=== PATIENT | male | born 1955 | race Caucasian/White ===

== ENCOUNTER 2018-06-06 13:26 | Inpatient (IN) | payer OTHER ==
[2018-06-06 13:38] VITALS: BMI 31.3
--- NOTE | 2018-06-06 14:16 | PDOC ---
History of Present Illness - General Chief Complaint: Shortness of Breath Stated Complaint: ASTHMA Time Seen by Provider: 06/06/18 13:58 - History of Present Illness Initial Comments: 06/06/18 14:39 The patient is a 62 year old male with a history of HIV (unknown CD4), COPD who presents for evaluation of shortness of breath. The patient is accompanied by family who assist in providing the history. They note that the patient is in the process of immigrating from [place] and was admitted to the hospital in [place] 20 days ago for a pneumonia and COPD exacerbation. He recently arrived in [place] 10 days ago and over the past few days has been experiencing worsening shortness of breath at rest and with exertion prompting his presentation to the ED for further evaluation. They otherwise deny any fevers, chills, chest pain, cough, nausea, vomiting, abdominal pain, or changes with urination or bowel movements. Past History - Past Medical History Allergies/Adverse Reactions: Allergies Allergy/AdvReac Type Severity Reaction Status Date / Time No Known Allergies Allergy Verified 06/06/18 13:33 Home Medications: Ambulatory Orders Efavirenz [Sustiva] 600 mg PO DAILY 06/07/18 COPD: Yes - Immunization History Immunization Up to Date: Yes - Suicide/Smoking/Psychosocial Hx Smoking History: Never smoked Information on smoking cessation initiated: No Hx Alcohol Use: No Drug/Substance Use Hx: No Review of Systems - Review of Systems Comments:: 06/06/18 14:42 Constitutional: No fevers, chills, fatigue, malaise HEENT: No Rhinorrhea, nasal congestion, visual changes Cardiovascular: No chest pain, syncope, palpitations, lightheadedness Respiratory: SOB. No Cough, Hemoptysis, Gastrointestinal: No Abdominal pain, Nausea, Vomiting, Constipation, Diarrhea, Melena Genitourinary: No Dysuria, Frequency, Urgency, Hesitancy, Hematuria, Flank pain Musculoskeletal: No Myalgia, arthralgia Skin: No rashes, itching, bruising, pallor Neurologic: No Headache, Dizziness, Numbness, Weakness, or Tingling Psychiatric: No Hallucinations. No SI or HI *Physical Exam - Vital Signs Last Vital Signs Temp Pulse Resp BP Pulse Ox 98.1 F 94 H 22 H 137/71 93 L 06/06/18 13:34 06/06/18 13:34 06/06/18 13:34 06/06/18 13:34 06/06/18 13:34 - Physical Exam Comments: 06/06/18 14:42 General Appearance: Nourished. No Apparent Distress HEENT: No Pharyngeal Erythema, Tonsillar Exudate, Tonsillar Erythema Neck: No Cervical Lymphadenopathy Respiratory/Chest: Normal Breath Sounds. Diffuse inspiratory and expiratory wheezing noted on exam. No Crackles, Rales, Rhonchi, Cardiovascular: Regular Rhythm, Regular Rate. No Murmur, Gallops, Rubs Gastrointestinal/Abdominal: Normal Bowel Sounds, Soft. No Guarding, Rebound, Tenderness Musculoskeletal: No CVA Tenderness Extremity: Normal Capillary Refill Integumentary: Normal Color, Dry, Warm Neurologic: Fully Oriented, Alert, Normal Mood/Affect, Normal Response, ED Treatment Course - LABORATORY CBC & Chemistry Diagram: 06/07/18 05:30 06/07/18 05:30 Medical Decision Making - Medical Decision Making 06/06/18 14:43 The patient is a 62 year old male with a history of HIV (unknown CD4), COPD who presents for evaluation of shortness of breath. Differential includes but is not limited to: COPD exacerbation, Pneumonia, PCP, Infectious, Metabolic derangement. Given the patient's history and physical exam, we will obtain a cbc, cmp, lactate, blood cultures, LDH, Infectious, Metabolic Derangement. We will treat with vanc, zosyn, bactrim, duonebs, solu-medrol and continue to monitor and reassess while here in the ED. The patient will likely require admission for further management. 06/06/18 16:36 CBC, cmp, lactate are unremarkable. Chest plain film demonstrated increased interstial lung markings bilaterally as read by our radiologist. We discussed the case with the admitting team who accepted the patient for admission. *DC/Admit/Observation/Transfer Diagnosis at time of Disposition: COPD exacerbation - Discharge Dispostion Condition at time of disposition: Stable Decision to Admit order: Yes - Referrals - Patient Instructions - Post Discharge Activity
[2018-06-06] MEDS ORDERED: ALBUTEROL SO4 2.5/IPRATROPIUM 0.5 INH SOL 3 ML VIAL.NEB. NEB ONE ×2 (14:21→14:55)
--- NOTE | 2018-06-06 14:30 | PDOC ---
Attending Attestation - HPI HPI: 06/06/18 14:51 The patient is a 62 year old male with a significant past medical history of HIV (on STRANGE), and COPD who presents to the emergency department with some increased shortness of breath for 1 month. The patient reports that he recently traveled from [facility] by which he was in [place] for about 20 days. He states that he was admitted while in [place] for pneumonia then treated and discharged. The patient reports coming to [place] about 10 days ago by which his shortness of breath has worsened on exertion. He denies any other symptoms or complaints on exam. - Physicial Exam PE: 06/06/18 15:10 Vitals: Triage vital signs reviewed General Appearance: No acute distress, well nourished, well developed Head: Atraumatic Chest Wall: Nontender Cardiac: Regular rate and rhythm, no murmurs, no rubs, no gallops Lungs: (+)crackles at left side. good air movement bilaterally Abdomen: Soft, nondistended, normal bowel sounds, nontender to palpation Extremities: Full range of motion to all extremities, no cyanosis, clubbing, or edema Skin: Warm and dry, no rashes or lesions, no rash, no petechiae Neuro: AOX3; Cranial Nerves 2-12 grossly intact, Strength intact to all extremities, Sensation intact to all extremities, gait normal Psych: Normal mood, normal affect - Medical Decision Making 06/06/18 14:54 The patient is a 62 year old male with a significant past medical history of HIV (on STRANGE), and COPD who presents to the emergency department with some increased shortness of breath for 1 month. The patient will get labs drawn, EKG , medication and chest x-ray. <Josie Hicks - Last Filed: 06/06/18 15:10> - Resident Resident Name: Malcolm Dey - ED Attending Attestation I have performed the following: I have examined & evaluated the patient, The case was reviewed & discussed with the resident, I agree w/resident's findings & plan, Exceptions are as noted - Medical Decision Making 06/06/18 16:06 62 years old HIV on heart presents emergency Department with progressively worsening shortness of breath and dyspnea on exertion Patient does have history and was recently treated for presumed PCP pneumonia in [place] Focal lung findings on cardiac pulmonary exam We'll obtain labs blood cultures chest x-ray likely admit for hospital-acquired pneumonia plus minus PCP pneumonia Dr. Galaviz to follow up labs and dispo <Albino Dominguez - Last Filed: 06/06/18 16:06> Attestations - Attestations 06/06/18 14:54 Documentation prepared by Josie Hicks, acting as medical coding technician for Albino Dominguez MD. <Josie Hicks - Last Filed: 06/06/18 15:10>
[2018-06-06] MEDS ORDERED: VANCOMYCIN HCL 1,500 MG in DEXTROSE 5%-WATER - 500 ML IVPB ONE (14:35)
[2018-06-06] MEDS ORDERED: PIPERACILLIN/TAZOB 4.5 GM 4.5 GM in DEXTROSE 5%-WATER 100 ML IVPB ONE (14:35)
[2018-06-06] MEDS ORDERED: methylPREDNISolone NA SUCC 125 MG/2 ML VIAL IVPUSH ONE (14:46)
[2018-06-06 15:00] LABS: BASO % 0.8 % (0-2.0); EOS % 1.2 % (0-4.5); HEMATOCRIT 39.7 % (35.4-49); HEMOGLOBIN 13.3 GM/dL (11.7-16.9); LYMPH % 27.3 % (8-40); MCH 37.9 pg (25.7-33.7); MCHC 33.5 g/dl (32.0-35.9); MEAN CELL VOLUME 113.3 fl (80-96); MEAN PLT VOLUME 7.9 fl (7.5-11.1); MONO % 7.8 % (3.8-10.2); NEUT % 62.9 % (42.8-82.8); PLATELET COUNT 275 K/MM3 (134-434); RDW 15.2 % (11.9-15.9); WHITE BLOOD COUNT 8.2 K/mm3 (4.0-10.0)
[2018-06-06] MEDS ORDERED: methylPREDNISolone NA SUCC 125 MG/2 ML VIAL ONE (15:13)
[2018-06-06] MEDS ORDERED: PIPERACILLIN/TAZOB 4.5 GM 4.5 GM/100 ML BAG IVPB ONE (15:13)
[2018-06-06 15:17] LABS: VENOUS PC02 44.5 mmHg (41-51); VENOUS PH 7.41 (7.31-7.41); VENOUS PO2 65.4 mmHg (30-40)
[2018-06-06 15:28] LABS: ANISOCYTOSIS 1+; MACROCYTOSIS 1+; PLATELET ESTIMATE NORMAL
[2018-06-06 15:30] LABS: ALBUMIN 3.3 g/dl (3.4-5.0); ALK PHOS 50 U/L (45-117); ANION GAP 6 MMOL/L (8-16); BILIRUBIN,TOTAL 0.2 mg/dL (0.2-1); BLOOD UREA NITROGEN 15 mg/dL (7-18); CALCIUM 7.8 mg/dL (8.5-10.1); CHLORIDE 102 mmol/L (98-107); CO2 30 mmol/L (21-32); CREATININE 0.7 mg/dL (0.55-1.3); GLUCOSE,RANDOM 101 mg/dL (74-106); N-TERMINAL BNP 89.7 pg/ml (5-125); SGOT/AST 19 U/L (15-37); SGPT/ALT 28 U/L (13-61); SODIUM 138 mmol/L (136-145); TOT PROT 6.4 g/dl (6.4-8.2)
[2018-06-06] MEDS ORDERED: SULFAMETHOXAZOLE/TRIMETHOPRIM 800MG/160MG D.S. TABLET PO ONE (15:56)
[2018-06-06] MEDS ORDERED: SULFAMETHOXAZOLE/TRIMETHOPRIM 800MG/160MG D.S. TABLET ONE (16:37)
[2018-06-06] MEDS ORDERED: ALBUTEROL SO4 0.083% IH SOL 2.5 MG/3 ML VIAL.NEB. NEB PRN (18:36)
--- NOTE | 2018-06-06 18:46 | PN ---
Teaching Attending Note Name of Resident: Shazia Nice ATTENDING PHYSICIAN STATEMENT I saw and evaluated the patient. I reviewed the resident's note and discussed the case with the resident. I agree with the resident's findings and plan as documented with exceptions below. SUBJECTIVE: 62 yom in the process of immigrating from [facility], with PMHx of HIV on HAART (? CD4 count), BPH, COPD, prior heavy smoker, recently admitted in [place] for reported PNA (?PCP) and COPD exacerbation for 10 days, d/franky 20 days ago, has been having persistent shortness of breath with cough with scant sputum, limiting daily activities prompting him to come to the ED. Denies any fevers, chills, recent weight loss, sick contacts, abdominal or urinary symptoms. OBJECTIVE: Vital Signs Period Temp Pulse Resp BP Sys/Clif[place] Pulse Ox Last 24 Hr 98.1 F-98.1 F 82-94 16-22 120-137/71-78 93-100 Intake & Output 06/03/18 06/04/18 06/05/18 06/06/18 23:59 23:59 23:59 23:59 Weight 200 lb GENERAL: Awake, alert, and fully oriented, mild respiratory distress with conversation HEAD: Normal with no signs of trauma. EYES: Pupils equal, round and reactive to light, extraocular movements intact, sclera anicteric, conjunctiva clear. No lid lag. EARS, NOSE, THROAT: Ears normal, nares patent, Oropharynx clear without exudates. Moist mucous membranes. NECK: Soft, supple, no JVD LUNGS: Fine right basilar rales, decreased air entry all over, no wheezing appreciated HEART: Regular rate and rhythm, normal S1 and S2 ABDOMEN: Soft, nontender, not distended, Normoactive bowel sounds, No guarding, no rebound, no masses. MUSCULOSKELETAL: Normal range of motion at all joints. No bony deformities or tenderness. No CVA tenderness. UPPER EXTREMITIES: 2+ pulses, warm, well-perfused. No cyanosis. No clubbing. No peripheral edema. LOWER EXTREMITIES: 2+ pulses, warm, well-perfused. No calf tenderness. No peripheral edema. NEUROLOGICAL: AAOX3, Cranial nerves II-XII intact. Normal speech. Normal gait. PSYCHIATRIC: Cooperative. Good eye contact. Appropriate mood and affect. SKIN: Warm, dry, normal turgor, no rashes or lesions noted, normal capillary refill. Active Medications Albuterol Sulfate (Ventolin 0.083% Nebulizer Soln -) 1 amp NEB Q4H PRN PRN Reason: SHORT OF BREATH/WHEEZING Albuterol/Ipratropium (Duoneb -) 1 amp NEB RTID GLENNY Heparin Sodium (Porcine) (Heparin -) 5,000 unit SQ TID GLENNY Azithromycin (Zithromax 500mg Ivpb (Pre-Docked)) 500 mg in 250 mls @ 250 mls/ hr IVPB DAILY GLENNY Sodium Chloride (Normal Saline -) 1,000 mls @ 100 mls/hr IV ASDIR GLENNY Methylprednisolone Sodium Succinate (Solu-Medrol -) 40 mg IVPB Q8H-IV GLENNY Trimethoprim/Sulfamethoxazole (Bactrim Ds -) 2 each PO TID GLENNY Laboratory Results - last 24 hr 06/06/18 06/06/18 06/06/18 14:47 14:47 14:47 WBC 8.2 RBC 3.50 L Hgb 13.3 Hct 39.7 MCV 113.3 H MCH 37.9 H MCHC 33.5 RDW 15.2 Plt Count 275 MPV 7.9 Absolute Neuts (auto) 5.1 Neutrophils % 62.9 Lymphocytes % 27.3 Monocytes % 7.8 Eosinophils % 1.2 Basophils % 0.8 Nucleated RBC % 0 Hypochromia 0 Platelet Estimate Normal Polychromasia 0 Poikilocytosis 0 Anisocytosis 1+ Microcytosis 0 Macrocytosis 1+ VBG pH POC VBG pCO2 POC VBG pO2 VBG HCO3 VBG O2 Sat (Josephine) VBG Base Excess Sodium 138 Potassium 4.0 Chloride 102 Carbon Dioxide 30 Anion Gap 6 L BUN 15 Creatinine 0.7 Creat Clearance w eGFR 114.65 Random Glucose 101 Lactic Acid 1.9 Calcium 7.8 L Total Bilirubin 0.2 AST 19 ALT 28 Alkaline Phosphatase 50 Creatine Kinase 142 Troponin I < 0.02 B-Natriuretic Peptide 89.7 Total Protein 6.4 Albumin 3.3 L 06/06/18 06/06/18 14:47 15:04 WBC RBC Hgb Hct MCV MCH MCHC RDW Plt Count MPV Absolute Neuts (auto) Neutrophils % Lymphocytes % Monocytes % Eosinophils % Basophils % Nucleated RBC % Hypochromia Platelet Estimate Polychromasia Poikilocytosis Anisocytosis Microcytosis Macrocytosis VBG pH 7.41 POC VBG pCO2 44.5 POC VBG pO2 65.4 H VBG HCO3 27.8 VBG O2 Sat (Josephine) 92.3 H VBG Base Excess 3.2 H Sodium Potassium Chloride Carbon Dioxide Anion Gap BUN Creatinine Creat Clearance w eGFR Random Glucose Lactic Acid Calcium Total Bilirubin AST ALT Alkaline Phosphatase Creatine Kinase Troponin I < 0.02 B-Natriuretic Peptide Total Protein Albumin CXR resutlts reviewed ASSESSMENT AND PLAN: 62 yom with PMHx of HIV on HAART, BPH, COPD, reported recent admission in [place] for PNA(?PCP)?COPD exacerbation, admitted with progressive dyspnea. -Acute on ?Chronic hypoxic respiratory failure. -?HCAP, r/o PCP -ACute COPD exacerbation -HIV on HAART -BPH Plan: SOn to bring in prior records and medications. Solumedrol 40 mg IV q8h, standing and prn nebs. CT chest. s/p Zosyn/vancomycin in ED. Hold off on additional abx pending ID input, CT chest and clinical course. Bactrim PCP PNA dosing, ID input. IV hydration. SPutum cx if available. Resume HAART pending med reconciliation. Follow up LDH, B D glucan. Pulmonary input. DVTPPX heparin dispo admit to med surg Plan discussed with patient and ED nursing. Total admit time spent 55 min.
[2018-06-06 18:57] LABS: PH,URINE 7.5 (5.0-8.0); URINE APPEARANCE CLEAR; URINE BILIRUBIN NEGATIVE (NEGATIVE); URINE COLOR YELLOW; URINE GLUCOSE (UA) NEGATIVE (NEGATIVE); URINE KETONE NEGATIVE (NEGATIVE); URINE LEUK ESTERASE NEGATIVE (NEGATIVE); URINE NITRITE NEGATIVE (NEGATIVE); URINE PROTEIN NEGATIVE (NEGATIVE); URINE UROBILINOGEN 0.2 mg/dL (0.2-1.0)
--- NOTE | 2018-06-06 18:58 | HP ---
CHIEF COMPLAINT: SOB PCP:none HISTORY OF PRESENT ILLNESS: The patient is a 62 year old Surinamese speaking male with a PMH of HIV (for 10 years, unknown viral load, on HAART), COPD, former heavy smoker, COPD, BPH that presented to the hospital complaining of shortness of breath that got progressively worse over the past month. He moved to [place] about month ago and was hospitalized in [place] for 10 days for pneumonia. After finishing antibiotic course he was discharged home to continue Prednisone. He doesn't know what is the dose. The patient states that since the discharged his symptoms are getting worse to the point that he experiences shortness of breath with daily activities. He also reports occasional cough, brings small amount of phlegm, no blood. He denies sick contacts, pneumonia in the past. The patient is also compliant with his medications . He denies chest pain, fever, chills, weight changes, vision problems, dysphagia, n/v, diarrhea. ER course was notable for: (1)CXR (2)Bactrim, Vancomycin, Zosyn (3)Oxygen suppl. Recent Travel: month ago from [place] PAST MEDICAL HISTORY: as above PAST SURGICAL HISTORY: none Social History: Smoking:quit month ago. Used to smoke 1 pp/day for 16 years Alcohol:occasionally Drugs: no Family History: n/a Allergies No Known Allergies Allergy (Verified 06/06/18 13:33) HOME MEDICATIONS: REVIEW OF SYSTEMS CONSTITUTIONAL: Absent: fever, chills, diaphoresis, generalized weakness, malaise, loss of appetite, weight change HEENT: Absent: rhinorrhea, throat pain, throat swelling, difficulty swallowing, visual changes CARDIOVASCULAR: Absent: chest pain, syncope, palpitations, irregular heart rate, lightheadedness , peripheral edema RESPIRATORY: cough, shortness of breath, Absent: dyspnea with exertion, orthopnea, wheezing, hemoptysis GASTROINTESTINAL: Absent: abdominal pain, nausea, vomiting, diarrhea, constipation GENITOURINARY: Absent: dysuria, frequency, urgency, hematuria, MUSCULOSKELETAL: Absent: myalgia, arthralgia, joint swelling, back pain, neck pain SKIN: Absent: rash, itching, pallor HEMATOLOGIC/IMMUNOLOGIC: Absent: easy bleeding, easy bruising, lymphadenopathy, frequent infections ENDOCRINE: Absent: unexplained weight gain, unexplained weight loss, heat intolerance, cold intolerance NEUROLOGIC: Absent: headache, focal weakness or paresthesias, dizziness, unsteady gait, seizure PSYCHIATRIC: Absent: anxiety, depression PHYSICAL EXAMINATION Vital Signs - 24 hr 06/06/18 06/06/18 06/06/18 13:33 13:34 14:31 Temperature 98.1 F 98.1 F Pulse Rate 87 94 H Pulse Rate [ 82 Apical] Respiratory 22 H 16 Rate Blood Pressure 137/71 Blood Pressure 120/78 [Left Arm] O2 Sat by Pulse 100 93 L 98 Oximetry (%) GENERAL: Awake, alert, and fully oriented, in no acute distress, sitting comfortably on NC. HEAD: Normal with no signs of trauma. EYES: Pupils equal, round and reactive to light, extraocular movements intact. EARS, NOSE, THROAT: Oropharynx clear without exudates, moist mucous membranes. NECK: Normal range of motion, supple without lymphadenopathy, JVD, or masses. LUNGS: Breath sounds diminished wih occasional rhonchi at bases. No wheezes, and no crackles. No accessory muscle use. HEART: Regular rate and rhythm, normal S1 and S2 without murmur, rub or gallop. ABDOMEN: Soft, nontender, not distended, normoactive bowel sounds, no guarding, no rebound, no masses. MUSCULOSKELETAL: Normal range of motion at all joints. UPPER EXTREMITIES: 2+ pulses, warm. No peripheral edema. LOWER EXTREMITIES: No peripheral edema. NEUROLOGICAL: Non focal. Normal speech. PSYCHIATRIC: Cooperative. Good eye contact. Appropriate mood and affect. SKIN: Warm, dry, normal turgor, no rashes or lesions noted. Laboratory Results - last 24 hr 06/06/18 06/06/18 06/06/18 14:47 14:47 14:47 WBC 8.2 RBC 3.50 L Hgb 13.3 Hct 39.7 MCV 113.3 H MCH 37.9 H MCHC 33.5 RDW 15.2 Plt Count 275 MPV 7.9 Absolute Neuts (auto) 5.1 Neutrophils % 62.9 Lymphocytes % 27.3 Monocytes % 7.8 Eosinophils % 1.2 Basophils % 0.8 Nucleated RBC % 0 Hypochromia 0 Platelet Estimate Normal Polychromasia 0 Poikilocytosis 0 Anisocytosis 1+ Microcytosis 0 Macrocytosis 1+ VBG pH POC VBG pCO2 POC VBG pO2 VBG HCO3 VBG O2 Sat (Josephine) VBG Base Excess Sodium 138 Potassium 4.0 Chloride 102 Carbon Dioxide 30 Anion Gap 6 L BUN 15 Creatinine 0.7 Creat Clearance w eGFR 114.65 Random Glucose 101 Lactic Acid 1.9 Calcium 7.8 L Total Bilirubin 0.2 AST 19 ALT 28 Alkaline Phosphatase 50 Creatine Kinase 142 Troponin I < 0.02 B-Natriuretic Peptide 89.7 Total Protein 6.4 Albumin 3.3 L 06/06/18 06/06/18 14:47 15:04 WBC RBC Hgb Hct MCV MCH MCHC RDW Plt Count MPV Absolute Neuts (auto) Neutrophils % Lymphocytes % Monocytes % Eosinophils % Basophils % Nucleated RBC % Hypochromia Platelet Estimate Polychromasia Poikilocytosis Anisocytosis Microcytosis Macrocytosis VBG pH 7.41 POC VBG pCO2 44.5 POC VBG pO2 65.4 H VBG HCO3 27.8 VBG O2 Sat (Josephine) 92.3 H VBG Base Excess 3.2 H Sodium Potassium Chloride Carbon Dioxide Anion Gap BUN Creatinine Creat Clearance w eGFR Random Glucose Lactic Acid Calcium Total Bilirubin AST ALT Alkaline Phosphatase Creatine Kinase Troponin I < 0.02 B-Natriuretic Peptide Total Protein Albumin ASSESSMENT/PLAN: The patient is a 62 year old [place]inamese speaking male with a PMH of HIV (for 10 years, unknown viral load, on HAART), COPD, former heavy smoker, COPD, BPH that presented to the hospital complaining of shortness of breath that got progressively worse over the past month. SOB: -likely due to COPD exacerbation but also possible PCP pneumonia in light of history of HIV with unknown viral load and compliance to medications, CXR with increased markings, no infiltrate. -given Solumedrol 125 mg once, will continue Solu medrol 40 mg IV Q8h -given Bactrim in ED, will continue -will ashley add coverage for atypicals, cont Azzithromycin 500 mg qd -will check CD4/CD8 counts -will f/u Legionella antigen in urine -Duonebs and Albuterol -Oxygen Supplementation, 2 L HIV: -will continue home meds when list available -CD4/CD8 ordered -will follow up ID recommendations -UA pending BPH: -will continue medications when list available Macrocytosis: -will check folate, B12 levels F/E/N: no/no changes/Regular DVT PPX: heparin sq Dispo: med surg Awaiting medication list from son - Problem List - Problem (1) HIV (human immunodeficiency virus infection) Code(s): B20 - HUMAN IMMUNODEFICIENCY VIRUS [HIV] DISEASE (2) COPD exacerbation Code(s): J44.1 - CHRONIC OBSTRUCTIVE PULMONARY DISEASE W (ACUTE) EXACERBATION Visit type - Emergency Visit Emergency Visit: Yes ED Registration Date: 06/06/18 Care time: The patient presented to the Emergency Department on the above date and was hospitalized for further evaluation of their emergent condition. - New Patient This patient is new to me today: Yes Date on this admission: 06/06/18 - Critical Care Critical Care patient: No
[2018-06-06] MEDS ORDERED: AZITHROMYCIN IVPB 500 MG/250 ML BAG IVPB SCH (19:00)
[2018-06-06] MEDS: ALBUTEROL SO4 2.5/IPRATROPIUM 0.5 INH SOL 3 ML VIAL.NEB. NEB SCH (21:14)
[2018-06-06] MEDS: SODIUM CHLORIDE 1,000 ML IV SCH (21:53)
[2018-06-06] MEDS: SULFAMETHOXAZOLE/TRIMETHOPRIM 800MG/160MG D.S. TABLET PO SCH (21:54)
[2018-06-06] MEDS: methylPREDNISolone NA SUCC 40 MG/1 ML VIAL IVPB SCH (21:58)
[2018-06-06] MEDS: HEPARIN NA (PORCINE) 5,000 UNITS/ML 1ML VIAL SQ SCH (22:06)
[2018-06-07] MEDS ORDERED: SULFAMETHOXAZOLE 80 MG/TRIMETHOPRIM 16 MG/ML VIAL IVPB SCH (02:00)
[2018-06-07] MEDS: methylPREDNISolone NA SUCC 40 MG/1 ML VIAL IVPB SCH ×3 (03:04→17:35)
[2018-06-07] MEDS: HEPARIN NA (PORCINE) 5,000 UNITS/ML 1ML VIAL SQ SCH ×3 (05:31→21:28)
[2018-06-07] MEDS: SULFAMETHOXAZOLE/TRIMETHOPRIM 800MG/160MG D.S. TABLET PO SCH ×2 (05:31→13:27)
[2018-06-07] MEDS: SODIUM CHLORIDE 1,000 ML IV SCH ×2 (06:39→17:37)
[2018-06-07 08:14] LABS: BASO % 0.1 % (0-2.0); HEMATOCRIT 38.4 % (35.4-49); HEMOGLOBIN 12.7 GM/dL (11.7-16.9); LYMPH % 9.4 % (8-40); MCH 37.5 pg (25.7-33.7); MCHC 33.2 g/dl (32.0-35.9); MEAN CELL VOLUME 113.1 fl (80-96); MEAN PLT VOLUME 8.2 fl (7.5-11.1); MONO % 1.2 % (3.8-10.2); NEUT % 89.3 % (42.8-82.8); PLATELET COUNT 280 K/MM3 (134-434); RDW 14.8 % (11.9-15.9); WHITE BLOOD COUNT 7.5 K/mm3 (4.0-10.0)
[2018-06-07 08:25] LABS: INR 0.95 (0.83-1.09); PROTHROMBIN TIME (PATIENT) 11.2 SEC (9.7-13.0)
[2018-06-07 08:28] LABS: ACTIVATED PTT 28.8 SECONDS (25.2-36.5)
[2018-06-07] MEDS: ALBUTEROL SO4 2.5/IPRATROPIUM 0.5 INH SOL 3 ML VIAL.NEB. NEB SCH ×3 (08:49→21:00)
[2018-06-07 09:05] LABS: ALK PHOS 40 U/L (45-117); ANION GAP 9 MMOL/L (8-16); BILIRUBIN,TOTAL 0.4 mg/dL (0.2-1); BLOOD UREA NITROGEN 15 mg/dL (7-18); CALCIUM 8.1 mg/dL (8.5-10.1); CHLORIDE 102 mmol/L (98-107); CO2 24 mmol/L (21-32); CREATININE 0.7 mg/dL (0.55-1.3); GLUCOSE,RANDOM 137 mg/dL (74-106); MAGNESIUM 2.1 mg/dL (1.8-2.4); POTASSIUM 4.4 mmol/L (3.5-5.1); SGOT/AST 16 U/L (15-37); SGPT/ALT 26 U/L (13-61); SODIUM 135 mmol/L (136-145); TOT PROT 6.2 g/dl (6.4-8.2)
--- NOTE | 2018-06-07 10:57 | PN ---
Physical Exam: SUBJECTIVE: Patient seen and examined, breathing improved. Overall feels better , no new fevers, chills or concerns. OBJECTIVE: Vital Signs Period Temp Pulse Resp BP Sys/Clifton Pulse Ox Last 24 Hr 97.6 F-98.7 F 82-109 16-22 97-137/51-78 92-100 Intake & Output 06/04/18 06/05/18 06/06/18 06/07/18 23:59 23:59 23:59 23:59 Intake Total 400 1140 Output Total 950 Balance 400 190 Weight 200 lb General: sitting in bed, mild tachypnea, able to speak in full sentences Neck: soft, supple Chest: decreased air entry all over, few right basilar rales, no wheezing currently Abdomen:soft, obese, NT Extremities: no edema, positive pulses CVS:S1S2 regular Laboratory Results - last 24 hr 06/06/18 06/06/18 06/06/18 14:47 14:47 14:47 WBC 8.2 RBC 3.50 L Hgb 13.3 Hct 39.7 MCV 113.3 H MCH 37.9 H MCHC 33.5 RDW 15.2 Plt Count 275 MPV 7.9 Absolute Neuts (auto) 5.1 Neutrophils % 62.9 Lymphocytes % 27.3 Monocytes % 7.8 Eosinophils % 1.2 Basophils % 0.8 Nucleated RBC % 0 Hypochromia 0 Platelet Estimate Normal Polychromasia 0 Poikilocytosis 0 Anisocytosis 1+ Microcytosis 0 Macrocytosis 1+ PT with INR INR PTT (Actin FS) VBG pH POC VBG pCO2 POC VBG pO2 VBG HCO3 VBG O2 Sat (Josephine) VBG Base Excess Sodium 138 Potassium 4.0 Chloride 102 Carbon Dioxide 30 Anion Gap 6 L BUN 15 Creatinine 0.7 Creat Clearance w eGFR 114.65 Random Glucose 101 Lactic Acid 1.9 Calcium 7.8 L Phosphorus Magnesium Total Bilirubin 0.2 AST 19 ALT 28 Alkaline Phosphatase 50 Creatine Kinase 142 Troponin I < 0.02 B-Natriuretic Peptide 89.7 Total Protein 6.4 Albumin 3.3 L Vitamin B12 Serum Folate Urine Color Urine Appearance Urine pH Ur Specific [place] Urine Protein Urine Glucose (UA) Urine Ketones Urine Blood Urine Nitrite Urine Bilirubin Urine Urobilinogen Ur Leukocyte Esterase 06/06/18 06/06/18 06/06/18 14:47 15:04 18:48 WBC RBC Hgb Hct MCV MCH MCHC RDW Plt Count MPV Absolute Neuts (auto) Neutrophils % Lymphocytes % Monocytes % Eosinophils % Basophils % Nucleated RBC % Hypochromia Platelet Estimate Polychromasia Poikilocytosis Anisocytosis Microcytosis Macrocytosis PT with INR INR PTT (Actin FS) VBG pH 7.41 POC VBG pCO2 44.5 POC VBG pO2 65.4 H VBG HCO3 27.8 VBG O2 Sat (Josephine) 92.3 H VBG Base Excess 3.2 H Sodium Potassium Chloride Carbon Dioxide Anion Gap BUN Creatinine Creat Clearance w eGFR Random Glucose Lactic Acid Calcium Phosphorus Magnesium Total Bilirubin AST ALT Alkaline Phosphatase Creatine Kinase Troponin I < 0.02 B-Natriuretic Peptide Total Protein Albumin Vitamin B12 Serum Folate Urine Color Yellow Urine Appearance Clear Urine pH 7.5 Ur Specific [place] 1.015 Urine Protein Negative Urine Glucose (UA) Negative Urine Ketones Negative Urine Blood Negative Urine Nitrite Negative Urine Bilirubin Negative Urine Urobilinogen 0.2 Ur Leukocyte Esterase Negative 06/07/18 06/07/18 06/07/18 05:30 05:30 05:30 WBC 7.5 RBC 3.40 L Hgb 12.7 Hct 38.4 MCV 113.1 H MCH 37.5 H MCHC 33.2 RDW 14.8 Plt Count 280 MPV 8.2 Absolute Neuts (auto) 6.7 Neutrophils % 89.3 H D Lymphocytes % 9.4 D Monocytes % 1.2 L D Eosinophils % 0.0 D Basophils % 0.1 Nucleated RBC % 0 Hypochromia Platelet Estimate Polychromasia Poikilocytosis Anisocytosis Microcytosis Macrocytosis PT with INR 11.20 INR 0.95 PTT (Actin FS) 28.8 VBG pH POC VBG pCO2 POC VBG pO2 VBG HCO3 VBG O2 Sat (Josephine) VBG Base Excess Sodium 135 L Potassium 4.4 Chloride 102 Carbon Dioxide 24 Anion Gap 9 BUN 15 Creatinine 0.7 Creat Clearance w eGFR 114.65 Random Glucose 137 H Lactic Acid Calcium 8.1 L Phosphorus 4.0 Magnesium 2.1 Total Bilirubin 0.4 AST 16 ALT 26 Alkaline Phosphatase 40 L Creatine Kinase Troponin I B-Natriuretic Peptide Total Protein 6.2 L Albumin 3.0 L Vitamin B12 352 Serum Folate 10 Urine Color Urine Appearance Urine pH Ur Specific [place] Urine Protein Urine Glucose (UA) Urine Ketones Urine Blood Urine Nitrite Urine Bilirubin Urine Urobilinogen Ur Leukocyte Esterase Active Medications Generic Name Dose Route Start Last Admin Trade Name Freq PRN Reason Stop Dose Admin Albuterol Sulfate 1 amp 06/06/18 18:36 Ventolin 0.083% Nebulizer Soln - NEB Q4H PRN SHORT OF BREATH/WHEEZING Albuterol/Ipratropium 1 amp 06/06/18 20:00 06/07/18 08:49 Duoneb - NEB 1 amp RTID GLENNY Administration Heparin Sodium (Porcine) 5,000 unit 06/06/18 22:00 06/07/18 05:31 Heparin - SQ 5,000 unit TID GLENNY Administration Sodium Chloride 1,000 mls @ 100 mls/hr 06/06/18 18:45 06/07/18 06:39 Normal Saline - IV 100 mls/hr ASDIR GLENNY Administration Methylprednisolone Sodium Succinate 40 mg 06/06/18 22:00 06/07/18 10:43 Solu-Medrol - IVPB 40 mg Q8H-IV GLENNY Administration Trimethoprim/Sulfamethoxazole 2 each 06/06/18 22:00 06/07/18 05:31 Bactrim Ds - PO 2 each TID GLENNY Administration CT chest results reviewed Microbiology 06/06/18 18:48 Urine - Urine Clean Catch Legionella Antigen - Preliminary 06/06/18 18:48 Urine - Urine Clean Catch Streptococcus pneumoniae Antigen ( M - Preliminary ASSESSMENT/PLAN: 62 yom with PMHx of HIV on HAART, BPH, COPD, reported recent admission in [place] for PNA/COPD excacerbation/sepsis, treated with cefepime/vancomycin/steroids, dced on levaquin/prednsione admitted with progressive dyspnea. -Dyspnea, suspect acute COPD excaerbation -Acute hypoxic respiratory distress -Low suspicion for new PNA, r/o PCP -HIV on HAART -BPH Plan: Prior records reviewed. Patient treated with cefepime/vanco/steroids, d/franky on levaquin/prednisone. CT chest reviewed. Clinically improved Continue solumedrol/standing and prn nebs. Low suspicion for PCP PNA, follow up CD4 count, LDH/b-glucan and continue per ID. Urine PNA studies neg. Sputum cx if available. Resume Sustiva Pulmonary input. DVTPPX heparin dispo dc in 2-3 days if continues to improve and no new infectious concerns. Plan discussed with patient, nursing and ID, all questions answered. Visit type - Emergency Visit Emergency Visit: Yes ED Registration Date: 06/06/18 Care time: The patient presented to the Emergency Department on the above date and was hospitalized for further evaluation of their emergent condition. - New Patient This patient is new to me today: No - Critical Care Critical Care patient: No - Discharge Referral Referred to [facility] Med P.C.: No
[2018-06-07 12:09] LABS: LDH 192 U/L (87-246)
--- NOTE | 2018-06-07 12:31 | PN ---
Progress Note (short form) - Note Progress Note: ID consult dictated [email or web address] 62 yo man with PMH HIV for 10 years, on meds for last 5, history of cigarette smoking- reports he stopped 2 years ago when his breathing became bad has had sob for 2 years denies fevers here form [place] was hospitalized in [place] from 05/20 to 05/26 discharged on prednisone taper ,ventolin HFA, sustiva, combivir he was treated with levaquin while hospitalized yesterday he went to a clinic in [facility] for SOB came to ED yesterday with c/o SOB no fevers, weight gain does not know his tcells doesnot know his TB status history via [place] [id number] cxray and chest ct are negative ldh is normal suspect this is a copd exacerbation would check influenza antigen regarding HIV continue combivir and sustiva f/u cd4 count he reports adherence with meds Problem List - Problems (1) HIV (human immunodeficiency virus infection) Code(s): B20 - HUMAN IMMUNODEFICIENCY VIRUS [HIV] DISEASE (2) COPD exacerbation Code(s): J44.1 - CHRONIC OBSTRUCTIVE PULMONARY DISEASE W (ACUTE) EXACERBATION
[2018-06-07] MEDS ORDERED: PT OWN MED DRAWER 7, Y5N ONE ×3 (13:25→20:45)
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
--- NOTE | 2018-06-07 14:29 | CON.PULM ---
Consult Consult Specialty:: PULMONARY Referred by:: Dr Montana Reason for Consultation:: shortness of breath - History of Present Illness Chief Complaint: shortness of breath History of Present Illness: 62yo male with h/o HIV, COPD, BPH who was admitted with worsening shortness of breath. Denies chest pain or palpitations. No fevers, chills or sweats. Cough with mostly nonproductive with some wheezing. No leg swelling or orthopnea. He is a former smoker. Recently hospitalized for pneumonia. Unknown CD4 count, reports compliance with medications. CT chest done without significant findings. - History Source History Provided By: Patient, Medical Record Limitations to Obtaining History: Language Barrier - Past Medical History Pulmonary: Yes: COPD Infectious Disease: Yes: HIV - Alcohol/Substance Use Hx Alcohol Use: No - Smoking History Smoking history: Never smoked Have you smoked in the past 12 months: Yes Aproximately how many cigarettes per day: 20 If you are a former smoker, when did you quit?: 30days ago Home Medications - Allergies Allergies/Adverse Reactions: Allergies Allergy/AdvReac Type Severity Reaction Status Date / Time No Known Allergies Allergy Verified 06/06/18 13:33 - Home Medications Home Medications: Ambulatory Orders Efavirenz [Sustiva] 600 mg PO DAILY 06/07/18 Review of Systems - Review of Systems Constitutional: denies: Chills, Fever Eyes: denies: Recent Change in Vision HENT: denies: Nasal Congestion, Throat Pain Neck: denies: Stiffness, Tenderness Cardiovascular: reports: Shortness of Breath. denies: Chest Pain, Edema, Palpitations Respiratory: reports: Cough, SOB on Exertion, Wheezing. denies: Hemoptysis Gastrointestinal: denies: Abdominal Pain, Nausea, Vomiting Genitourinary: denies: Dysuria, Hematuria Neurological: denies: Dizziness, Headache Endocrine: denies: Unexplained Weight Loss Physical Exam Vital Sings: Vital Signs Temperature 98.5 F 06/07/18 09:00 Pulse Rate 109 H 06/07/18 09:00 Respiratory Rate 18 06/07/18 09:00 Blood Pressure 126/63 06/07/18 09:00 O2 Sat by Pulse Oximetry (%) 92 L 06/07/18 09:00 Constitutional: Yes: Mild Distress (mildly tachypneic with speaking) Eyes: Yes: Conjunctiva Clear, EOM Intact HENT: Yes: Atraumatic, Normocephalic Neck: Yes: Supple, Trachea Midline Cardiovascular: Yes: Regular Rate and Rhythm Respiratory: Yes: Rhonchi (scattered) ...Clubbing: No Gastrointestinal: Yes: Normal Bowel Sounds, Soft. No: Tenderness Edema: No Neurological: Yes: Alert, Oriented Labs: CBC, BMP 06/07/18 05:30 06/07/18 05:30 Imaging - Results Chest X-ray: Report Reviewed, Image Reviewed Cat Scan: Report Reviewed, Image Reviewed (no infiltrates) Problem List - Problems (1) COPD exacerbation Code(s): J44.1 - CHRONIC OBSTRUCTIVE PULMONARY DISEASE W (ACUTE) EXACERBATION (2) HIV (human immunodeficiency virus infection) Code(s): B20 - HUMAN IMMUNODEFICIENCY VIRUS [HIV] DISEASE Assessment/Plan Acute COPD Exacerbation Acute Hypoxic Respiratory Failure HIV - IV medrol - inhaled bronchodilators - O2 to keep SpO2>90% - f/u CD4 count - low suspicion for opportunistic infection with clear CT chest - DVT prophylaxis - will need outpt PFTs
[2018-06-07] MEDS: lamiVUDine/ZIDOVUDINE 150/300 1 COMBO TABLET PO SCH ×2 (14:42→21:28)
[2018-06-07] MEDS: EFAVIRENZ 600 MG TABLET PO SCH (14:43)
[2018-06-08] MEDS: methylPREDNISolone NA SUCC 40 MG/1 ML VIAL IVPB SCH ×3 (02:56→21:35)
[2018-06-08] MEDS: SODIUM CHLORIDE 1,000 ML IV SCH (04:47)
[2018-06-08] MEDS: HEPARIN NA (PORCINE) 5,000 UNITS/ML 1ML VIAL SQ SCH ×3 (06:39→21:35)
[2018-06-08 07:37] LABS: BASO % 0.1 % (0-2.0); HEMATOCRIT 37.9 % (35.4-49); HEMOGLOBIN 12.7 GM/dL (11.7-16.9); LYMPH % 7.9 % (8-40); MCH 37.9 pg (25.7-33.7); MCHC 33.5 g/dl (32.0-35.9); MEAN CELL VOLUME 113.4 fl (80-96); MEAN PLT VOLUME 7.8 fl (7.5-11.1); MONO % 4.3 % (3.8-10.2); NEUT % 87.7 % (42.8-82.8); PLATELET COUNT 268 K/MM3 (134-434); RBC 3.34 M/mm3 (4.00-5.60); RDW 15.3 % (11.9-15.9); WHITE BLOOD COUNT 11.2 K/mm3 (4.0-10.0)
[2018-06-08] MEDS: ALBUTEROL SO4 2.5/IPRATROPIUM 0.5 INH SOL 3 ML VIAL.NEB. NEB SCH ×3 (07:54→20:05)
[2018-06-08 08:05] LABS: ALBUMIN 3.2 g/dl (3.4-5.0); ALK PHOS 43 U/L (45-117); ANION GAP 7 MMOL/L (8-16); BILIRUBIN,TOTAL 0.4 mg/dL (0.2-1); BLOOD UREA NITROGEN 16 mg/dL (7-18); CALCIUM 8.4 mg/dL (8.5-10.1); CHLORIDE 102 mmol/L (98-107); CO2 26 mmol/L (21-32); CREATININE 0.8 mg/dL (0.55-1.3); GLUCOSE,RANDOM 131 mg/dL (74-106); MAGNESIUM 2.3 mg/dL (1.8-2.4); PHOSPHOROUS 3.4 mg/dL (2.5-4.9); POTASSIUM 4.6 mmol/L (3.5-5.1); SGOT/AST 16 U/L (15-37); SGPT/ALT 27 U/L (13-61); SODIUM 135 mmol/L (136-145); TOT PROT 6.4 g/dl (6.4-8.2)
[2018-06-08] MEDS: lamiVUDine/ZIDOVUDINE 150/300 1 COMBO TABLET PO SCH ×2 (11:12→21:36)
[2018-06-08] MEDS: EFAVIRENZ 600 MG TABLET PO SCH (11:12)
--- NOTE | 2018-06-08 11:41 | PN ---
Physical Exam: SUBJECTIVE: Patient seen and examined, breathing improved, no new fevers, chills or concerns. OBJECTIVE: Vital Signs Period Temp Pulse Resp BP Sys/Clifton Pulse Ox Last 24 Hr 97.0 F-98.0 F 94-113 20-22 119-133/63-71 94 GENERAL: The patient is awake, alert, and fully oriented, in no acute distress. HEAD: Normal with no signs of trauma. EYES: PERRL, extraocular movements intact, sclera anicteric, conjunctiva clear. No ptosis. ENT: Ears normal, nares patent, oropharynx clear without exudates, moist mucous membranes. NECK: Trachea midline, full range of motion, supple. LUNGS: markedly improved air entry, no no rales or wheezing appreciated HEART: Regular rate and rhythm, S1, S2 ABDOMEN: Soft, nontender, nondistended, normoactive bowel sounds, no guarding, no rebound, EXTREMITIES: 2+ pulses, warm, well-perfused, no edema. PSYCH: Normal mood, normal affect. SKIN: Warm, dry, normal turgor, no rashes or lesions noted Laboratory Results - last 24 hr 06/07/18 06/08/18 06/08/18 05:30 02:00 05:15 WBC 11.2 H RBC 3.34 L Hgb 12.7 Hct 37.9 MCV 113.4 H MCH 37.9 H MCHC 33.5 RDW 15.3 Plt Count 268 MPV 7.8 Absolute Neuts (auto) 9.8 H Neutrophils % 87.7 H Lymphocytes % 7.9 L Monocytes % 4.3 D Eosinophils % 0.0 Basophils % 0.1 Nucleated RBC % 0 Sodium Potassium Chloride Carbon Dioxide Anion Gap BUN Creatinine Creat Clearance w eGFR Random Glucose Calcium Phosphorus Magnesium Total Bilirubin AST ALT Alkaline Phosphatase LD Total 192 Total Protein Albumin Influenza A (Rapid) Negative Influenza B (Rapid) Negative 06/08/18 05:15 WBC RBC Hgb Hct MCV MCH MCHC RDW Plt Count MPV Absolute Neuts (auto) Neutrophils % Lymphocytes % Monocytes % Eosinophils % Basophils % Nucleated RBC % Sodium 135 L Potassium 4.6 Chloride 102 Carbon Dioxide 26 Anion Gap 7 L BUN 16 Creatinine 0.8 Creat Clearance w eGFR 98.28 Random Glucose 131 H Calcium 8.4 L Phosphorus 3.4 Magnesium 2.3 Total Bilirubin 0.4 AST 16 ALT 27 Alkaline Phosphatase 43 L LD Total Total Protein 6.4 Albumin 3.2 L Influenza A (Rapid) Influenza B (Rapid) Active Medications Generic Name Dose Route Start Last Admin Trade Name Freq PRN Reason Stop Dose Admin Albuterol Sulfate 1 amp 06/06/18 18:36 Ventolin 0.083% Nebulizer Soln - NEB Q4H PRN SHORT OF BREATH/WHEEZING Albuterol/Ipratropium 1 amp 06/06/18 20:00 06/08/18 07:54 Duoneb - NEB 1 amp RTID GLENNY Administration Efavirenz 600 mg 06/07/18 11:45 06/08/18 11:12 Sustiva - PO 600 mg DAILY GLENNY Administration Heparin Sodium (Porcine) 5,000 unit 06/06/18 22:00 06/08/18 06:39 Heparin - SQ 5,000 unit TID GLENNY Administration Lamivudine/Zidovudine 1 tablet 06/07/18 12:30 06/08/18 11:12 Combivir Tablet 150/300 - PO 1 tablet BID GLENNY Administration Methylprednisolone Sodium Succinate 40 mg 06/08/18 20:00 Solu-Medrol - IVPB Q12H [facility] Microbiology 06/06/18 14:47 Blood - Peripheral Venous Blood Culture - Preliminary NO GROWTH OBTAINED AFTER 24 HOURS, INCUBATION TO CONTINUE FOR 4 DAYS. 06/06/18 14:47 Blood - Peripheral Venous Blood Culture - Preliminary NO GROWTH OBTAINED AFTER 24 HOURS, INCUBATION TO CONTINUE FOR 4 DAYS. 06/06/18 18:48 Urine - Urine Clean Catch Legionella Antigen - Final 06/06/18 18:48 Urine - Urine Clean Catch Streptococcus pneumoniae Antigen ( M - Final ASSESSMENT/PLAN: 62 yom with PMHx of HIV on HAART, BPH, COPD, reported recent admission in [place] for PNA/COPD excacerbation/sepsis, treated with cefepime/vancomycin/steroids, dced on levaquin/prednsione admitted with progressive dyspnea. -Dyspnea, suspect acute COPD excaerbation -Acute hypoxic respiratory distress -HIV on HAART -BPH Plan: Prior records reviewed. Patient treated with cefepime/vanco/steroids, d/franky on levaquin/prednisone. CT chest reviewed. Clinically improved taper solumedrol to q12h. Standing and prn nebs. ID/Pulmonary input appreciated, less likely infectious. Off bactrim. Follow up CD4 count. Urine PNA studies neg. Sputum cx if available. Continue HAART. DVTPPX heparin dispo dc in 2-3 days if continues to improve and no new infectious concerns. Check ambulatory oxygen saturations Plan discussed with patient, nursing and CM, all questions answered. Visit type - Emergency Visit Emergency Visit: Yes ED Registration Date: 06/06/18 Care time: The patient presented to the Emergency Department on the above date and was hospitalized for further evaluation of their emergent condition. - New Patient This patient is new to me today: No - Critical Care Critical Care patient: No - Discharge Referral Referred to [facility] Med P.C.: No
--- NOTE | 2018-06-08 11:55 | PN ---
Progress Note (short form) - Note Progress Note: PULMONARY States breathing is improving. No cough or wheezing. Vital Signs Period Temp Pulse Resp BP Sys/Clifton Pulse Ox Last 24 Hr 97.0 F-98.0 F 94-113 20-22 119-133/63-71 94 Gen: NAD at rest Heart: RRR Lung: decreased breath sounds at the bases Abd: soft, nontender Ext: no edema CBC, BMP 06/08/18 05:15 06/08/18 05:15 Active Medications Albuterol Sulfate (Ventolin 0.083% Nebulizer Soln -) 1 amp NEB Q4H PRN PRN Reason: SHORT OF BREATH/WHEEZING Albuterol/Ipratropium (Duoneb -) 1 amp NEB RTID [facility] Last Admin: 06/08/18 07:54 Dose: 1 amp Efavirenz (Sustiva -) 600 mg PO DAILY [facility] Last Admin: 06/08/18 11:12 Dose: 600 mg Heparin Sodium (Porcine) (Heparin -) 5,000 unit SQ TID [facility] Last Admin: 06/08/18 06:39 Dose: 5,000 unit Lamivudine/Zidovudine (Combivir Tablet 150/300 -) 1 tablet PO BID [facility] Last Admin: 06/08/18 11:12 Dose: 1 tablet Methylprednisolone Sodium Succinate (Solu-Medrol -) 40 mg IVPB Q12H [facility] A/P Acute COPD Exacerbation Acute Hypoxic Respiratory Failure HIV - agree with medrol taper, can likely change to PO in AM - inhaled bronchodilators - O2 to keep SpO2>90% - f/u CD4 count - low suspicion for opportunistic infection with clear CT chest - DVT prophylaxis - will need outpt PFTs Problem List - Problems (1) COPD exacerbation Code(s): J44.1 - CHRONIC OBSTRUCTIVE PULMONARY DISEASE W (ACUTE) EXACERBATION (2) HIV (human immunodeficiency virus infection) Code(s): B20 - HUMAN IMMUNODEFICIENCY VIRUS [HIV] DISEASE
[2018-06-09] MEDS: HEPARIN NA (PORCINE) 5,000 UNITS/ML 1ML VIAL SQ SCH ×2 (06:34→14:11)
[2018-06-09] MEDS: ALBUTEROL SO4 2.5/IPRATROPIUM 0.5 INH SOL 3 ML VIAL.NEB. NEB SCH ×2 (07:40→14:20)
[2018-06-09] MEDS: methylPREDNISolone NA SUCC 40 MG/1 ML VIAL IVPB SCH (08:28)
[2018-06-09] MEDS ORDERED: SULFAMETHOXAZOLE/TRIMETHOPRIM 800MG/160MG D.S. TABLET PO SCH (10:00)
[2018-06-09] MEDS ORDERED: predniSONE 20 MG TABLET (UD) PO ONE (10:00)
[2018-06-09] MEDS ORDERED: predniSONE 20 MG TABLET (UD) PO SCH (10:00)
--- NOTE | 2018-06-09 10:38 | PN ---
Teaching Attending Note Name of Resident: Shazia Nice ATTENDING PHYSICIAN STATEMENT I saw and evaluated the patient. I reviewed the resident's note and discussed the case with the resident. I agree with the resident's findings and plan as documented with exceptions below. SUBJECTIVE: patient seen and examined, breathing improved, no new concerns. OBJECTIVE: Vital Signs Period Temp Pulse Resp BP Sys/Clifton Pulse Ox Last 24 Hr 97.9 F-98.9 F 87-105 20-22 111-124/64-69 93-94 Intake & Output 06/06/18 06/07/18 06/08/18 06/09/18 23:59 23:59 23:59 23:59 Intake Total 400 2000 2200 Output Total 1650 1500 Balance 400 350 700 Weight 200 lb General: sitting in bed in no acute distress Chest; Decreased air entry all over, no rales or wheezing Abdomen:Soft, obese, NT Extremities: no edema Home Medications Medication Instructions Recorded Efavirenz [Sustiva] 600 mg PO DAILY 06/07/18 Lamivudine/Zidovudine 150/300 1 combo PO BID 06/07/18 [Combivir Tablet 300/150 -] Active Medications Albuterol Sulfate (Ventolin 0.083% Nebulizer Soln -) 1 amp NEB Q4H PRN PRN Reason: SHORT OF BREATH/WHEEZING Albuterol/Ipratropium (Duoneb -) 1 amp NEB RTID [facility] Last Admin: 06/09/18 07:40 Dose: 1 amp Efavirenz (Sustiva -) 600 mg PO DAILY [facility] Last Admin: 06/08/18 11:12 Dose: 600 mg Heparin Sodium (Porcine) (Heparin -) 5,000 unit SQ TID [facility] Last Admin: 06/09/18 06:34 Dose: 5,000 unit Lamivudine/Zidovudine (Combivir Tablet 150/300 -) 1 tablet PO BID [facility] Last Admin: 06/08/18 21:36 Dose: 1 tablet Prednisone (Deltasone -) 60 mg PO DAILY [facility] Trimethoprim/Sulfamethoxazole (Bactrim Ds -) 1 each PO DAILY [facility] Laboratory Results - last 24 hr 06/06/18 18:22 WBC 7.4 Absolute Lymphs (auto) 1.0 Lymphocytes 13 Nucleated RBCs TNP Absolute CD3 Count 603 L % CD3+ Lymphocytes 60.3 Absolute CD4 [place] 176 L % CD4+ Lymphocyte 17.6 L CD4/CD8 Ratio 0.41 L % CD8+ Lymphocyte 42.7 H Absolute CD8 Count 427 ASSESSMENT AND PLAN: 62 yom with PMHx of HIV on HAART, BPH, COPD, reported recent admission in [place] for PNA/COPD excacerbation/sepsis, treated with cefepime/vancomycin/steroids, dced on levaquin/prednsione admitted with progressive dyspnea. -Dyspnea, suspect acute COPD excaerbation -Acute hypoxic respiratory distress -HIV on HAART -BPH Plan: Prior records reviewed. Patient treated with cefepime/vanco/steroids, d/franky on levaquin/prednisone. CT chest reviewed. Clinically improved Change to PO prednisone, no home oxygen needs noted. CD4<200, discussed with Dr. Machado, neg LDH and current findings not suggestive of PCP PNA. Start bactrim daily prophylactic dose. Continue HAART. Someone from [facility] to come to address follow up D/c home today after [facility] follow up arranged on po prednisone, bactrim and continued HAART.
--- NOTE | 2018-06-09 10:39 | EKG ---
Test Reason : Blood Pressure : / mmHG Vent. Rate : 100 BPM Atrial Rate : 100 BPM P-R Int : 136 ms QRS Dur : 124 ms QT Int : 354 ms P-R-T Axes : 072 087 064 degrees QTc Int : 456 ms NORMAL SINUS RHYTHM RIGHT BUNDLE BRANCH BLOCK ABNORMAL ECG NO PREVIOUS ECGS AVAILABLE Confirmed by AMITA PIERCE MD ([id number]) on 06/09/2018 10:39:23 AM Referred By: Confirmed By:AMITA PIERCE MD
[2018-06-09] MEDS ORDERED: PT OWN MED DRAWER 7, Y5N ONE (10:42)
[2018-06-09] MEDS: EFAVIRENZ 600 MG TABLET PO SCH (10:48)
[2018-06-09] MEDS: lamiVUDine/ZIDOVUDINE 150/300 1 COMBO TABLET PO SCH (10:48)
--- NOTE | 2018-06-09 11:52 | PN ---
Progress Note (short form) - Note Progress Note: States breathing is improving. Improving cough or wheezing. Intake & Output 06/06/18 06/07/18 06/08/18 06/09/18 23:59 23:59 23:59 23:59 Intake Total 400 2000 2200 Output Total 1650 1500 Balance 400 350 700 Weight 200 lb Last Vital Signs Temp Pulse Resp BP Pulse Ox 98.3 F 105 H 20 111/69 93 L 06/09/18 06:00 06/09/18 10:15 06/09/18 06:00 06/09/18 06:00 06/09/18 10:15 Active Medications Albuterol Sulfate (Ventolin 0.083% Nebulizer Soln -) 1 amp NEB Q4H PRN PRN Reason: SHORT OF BREATH/WHEEZING Albuterol/Ipratropium (Duoneb -) 1 amp NEB RTID [facility] Last Admin: 06/09/18 07:40 Dose: 1 amp Efavirenz (Sustiva -) 600 mg PO DAILY [facility] Last Admin: 06/09/18 10:48 Dose: 600 mg Heparin Sodium (Porcine) (Heparin -) 5,000 unit SQ TID [facility] Last Admin: 06/09/18 06:34 Dose: 5,000 unit Lamivudine/Zidovudine (Combivir Tablet 150/300 -) 1 tablet PO BID [facility] Last Admin: 06/09/18 10:48 Dose: 1 tablet Prednisone (Deltasone -) 60 mg PO DAILY [facility] Trimethoprim/Sulfamethoxazole (Bactrim Ds -) 1 each PO DAILY [facility] Last Admin: 06/09/18 10:46 Dose: 1 each Gen: NAD at rest Heart: RRR Lung: decreased breath sounds at the bases Abd: soft, nontender Ext: no edema Laboratory Results - last 24 hr 06/06/18 18:22 WBC 7.4 Absolute Lymphs (auto) 1.0 Lymphocytes 13 Nucleated RBCs TNP Absolute CD3 Count 603 L % CD3+ Lymphocytes 60.3 Absolute CD4 [place] 176 L % CD4+ Lymphocyte 17.6 L CD4/CD8 Ratio 0.41 L % CD8+ Lymphocyte 42.7 H Absolute CD8 Count 427 Problem List - Problems (1) COPD exacerbation Code(s): J44.1 - CHRONIC OBSTRUCTIVE PULMONARY DISEASE W (ACUTE) EXACERBATION (2) HIV (human immunodeficiency virus infection) Code(s): B20 - HUMAN IMMUNODEFICIENCY VIRUS [HIV] DISEASE A/P Acute COPD Exacerbation Acute Hypoxic Respiratory Failure HIV - For Prednisone: Can D/C with 40mg OD x 5 days - Should D/C with LAMA/LABA combination inhalational device - inhaled bronchodilators - No smoking counseled - VTE prophylaxis - will need outpatient PFTs - No Pulmonary contraindication for D/C Dr Martin
--- NOTE | 2018-06-09 14:35 | DS ---
Physical Exam: SUBJECTIVE: Patient seen and examined, breathing improved, no new concerns. OBJECTIVE: Vital Signs Period Temp Pulse Resp BP Sys/Clifton Pulse Ox Last 24 Hr 97.9 F-98.9 F 87-105 20-22 111-124/64-69 93-94 PHYSICAL EXAM GENERAL: The patient is awake, alert, and fully oriented, in no acute distress, no use of accessory muscles of respiration. HEAD: Normal with no signs of trauma. EYES: PERRL, extraocular movements intact, sclera anicteric, conjunctiva clear. ENT: Ears normal, nares patent, oropharynx clear without exudates, moist mucous membranes. NECK: Trachea midline, full range of motion, supple. LUNGS: Improved air entry bilaterally, no rales or wheezing HEART: Regular rate and rhythm, S1, S2 ABDOMEN: Soft, nontender, nondistended, normoactive bowel sounds, no guarding, no rebound EXTREMITIES: 2+ pulses, warm, well-perfused, no edema. NEUROLOGICAL: AAOx3, facial symmetry, power 5/5, Cranial nerves II through XII grossly intact. Normal speech, gait not observed. PSYCH: Normal mood, normal affect. SKIN: Warm, dry, normal turgor, no rashes or lesions noted. LABS Laboratory Results - last 24 hr 06/06/18 18:22 WBC 7.4 Absolute Lymphs (auto) 1.0 Lymphocytes 13 Nucleated RBCs TNP Absolute CD3 Count 603 L % CD3+ Lymphocytes 60.3 Absolute CD4 [place] 176 L % CD4+ Lymphocyte 17.6 L CD4/CD8 Ratio 0.41 L % CD8+ Lymphocyte 42.7 H Absolute CD8 Count 427 Laboratory Tests 06/06/18 06/06/18 06/06/18 14:47 14:47 14:47 WBC 8.2 RBC 3.50 L Hgb 13.3 Hct 39.7 MCV 113.3 H MCH 37.9 H MCHC 33.5 RDW 15.2 Plt Count 275 MPV 7.9 Absolute Neuts (auto) 5.1 Absolute Lymphs (auto) Neutrophils % 62.9 Lymphocytes % 27.3 Monocytes % 7.8 Eosinophils % 1.2 Basophils % 0.8 Nucleated RBC % 0 Lymphocytes Nucleated RBCs Hypochromia 0 Platelet Estimate Normal Polychromasia 0 Poikilocytosis 0 Anisocytosis 1+ Microcytosis 0 Macrocytosis 1+ PT with INR INR PTT (Actin FS) VBG pH POC VBG pCO2 POC VBG pO2 VBG HCO3 VBG O2 Sat (Josephine) VBG Base Excess Sodium 138 Potassium 4.0 Chloride 102 Carbon Dioxide 30 Anion Gap 6 L BUN 15 Creatinine 0.7 Creat Clearance w eGFR 114.65 Random Glucose 101 Lactic Acid 1.9 Calcium 7.8 L Phosphorus Magnesium Total Bilirubin 0.2 AST 19 ALT 28 Alkaline Phosphatase 50 LD Total Creatine Kinase 142 Troponin I < 0.02 B-Natriuretic Peptide 89.7 Total Protein 6.4 Albumin 3.3 L Vitamin B12 Serum Folate Urine Color Urine Appearance Urine pH Ur Specific [place] Urine Protein Urine Glucose (UA) Urine Ketones Urine Blood Urine Nitrite Urine Bilirubin Urine Urobilinogen Ur Leukocyte Esterase Absolute CD3 Count % CD3+ Lymphocytes Absolute CD4 [place] % CD4+ Lymphocyte CD4/CD8 Ratio % CD8+ Lymphocyte Absolute CD8 Count Influenza A (Rapid) Influenza B (Rapid) 06/06/18 06/06/18 06/06/18 14:47 15:04 18:22 WBC 7.4 RBC Hgb Hct MCV MCH MCHC RDW Plt Count MPV Absolute Neuts (auto) Absolute Lymphs (auto) 1.0 Neutrophils % Lymphocytes % Monocytes % Eosinophils % Basophils % Nucleated RBC % Lymphocytes 13 Nucleated RBCs TNP Hypochromia Platelet Estimate Polychromasia Poikilocytosis Anisocytosis Microcytosis Macrocytosis PT with INR INR PTT (Actin FS) VBG pH 7.41 POC VBG pCO2 44.5 POC VBG pO2 65.4 H VBG HCO3 27.8 VBG O2 Sat (Josephine) 92.3 H VBG Base Excess 3.2 H Sodium Potassium Chloride Carbon Dioxide Anion Gap BUN Creatinine Creat Clearance w eGFR Random Glucose Lactic Acid Calcium Phosphorus Magnesium Total Bilirubin AST ALT Alkaline Phosphatase LD Total Creatine Kinase Troponin I < 0.02 B-Natriuretic Peptide Total Protein Albumin Vitamin B12 Serum Folate Urine Color Urine Appearance Urine pH Ur Specific [place] Urine Protein Urine Glucose (UA) Urine Ketones Urine Blood Urine Nitrite Urine Bilirubin Urine Urobilinogen Ur Leukocyte Esterase Absolute CD3 Count 603 L % CD3+ Lymphocytes 60.3 Absolute CD4 [place] 176 L % CD4+ Lymphocyte 17.6 L CD4/CD8 Ratio 0.41 L % CD8+ Lymphocyte 42.7 H Absolute CD8 Count 427 Influenza A (Rapid) Influenza B (Rapid) 06/06/18 06/07/18 06/07/18 18:48 05:30 05:30 WBC 7.5 RBC 3.40 L Hgb 12.7 Hct 38.4 MCV 113.1 H MCH 37.5 H MCHC 33.2 RDW 14.8 Plt Count 280 MPV 8.2 Absolute Neuts (auto) 6.7 Absolute Lymphs (auto) Neutrophils % 89.3 H D Lymphocytes % 9.4 D Monocytes % 1.2 L D Eosinophils % 0.0 D Basophils % 0.1 Nucleated RBC % 0 Lymphocytes Nucleated RBCs Hypochromia Platelet Estimate Polychromasia Poikilocytosis Anisocytosis Microcytosis Macrocytosis PT with INR 11.20 INR 0.95 PTT (Actin FS) 28.8 VBG pH POC VBG pCO2 POC VBG pO2 VBG HCO3 VBG O2 Sat (Josephine) VBG Base Excess Sodium Potassium Chloride Carbon Dioxide Anion Gap BUN Creatinine Creat Clearance w eGFR Random Glucose Lactic Acid Calcium Phosphorus Magnesium Total Bilirubin AST ALT Alkaline Phosphatase LD Total Creatine Kinase Troponin I B-Natriuretic Peptide Total Protein Albumin Vitamin B12 Serum Folate Urine Color Yellow Urine Appearance Clear Urine pH 7.5 Ur Specific [place] 1.015 Urine Protein Negative Urine Glucose (UA) Negative Urine Ketones Negative Urine Blood Negative Urine Nitrite Negative Urine Bilirubin Negative Urine Urobilinogen 0.2 Ur Leukocyte Esterase Negative Absolute CD3 Count % CD3+ Lymphocytes Absolute CD4 [place] % CD4+ Lymphocyte CD4/CD8 Ratio % CD8+ Lymphocyte Absolute CD8 Count Influenza A (Rapid) Influenza B (Rapid) 06/07/18 06/08/18 06/08/18 05:30 02:00 05:15 WBC 11.2 H RBC 3.34 L Hgb 12.7 Hct 37.9 MCV 113.4 H MCH 37.9 H MCHC 33.5 RDW 15.3 Plt Count 268 MPV 7.8 Absolute Neuts (auto) 9.8 H Absolute Lymphs (auto) Neutrophils % 87.7 H Lymphocytes % 7.9 L Monocytes % 4.3 D Eosinophils % 0.0 Basophils % 0.1 Nucleated RBC % 0 Lymphocytes Nucleated RBCs Hypochromia Platelet Estimate Polychromasia Poikilocytosis Anisocytosis Microcytosis Macrocytosis PT with INR INR PTT (Actin FS) VBG pH POC VBG pCO2 POC VBG pO2 VBG HCO3 VBG O2 Sat (Josephine) VBG Base Excess Sodium 135 L Potassium 4.4 Chloride 102 Carbon Dioxide 24 Anion Gap 9 BUN 15 Creatinine 0.7 Creat Clearance w eGFR 114.65 Random Glucose 137 H Lactic Acid Calcium 8.1 L Phosphorus 4.0 Magnesium 2.1 Total Bilirubin 0.4 AST 16 ALT 26 Alkaline Phosphatase 40 L LD Total 192 Creatine Kinase Troponin I B-Natriuretic Peptide Total Protein 6.2 L Albumin 3.0 L Vitamin B12 352 Serum Folate 10 Urine Color Urine Appearance Urine pH Ur Specific [place] Urine Protein Urine Glucose (UA) Urine Ketones Urine Blood Urine Nitrite Urine Bilirubin Urine Urobilinogen Ur Leukocyte Esterase Absolute CD3 Count % CD3+ Lymphocytes Absolute CD4 [place] % CD4+ Lymphocyte CD4/CD8 Ratio % CD8+ Lymphocyte Absolute CD8 Count Influenza A (Rapid) Negative Influenza B (Rapid) Negative 06/08/18 05:15 WBC RBC Hgb Hct MCV MCH MCHC RDW Plt Count MPV Absolute Neuts (auto) Absolute Lymphs (auto) Neutrophils % Lymphocytes % Monocytes % Eosinophils % Basophils % Nucleated RBC % Lymphocytes Nucleated RBCs Hypochromia Platelet Estimate Polychromasia Poikilocytosis Anisocytosis Microcytosis Macrocytosis PT with INR INR PTT (Actin FS) VBG pH POC VBG pCO2 POC VBG pO2 VBG HCO3 VBG O2 Sat (Josephine) VBG Base Excess Sodium 135 L Potassium 4.6 Chloride 102 Carbon Dioxide 26 Anion Gap 7 L BUN 16 Creatinine 0.8 Creat Clearance w eGFR 98.28 Random Glucose 131 H Lactic Acid Calcium 8.4 L Phosphorus 3.4 Magnesium 2.3 Total Bilirubin 0.4 AST 16 ALT 27 Alkaline Phosphatase 43 L LD Total Creatine Kinase Troponin I B-Natriuretic Peptide Total Protein 6.4 Albumin 3.2 L Vitamin B12 Serum Folate Urine Color Urine Appearance Urine pH Ur Specific [place] Urine Protein Urine Glucose (UA) Urine Ketones Urine Blood Urine Nitrite Urine Bilirubin Urine Urobilinogen Ur Leukocyte Esterase Absolute CD3 Count % CD3+ Lymphocytes Absolute CD4 [place] % CD4+ Lymphocyte CD4/CD8 Ratio % CD8+ Lymphocyte Absolute CD8 Count Influenza A (Rapid) Influenza B (Rapid) Microbiology 06/06/18 14:47 Blood - Peripheral Venous Blood Culture - Preliminary NO GROWTH OBTAINED AFTER 48 HOURS, INCUBATION TO CONTINUE FOR 3 DAYS. 06/06/18 14:47 Blood - Peripheral Venous Blood Culture - Preliminary NO GROWTH OBTAINED AFTER 48 HOURS, INCUBATION TO CONTINUE FOR 3 DAYS. 06/06/18 18:48 Urine - Urine Clean Catch Legionella Antigen - Final 06/06/18 18:48 Urine - Urine Clean Catch Streptococcus pneumoniae Antigen ( M - Final CT chest: CT scan of the chest without intravenous contrast Coronal and sagittal reconstruction images were obtained. Compared to prior chest x-ray dated 06/06/2018 There is linear-like scarring in the left lung apex there is minimal interstitial thickening and mild centrilobular emphysema. There is a 6 mm pulmonary nodule in the right middle lobe that appears more like linear scarring on the coronal and sagittal images. Minimal atelectatic changes in the right lung base. No gross focal infiltrates, pneumothorax or pleural effusion are identified, bilaterally. Included lower neck appears unremarkable. The heart is within normal limits in size. Calcification of the coronary arteries are present. Subcentimeter calcified paratracheal and precarinal lymph nodes are present. A prominent right hilar calcified lymph node is present measuring 1.8 x 1.3 cm. Included upper abdomen appears unremarkable Mild degenerative changes in the lower thoracic spine. Visualized osseous structures appear intact Impression: Minimal interstitial thickening and mild centrilobular emphysema. Left apical linear-like scarring. 6 mm nodule in the right middle lobe that appears more like linear scarring on the coronal and sagittal reformatted images. A follow-up CT scan of the chest in 6 months would be helpful for further evaluation. Minimal atelectatic changes in the right lung base without gross infiltrates. No pneumothorax or pleural effusion are identified, bilaterally. HOSPITAL COURSE: Date of Admission:06/06/18 Date of Discharge: 06/09/18 Minutes to complete discharge: 40 Discharge Summary Reason For Visit: ACUTE EXACERBATION OF COPD Current Active Problems COPD exacerbation (Acute) HIV (human immunodeficiency virus infection) (Acute) Hospital Course: 62 yom in the process of immigrating from [facility], with PMHx of HIV on HAART (? CD4 count), BPH, COPD, prior heavy smoker, recently moved from [facility], admitted in [place] a month ago with COPD exacerbation/PNA/sepsis, treated with cefepime/vanco/steroids, discharged on levaquin/prednisone, admitted with progressive dyspnea. He had a CT chest with results as above showing minimal interstial thickening, mild centrilobular emphysema and 6 mm RML lung nodule. He was placed on IV steroids and initially on bactrim full dose pending unclear h/o PCP PNA and CD4 count. Pulmonary and infectious disease were consulted and given his CT findings and normal LDH, he was not suspected to have PCP PNA concerns. He was continued on steroids with improved. He had no oxygen needs on discharge. His 1,3 D Glucan results are pending but not likely to private branch exchange service adviser as discussed with ID. His CD4 count came back at 196 and he is started on prophylactic bactrim dosing. He was continued on his HAART therapy. He was seen by payroll representative from [facility] and follow up has been arranged. Condition: Stable - Instructions Diet, Activity, Other Instructions: You were admitted with trouble breathing and received steroids. You were seen by lung specialist and infection specialist. MEDICATIONS: Continue HIV medications as before New medications as follows: Bactrim DS 1 tablet daily Prednisone taper as follows: 60 mg daily for 3 days (starting tomorrow, take on 06/10, 06/11 and 06/12) 50 mg daily for 3 days (06/13, 06/14, 06/15) 40 mg daily for 3 days (06/16, 06/17, 06/18) 30 mg daily for 3 days (06/19, 06/20, 06/21) 20 mg daily for 3 days (06/22, 06/23, 06/24) 10 mg daily for 3 days (06/25, 06/26, 06/27), then off. INSTRUCTIONS: You are started on antibiotic bactrim to prevent infection given your low HIV counts. Please drink plenty of fluids and maintain hydration on this antibiotic. If you notice any rash, decreased urination or new concerns, notify your doctor or come to the ED [place]. You are seen by [facility] and advised to follow up as directed for continued management of your HIV medications. STRICT SMOKING CESSATION FOLLOW UP: With [facility] ([address] [place] [address]) as directed Follow up CT chest in 6 months to assess lung nodule, please discuss with your doctor. Discuss with your doctor for outpatient referral to lung doctor. You will need outpatient lung function testing. Your blood work 1,3 D Glucan result is pending and please follow up with Dr. Machado for the same. If you notice any worsening breathing, fevers, chills, rash, inability to breathe, please call 911 or come to the ED. Referrals: Yoko Machado MD [Staff Physician] - Marcos Martin MD [Staff Physician] - Disposition: HOME - Home Medications Comprehensive Discharge Medication List: Ambulatory Orders Efavirenz [Sustiva] 600 mg PO DAILY 06/07/18 Lamivudine/Zidovudine 150/300 [Combivir Tablet 150/300 -] 1 combo PO BID Albuterol Sulfate Inhaler - [Ventolin HFA Inhaler -] 1 - 2 inh PO Q4H #1 inhaler 06/09/18 Miscellaneous Medical Supply [Outpatient Order] 1 each .ROUTE ASDIR #1 misc Prednisone See Taper PO ASDIR #63 tablet 06/09/18 Sulfamethoxazole/Trimethoprim [Bactrim Ds Tablet] 1 each PO DAILY #30 tablet This patient is new to me today: No Emergency Visit: Yes ED Registration Date: 06/06/18 Care time: The patient presented to the Emergency Department on the above date and was hospitalized for further evaluation of their emergent condition. Critical Care patient: No - Discharge Referral Referred to [facility] Med P.C.: No
--- NOTE | 2018-06-09 16:58 | PN ---
Physical Exam: SUBJECTIVE: Patient seen and examined, feeling better, SOB improved. OBJECTIVE: Vital Signs Period Temp Pulse Resp BP Sys/Clifton Pulse Ox Last 24 Hr 97.9 F-98.5 F 87-105 20-20 111-122/64-69 93-94 GENERAL: The patient is awake, alert, and fully oriented, in no acute distress. HEAD: Normal with no signs of trauma. EYES: Extraocular movements intact, sclera anicteric, conjunctiva clear. ENT: moist mucous membranes. NECK: Trachea midline, full range of motion, supple. LUNGS: Clear to auscultation, no rales or wheezing. HEART: Regular rate and rhythm, S1, S2 ABDOMEN: Soft, nontender, nondistended, normoactive bowel sounds, no guarding, no rebound EXTREMITIES: 2+ pulses, warm, no edema. NEUROLOGICAL: AAOx3, Normal speech, gait not observed, non focal. PSYCH: Normal mood, normal affect. SKIN: Warm, dry, normal turgor, no rashes. LABS Laboratory Results - last 24 hr 06/06/18 06/09/18 18:22 12:45 WBC 7.4 Absolute Lymphs (auto) 1.0 Lymphocytes 13 Nucleated RBCs TNP Absolute CD3 Count 603 L % CD3+ Lymphocytes 60.3 Absolute CD4 [place] 176 L % CD4+ Lymphocyte 17.6 L CD4/CD8 Ratio 0.41 L % CD8+ Lymphocyte 42.7 H Absolute CD8 Count 427 HIV 1&2 Antibody Screen Preliminary positive HIV P24 Antigen Negative Active Medications Generic Name Dose Route Start Last Admin Trade Name Freq PRN Reason Stop Dose Admin Albuterol Sulfate 1 amp 06/06/18 18:36 Ventolin 0.083% Nebulizer Soln - NEB Q4H PRN SHORT OF BREATH/WHEEZING Albuterol/Ipratropium 1 amp 06/06/18 20:00 06/09/18 14:20 Duoneb - NEB 1 amp RTID GLENNY Administration Efavirenz 600 mg 06/07/18 11:45 06/09/18 10:48 Sustiva - PO 600 mg DAILY GLENNY Administration Heparin Sodium (Porcine) 5,000 unit 06/06/18 22:00 06/09/18 14:11 Heparin - SQ 5,000 unit TID GLENNY Administration Lamivudine/Zidovudine 1 tablet 06/07/18 12:30 06/09/18 10:48 Combivir Tablet 150/300 - PO 1 tablet BID GLENNY Administration Prednisone 60 mg 06/10/18 10:00 Deltasone - PO DAILY GLENNY Trimethoprim/Sulfamethoxazole 1 each 06/09/18 10:00 06/09/18 10:46 Bactrim Ds - PO 1 each DAILY [facility] Administration ASSESSMENT/PLAN: The patient is a 62 year old Slovenian speaking male with a PMH of HIV (for 10 years, unknown viral load, on HAART), COPD, former heavy smoker, COPD, BPH that presented to the hospital complaining of shortness of breath that got progressively worse over the past month. SOB: -likely due to COPD exacerbation, less likely PCP pneumonia in light of history of HIV with unknown viral load and compliance to medications, CXR with increased markings, no infiltrate. CT reviewed, no PNA, 6 mm nodule on left -Solu medrol 40 mg IV Q8h changed to Prednisone 60 mg qd -given Bactrim in ED, will cont -Azithromycin 500 mg qd stopped -CD4 176 -Legionella urine neg -Duonebs and Albuterol -Oxygen Supplementation, 2 L HIV: -will continue home meds when list available -CD4/CD8 reviewed, likely not compliant with medications -will follow up ID recommendations -UA done BPH: -will continue medications when list available Macrocytosis: -folate, B12 levels normal F/E/N: no/no changes/Regular DVT PPX: heparin sq Dispo: med surg - Problem List - Problems (1) HIV (human immunodeficiency virus infection) Code(s): B20 - HUMAN IMMUNODEFICIENCY VIRUS [HIV] DISEASE (2) COPD exacerbation Code(s): J44.1 - CHRONIC OBSTRUCTIVE PULMONARY DISEASE W (ACUTE) EXACERBATION Visit type - Emergency Visit Emergency Visit: Yes ED Registration Date: 06/06/18 Care time: The patient presented to the Emergency Department on the above date and was hospitalized for further evaluation of their emergent condition. - New Patient This patient is new to me today: No - Critical Care Critical Care patient: No - Discharge Referral Referred to [facility] Med P.C.: No
[2018-06-09 17:58] VITALS: BP 139/66; PULSE 111; TEMP 98.8
[2018-06-10] MEDS ORDERED: predniSONE 20 MG TABLET (UD) PO SCH (10:00)
== END 2018-06-09 19:03 | disposition home or self-care (01) | DRG 133 ==
LOC: JER 13:26 → JERBED 17:32 → J5S 19:15
PROVIDERS: ADMIT Hospitalist; ATTEND Hospitalist
DX: J96.01 Acute respiratory failure with hypoxia (principal); J44.1 Chronic obstructive pulmonary disease with (acute) exacerbation; Z21 Asymptomatic human immunodeficiency virus [HIV] infection status; N40.0 Benign prostatic hyperplasia without lower urinary tract symptoms; D75.89 Other specified diseases of blood and blood-forming organs; J98.11 Atelectasis; Z87.891 Personal history of nicotine dependence
CPT/HCPCS: 36415; 71046-TC-FY; 71250-TC; 80053; 81003; 82550; 82607; 82746; 82803; 83605; 83615; 83735; 83880; 84100; 84484; 85025; 85610; 85730; 86359; 86360; 87040; 87389; 87449; 87804; 87899; 93005; 93010; 94640; 94761; 99284-25; J1644; J7030

== ENCOUNTER 2018-07-09 13:32 | Inpatient (IN) | payer MEDICARE, OTHER ==
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
[2018-07-09 15:14] LABS: BASO % 0.7 % (0-2.0); EOS % 1.6 % (0-4.5); HEMATOCRIT 37.7 % (35.4-49); HEMOGLOBIN 12.4 GM/dL (11.7-16.9); LYMPH % 34.2 % (8-40); MCH 36.9 pg (25.7-33.7); MCHC 32.8 g/dl (32.0-35.9); MEAN CELL VOLUME 112.5 fl (80-96); MEAN PLT VOLUME 7.3 fl (7.5-11.1); MONO % 14.5 % (3.8-10.2); PLATELET COUNT 339 K/MM3 (134-434); RBC 3.35 M/mm3 (4.00-5.60); RDW 17.5 % (11.9-15.9)
[2018-07-09 15:22] LABS: INR 0.97 (0.83-1.09); PROTHROMBIN TIME (PATIENT) 11.4 SEC (9.7-13.0)
[2018-07-09 15:25] LABS: ACTIVATED PTT 30.5 SECONDS (25.2-36.5)
[2018-07-09 15:46] LABS: ANISOCYTOSIS 1+; MACROCYTOSIS 1+; PLATELET ESTIMATE NORMAL; TARGET CELLS 1+
[2018-07-09 15:53] LABS: ALBUMIN 3.5 g/dl (3.4-5.0); BILIRUBIN,TOTAL 0.2 mg/dL (0.2-1); CALCIUM 8.4 mg/dL (8.5-10.1); CREATININE 1.1 mg/dL (0.55-1.3); POTASSIUM 4.3 mmol/L (3.5-5.1); TOT PROT 6.7 g/dl (6.4-8.2)
[2018-07-09] MEDS ORDERED: ALBUTEROL SO4 2.5/IPRATROPIUM 0.5 INH SOL 3 ML VIAL.NEB. NEB ONE ×2 (18:05→19:03)
[2018-07-09 18:11] LABS: ARTERIAL BLD GAS O2 SATURATION 96.6 % (95-98); ARTERIAL BLOOD GAS BASE EXCESS 1.5 meq/l (-2-2); ARTERIAL BLOOD GAS PCO2 46.2 mmHg (35-45); ARTERIAL BLOOD GAS PO2 89.2 mmHg (80-105); ARTERIAL BLOOD GAS pH 7.38 (7.35-7.45); CARBOXYHEMOGLOBIN 1.4 % (0-2)
[2018-07-09 18:12] LABS: ALLENS TEST POSITIVE
--- NOTE | 2018-07-09 18:17 | PDOC ---
Documentation entered by Fernanda Dent SCRIBE, acting as scribe for Kenia Galaviz MD. Kenia Galaviz MD: This documentation has been prepared by the belgicaibe, Fernanda Dent SCRIBE, under my direction and personally reviewed by me in its entirety. I confirm that the documentation accurately reflects all work, treatment, procedures, and medical decision making performed by me. Attending Attestation - Resident Resident Name: Claudette De La Cruz - ED Attending Attestation I have performed the following: I have examined & evaluated the patient, The case was reviewed & discussed with the resident, I agree w/resident's findings & plan, Exceptions are as noted - HPI HPI: 07/09/18 16:27 The patient is a 62 year old male with past medical history of HIV, BPH, COPD who presents to the ED with complaints of one month history of bilateral lower extremity edema and acute on chronic shortness of breath. As per patients family, his swelling has gotten to the point where it hurts to ambulate. Denies any chest pain, palpitations, cough, fever, chills, NVD, or urinary complaints. PCP: Dr. Machado ([facility]) - Physicial Exam PE: 07/09/18 16:23 GENERAL: The patient is in no acute distress. ENT: Ears normal, nares patent, oropharynx clear without exudates. Moist mucous membranes. No tonsillar enlargement, no exudates NECK: Normal range of motion, supple, no nuchal rigidity (+) LAD LUNGS: Breath sounds equal, clear to auscultation bilaterally. No wheezes, and no crackles. HEART:Regular rate and rhythm, normal S1 and S2 without murmur, rub or gallop. ABDOMEN: Soft, nontender, normoactive bowel sounds. EXTREMITIES: Normal range of motion, no edema. NEUROLOGICAL: Cranial nerves II through XII grossly intact. Normal speech. No focal neurological deficits. SKIN: Warm, Dry, normal turgor, no rashes or lesions noted. - Medical Decision Making 07/09/18 16:24 62 yo M h/o HIV on HAART (CD4:176), BPH, COPD s/p recent hospitalizations for copd exacerbation, sepsis, pna, treated w/ cefepime, vanco, steroids (in [place] ) and at [facility] 06/06/18. Thought NOT to be PCP (based on CT chest and normal ldh) Pt was seen in the clinic on 06/20, bilateral lower extremity edema Pt tells me that he is short of breath, can not shower due to progressively worsening shortness of breath Pt has difficulty walking due to shortness of breath, must use inhalers while walking Has an o2 machine which his daughter in law says is small and not sufficient for his needs No fevers No cough daughter in law reports that the pt has had episodes of choking and therefore can not eat EKG - NSR rate of 89 bpm, axis nml, No ST elevation or depression, RBBB 07/09/18 17:51 Laboratory Tests 07/09/18 07/09/18 07/09/18 15:00 15:00 15:00 WBC 6.0 Hgb 12.4 Hct 37.7 Plt Count 339 D INR BUN 13 Creatinine 1.1 LD Total 300 H Troponin I < 0.02 07/09/18 15:00 WBC Hgb Hct Plt Count INR 0.97 BUN Creatinine LD Total Troponin I 07/09/18 17:58 07/09/18 18:07 CTA - no PE Duplex - no DVT Will admit to [facility]
[2018-07-09] MEDS ORDERED: methylPREDNISolone NA SUCC 125 MG/2 ML VIAL IVPUSH ONE (18:51)
[2018-07-09] MEDS ORDERED: FUROSEMIDE 40 MG TABLET (FP) PO ONE (18:51)
--- NOTE | 2018-07-09 19:06 | PN ---
Teaching Attending Note Name of Resident: Davy Arteaga ATTENDING PHYSICIAN STATEMENT I saw and evaluated the patient. I reviewed the resident's note and discussed the case with the resident. I agree with the resident's findings and plan as documented. HPI per daughter SUBJECTIVE: 62yo M wtih PMH HIV on HARRT (contracted from sex and dx 10 years ago been compliant on HARRT), COPD and heavy smoker was sent to the ER from [facility] due to pedal swelling. He was recently admitted to [facility] for dyspnea and treated for COPD exacerbation. was never able to follow up with pulmonary. has been compliant with medications. as per daughter has been slowly developing worsening dyspnea since he finished steroid taper. worse on exertion. states he is having difficulty eating because he is unable to breathe (difficult to ascertain if there is a swallowing issue). states she believes he has a productive cough but never produces any phlegm. has been using his rescue inhaler 4x/day and occasionally in the middle of the night. also noted to have dyspnea when trying to go to sleep causing him to sit upright in a chair. assoc with pedal swelling that has started to become painful. denies fever, chills, CP , night sweats, weight loss, N/V/C/D, drug rashes or travel has hx of drug use but denies ever using IV heavy smoker but quit from last hospitalization was heavy drinker 1/5 whisky daily but recently limited to just on Saturdays OBJECTIVE: Last Vital Signs Temp Pulse Resp BP Pulse Ox 98 F 104 H 18 139/76 97 07/09/18 18:11 07/09/18 18:11 07/09/18 18:11 07/09/18 18:11 07/09/18 18:11 General NAD HEENT no thrush, oral ulcers, no pharynx erythema CV S1 S2 RRR no murmur/rub/gallop Lungs decreased breath sounds B/L bases,. scattered wheezing, poor inspiratory effort Abdomen soft NT/ND obese extremities LLE 2+ pitting edema RLE 1+ ASSESSMENT AND PLAN: 62yo M wtih PMH HIV on HARRT (contracted from sex and dx 10 years ago been compliant on HARRT), COPD and heavy smoker was sent to the ER from [facility] due to pedal swelling and was evaluated for PE/DVT 1. Pedal edema- high suspicion for DVT vs development of volume overload. CTA/ doppler negative for PE/DVT. BNP is low however clinical story is suggestive of heart failure. will give lasix 40mg IV and monitor for improvement. daily weights, MEHREEN stockings. check echo 2. Dyspnea- COPD vs CHF. saturating 93% on RA. will give medrol 80mg IV and lasix 40mg IV. start on symbicort as will need maintenance inhaler. nebs RTC and PRN. will need formal PFT as outpatient. pre and post prior to discharge 3. Dysphagia- states to both liquid and solid. believe this is more related to his dyspnea however can not r/o functional disorder. no signs of thrush. swallow eval 4. RLL pulmonary nodule- will need follow up in 3-6 months 5. HIV on HARRT- last CD4 196. on bactrim ppx. cont HARRT therapy 6. urinary incontinence- check UA to r/o infection. likely has component of BPH. start flomax if UA is negative 7. substance abuse- recent quit smoking. counselled on [facility] consequences of tobacco and alcohol. 8. DVT ppx- lovenox
--- NOTE | 2018-07-09 19:07 | HP ---
CHIEF COMPLAINT: SOB and increased bilateral swelling PCP: No PCP, HISTORY OF PRESENT ILLNESS: Pt. is a 62 y.o. Gambian-speaking (daughter at bedside translated) M w/ PMHx. of BPH, COPD (not on home O2) and HIV (on HAART, last CD4: 176 on 06/13) presenting with worsening shortness of breath and b/l lower extremity swelling for a month. Pt. was recently admitted here for shortness of breath whereupon PCP was ruled out. Pt. was discharged on Bactrim with a Prednisone taper. Pt. endorses dysphagia to liquids and solids and states that this has been getting progressively worse. Pt. states that he uses multiple pillows to sleep because of inability to lie flat. Pt. states that he cannot take shower because of shortness of breath. Pt. endorses difficulty passing urine. Pt. states that he is compliant with his medications (on HAART for 10 years, acquired from sexual activity). Pt. denies chest pain at this time , fever chills, abdominal pain, blood in the stool or urine. Pt. denies getting Flu or Pneumonia vaccines as he was told he was not able to get it. ER course was notable for: (1)Duonebs (2)CBC, CMP, Trop (3)Duplex, CTA Recent Travel: Recently traveled from [place] PAST MEDICAL HISTORY: As above PAST SURGICAL HISTORY: Denies Social History: Smokin PPY, quit 1 month ago Alcohol: Used to drink 1 pint of whiskey in the past, now only occasionally drinks Drugs: Remote cocaine and marijuana use, no IVDU Family History: Mother- Parkinson's; Father- DM Allergies No Known Allergies Allergy (Verified 07/09/18 13:49) HOME MEDICATIONS: Home Medications Medication Instructions Recorded Albuterol 0.083% Nebulizer Julissa 1 neb NEB Q6H PRN #120 vial 06/20/18 [Ventolin 0.083% Nebulizer Soln -] Albuterol Sulfate Inhaler - 1 - 2 inh PO Q4H #1 inhaler 06/20/18 [Ventolin HFA Inhaler -] Docusate Sodium [Colace -] 100 mg PO TID PRN #90 capsule 06/20/18 Efavirenz [Sustiva] 600 mg PO HS #30 tablet 06/20/18 Lamivudine/Zidovudine 150/300 1 combo PO BID #60 tablet 06/20/18 [Combivir Tablet 150/300 -] Sennosides [Senna] 2 tab PO HS PRN #30 tablet 06/20/18 REVIEW OF SYSTEMS CONSTITUTIONAL: Absent: fever, chills, diaphoresis, generalized weakness, malaise, loss of appetite, weight change HEENT: difficulty swallowing Absent: rhinorrhea, nasal congestion, throat pain, mouth swelling, ear pain, eye pain, visual changes CARDIOVASCULAR: peripheral edema Absent: chest pain, syncope, palpitations, irregular heart rate, lightheadedness , RESPIRATORY: shortness of breath, dyspnea with exertion, orthopnea, Absent: cough, stridor, hemoptysis GASTROINTESTINAL: chronic constipation Absent: abdominal pain, abdominal distension, nausea, vomiting, diarrhea, melena , hematochezia GENITOURINARY: hesitancy Absent: dysuria, frequency, urgency, hematuria, flank pain, genital pain MUSCULOSKELETAL: Absent: myalgia, arthralgia, joint swelling, back pain, neck pain SKIN: Absent: rash, itching, pallor HEMATOLOGIC/IMMUNOLOGIC: Absent: easy bleeding, easy bruising, lymphadenopathy, frequent infections ENDOCRINE: Absent: unexplained weight gain, unexplained weight loss, heat intolerance, cold intolerance NEUROLOGIC: Absent: headache, focal weakness or paresthesias, dizziness, unsteady gait, seizure, mental status changes, bladder or bowel incontinence PSYCHIATRIC: Absent: anxiety, depression, suicidal or homicidal ideation, hallucinations. PHYSICAL EXAMINATION Vital Signs - 24 hr 07/09/18 07/09/18 13:46 18:11 Temperature 98.2 F 98 F Pulse Rate 101 H Pulse Rate [ 104 H Apical] Respiratory 20 18 Rate Blood Pressure 127/66 Blood Pressure 139/76 [Left Arm] O2 Sat by Pulse 93 L 97 Oximetry (%) GENERAL: Awake, alert, and fully oriented, in mild distress. HEAD: Normal with no signs of trauma. EYES: Extraocular movements intact, sclera anicteric, conjunctiva clear. EARS, NOSE, THROAT: Ears normal, nares patent, oropharynx clear without exudates. Moist mucous membranes. NECK: Normal range of motion, supple without lymphadenopathy, JVD, or masses. LUNGS: Decreased coarse breath sounds, mild lower lobe crackles. No accessory muscle use. HEART: Regular rate and rhythm, normal S1 and S2 without murmur ABDOMEN: Soft, nontender, not distended, normoactive bowel sounds, no guarding, no rebound, no masses. No hepatomegaly or splenomegaly. MUSCULOSKELETAL: No CVA tenderness. UPPER EXTREMITIES: 2+ radial pulses, warm, well-perfused. No cyanosis. LOWER EXTREMITIES: 2+ dorsal pedal pulses, warm, well-perfused. Mild calf tenderness. 3+ edema on left; 2+ edema on right. NEUROLOGICAL: Normal speech. Gait not assessed. PSYCHIATRIC: Cooperative. Good eye contact. Appropriate mood and affect. SKIN: Warm, dry, normal turgor, no rashes or lesions noted, normal capillary refill. Laboratory Results - last 24 hr 07/09/18 07/09/18 07/09/18 15:00 15:00 15:00 WBC 6.0 RBC 3.35 L Hgb 12.4 Hct 37.7 MCV 112.5 H MCH 36.9 H MCHC 32.8 RDW 17.5 H Plt Count 339 D MPV 7.3 L Absolute Neuts (auto) 3.0 Neutrophils % 49.0 D Lymphocytes % 34.2 D Monocytes % 14.5 H Eosinophils % 1.6 D Basophils % 0.7 D Nucleated RBC % 0 Hypochromia 0 Platelet Estimate Normal Polychromasia 0 Poikilocytosis 1+ Anisocytosis 1+ Microcytosis 0 Macrocytosis 1+ Target Cells 1+ Stomatocytes 1+ PT with INR INR PTT (Actin FS) Anticoagulation Therapy Puncture Site ABG pH ABG pCO2 at Pt Temp ABG pO2 at Pt Temp ABG HCO3 ABG O2 Sat (Measured) ABG O2 Content ABG Base Excess Lefty Test Carboxyhemoglobin Methemoglobin O2 Delivery Device Oxygen Flow Rate Vent Mode Vent Rate Mechanical Rate Pressure Support Vent Sodium 139 Potassium 4.3 Chloride 103 Carbon Dioxide 30 Anion Gap 6 L BUN 13 Creatinine 1.1 Est GFR (CKD-EPI)AfAm 83.53 Est GFR (CKD-EPI)NonAf 72.07 Random Glucose 70 L Calcium 8.4 L Total Bilirubin 0.2 AST 24 ALT 32 Alkaline Phosphatase 82 LD Total 300 H Troponin I < 0.02 Cancelled B-Natriuretic Peptide 80.0 Cancelled Total Protein 6.7 Albumin 3.5 07/09/18 07/09/18 15:00 17:59 WBC RBC Hgb Hct MCV MCH MCHC RDW Plt Count MPV Absolute Neuts (auto) Neutrophils % Lymphocytes % Monocytes % Eosinophils % Basophils % Nucleated RBC % Hypochromia Platelet Estimate Polychromasia Poikilocytosis Anisocytosis Microcytosis Macrocytosis Target Cells Stomatocytes PT with INR 11.40 INR 0.97 PTT (Actin FS) 30.5 Anticoagulation Therapy No Result Required. Puncture Site Right radial ABG pH 7.38 ABG pCO2 at Pt Temp 46.2 H ABG pO2 at Pt Temp 89.2 ABG HCO3 26.5 ABG O2 Sat (Measured) 96.6 ABG O2 Content 15.8 ABG Base Excess 1.5 Lefty Test Positive Carboxyhemoglobin 1.4 Methemoglobin 0.2 O2 Delivery Device Nasal Oxygen Flow Rate 2 Vent Mode No Result Required. Vent Rate No Result Required. Mechanical Rate No Result Required. Pressure Support Vent No Result Required. Sodium Potassium Chloride Carbon Dioxide Anion Gap BUN Creatinine Est GFR (CKD-EPI)AfAm Est GFR (CKD-EPI)NonAf Random Glucose Calcium Total Bilirubin AST ALT Alkaline Phosphatase LD Total Troponin I B-Natriuretic Peptide Total Protein Albumin ASSESSMENT/PLAN: Pt. is a 62 y.o. Gambian-speaking (daughter at bedside translated) M w/ PMHx. of BPH, COPD (not on home O2) and HIV (on HAART, last CD4: 176 on 06/13) presenting with worsening shortness of breath and b/l lower extremity swelling for a month. #Acute COPD exacerbation vs. CHF exacerbation likely COPD exacerbation start Duonebs RQID Given Solumedrol 80mg start Symbicort 80/4.5 - will need on D/C f/u sputum Cx. ABG: unremarkable( pH: 7.38, CO2: 46.2, O2 89, HCO3: 26.5) CTA: Negative for PE, 0.8cm RLL ground glass interstitial pulm. nodule, calcification of mediastinal and hilar LN c/w prior granulomatous disease, and centrilobar emphysema. when compared to last thoracic imaging of 6cm nodule in RML--> Will need f/u in 3-6 months Duplex Negative BNP: 80 Trop negative EKG unchanged from prior (RBBB) Cardiology consult appreciated (Dr. Turner) Will do Pre/Post in AM Daily weights Strict Is and Os Given 40mg IV Lasix f/u Echo #BPH start Flomax, will likely need on D/C f/u UCx. #HIV on HAART c/w Combivir and Efavirenz #FEN no IVF monitor electrolytes replete as need NPO, pending speech and swallow evaluation #DVT Ppx Lovenox 40mg SQ TEDs and SCDs Visit type - Emergency Visit Emergency Visit: Yes ED Registration Date: 07/09/18 Care time: The patient presented to the Emergency Department on the above date and was hospitalized for further evaluation of their emergent condition. - New Patient This patient is new to me today: Yes Date on this admission: 07/09/18 - Critical Care Critical Care patient: No
[2018-07-09] MEDS ORDERED: BUDESONIDE/FORMETEROL FUMARATE 80/4.5 mcg INHALER IH ONE (19:32)
[2018-07-09] MEDS ORDERED: FUROSEMIDE 40 MG TABLET (FP) ONE (19:44)
[2018-07-09] MEDS ORDERED: TAMSULOSIN HCL 0.4 MG CAP ONE (19:44)
[2018-07-09] MEDS ORDERED: methylPREDNISolone NA SUCC 40 MG/1 ML VIAL ONE (19:45)
[2018-07-09] MEDS: TAMSULOSIN HCL 0.4 MG CAP PO SCH (19:52)
[2018-07-09] MEDS: ALBUTEROL SO4 2.5/IPRATROPIUM 0.5 INH SOL 3 ML VIAL.NEB. NEB SCH (20:00)
[2018-07-09] MEDS ORDERED: ENOXAPARIN NA (PORCINE) 40 MG/0.4 ML DISP.SYRIN SQ ONE (20:01)
[2018-07-09 20:03] LABS: PH,URINE 6.5 (5.0-8.0); URINE APPEARANCE CLEAR; URINE BILIRUBIN NEGATIVE (NEGATIVE); URINE COLOR YELLOW; URINE GLUCOSE (UA) NEGATIVE (NEGATIVE); URINE KETONE NEGATIVE (NEGATIVE)
[2018-07-09 20:04] LABS: URINE LEUK ESTERASE NEGATIVE (NEGATIVE); URINE NITRITE NEGATIVE (NEGATIVE); URINE PROTEIN NEGATIVE (NEGATIVE); URINE UROBILINOGEN 0.2 mg/dL (0.2-1.0)
[2018-07-09] MEDS: ENOXAPARIN NA (PORCINE) 40 MG/0.4 ML DISP.SYRIN SQ SCH (20:12)
[2018-07-09] MEDS ORDERED: HEPARIN NA (PORCINE) 5,000 UNITS/ML 1ML VIAL SQ SCH (22:00)
[2018-07-10 06:26] LABS: HEMATOCRIT 37.7 % (35.4-49); HEMOGLOBIN 12.7 GM/dL (11.7-16.9); MCH 37.2 pg (25.7-33.7); MCHC 33.6 g/dl (32.0-35.9); MEAN CELL VOLUME 110.9 fl (80-96); MEAN PLT VOLUME 7.4 fl (7.5-11.1); PLATELET COUNT 377 K/MM3 (134-434); RDW 17.4 % (11.9-15.9); WHITE BLOOD COUNT 5.1 K/mm3 (4.0-10.0)
[2018-07-10 06:43] LABS: CALCIUM 8.7 mg/dL (8.5-10.1); CREATININE 0.9 mg/dL (0.55-1.3); MAGNESIUM 2.1 mg/dL (1.8-2.4); POTASSIUM 4.3 mmol/L (3.5-5.1)
[2018-07-10] MEDS: ALBUTEROL SO4 2.5/IPRATROPIUM 0.5 INH SOL 3 ML VIAL.NEB. NEB SCH (08:06)
[2018-07-10] MEDS ORDERED: TAMSULOSIN HCL 0.4 MG CAP ONE (08:22)
[2018-07-10] MEDS ORDERED: ALBUTEROL SO4 2.5/IPRATROPIUM 0.5 INH SOL 3 ML VIAL.NEB. NEB ONE (08:22)
[2018-07-10] MEDS ORDERED: ENOXAPARIN NA (PORCINE) 40 MG/0.4 ML DISP.SYRIN SQ ONE (08:23)
[2018-07-10] MEDS ORDERED: FUROSEMIDE 40 MG/4 ML INJECTABLE VIAL ONE ×2 (08:23→18:16)
[2018-07-10] MEDS: TAMSULOSIN HCL 0.4 MG CAP PO SCH (08:40)
[2018-07-10] MEDS: ENOXAPARIN NA (PORCINE) 40 MG/0.4 ML DISP.SYRIN SQ SCH (09:06)
[2018-07-10] MEDS: FUROSEMIDE 40 MG/4 ML INJECTABLE VIAL IVPUSH SCH (09:06)
[2018-07-10] MEDS: lamiVUDine/ZIDOVUDINE 150/300 1 COMBO TABLET PO SCH ×2 (09:06→22:31)
--- NOTE | 2018-07-10 09:50 | CON.CARD ---
Consult Consult Specialty:: Cardiology Referred by:: Hospitalist Medicine Reason for Consultation:: Dyspnea - History of Present Illness Chief Complaint: Dyspnea History of Present Illness: 63 yo male with h/o HIV on HAART, COPD with h/o flares, heavy smoker, BPH, referred initially for peripheral edema, but also reports worsening shortness of breath with exertion after finishing steroid taper and reports increased use of rescue MDI. Denies chest pain or palpitations. No fevers, chills or sweats. Cough with mostly nonproductive with some wheezing. He is a former smoker. Recently hospitalized for AE COPD flare, reports improvement in dyspnea with diuresis. - History Source History Provided By: Patient Limitations to Obtaining History: No Limitations - Past Medical History Pulmonary: Yes: COPD Infectious Disease: Yes: HIV - Alcohol/Substance Use Hx Alcohol Use: No - Smoking History Smoking history: Former smoker Have you smoked in the past 12 months: Yes Aproximately how many cigarettes per day: 20 If you are a former smoker, when did you quit?: 30days ago Home Medications - Allergies Allergies/Adverse Reactions: Allergies Allergy/AdvReac Type Severity Reaction Status Date / Time No Known Allergies Allergy Verified 07/09/18 13:49 - Home Medications Home Medications: Ambulatory Orders Albuterol 0.083% Nebulizer Julissa [Ventolin 0.083% Nebulizer Soln -] 1 neb NEB Q6H PRN #120 vial 06/20/18 Albuterol Sulfate Inhaler - [Ventolin HFA Inhaler -] 1 - 2 inh PO Q4H #1 inhaler 06/20/18 Docusate Sodium [Colace -] 100 mg PO TID PRN #90 capsule 06/20/18 Efavirenz [Sustiva] 600 mg PO HS #30 tablet 06/20/18 Lamivudine/Zidovudine 150/300 [Combivir Tablet 150/300 -] 1 combo PO BID #60 tablet 06/20/18 Sennosides [Senna -] 2 tab PO HS PRN #30 tablet 06/20/18 Budesonide/Formeterol Fumarate [SYMBICORT 160/4.5mcg -] 2 puff IH BID #1 inhaler 07/10/18 Sulfamethoxazole/Trimethoprim [Bactrim DS -] 1 each PO DAILY tablet 07/10/18 Tamsulosin HCl [Flomax -] 0.4 mg PO DAILY@0830 #30 cap.er.24h 07/10/18 Family Disease History - Family Disease History Family Disease History: Diabetes: Father, Heart Disease: Mother (Parkinsons), Other: Mother, Brother (2), Sister (3), Son (2) Review of Systems - Review of Systems Cardiovascular: reports: Edema, Shortness of Breath Vital Signs: Vital Signs Temperature 97.9 F 07/10/18 08:04 Pulse Rate 107 H 07/10/18 08:04 Respiratory Rate 18 07/10/18 08:04 Blood Pressure 130/69 07/10/18 08:04 O2 Sat by Pulse Oximetry (%) 97 07/10/18 08:09 Constitutional: Yes: No Distress, Calm Neck: Yes: Supple Respiratory: Yes: Regular, Mechanically Ventilated Gastrointestinal: Yes: Normal Bowel Sounds, Soft Cardiovascular: Yes: Regular Rate and Rhythm JVD: No Carotid Bruit: No Heart Sounds: Yes: S1, S2 Murmur: Yes: Systolic Murmur, Grade 1 Edema: Yes Edema: LLE: 1+, RLE: 1+ - Other Data Labs, Other Data: CBC, BMP 07/10/18 05:30 07/10/18 05:30 INR, PTT INR 0.97 (0.83-1.09) 07/09/18 15:00 Troponin, BNP 07/09/18 07/09/18 15:00 15:00 Troponin I < 0.02 Cancelled B-Natriuretic Peptide 80.0 Cancelled Troponin, BNP 07/09/18 07/09/18 15:00 15:00 Troponin I < 0.02 Cancelled B-Natriuretic Peptide 80.0 Cancelled NSR @ 89 RBBB Imaging - Results Cat Scan: Report Reviewed (Chest CTA: No PE, mild centrilobular emphysema, mildly dilated main PA) Ultrasound: Report Reviewed (07/09/2018 No DVT bilaterally) Problem List - Problems (1) Acute on chronic diastolic heart failure Code(s): I50.33 - ACUTE ON CHRONIC DIASTOLIC (CONGESTIVE) HEART FAILURE (2) Bilateral leg edema Code(s): R60.0 - LOCALIZED EDEMA (3) HIV (human immunodeficiency virus infection) Code(s): B20 - HUMAN IMMUNODEFICIENCY VIRUS [HIV] DISEASE Qualifiers: HIV symptom status: asymptomatic Qualified Code(s): Z21 - Asymptomatic human immunodeficiency virus [HIV] infection status (4) COPD (chronic obstructive pulmonary disease) Code(s): J44.9 - CHRONIC OBSTRUCTIVE PULMONARY DISEASE, UNSPECIFIED Qualifiers: COPD type: emphysema Emphysema type: centrilobular Qualified Code(s): J43.2 - Centrilobular emphysema (5) Pulmonary nodule, right Code(s): R91.1 - SOLITARY PULMONARY NODULE Assessment/Plan 07/09/2018 Chest CTA: No PE, mild centrilobular emphysema, mildly dilated main PA 07/10/2018 Echo: Normal LV and RV size and fxn LVEF 60-65%, tr TR 1. Acute on chronic diastolic heart failure r/o pulm HTN 2. Acute COPD Exacerbation, 3. Acute Hypoxic Respiratory Failure 4. HIV on HARRT- last CD4 196 5. 6 cm RML nodule P: 1. Compression therapy, IV diuresis with monitor diuretic response, renal fxn and electrolytes 2. BD and O2 as needed, LAMA/LABA combination inhalational device 3. Repeat chest CT 3-6 months, outpatient PFTs 4. DVT prophylaxis 5. Thank you for consultative opportunity
[2018-07-10] MEDS ORDERED: ALBUTEROL SO4 2.5/IPRATROPIUM 0.5 INH SOL 3 ML VIAL.NEB. NEB PRN (10:54)
--- NOTE | 2018-07-10 11:06 | CONSULT ---
Admitting History and Physical - Primary Care Physician PCP: Saba Aponte - Admission History of Present Illness: Pt. is a 62 y.o. Occitan-speaking M w/ PMHx. of BPH, COPD and HIV presenting to ED with worsening shortness of breath and b/l lower extremity swelling for a month. Per chart-Pt. endorses dysphagia to liquids and solids and states that this has been getting progressively worse.Dysphagia- May be believe more related to his dyspnea however can not r/o functional disorder. no signs of thrush. Swallow eval ordered. Selected Entries 07/09/18 07/09/18 07/10/18 13:46 18:11 06:22 Temperature 98.2 F 98 F 98.1 F 07/10/18 08:04 Temperature 97.9 F Laboratory Tests 07/09/18 07/10/18 15:00 05:30 WBC 6.0 5.1 History Source: Patient Limitations to Obtaining History: Language Barrier - Past Medical History Pulmonary: Yes: COPD Infectious Disease: Yes: HIV - Smoking History Smoking history: Former smoker Have you smoked in the past 12 months: Yes Aproximately how many cigarettes per day: 20 If you are a former smoker, when did you quit?: 30days ago - Alcohol/Substance Use Hx Alcohol Use: No History - Admission Reason For Visit: EDEMA OF BOTH LOWER EXTERMITIES, HYPOXIA, HIV INFE - General Mental Status: Alert and Oriented, Awake and Alert, Able to Follow Commands Attention: Intact Ability to Follow Directions: Excellent Head/Neck Control: WFL - Hearing Hearing: Normal Hearing: Normal Speech Evaluation - Communication Primary Language: EMIRATI Communication: Yes: Within Normal Limits Oral Expression Ability: Yes: No Impairment - Speech Production Able to Make Needs Known: Yes: WNL Intelligibility: Yes: WNL - Speech Characteristics Voice Loudness: Normal Voice Pitch: Yes: Normal Voice Phonatory-based Quality: Yes: Normal Speech Pattern: Normal Speech Clarity: < 100% Nasal Resonance: Normal Rate of Speech: Intact - Language/Auditory Comprehension Follows: Yes: 1 Stage Simple Commands - Language/Verbal Expression Able to Respond to Simple Queries: Yes: WNL Able to Communicate Wants and Needs: Yes: WNL Functional Communication Status: Yes: WNL Attention: Yes: Intact - 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 Memory: Yes: WNL Short Term Memory: Yes: WNL - Swallow Evaluation/Bedside Assessment Current Nutritional Intake: Soft, Thin Liquids Oral Secretions: Yes: WFL Dentition: Yes: Edentulous (a couple non functional teeth) Facial Symmetry at Rest: Symmetrical Facial Symmetry on Retraction: Symmetrical Sensation: Normal Against Resistance Opening: Normal Against Resistance Closing: Normal Pucker Lips: Normal Smile: Normal Lingual Movement: Normal Lingual Speed of Movement: Normal Lingual Movement Strgth Against Opposition: Normal Lingual Movement Characteristics: Normal Velopharyngeal Movement: Normal Laryngeal Elevation: WFL Laryngeal Movement: Able to Palpate Rate of Intake: WFL Bolus Size: WFL Chewing: WFL (seemed functional with cracker. May have difficulty with meats or gharder foods) Oral Prep Time: WFL Pocketing: None Odynophagia: Pharyngeal (reported intermittently) Coughing/Throat Clear: No Change in Voice: No Recommendations - Speech Evaluation, Impression/Plan Impression: Overtly,mastication/ swallowing seems intact although poor dentition. If aspiration is suspected by medical team, a MBS can be done. Aspiration not clearly demonstrated. - Dysphagia Impressions/Plan Dysphagia Impressions: Minimal Impairment, Ongoing Evaluation *Silent aspiration: cannot be R/O at bedside Dysphagia Treatment Plan: Small Bites, Chin Tuck/Down, Safe Rate, OOB for meals , OOB for 1 h. after meals Recommendations: Modified Barium Swallow (if indicated) - Recommendations Diet Consistency: Other (soft) Medication Administration: Whole with water Liquids: Thin Liquids
--- NOTE | 2018-07-10 11:16 | PN ---
Physical Exam: SUBJECTIVE: Patient seen and examined. Pt. states that he feels better than yesterday. Pt. states his SOB has improved. He endorses having to use the bathroom a lot overnight and passing a lot of urine. OBJECTIVE: Vital Signs Period Temp Pulse Resp BP Sys/Clifton Pulse Ox Last 24 Hr 97.9 F-98.2 F 101-107 18-20 92-139/51-96 93-98 GENERAL: Awake, alert, and fully oriented, in mild distress. HEAD: Normal with no signs of trauma. EYES: Extraocular movements intact, sclera anicteric, conjunctiva clear. EARS, NOSE, THROAT: Ears normal, nares patent, oropharynx clear without exudates. Moist mucous membranes. NECK: Normal range of motion, supple without lymphadenopathy, JVD, or masses. LUNGS: decreased coarse breath sounds, diffuse anterior and posterior lobe crackles. No accessory muscle use. HEART: Regular rate and rhythm, normal S1 and S2 without murmur ABDOMEN: Soft, nontender, not distended, normoactive bowel sounds, no guarding, no rebound, no masses. LOWER EXTREMITIES: 2+ dorsal pedal pulses, warm, well-perfused. Mild calf tenderness. 2+ edema on left; 1+ edema on right. NEUROLOGICAL: Normal speech. Gait not assessed. PSYCHIATRIC: Cooperative. Good eye contact. Appropriate mood and affect. SKIN: Warm, dry, normal turgor, no rashes or lesions noted, normal capillary refill. Laboratory Results - last 24 hr 07/09/18 07/09/18 07/09/18 15:00 15:00 15:00 WBC 6.0 RBC 3.35 L Hgb 12.4 Hct 37.7 MCV 112.5 H MCH 36.9 H MCHC 32.8 RDW 17.5 H Plt Count 339 D MPV 7.3 L Absolute Neuts (auto) 3.0 Neutrophils % 49.0 D Lymphocytes % 34.2 D Monocytes % 14.5 H Eosinophils % 1.6 D Basophils % 0.7 D Nucleated RBC % 0 Hypochromia 0 Platelet Estimate Normal Polychromasia 0 Poikilocytosis 1+ Anisocytosis 1+ Microcytosis 0 Macrocytosis 1+ Target Cells 1+ Stomatocytes 1+ PT with INR INR PTT (Actin FS) Anticoagulation Therapy Puncture Site ABG pH ABG pCO2 at Pt Temp ABG pO2 at Pt Temp ABG HCO3 ABG O2 Sat (Measured) ABG O2 Content ABG Base Excess Lefty Test Carboxyhemoglobin Methemoglobin O2 Delivery Device Oxygen Flow Rate Vent Mode Vent Rate Mechanical Rate Pressure Support Vent Sodium 139 Potassium 4.3 Chloride 103 Carbon Dioxide 30 Anion Gap 6 L BUN 13 Creatinine 1.1 Est GFR (CKD-EPI)AfAm 83.53 Est GFR (CKD-EPI)NonAf 72.07 Random Glucose 70 L Calcium 8.4 L Phosphorus Magnesium Total Bilirubin 0.2 AST 24 ALT 32 Alkaline Phosphatase 82 LD Total 300 H Troponin I < 0.02 Cancelled B-Natriuretic Peptide 80.0 Cancelled Total Protein 6.7 Albumin 3.5 Urine Color Urine Appearance Urine pH Ur Specific Clarkson Urine Protein Urine Glucose (UA) Urine Ketones Urine Blood Urine Nitrite Urine Bilirubin Urine Urobilinogen Ur Leukocyte Esterase 07/09/18 07/09/18 07/09/18 15:00 17:59 18:47 WBC RBC Hgb Hct MCV MCH MCHC RDW Plt Count MPV Absolute Neuts (auto) Neutrophils % Lymphocytes % Monocytes % Eosinophils % Basophils % Nucleated RBC % Hypochromia Platelet Estimate Polychromasia Poikilocytosis Anisocytosis Microcytosis Macrocytosis Target Cells Stomatocytes PT with INR 11.40 INR 0.97 PTT (Actin FS) 30.5 Anticoagulation Therapy No Result Required. Puncture Site Right radial ABG pH 7.38 ABG pCO2 at Pt Temp 46.2 H ABG pO2 at Pt Temp 89.2 ABG HCO3 26.5 ABG O2 Sat (Measured) 96.6 ABG O2 Content 15.8 ABG Base Excess 1.5 Lefty Test Positive Carboxyhemoglobin 1.4 Methemoglobin 0.2 O2 Delivery Device Nasal Oxygen Flow Rate 2 Vent Mode No Result Required. Vent Rate No Result Required. Mechanical Rate No Result Required. Pressure Support Vent No Result Required. Sodium Potassium Chloride Carbon Dioxide Anion Gap BUN Creatinine Est GFR (CKD-EPI)AfAm Est GFR (CKD-EPI)NonAf Random Glucose Calcium Phosphorus Magnesium Total Bilirubin AST ALT Alkaline Phosphatase LD Total Troponin I B-Natriuretic Peptide Total Protein Albumin Urine Color Yellow Urine Appearance Clear Urine pH 6.5 Ur Specific Clarkson 1.048 H Urine Protein Negative Urine Glucose (UA) Negative Urine Ketones Negative Urine Blood Negative Urine Nitrite Negative Urine Bilirubin Negative Urine Urobilinogen 0.2 Ur Leukocyte Esterase Negative 07/10/18 07/10/18 05:30 05:30 WBC 5.1 RBC 3.40 L Hgb 12.7 Hct 37.7 MCV 110.9 H MCH 37.2 H MCHC 33.6 RDW 17.4 H Plt Count 377 MPV 7.4 L Absolute Neuts (auto) Neutrophils % Lymphocytes % Monocytes % Eosinophils % Basophils % Nucleated RBC % Hypochromia Platelet Estimate Polychromasia Poikilocytosis Anisocytosis Microcytosis Macrocytosis Target Cells Stomatocytes PT with INR INR PTT (Actin FS) Anticoagulation Therapy Puncture Site ABG pH ABG pCO2 at Pt Temp ABG pO2 at Pt Temp ABG HCO3 ABG O2 Sat (Measured) ABG O2 Content ABG Base Excess Lefty Test Carboxyhemoglobin Methemoglobin O2 Delivery Device Oxygen Flow Rate Vent Mode Vent Rate Mechanical Rate Pressure Support Vent Sodium 137 Potassium 4.3 Chloride 99 Carbon Dioxide 29 Anion Gap 9 BUN 13 Creatinine 0.9 Est GFR (CKD-EPI)AfAm 105.72 Est GFR (CKD-EPI)NonAf 91.22 Random Glucose 136 H Calcium 8.7 Phosphorus 5.0 H Magnesium 2.1 Total Bilirubin AST ALT Alkaline Phosphatase LD Total Troponin I B-Natriuretic Peptide Total Protein Albumin Urine Color Urine Appearance Urine pH Ur Specific Clarkson Urine Protein Urine Glucose (UA) Urine Ketones Urine Blood Urine Nitrite Urine Bilirubin Urine Urobilinogen Ur Leukocyte Esterase Active Medications Home Medications Medication Instructions Recorded Albuterol 0.083% Nebulizer Julissa 1 neb NEB Q6H PRN #120 vial 06/20/18 [Ventolin 0.083% Nebulizer Soln -] Albuterol Sulfate Inhaler - 1 - 2 inh PO Q4H #1 inhaler 06/20/18 [Ventolin HFA Inhaler -] Docusate Sodium [Colace -] 100 mg PO TID PRN #90 capsule 06/20/18 Efavirenz [Sustiva] 600 mg PO HS #30 tablet 06/20/18 Lamivudine/Zidovudine 150/300 1 combo PO BID #60 tablet 06/20/18 [Combivir Tablet 150/300 -] Sennosides [Senna] 2 tab PO HS PRN #30 tablet 06/20/18 Current Medications Albuterol/Ipratropium (Duoneb -) 1 amp NEB RQID PRN PRN Reason: SHORT OF BREATH/WHEEZING Budesonide/Formoterol Fumarate (Symbicort 160/4.5mcg -) 2 puff IH BID [facility] Efavirenz (Sustiva -) 600 mg PO HS [facility] Enoxaparin Sodium (Lovenox -) 40 mg SQ DAILY [facility] Last Admin: 07/10/18 09:06 Dose: 40 mg Furosemide (Lasix Injection -) 40 mg IVPUSH DAILY [facility] Last Admin: 07/10/18 09:06 Dose: 40 mg Lamivudine/Zidovudine (Combivir Tablet 150/300 -) 1 tablet PO BID [facility] Last Admin: 07/10/18 09:06 Dose: 1 tablet Tamsulosin HCl (Flomax -) 0.4 mg PO DAILY@0830 [facility] Last Admin: 07/10/18 08:40 Dose: 0.4 mg Trimethoprim/Sulfamethoxazole (Bactrim Ds -) 1 each PO DAILY [facility] ASSESSMENT/PLAN: Pt. is a 62 y.o. Bengali-speaking (daughter at bedside translated) M w/ PMHx. of BPH, COPD (not on home O2) and HIV (on HAART, last CD4: 176 on 06/13) presenting with worsening shortness of breath and b/l lower extremity swelling for a month. #Acute COPD exacerbation vs. CHF exacerbation likely COPD exacerbation start Duonebs RQID PRN Given Solumedrol 80mg x 1, will hold steroids at this time increased Symbicort to 160/4.5 - will need on D/C f/u sputum Cx. ABG: unremarkable( pH: 7.38, CO2: 46.2, O2 89, HCO3: 26.5) CTA: Negative for PE, 0.8cm RLL ground glass interstitial pulm. nodule, calcification of mediastinal and hilar LN c/w prior granulomatous disease, and centrilobar emphysema. when compared to last thoracic imaging of 6cm nodule in RML--> Will need f/u in 3-6 months Duplex Negative BNP: 80 Trop negative EKG unchanged from prior (RBBB) Cardiology consult appreciated (Dr. Turner) Will do Pre/Post in AM Daily weights: 74.83 kg Strict Is and Os c/w 40mg IV Lasix Echo: Grossly normal, EF: 60-65%, trace TR, suboptimal in quality? #BPH c/w Flomax, will likely need on D/C f/u UCx. #HIV on HAART c/w Combivir and Efavirenz #FEN no IVF monitor electrolytes replete as need Soft Diet, pending speech and swallow evaluation #DVT Ppx Lovenox 40mg SQ TEDs and SCDs
--- NOTE | 2018-07-10 12:41 | ECHO ---
Name: FRANCISCA KEN Exam:Adult Echocardiogram Study Date: 07/10/2018 08:07 AM Age: 63 yrs Reason For Study: WMA Height: 67 in Weight: 165 lb BSA: 1.9 m2 MMode/2D Measurements & Calculations IVSd: 0.85 cm EDV(Teich): 49.8 ml LVIDd: 3.5 cm ESV(Teich): 22.3 ml LVIDs: 2.5 cm LVPWd: 0.85 cm Doppler Measurements & Calculations MV E max chicho: 70.3 cm/sec Ao V2 max: 77.4 cm/sec MV A max chicho: 87.8 cm/sec Ao max P.4 mmHg MV E/A: 0.80 MV dec time: 0.05 sec LV V1 max P.1 mmHg Med Peak E' Chicho: 5.1 cm/sec LV V1 max: 52.4 cm/sec Med E/e': 13.8 Lat Peak E' Chicho: 8.2 cm/sec Lat E/e': 8.6 Procedure A complete two-dimensional transthoracic echocardiogram was performed (2D, M-mode, Doppler and color flow Doppler). The study was technically limited with all images being suboptimal in quality. Left Ventricle The left ventricular size, thickness and function are normal. The left ventricular ejection fraction is normal. Ejection Fraction = 60-65%. No regional wall motion abnormalities noted. Regional wall motion abnormalities cannot be excluded due to limited visualization. Right Ventricle The right ventricle is grossly normal size. The right ventricular systolic function is grossly normal . Atria Normal left and right atrial size and function. Mitral Valve There is no mitral regurgitation noted. Tricuspid Valve There was insufficient TR detected to calculate RV systolic pressure. There is trace tricuspid regurg itation. Aortic Valve No hemodynamically significant valvular aortic stenosis. No aortic regurgitation is present. Pulmonic Valve The pulmonic valve is not well visualized. Great Vessels The aortic root is not well visualized. Pericardium/Pleura There is no pericardial effusion. Interpretation Summary The study was technically limited with all images being suboptimal in quality. The left ventricular size, thickness and function are normal The right ventricle is grossly normal size. The right ventricular systolic function is grossly normal. There is trace tricuspid regurgitation. MD Albino Nichols 07/10/2018 12:40 PM
--- NOTE | 2018-07-10 14:27 | EKG ---
Test Reason : Blood Pressure : / mmHG Vent. Rate : 089 BPM Atrial Rate : 089 BPM P-R Int : 128 ms QRS Dur : 120 ms QT Int : 368 ms P-R-T Axes : 076 085 069 degrees QTc Int : 447 ms POOR DATA QUALITY, INTERPRETATION MAY BE ADVERSELY AFFECTED NORMAL SINUS RHYTHM RIGHT BUNDLE BRANCH BLOCK ABNORMAL ECG WHEN COMPARED WITH ECG OF 06-JUN-2018 14:52, NO SIGNIFICANT CHANGE WAS FOUND Confirmed by STAN HELLER, AMITA ([id number]) on 07/10/2018 2:27:07 PM Referred By: Confirmed By:AMITA PIERCE MD
--- NOTE | 2018-07-10 14:37 | PN ---
Progress Note (short form) - Note Progress Note: ID consult dictated imp/reccd 63 yo man with HIV -cd4 176, vl suppressed on ART and bactrim for pcp prophylaxis admitted with worsening lower extremity edema and SOB no fevers no cough chest ct reviewed with radiologist- not c/w PCP continue diuresis for CHF clinically improved continue ART and bactrim for PCP prophylaxis check BD-Glucan
--- NOTE | 2018-07-10 16:29 | PN ---
Teaching Attending Note Name of Resident: Davy Arteaga ATTENDING PHYSICIAN STATEMENT I saw and evaluated the patient. I reviewed the resident's note and discussed the case with the resident. I agree with the resident's findings and plan as documented. SUBJECTIVE:states breathing significantly improved but not at baseline. eating has improved but still having some difficulty. denies Cp, fever, chills, N/V/C/D OBJECTIVE: Last Vital Signs Temp Pulse Resp BP Pulse Ox 97.9 F 121 H 18 104/62 94 L 07/10/18 14:06 07/10/18 14:06 07/10/18 14:06 07/10/18 14:06 07/10/18 14:06 General NAD CV S1 S2 RRR no murmur/rub/gallop Lungs crackles L base extremities B/L LE edema 1+ ASSESSMENT AND PLAN: 62yo M wtih PMH HIV on HARRT (contracted from sex and dx 10 years ago been compliant on HARRT), COPD and heavy smoker was sent to the ER from [facility] due to pedal swelling and was evaluated for PE/DVT 1. Pedal edema- high suspicion for DVT vs development of volume overload. CTA/ doppler negative for PE/DVT. mild improvement. cont with lasix 40mg IV. daily weights, MEHREEN stockings. Echo pending 2. Dyspnea- COPD vs CHF. saturating 97% on RA. clinically improved. will cont with lasix. f/u echo. will hold further steroids as there is no wheezing. cont symbicort, nebs prn. will need formal PFT as outpatient. pre and post prior to discharge 3. Dysphagia- believe this is more related to his dyspnea however can not r/o functional disorder. no signs of thrush. swallow eval 4. RLL pulmonary nodule- will need follow up in 3-6 months 5. HIV on HARRT- last CD4 196. on bactrim ppx. cont HARRT therapy 6. urinary incontinence-improved. UA negative for infection. cont flomax. 7. substance abuse- recent quit smoking. couns[place] consequences of tobacco and alcohol. 8. DVT ppx- lovenox
[2018-07-10] MEDS ORDERED: FUROSEMIDE 40 MG/4 ML INJECTABLE VIAL IVPUSH ONE (17:11)
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
[2018-07-10 20:51] VITALS: BMI 27.7
[2018-07-10] MEDS ORDERED: EFAVIRENZ 600 MG TABLET PO SCH (22:00)
[2018-07-10] MEDS ORDERED: PT OWN MED DRAWER 7, Y5N ONE (22:09)
[2018-07-10] MEDS: BUDESONIDE/FORMETEROL FUMARATE 160/4.5 mcg INHALER IH SCH (22:30)
[2018-07-11 07:06] LABS: CALCIUM 8.6 mg/dL (8.5-10.1); CREATININE 0.9 mg/dL (0.55-1.3); MAGNESIUM 2.3 mg/dL (1.8-2.4); POTASSIUM 3.8 mmol/L (3.5-5.1)
[2018-07-11] MEDS ORDERED: PT OWN MED DRAWER 7, Y5N ONE (08:36)
[2018-07-11] MEDS ORDERED: SULFAMETHOXAZOLE/TRIMETHOPRIM 800MG/160MG D.S. TABLET PO SCH (10:00)
[2018-07-11] MEDS: ENOXAPARIN NA (PORCINE) 40 MG/0.4 ML DISP.SYRIN SQ SCH (10:00)
[2018-07-11] MEDS: TAMSULOSIN HCL 0.4 MG CAP PO SCH (10:00)
[2018-07-11] MEDS: FUROSEMIDE 40 MG/4 ML INJECTABLE VIAL IVPUSH SCH (10:01)
[2018-07-11] MEDS: BUDESONIDE/FORMETEROL FUMARATE 160/4.5 mcg INHALER IH SCH (10:01)
[2018-07-11] MEDS: lamiVUDine/ZIDOVUDINE 150/300 1 COMBO TABLET PO SCH (10:01)
--- NOTE | 2018-07-11 11:33 | PN ---
Teaching Attending Note Name of Resident: Davy Arteaga ATTENDING PHYSICIAN STATEMENT I saw and evaluated the patient. I reviewed the resident's note and discussed the case with the resident. I agree with the resident's findings and plan as documented. SUBJECTIVE:states breathing has significantly improved. no difficulty while eating or when ambulating to the bathroom. denies Cp, SOB, fever, chills, couhg , N/v/C/D OBJECTIVE: Last Vital Signs Temp Pulse Resp BP Pulse Ox 98.4 F 89 18 128/78 95 07/11/18 09:59 07/11/18 09:59 07/11/18 09:59 07/11/18 09:59 07/11/18 06:00 Intake & Output 07/08/18 07/09/18 07/10/18 07/11/18 23:59 23:59 23:59 23:59 Intake Total 210 10 Balance 210 10 Weight 165 lb 177 lb 3.2 oz 176 lb 12.8 oz General NAD CV S1 S2 RRR no murmur/rub/gallop Lungs decreased L base no crackles or wheezing extremities LLE 1+ pitting edema. trace RLE ASSESSMENT AND PLAN: 62yo M [facility] PMH HIV on HARRT (contracted from sex and dx 10 years ago been compliant on HARRT), COPD and heavy smoker was sent to the ER from [facility] due to pedal swelling and was evaluated for PE/DVT 1. ACute diastolic CHF- Echo normal but has clinical signs and symptoms suggestive of CHF with improvement with diuresis. received lasix 40mg IV this AM. can transition to po tomorrow, will send with 1 week worth of lasix and follow up to determine if needs [facility] diuresis.. will start asa based on CV risk score. start statin therapy. should follow up [facility] cardio as outaptient. daily weights and dietary modifications. 2. COPD- no signs of acute exacerbation. started on symbicort for maintnence. should follow up for official PFT as outpatient 3. Dysphagia- now resolved. resume regular diet. 4. RLL pulmonary nodule- will need follow up in 3-6 months 5. HIV on HARRT- last CD4 196. on bactrim ppx. cont HARRT therapy 6. urinary incontinence-improved. UA negative for infection. cont flomax. 7. substance abuse- recent quit smoking. counselled on mcfp consequences of tobacco and alcohol. 8. DVT ppx- lovenox 9. will have PT assessment to ensure no symptoms on exertion as does not have help in the home. possible d/c later today
--- NOTE | 2018-07-11 11:52 | PN ---
Progress Note, SPEECH SCIENTIST - Note Progress Note: Selected Entries 07/10/18 07/10/18 07/10/18 06:22 08:04 14:06 Temperature 98.1 F 97.9 F 97.9 F 07/10/18 07/10/18 07/11/18 18:24 19:10 01:59 Temperature 98.6 F 98.9 F 98.3 F 07/11/18 09:59 Temperature 98.4 F Laboratory Tests 07/10/18 05:30 WBC 5.1 On reguilar diet, tolerating well. No further f/u indicated at this time.
--- NOTE | 2018-07-11 11:58 | PN ---
Progress Note, Physician History of Present Illness: Peripheral edema, shortness of breath with exertion and cough resolving with diuresis. - Current Medication List Current Medications: Active Medications Albuterol/Ipratropium (Duoneb -) 1 amp NEB RQID PRN PRN Reason: SHORT OF BREATH/WHEEZING Budesonide/Formoterol Fumarate (Symbicort 160/4.5mcg -) 2 puff IH BID [facility] Last Admin: 07/11/18 10:01 Dose: 2 puff Efavirenz (Sustiva -) 600 mg PO HS [facility] Last Admin: 07/10/18 22:31 Dose: 600 mg Enoxaparin Sodium (Lovenox -) 40 mg SQ DAILY [facility] Last Admin: 07/11/18 10:00 Dose: 40 mg Furosemide (Lasix Injection -) 40 mg IVPUSH DAILY [facility] Last Admin: 07/11/18 10:01 Dose: 40 mg Lamivudine/Zidovudine (Combivir Tablet 150/300 -) 1 tablet PO BID [facility] Last Admin: 07/11/18 10:01 Dose: 1 tablet Tamsulosin HCl (Flomax -) 0.4 mg PO DAILY@0830 [facility] Last Admin: 07/11/18 10:00 Dose: 0.4 mg Trimethoprim/Sulfamethoxazole (Bactrim Ds -) 1 each PO DAILY [facility] Last Admin: 07/11/18 10:01 Dose: 1 each - Objective Vital Signs: Vital Signs Temperature 98.4 F 07/11/18 09:59 Pulse Rate 89 07/11/18 09:59 Respiratory Rate 18 07/11/18 09:59 Blood Pressure 128/78 07/11/18 09:59 O2 Sat by Pulse Oximetry (%) 98 07/11/18 09:00 Constitutional: Yes: No Distress, Calm, Thin Neck: Yes: Supple Cardiovascular: Yes: Regular Rate and Rhythm Respiratory: Yes: Regular, CTA Bilaterally Gastrointestinal: Yes: Normal Bowel Sounds, Soft Edema: No Labs: CBC, BMP 07/10/18 05:30 07/11/18 05:30 INR, PTT INR 0.97 (0.83-1.09) 07/09/18 15:00 Problem List - Problems (1) Acute on chronic diastolic heart failure Code(s): I50.33 - ACUTE ON CHRONIC DIASTOLIC (CONGESTIVE) HEART FAILURE (2) Bilateral leg edema Code(s): R60.0 - LOCALIZED EDEMA (3) HIV (human immunodeficiency virus infection) Code(s): B20 - HUMAN IMMUNODEFICIENCY VIRUS [HIV] DISEASE Qualifiers: HIV symptom status: asymptomatic Qualified Code(s): Z21 - Asymptomatic human immunodeficiency virus [HIV] infection status (4) COPD (chronic obstructive pulmonary disease) Code(s): J44.9 - CHRONIC OBSTRUCTIVE PULMONARY DISEASE, UNSPECIFIED Qualifiers: COPD type: emphysema Emphysema type: centrilobular Qualified Code(s): J43.2 - Centrilobular emphysema (5) Pulmonary nodule, right Code(s): R91.1 - SOLITARY PULMONARY NODULE Assessment/Plan 07/09/2018 Chest CTA: No PE, mild centrilobular emphysema, mildly dilated main PA 07/10/2018 Echo: Normal LV and RV size and fxn LVEF 60-65%, tr TR 1. Acute on chronic diastolic heart failure r/o pulm HTN 2. Acute COPD Exacerbation, 3. Acute Hypoxic Respiratory Failure 4. HIV on HARRT- last CD4 196 5. 6 cm RML nodule P: 1. Oral diuresis with monitor diuretic response, renal fxn and electrolytes 2. BD and O2 as needed, LAMA/LABA combination inhalational device 3. Repeat chest CT 3-6 months, outpatient PFTs 4. DVT prophylaxis 5. D/c planning
[2018-07-11 18:35] VITALS: BP 135/82; PULSE 109; TEMP 98.4
[2018-07-12] MEDS ORDERED: FUROSEMIDE 20 MG TABLET (FP) PO SCH (10:00)
== END 2018-07-11 20:00 | disposition home or self-care (01) | DRG 194 ==
LOC: SUPCPDRO 13:32 → JER 13:32 → JERBED 18:07 → J4W 07-10 19:08
PROVIDERS: ADMIT Internal Medicine; ATTEND Internal Medicine
DX: I50.31 Acute diastolic (congestive) heart failure (principal); J44.1 Chronic obstructive pulmonary disease with (acute) exacerbation; J96.01 Acute respiratory failure with hypoxia; Z21 Asymptomatic human immunodeficiency virus [HIV] infection status; N40.0 Benign prostatic hyperplasia without lower urinary tract symptoms; R13.10 Dysphagia, unspecified; R32 Unspecified urinary incontinence; R91.1 Solitary pulmonary nodule; R60.0 Localized edema; F19.10 Other psychoactive substance abuse, uncomplicated; I45.10 Unspecified right bundle-branch block
CPT/HCPCS: 36415; 36600; 71275-TC; 80048; 80053; 81003; 82375; 82803; 83050; 83615; 83735; 83880; 84100; 84484; 85025; 85027; 85610; 85730; 87449; 93005; 93010; 93306-TC; 93970-TC; 99284-25

== ENCOUNTER 2018-07-30 10:50 | Inpatient (IN) | payer OTHER ==
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
[2018-07-30] MEDS ORDERED: ALBUTEROL SO4 2.5/IPRATROPIUM 0.5 INH SOL 3 ML VIAL.NEB. NEB ONE ×4 (11:37→13:32)
[2018-07-30 11:49] LABS: ALBUMIN 3.8 g/dl (3.4-5.0); BILIRUBIN,TOTAL 0.5 mg/dl (0.2-1); CALCIUM 8.1 mg/dl (8.5-10); CREATININE 0.8 mg/dl (0.55-1.3); POTASSIUM 3.8 mmol/L (3.5-5.1); TOT PROT 6.7 g/dl (6.4-8.2)
[2018-07-30 11:52] LABS: BASO % 0.6 % (0-2.0); EOS % 2.6 % (0-4.5); HEMATOCRIT 35.9 % (35.4-49); HEMOGLOBIN 11.9 GM/dl (11.7-16.9); LYMPH % 31.2 % (8-40); MCH 37.5 pg (25.7-33.7); MCHC 33.2 g/dl (32.0-35.9); MEAN PLT VOLUME 7.5 fl (7.5-11.1); MONO % 11.2 % (3.8-10.2); NEUT % 54.4 % (42.8-82.8); PLATELET COUNT 316 K/MM3 (134-434); RBC 3.18 M/mm3 (4.00-5.60); RDW 18.5 % (11.9-15.9); WHITE BLOOD COUNT 5.6 K/mm3 (4.0-10.8)
[2018-07-30 11:53] LABS: ADD RBC MORPHOLOGY YES
[2018-07-30 12:07] LABS: ANISOCYTOSIS 1+; MACROCYTOSIS 2+
--- NOTE | 2018-07-30 15:04 | HP ---
CHIEF COMPLAINT: Shortness of breath PCP: Follows with Dr. Machado at [facility] HISTORY OF PRESENT ILLNESS: 63 year-old male, recently emigrated from [place], with a PMH significant for HLD, diastolic heart failure, HIV, COPD, and BPH. Heavy smoker until he quit 2 months ago, complains of increased shortness of breath over the past one week. Recently discharged from [facility] after treatment for exacerbation of COPD. Recent hospitalizations: May 2018: hospitalized in [place] for pneumonia 06/06-06/09 at [facility] for COPD exacerbation 07/09-07/11 at [facility] for CHF/COPD exacerbation Recent Travel Relocated from [place] in April 2018 PAST MEDICAL HISTORY Diastolic heart failure HIV on HAART (last CD4 176) on Bactrim prophylaxis COPD BPH Tuberculosis x 8 years ago treated x 6 months CVA x 30 years ago PAST SURGICAL HISTORY: Social History: Smoking: quit 3 months ago, 1ppd x 16 years Alcohol: was a heavy drinker, 1-->5 whisky daily but recently limited to just on Saturdays Drugs: no Family History: Allergies No Known Allergies Allergy (Verified 07/30/18 10:57) HOME MEDICATIONS: Home Medications Medication Instructions Recorded Albuterol 0.083% Nebulizer Julissa 1 neb NEB Q6H 07/30/18 [Ventolin 0.083% Nebulizer Soln -] Albuterol Sulfate Inhaler - 2 inh PO Q4H 07/30/18 [Ventolin Hfa Inhaler -] Aspirin 81 mg PO DAILY 07/30/18 Atorvastatin Ca [Lipitor] 40 mg PO HS 07/30/18 Budesonide/Formeterol Fumarate 2 puff IH BID 07/30/18 [SYMBICORT 160/4.5mcg -] Docusate Sodium [Colace] 1 cap PO TID 07/30/18 Efavirenz [Sustiva] 600 mg PO HS 07/30/18 Furosemide [Lasix] 40 mg PO DAILY 07/30/18 Lamivudine/Zidovudine 150/300 1 tab PO BID 07/30/18 [Combivir Tablet 150/300 -] Sennosides [Senna] 2 tab PO HS 07/30/18 Sulfamethoxazole/Trimethoprim 1 tab PO DAILY 07/30/18 [Bactrim Ds -] Tamsulosin HCl [Flomax] 1 cap PO DAILY 07/30/18 REVIEW OF SYSTEMS CONSTITUTIONAL: Absent: fever, chills, diaphoresis, generalized weakness, malaise, loss of appetite, weight change HEENT: Absent: rhinorrhea, nasal congestion, throat pain, throat swelling, difficulty swallowing, mouth swelling, ear pain, eye pain, visual changes CARDIOVASCULAR: +chronic lower extremity edema Absent: chest pain, syncope, palpitations, irregular heart rate, lightheadedness RESPIRATORY: +SOB Absent: cough, dyspnea with exertion, orthopnea, wheezing, stridor, hemoptysis GASTROINTESTINAL: Absent: abdominal pain, abdominal distension, nausea, vomiting, diarrhea, constipation, melena, hematochezia GENITOURINARY: Absent: dysuria, frequency, urgency, hesitancy, hematuria, flank pain, genital pain MUSCULOSKELETAL: Absent: myalgia, arthralgia, joint swelling, back pain, neck pain SKIN: Absent: rash, itching, pallor HEMATOLOGIC/IMMUNOLOGIC: Absent: easy bleeding, easy bruising, lymphadenopathy, frequent infections ENDOCRINE: Absent: unexplained weight gain, unexplained weight loss, heat intolerance, cold intolerance NEUROLOGIC: Absent: headache, focal weakness or paresthesias, dizziness, unsteady gait, seizure, mental status changes, bladder or bowel incontinence PSYCHIATRIC: Absent: anxiety, depression, suicidal or homicidal ideation, hallucinations. PHYSICAL EXAMINATION Vital Signs - 24 hr 07/30/18 07/30/18 07/30/18 10:55 11:36 12:15 Temperature 98.5 F Pulse Rate 95 H Pulse Rate [ 84 83 Apical] Respiratory 24 H 20 20 Rate Blood Pressure 130/67 Blood Pressure 117/71 123/72 [Right Arm] O2 Sat by Pulse 91 L 93 L Oximetry (%) 07/30/18 12:57 Temperature Pulse Rate Pulse Rate [ 94 H Apical] Respiratory 20 Rate Blood Pressure Blood Pressure 110/74 [Right Arm] O2 Sat by Pulse 97 Oximetry (%) GENERAL: Awake, alert, and fully oriented, in no acute distress. HEAD: Normal with no signs of trauma. EYES: Pupils equal, round and reactive to light, extraocular movements intact, sclera anicteric, conjunctiva clear. No lid lag. EARS, NOSE, THROAT: Ears normal, nares patent, oropharynx clear without exudates. Moist mucous membranes. NECK: Normal range of motion, supple without lymphadenopathy, JVD, or masses. LUNGS: Mild expiratory wheezing; dyspneic with speaking HEART: Regular rate and rhythm, normal S1 and S2 ABDOMEN: Soft, nontender, protuberant, +bowel sounds MUSCULOSKELETAL: Normal range of motion at all joints. No bony deformities or tenderness. No CVA tenderness. UPPER EXTREMITIES: 2+ pulses, warm, well-perfused. No cyanosis. No clubbing. No peripheral edema. LOWER EXTREMITIES: 2+ pulses, warm, well-perfused. No calf tenderness. Bilateral leg edema to the knees, 1+on right, 3+ on left; no erythema, no warmth. NEUROLOGICAL: Cranial nerves II-XII intact. Normal speech. Laboratory Results - last 24 hr 07/30/18 07/30/18 07/30/18 11:18 11:18 11:18 WBC 5.6 RBC 3.18 L Hgb 11.9 Hct 35.9 MCV 113.0 H MCH 37.5 H MCHC 33.2 RDW 18.5 H Plt Count 316 MPV 7.5 Absolute Neuts (auto) 3.1 Neutrophils % 54.4 Lymphocytes % 31.2 Monocytes % 11.2 H Eosinophils % 2.6 Basophils % 0.6 Anisocytosis 1+ Macrocytosis 2+ PT with INR 12.7 INR 1.16 Sodium 134 L Potassium 3.8 Chloride 103 Carbon Dioxide 23 Anion Gap 8 BUN 13 Creatinine 0.8 Est GFR (CKD-EPI)AfAm 110.96 Est GFR (CKD-EPI)NonAf 95.74 Random Glucose 106 Lactic Acid Calcium 8.1 L Total Bilirubin 0.5 AST 27 ALT 21 Alkaline Phosphatase 44 L Creatine Kinase 350 H Creatine Kinase Index 1.8 CK-MB (CK-2) 6.5 H Troponin I Total Protein 6.7 Albumin 3.8 Urine Color Urine Appearance Urine pH Urine Protein Urine Glucose (UA) Urine Ketones Urine Blood Urine Nitrite Urine Bilirubin Urine Urobilinogen Ur Leukocyte Esterase 07/30/18 07/30/18 07/30/18 11:18 11:18 12:16 WBC RBC Hgb Hct MCV MCH MCHC RDW Plt Count MPV Absolute Neuts (auto) Neutrophils % Lymphocytes % Monocytes % Eosinophils % Basophils % Anisocytosis Macrocytosis PT with INR INR Sodium Potassium Chloride Carbon Dioxide Anion Gap BUN Creatinine Est GFR (CKD-EPI)AfAm Est GFR (CKD-EPI)NonAf Random Glucose Lactic Acid 1.7 Calcium Total Bilirubin AST ALT Alkaline Phosphatase Creatine Kinase Creatine Kinase Index CK-MB (CK-2) Troponin I < 0.03 Total Protein Albumin Urine Color Joann Urine Appearance Clear Urine pH 7.0 Urine Protein Negative Urine Glucose (UA) Negative Urine Ketones Negative Urine Blood Negative Urine Nitrite Negative Urine Bilirubin Negative Urine Urobilinogen 0.2 Ur Leukocyte Esterase Negative ASSESSMENT/PLAN 63 year-old male with a PMH significant for HLD, diastolic heart failure, HIV, COPD, and BPH. Admitted for COPD exacerbation. COPD exacerbation --mildly hypoxic in ED with O2 sat 91%, improved --no fever, no leukocytosis, CXR clear, observe off antibiotics --duonebs QID scheduled --albuterol nebs PRN --continue Symbicort --received solumedrol 125mg in ED; start PO prednisone tomorrow --pre post in am --daily bedside peakflows Diastolic heart failure --CXR no signs of congestion, lower extremity edema is at baseline, appears euvolemic --continue home lasix dose HIV on HAART --last CD4 176 --on Bactrim prophylaxis --contiue antivirals BPH --continue tamsulosin FEN Fluids: PO intake adequate Electrolytes: replete as indicated Nutrition: sodium controlled (last assessed by Asha Valverde 07/11/18) DVT prophylaxis: subq heparin Dispo: continues to require inpatient care. Will need script for nebulizer machine on discharge. Full code. Visit type - Emergency Visit Emergency Visit: Yes ED Registration Date: 07/30/18 Care time: The patient presented to the Emergency Department on the above date and was hospitalized for further evaluation of their emergent condition. - New Patient This patient is new to me today: Yes Date on this admission: 08/01/18 - Critical Care Critical Care patient: No
[2018-07-30] MEDS ORDERED: methylPREDNISolone NA SUCC 125 MG/2 ML VIAL IVPB ONE (15:06)
[2018-07-30] MEDS ORDERED: methylPREDNISolone NA SUCC 125 MG/2 ML VIAL ONE (15:26)
[2018-07-30 15:36] LABS: PROTHROMBIN TIME (PATIENT) 12.6 SEC (10.2-13.0)
[2018-07-30 15:37] LABS: INR 1.13 (0.82-1.09)
[2018-07-30] MEDS ORDERED: ALBUTEROL SO4 0.083% IH SOL 2.5 MG/3 ML VIAL.NEB. NEB PRN (15:46)
[2018-07-30] MEDS ORDERED: predniSONE 20 MG TABLET (UD) PO SCH (18:30)
[2018-07-30] MEDS: ALBUTEROL SO4 2.5/IPRATROPIUM 0.5 INH SOL 3 ML VIAL.NEB. NEB SCH (20:29)
[2018-07-30] MEDS ORDERED: PT OWN MED DRAWER 7, Y5N ONE (21:07)
[2018-07-30] MEDS: ATORVASTATIN CA 40 MG TABLET (FP) PO SCH (21:14)
[2018-07-30] MEDS: HEPARIN NA (PORCINE) 5,000 UNITS/ML 1ML VIAL SQ SCH (21:14)
[2018-07-30] MEDS: DOCUSATE SODIUM 100 MG CAPSULE (FP) PO SCH (21:14)
[2018-07-30] MEDS: SENNOSIDES 8.6MG TABLET (FP) PO SCH (21:15)
[2018-07-30] MEDS: lamiVUDine/ZIDOVUDINE 150/300 1 COMBO TABLET PO SCH (21:15)
[2018-07-30] MEDS: BUDESONIDE/FORMETEROL FUMARATE 160/4.5 mcg INHALER IH SCH (21:16)
[2018-07-30] MEDS ORDERED: EFAVIRENZ 600 MG TABLET PO SCH (22:00)
[2018-07-31] MEDS: DOCUSATE SODIUM 100 MG CAPSULE (FP) PO SCH ×3 (05:42→21:37)
[2018-07-31] MEDS: HEPARIN NA (PORCINE) 5,000 UNITS/ML 1ML VIAL SQ SCH ×3 (05:42→21:38)
[2018-07-31] MEDS: ALBUTEROL SO4 2.5/IPRATROPIUM 0.5 INH SOL 3 ML VIAL.NEB. NEB SCH ×5 (08:00→21:36)
[2018-07-31 08:12] LABS: BASO % 0.4 % (0-2.0); EOS % 0.4 % (0-4.5); HEMOGLOBIN 12.3 GM/dl (11.7-16.9); LYMPH % 26.6 % (8-40); MCH 37.5 pg (25.7-33.7); MCHC 33.3 g/dl (32.0-35.9); MEAN CELL VOLUME 112.5 fl (80-96); MEAN PLT VOLUME 7.7 fl (7.5-11.1); MONO % 11.7 % (3.8-10.2); NEUT % 60.9 % (42.8-82.8); PLATELET COUNT 367 K/MM3 (134-434); RBC 3.29 M/mm3 (4.00-5.60); RDW 17.6 % (11.9-15.9); WHITE BLOOD COUNT 7.1 K/mm3 (4.0-10.8)
[2018-07-31] MEDS: TAMSULOSIN HCL 0.4 MG CAP PO SCH (08:15)
[2018-07-31 08:22] LABS: BILIRUBIN,TOTAL 0.7 mg/dl (0.2-1); CALCIUM 8.8 mg/dl (8.5-10); CREATININE 0.7 mg/dl (0.55-1.3); POTASSIUM 4.3 mmol/L (3.5-5.1); TOT PROT 7.1 g/dl (6.4-8.2)
[2018-07-31] MEDS ORDERED: predniSONE 20 MG TABLET (UD) PO SCH (10:00)
[2018-07-31] MEDS: BUDESONIDE/FORMETEROL FUMARATE 160/4.5 mcg INHALER IH SCH ×2 (10:00→21:39)
[2018-07-31] MEDS: SULFAMETHOXAZOLE/TRIMETHOPRIM 800MG/160MG D.S. TABLET PO SCH (10:05)
[2018-07-31] MEDS: ASPIRIN 81 MG CHEWABLE TABLETS PO SCH (10:49)
[2018-07-31] MEDS: FUROSEMIDE 40 MG TABLET (FP) PO SCH (10:50)
[2018-07-31] MEDS: lamiVUDine/ZIDOVUDINE 150/300 1 COMBO TABLET PO SCH ×2 (11:05→21:37)
--- NOTE | 2018-07-31 11:06 | PN ---
Physical Exam: SUBJECTIVE: Patient seen and examined OBJECTIVE: Vital Signs Period Temp Pulse Resp BP Sys/Clifton Pulse Ox Last 24 Hr 98.2 F-98.6 F 83-110 16-22 110-130/62-74 93-99 GENERAL: The patient is awake, alert, and fully oriented, in no acute distress. LUNGS: Poor air movement, scattered wheezing HEART: Regular rate and rhythm, S1, S2 EXTREMITIES: 2+ pulses, warm, well-perfused, Bilateral leg edema to the knees, 1 +on right, 3+ on left; no erythema, no warmth. NEUROLOGICAL: Cranial nerves II through XII grossly intact. Normal speech, gait not observed. Laboratory Results - last 24 hr 07/30/18 07/30/18 07/30/18 11:18 11:18 11:18 WBC 5.6 RBC 3.18 L Hgb 11.9 Hct 35.9 MCV 113.0 H MCH 37.5 H MCHC 33.2 RDW 18.5 H Plt Count 316 MPV 7.5 Absolute Neuts (auto) 3.1 Neutrophils % 54.4 Lymphocytes % 31.2 Monocytes % 11.2 H Eosinophils % 2.6 Basophils % 0.6 Anisocytosis 1+ Macrocytosis 2+ PT with INR 12.6 INR 1.13 Sodium 134 L Potassium 3.8 Chloride 103 Carbon Dioxide 23 Anion Gap 8 BUN 13 Creatinine 0.8 Est GFR (CKD-EPI)AfAm 110.96 Est GFR (CKD-EPI)NonAf 95.74 Random Glucose 106 Lactic Acid Calcium 8.1 L Magnesium Total Bilirubin 0.5 AST 27 ALT 21 Alkaline Phosphatase 44 L Creatine Kinase 350 H Creatine Kinase Index 1.8 CK-MB (CK-2) 6.5 H Troponin I Total Protein 6.7 Albumin 3.8 Urine Color Urine Appearance Urine pH Urine Protein Urine Glucose (UA) Urine Ketones Urine Blood Urine Nitrite Urine Bilirubin Urine Urobilinogen Ur Leukocyte Esterase 07/30/18 07/30/18 07/30/18 11:18 11:18 12:16 WBC RBC Hgb Hct MCV MCH MCHC RDW Plt Count MPV Absolute Neuts (auto) Neutrophils % Lymphocytes % Monocytes % Eosinophils % Basophils % Anisocytosis Macrocytosis PT with INR INR Sodium Potassium Chloride Carbon Dioxide Anion Gap BUN Creatinine Est GFR (CKD-EPI)AfAm Est GFR (CKD-EPI)NonAf Random Glucose Lactic Acid 1.7 Calcium Magnesium Total Bilirubin AST ALT Alkaline Phosphatase Creatine Kinase Creatine Kinase Index CK-MB (CK-2) Troponin I < 0.03 Total Protein Albumin Urine Color Joann Urine Appearance Clear Urine pH 7.0 Urine Protein Negative Urine Glucose (UA) Negative Urine Ketones Negative Urine Blood Negative Urine Nitrite Negative Urine Bilirubin Negative Urine Urobilinogen 0.2 Ur Leukocyte Esterase Negative 07/31/18 07/31/18 06:30 06:30 WBC 7.1 RBC 3.29 L Hgb 12.3 Hct 37.0 MCV 112.5 H MCH 37.5 H MCHC 33.3 RDW 17.6 H Plt Count 367 MPV 7.7 Absolute Neuts (auto) 4.4 Neutrophils % 60.9 Lymphocytes % 26.6 Monocytes % 11.7 H Eosinophils % 0.4 D Basophils % 0.4 Anisocytosis Macrocytosis PT with INR INR Sodium 137 Potassium 4.3 Chloride 102 Carbon Dioxide 25 Anion Gap 10 BUN 9 Creatinine 0.7 Est GFR (CKD-EPI)AfAm 117.22 Est GFR (CKD-EPI)NonAf 101.14 Random Glucose 99 Lactic Acid Calcium 8.8 Magnesium 2.0 Total Bilirubin 0.7 AST 25 ALT 22 Alkaline Phosphatase 47 Creatine Kinase Creatine Kinase Index CK-MB (CK-2) Troponin I Total Protein 7.1 Albumin 4.0 Urine Color Urine Appearance Urine pH Urine Protein Urine Glucose (UA) Urine Ketones Urine Blood Urine Nitrite Urine Bilirubin Urine Urobilinogen Ur Leukocyte Esterase Active Medications Generic Name Dose Route Start Last Admin Trade Name Freq PRN Reason Stop Dose Admin Albuterol Sulfate 1 amp 07/30/18 15:46 Ventolin 0.083% Nebulizer Soln - NEB Q4H PRN SHORT OF BREATH/WHEEZING Albuterol/Ipratropium 1 amp 07/30/18 16:00 07/31/18 08:15 Duoneb - NEB 1 amp RQID GLENNY Administration Aspirin 81 mg 07/31/18 10:00 07/31/18 10:49 Asa - PO 81 mg DAILY GLENNY Administration Atorvastatin Calcium 40 mg 07/30/18 22:00 07/30/18 21:14 Lipitor - PO 40 mg HS GLENNY Administration Budesonide/Formoterol Fumarate 2 puff 07/30/18 22:00 07/30/18 21:16 Symbicort 160/4.5mcg - IH 2 puff BID GLENNY Administration Docusate Sodium 100 mg 07/30/18 22:00 07/31/18 05:42 Colace - PO 100 mg TID GLENNY Administration Efavirenz 600 mg 07/30/18 22:00 07/30/18 21:15 Sustiva - PO 600 mg HS GLENNY Administration Furosemide 40 mg 07/31/18 10:00 07/31/18 10:50 Lasix - PO 40 mg DAILY GLENNY Administration Heparin Sodium (Porcine) 5,000 unit 07/30/18 22:00 07/31/18 05:42 Heparin - SQ 5,000 unit TID GLENNY Administration Lamivudine/Zidovudine 1 tablet 07/30/18 22:00 07/30/18 21:15 Combivir Tablet 150/300 - PO 1 tablet BID GLENNY Administration Methylprednisolone Sodium Succinate 60 mg 07/31/18 11:04 Solu-Medrol - IVPUSH 07/31/18 11:05 ONCE ONE Methylprednisolone Sodium Succinate 40 mg 07/31/18 21:00 Solu-Medrol - IVPUSH Q6H-IV GLENNY Prednisone 60 mg 07/31/18 10:00 Deltasone - PO DAILY [facility] Senna 2 tab 07/30/18 22:00 07/30/18 21:15 Senna - PO 2 tab HS GLENNY Administration Tamsulosin HCl 0.4 mg 07/31/18 08:30 07/31/18 08:15 Flomax - PO 0.4 mg DAILY@0830 GLENNY Administration Trimethoprim/Sulfamethoxazole 1 each 07/31/18 10:00 Bactrim Ds - PO DAILY [facility] ASSESSMENT/PLAN 63 year-old male with a PMH significant for HLD, diastolic heart failure, HIV, COPD, and BPH. Admitted for COPD exacerbation. COPD exacerbation --no fever, no leukocytosis, CXR clear, continue to observe off antibiotics --duonebs QID scheduled --albuterol nebs PRN --continue Symbicort --IV steroid --pre post in am Diastolic heart failure --CXR no signs of congestion, lower extremity edema is at baseline, appears euvolemic --continue home lasix dose HIV on HAART --last CD4 176 --on Bactrim prophylaxis --contiue antivirals --seen and evaluated by ID, no change in medications BPH --continue tamsulosin FEN Fluids: PO intake adequate Electrolytes: replete as indicated Nutrition: sodium controlled (last assessed by Asha Valverde 07/11/18) DVT prophylaxis: subq heparin Dispo: continues to require inpatient care. Will need script for nebulizer machine on discharge. Full code. Visit type - Emergency Visit Emergency Visit: Yes ED Registration Date: 07/30/18 Care time: The patient presented to the Emergency Department on the above date and was hospitalized for further evaluation of their emergent condition. - New Patient This patient is new to me today: No - Critical Care Critical Care patient: No
[2018-07-31] MEDS ORDERED: methylPREDNISolone NA SUCC 40 MG/1 ML VIAL IVPUSH ONE (11:15)
--- NOTE | 2018-07-31 12:56 | EKG ---
Test Reason : Blood Pressure : / mmHG Vent. Rate : 087 BPM Atrial Rate : 087 BPM P-R Int : 142 ms QRS Dur : 122 ms QT Int : 388 ms P-R-T Axes : 045 082 059 degrees QTc Int : 466 ms NORMAL SINUS RHYTHM RIGHT BUNDLE BRANCH BLOCK ABNORMAL ECG WHEN COMPARED WITH ECG OF 09-JUL-2018 14:35, NO SIGNIFICANT CHANGE WAS FOUND Confirmed by AMITA PIERCE MD ([id number]) on 07/31/2018 12:56:04 PM Referred By: JUAN CABAN Confirmed By:AMITA PIERCE MD
[2018-07-31] MEDS ORDERED: PT OWN MED DRAWER 7, Y5N ONE ×2 (16:37→21:24)
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
[2018-07-31] MEDS: methylPREDNISolone NA SUCC 40 MG/1 ML VIAL IVPUSH SCH (21:36)
[2018-07-31] MEDS: ATORVASTATIN CA 40 MG TABLET (FP) PO SCH (21:37)
[2018-07-31] MEDS: SENNOSIDES 8.6MG TABLET (FP) PO SCH (21:38)
[2018-07-31] MEDS: EFAVIRENZ 600 MG TABLET PO SCH (21:38)
[2018-08-01] MEDS: methylPREDNISolone NA SUCC 40 MG/1 ML VIAL IVPUSH SCH ×2 (02:13→09:20)
[2018-08-01] MEDS: HEPARIN NA (PORCINE) 5,000 UNITS/ML 1ML VIAL SQ SCH ×2 (06:01→15:09)
[2018-08-01] MEDS: DOCUSATE SODIUM 100 MG CAPSULE (FP) PO SCH ×2 (06:01→15:08)
[2018-08-01] MEDS ORDERED: PT OWN MED DRAWER 7, Y5N ONE (09:11)
[2018-08-01] MEDS: ALBUTEROL SO4 2.5/IPRATROPIUM 0.5 INH SOL 3 ML VIAL.NEB. NEB SCH ×3 (09:19→15:09)
[2018-08-01] MEDS: FUROSEMIDE 40 MG TABLET (FP) PO SCH (09:19)
[2018-08-01] MEDS: SULFAMETHOXAZOLE/TRIMETHOPRIM 800MG/160MG D.S. TABLET PO SCH (09:19)
[2018-08-01] MEDS: EFAVIRENZ 600 MG TABLET PO SCH (09:20)
[2018-08-01] MEDS: TAMSULOSIN HCL 0.4 MG CAP PO SCH (09:20)
[2018-08-01] MEDS: ASPIRIN 81 MG CHEWABLE TABLETS PO SCH (09:20)
[2018-08-01] MEDS: BUDESONIDE/FORMETEROL FUMARATE 160/4.5 mcg INHALER IH SCH (09:21)
[2018-08-01] MEDS: lamiVUDine/ZIDOVUDINE 150/300 1 COMBO TABLET PO SCH (09:21)
--- NOTE | 2018-08-01 12:30 | DS ---
Physical Exam: SUBJECTIVE: Patient seen and examined sitting on edge of bed. Breathing is better. OBJECTIVE: Vital Signs Period Temp Pulse Resp BP Sys/Clifton Pulse Ox Last 24 Hr 97.7 F-98.7 F 81-101 17-20 108-125/51-81 93-96 PHYSICAL EXAM GENERAL: Awake, alert, and fully oriented, in no acute distress. LUNGS: Improved air movement, no wheezing appreciated HEART: Regular rate and rhythm, normal S1 and S2 ABDOMEN: Soft, nontender, protuberant, +bowel sounds MUSCULOSKELETAL: Normal range of motion at all joints. No bony deformities or tenderness. No CVA tenderness. UPPER EXTREMITIES: 2+ pulses, warm, well-perfused. No cyanosis. No clubbing. No peripheral edema. LOWER EXTREMITIES: 2+ pulses, warm, well-perfused. No calf tenderness. Bilateral leg edema to the knees, 1+on right, 3+ on left; no erythema, no warmth. NEUROLOGICAL: Cranial nerves II-XII intact. Normal speech. LABS CBCD WBC 7.1 K/mm3 (4.0-10.8) 07/31/18 06:30 RBC 3.29 M/mm3 (4.00-5.60) L 07/31/18 06:30 Hgb 12.3 GM/dl (11.7-16.9) 07/31/18 06:30 Hct 37.0 % (35.4-49) 07/31/18 06:30 MCV 112.5 fl (80-96) H 07/31/18 06:30 MCHC 33.3 g/dl (32.0-35.9) 07/31/18 06:30 RDW 17.6 % (11.9-15.9) H 07/31/18 06:30 Plt Count 367 K/MM3 (134-434) 07/31/18 06:30 MPV 7.7 fl (7.5-11.1) 07/31/18 06:30 CMP Sodium 137 mmol/L (136-145) 07/31/18 06:30 Potassium 4.3 mmol/L (3.5-5.1) 07/31/18 06:30 Chloride 102 mmol/L (98-107) 07/31/18 06:30 Carbon Dioxide 25 mmol/L (21-32) 07/31/18 06:30 Anion Gap 10 MMOL/L (8-16) 07/31/18 06:30 BUN 9 mg/dl (7-18) 07/31/18 06:30 Creatinine 0.7 mg/dl (0.55-1.3) 07/31/18 06:30 Calcium 8.8 mg/dl (8.5-10) 07/31/18 06:30 Total Bilirubin 0.7 mg/dl (0.2-1) 07/31/18 06:30 AST 25 U/L (15-37) 07/31/18 06:30 ALT 22 U/L (13-61) 07/31/18 06:30 Alkaline Phosphatase 47 U/L (45-117) 07/31/18 06:30 Total Protein 7.1 g/dl (6.4-8.2) 07/31/18 06:30 Albumin 4.0 g/dl (3.4-5.0) 07/31/18 06:30 HOSPITAL COURSE: Date of Admission:07/30/18 Date of Discharge: 08/01/18 63 year-old male with a PMH significant for HLD, diastolic heart failure, HIV, COPD, and BPH. Admitted for COPD exacerbation. COPD exacerbation --mildly hypoxic in ED with O2 sat 91% --no fever, no leukocytosis, CXR clear, observed off antibiotics --treated with duonebs QID scheduled, albuterol nebs PRN, continue Symbicort --treated with IV steroids, discharged on PO tapereceived solumedrol 125mg in ED; start PO prednisone tomorrow --pre post: 92% with flat surface walking without O2 Diastolic heart failure --CXR no signs of congestion, lower extremity edema at baseline, appeared euvolemic --continued home lasix dose HIV on HAART --last CD4 176 --on Bactrim prophylaxis --contiues antivirals --followed at [facility] --was seen and evaluated by Dr. Machado [facility] --continued tamsulosin Referral made to the Pulmonary Rehab Program at [facility]. Minutes to complete discharge: 35 Discharge Summary Reason For Visit: ACUTE EXACERBATION OF OBSTRUCTIVE PULMONARY DISEAS Current Active Problems COPD exacerbation (Acute) Condition: Improved - Instructions Disposition: HOME - Home Medications Comprehensive Discharge Medication List: Ambulatory Orders Albuterol 0.083% Nebulizer Julissa [Ventolin 0.083% Nebulizer Soln -] 1 neb NEB Q6H 07/30/18 Albuterol Sulfate Inhaler - [Ventolin Hfa Inhaler -] 2 inh PO Q4H 07/30/18 Aspirin 81 mg PO DAILY 07/30/18 Atorvastatin Ca [Lipitor] 40 mg PO HS 07/30/18 Budesonide/Formeterol Fumarate [SYMBICORT 160/4.5mcg -] 2 puff IH BID 07/30/18 Docusate Sodium [Colace] 1 cap PO TID 07/30/18 Efavirenz [Sustiva] 600 mg PO HS 07/30/18 Furosemide [Lasix] 40 mg PO DAILY 07/30/18 Lamivudine/Zidovudine 150/300 [Combivir Tablet 150/300 -] 1 tab PO BID 07/30/18 Sennosides [Senna] 2 tab PO HS 07/30/18 Sulfamethoxazole/Trimethoprim [Bactrim Ds -] 1 tab PO DAILY 07/30/18 Tamsulosin HCl [Flomax] 1 cap PO DAILY 07/30/18 This patient is new to me today: No Emergency Visit: Yes ED Registration Date: 07/30/18 Care time: The patient presented to the Emergency Department on the above date and was hospitalized for further evaluation of their emergent condition. Critical Care patient: No - Discharge Referral Referred to [facility] No
[2018-08-01 16:24] VITALS: BMI 28.4
[2018-08-01 18:19] VITALS: BP 121/59; PULSE 85; TEMP 97.2
== END 2018-08-01 18:10 | disposition home or self-care (01) | DRG 140 ==
LOC: FER 10:50 → FM/S 15:05
PROVIDERS: ADMIT Internal Medicine; ATTEND Nurse Practitioner Acute Care
PROC: 3E0F7GC Introduction of Other Therapeutic Substance into Respiratory Tract, Via Natural or Artificial Opening (ICD-10-PCS; principal; 2018-07-30)
DX: J44.1 Chronic obstructive pulmonary disease with (acute) exacerbation (principal); B20 Human immunodeficiency virus [HIV] disease; I11.0 Hypertensive heart disease with heart failure; I50.32 Chronic diastolic (congestive) heart failure; I69.354 Hemiplegia and hemiparesis following cerebral infarction affecting left non-dominant side; R09.02 Hypoxemia; R91.1 Solitary pulmonary nodule; E78.00 Pure hypercholesterolemia, unspecified; N40.0 Benign prostatic hyperplasia without lower urinary tract symptoms; Z87.891 Personal history of nicotine dependence; Z86.11 Personal history of tuberculosis
CPT/HCPCS: 36415; 71045-TC-FY; 80053; 81003; 82550; 82553; 83605; 83735; 84484; 85025; 85610; 87040; 93005; 93971-TC; 94640; 99284-25; J1644

== ENCOUNTER 2018-08-12 15:20 | Inpatient (IN) | payer OTHER ==
[2018-08-12] MEDS ORDERED: methylPREDNISolone NA SUCC 125 MG/2 ML VIAL IVPB ONE (15:27)
[2018-08-12] MEDS ORDERED: ALBUTEROL SO4 2.5/IPRATROPIUM 0.5 INH SOL 3 ML VIAL.NEB. NEB ONE ×3 (15:27→16:26)
--- NOTE | 2018-08-12 15:30 | PDOC ---
Rapid Medical Evaluation Chief Complaint: Shortness of Breath Time Seen by Provider: 08/12/18 15:21 Medical Evaluation: Allergies Allergy/AdvReac Type Severity Reaction Status Date / Time No Known Allergies Allergy Verified 08/12/18 15:22 Vital Signs Temp Pulse Resp BP Pulse Ox 98.3 F 121 H 24 H 104/67 91 L 08/12/18 15:22 08/12/18 15:22 08/12/18 15:22 08/12/18 15:22 08/12/18 15:22 08/12/18 15:28 Patient complains of: sob, wheezing and upper back pain x 2 days, hx copd, no o2 or neb/inhaler at home Patient on brief exam: exp wheeze darien, labored breathing, tachy low o2 sat Patient ordered for: cardiac w/u, neb, steroid Patient to proceed to the ED Discharge Disposition - Diagnosis COPD exacerbation, Human immunodeficiency virus (HIV) disease, Shortness of breath - Discharge Dispostion Condition at time of disposition: Fair - Referrals - Patient Instructions - Post Discharge Activity
[2018-08-12] MEDS ORDERED: methylPREDNISolone NA SUCC 125 MG/2 ML VIAL ONE (15:56)
[2018-08-12 16:16] LABS: BASO % 0.4 % (0-2.0); EOS % 0.6 % (0-4.5); HEMATOCRIT 35.3 % (35.4-49); LYMPH % 6.9 % (8-40); MCH 38.2 pg (25.7-33.7); MEAN CELL VOLUME 112.5 fl (80-96); MEAN PLT VOLUME 7.5 fl (7.5-11.1); MONO % 4.5 % (3.8-10.2); NEUT % 87.6 % (42.8-82.8); PLATELET COUNT 300 K/MM3 (134-434); RBC 3.14 M/mm3 (4.00-5.60); RDW 19.7 % (11.9-15.9)
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
[2018-08-12] MEDS: ALBUTEROL SO4 2.5/IPRATROPIUM 0.5 INH SOL 3 ML VIAL.NEB. NEB SCH ×2 (16:35→16:42)
[2018-08-12 16:46] LABS: ALBUMIN 3.7 g/dl (3.4-5.0); ALK PHOS 51 U/L (45-117); BILIRUBIN,TOTAL 0.4 mg/dL (0.2-1); BLOOD UREA NITROGEN 13.8 mg/dL (7-18); CALCIUM 8.8 mg/dL (8.5-10.1); CHLORIDE 104 mmol/L (98-107); CO2 29 mmol/L (21-32); CREATININE 0.9 mg/dL (0.55-1.3); SGPT/ALT 38 U/L (13-61); SODIUM 139 mmol/L (136-145)
[2018-08-12 16:47] LABS: ANION GAP 7 MMOL/L (8-16); GLUCOSE,RANDOM 111 mg/dL (74-106); POTASSIUM 4.6 mmol/L (3.5-5.1); SGOT/AST 38 U/L (15-37)
[2018-08-12] MEDS ORDERED: ACETAMINOPHEN 1000 MG/100 ML VIAL (NON FORMULARY) IVPB ONE (16:51)
[2018-08-12] MEDS ORDERED: CEFTRIAXONE 1,000 MG in DEXTROSE 5%-WATER - 50 ML IVPB ONE (17:02)
[2018-08-12] MEDS ORDERED: AZITHROMYCIN IVPB 500 MG in DEXTROSE 5%-WATER - 250 ML IVPB ONE (17:02)
[2018-08-12] MEDS ORDERED: CEFTRIAXONE 1 GM/50 ML BAG ONE (17:15)
[2018-08-12 17:44] LABS: ANISOCYTOSIS 1+; MACROCYTOSIS 2+
[2018-08-12 17:45] LABS: PLATELET ESTIMATE ADEQUATE
--- NOTE | 2018-08-12 17:56 | HP ---
Admitting History and Physical - Primary Care Physician PCP: Yoko Machado - Admission Chief Complaint: SOB with Fever and Cough History of Present Illness: 63 year-old male, known to service since [address] since last admitted at [facility] on 08/01/18 with COPD excaerbation f/U with ID clinic last vist was on 08/05/2018, H/O HIV AIDS last CD4 count 176 in 06/13 VL 50 on PCP prophylaxis with Bactrim, COPD required home O2 but could get due to insurance issue, Dyslipedemia, present with 2 days H/O worsening SOB, Cough , mild expectoration and fever on arrival to patient was Hypoxic, 80s , tachycardiac and febrile received IV solumedrol and Nebs X3 with O2 inhalation that relives symptoms, patient denies any chest pain , Id consulted recommended IV abx for CABP and Hospitalization. History Source: Patient - Past Medical History Cardiovascular: Yes: Hyperlipdemia Pulmonary: Yes: COPD Renal/: Yes: BPH Infectious Disease: Yes: HIV - Smoking History Smoking history: Former smoker Have you smoked in the past 12 months: No Aproximately how many cigarettes per day: 20 If you are a former smoker, when did you quit?: 3months - Alcohol/Substance Use Hx Alcohol Use: No - Social History ADL: Independent Home Medications - Allergies Allergies/Adverse Reactions: Allergies Allergy/AdvReac Type Severity Reaction Status Date / Time No Known Allergies Allergy Verified 08/12/18 15:22 - Home Medications Home Medications: Ambulatory Orders Albuterol 0.083% Nebulizer Julissa [Ventolin 0.083% Nebulizer Soln -] 1 neb NEB Q6H 07/30/18 Albuterol Sulfate Inhaler - [Ventolin Hfa Inhaler -] 2 inh PO Q4H 07/30/18 Aspirin 81 mg PO DAILY 07/30/18 Atorvastatin Ca [Lipitor] 40 mg PO HS 07/30/18 Docusate Sodium [Colace] 1 cap PO TID 07/30/18 Efavirenz [Sustiva] 600 mg PO HS 07/30/18 Furosemide [Lasix] 40 mg PO DAILY 07/30/18 Lamivudine/Zidovudine 150/300 [Combivir Tablet 150/300 -] 1 tab PO BID 07/30/18 Sennosides [Senna] 2 tab PO HS 07/30/18 Albuterol 2.5/Ipratropium 0.5 [Duoneb -] 1 neb IH QID PRN #1 box 08/01/18 Nebulizer Accessories [Adult Aerosol Mask] 1 each ASDIR #1 each 08/01/18 Nebulizer [Aeroeclipse II] 1 each ASDIR #1 each 08/01/18 Prednisone [Deltasone] 20 mg PO ASDIR #13 tablet 08/01/18 Budesonide/Formeterol Fumarate [SYMBICORT 160/4.5mcg -] 2 puff IH BID #1 inhaler 08/05/18 Furosemide [Lasix -] 20 mg PO DAILY #30 tablet 08/05/18 Sulfamethoxazole/Trimethoprim [Bactrim DS -] 1 tab PO DAILY #30 tablet 08/05/18 Tamsulosin HCl [Flomax] 1 cap PO DAILY #30 capsule 08/05/18 Family Disease History - Family Disease History Family Disease History: Diabetes: Father, Heart Disease: Mother (Parkinsons), Other: Mother, Brother (2), Sister (3), Son (2) Review of Systems - Review of Systems Constitutional: reports: Chills, Fever, Lethargy Eyes: denies: Blind Spots, Blurred Vision HENT: denies: Difficult Swallowing, Ear Discharge Neck: denies: Decreased ROM, Lumps Cardiovascular: reports: Shortness of Breath. denies: Chest Pain, Edema, Palpitations Respiratory: reports: Cough, Exercise Intolerance, SOB Gastrointestinal: reports: Constipation. denies: Abdominal Pain Genitourinary: denies: Burning, Discharge, Dysuria Musculoskeletal: denies: Back Pain, Crepitus Neurological: denies: Change in LOC, Change in Speech Endocrine: denies: Excessive Sweating, Flushing, Increased Hunger Psychiatric: denies: Altered Sleep Pattern, Anxiety, Depression Pain Intensity: 0 Physical Examination Vital Signs: Vital Signs Temperature 100.7 F H 08/12/18 15:53 Pulse Rate 108 H 08/12/18 17:45 Respiratory Rate 24 H 08/12/18 15:53 Blood Pressure 104/67 08/12/18 15:22 O2 Sat by Pulse Oximetry (%) 97 08/12/18 16:43 Elderly man comfortable eating dinner HEENT: Mm moist, no thrush, PERRLA EOMI NECK: No JVD No Bruit CHEST: dIffuse wheezes (minimal) CVS: S1S2 Tachycardia ABD: No distention, non tender Bs + EXT: No edema feet, no calf tenderness, Pulses +2 AVIATION CONSULTANT: AOX3 non focal Labs: CBC, BMP 08/12/18 15:49 08/12/18 15:49 CBC,CMP WBC 9.0 K/mm3 (4.0-10.0) 08/12/18 15:49 RBC 3.14 M/mm3 (4.00-5.60) L 08/12/18 15:49 Hgb 12.0 GM/dL (11.7-16.9) 08/12/18 15:49 Hct 35.3 % (35.4-49) L 08/12/18 15:49 MCV 112.5 fl (80-96) H 08/12/18 15:49 MCH 38.2 pg (25.7-33.7) H 08/12/18 15:49 MCHC 34.0 g/dl (32.0-35.9) 08/12/18 15:49 RDW 19.7 % (11.9-15.9) H 08/12/18 15:49 Plt Count 300 K/MM3 (134-434) D 08/12/18 15:49 MPV 7.5 fl (7.5-11.1) 08/12/18 15:49 Absolute Neuts (auto) 7.9 K/mm3 (1.5-8.0) 08/12/18 15:49 Neutrophils % 87.6 % (42.8-82.8) H D 08/12/18 15:49 Lymphocytes % 6.9 % (8-40) L D 08/12/18 15:49 Monocytes % 4.5 % (3.8-10.2) 08/12/18 15:49 Eosinophils % 0.6 % (0-4.5) 08/12/18 15:49 Basophils % 0.4 % (0-2.0) 08/12/18 15:49 Nucleated RBC % 0 % (0-0) 08/12/18 15:49 Platelet Estimate Adequate 08/12/18 15:49 Anisocytosis 1+ 08/12/18 15:49 Macrocytosis 2+ 08/12/18 15:49 Stomatocytes 1+ 08/12/18 15:49 Sodium 139 mmol/L (136-145) 08/12/18 15:49 Potassium 4.6 mmol/L (3.5-5.1) 08/12/18 15:49 Chloride 104 mmol/L (98-107) 08/12/18 15:49 Carbon Dioxide 29 mmol/L (21-32) 08/12/18 15:49 Anion Gap 7 MMOL/L (8-16) L 08/12/18 15:49 BUN 13.8 mg/dL (7-18) 08/12/18 15:49 Creatinine 0.9 mg/dL (0.55-1.3) 08/12/18 15:49 Est GFR (CKD-EPI)AfAm 105.72 08/12/18 15:49 Est GFR (CKD-EPI)NonAf 91.22 08/12/18 15:49 Random Glucose 111 mg/dL (74-106) H 08/12/18 15:49 Lactic Acid 1.9 mmol/L (0.4-2.0) 08/12/18 16:40 Calcium 8.8 mg/dL (8.5-10.1) 08/12/18 15:49 Total Bilirubin 0.4 mg/dL (0.2-1) 08/12/18 15:49 AST 38 U/L (15-37) H 08/12/18 15:49 ALT 38 U/L (13-61) 08/12/18 15:49 Alkaline Phosphatase 51 U/L (45-117) 08/12/18 15:49 Creatine Kinase 211 U/L (26-308) 08/12/18 15:49 Creatine Kinase Index 0.9 % (0.0-5.0) 08/12/18 15:49 CK-MB (CK-2) 2.1 ng/mL (0.5-3.6) 08/12/18 15:49 Troponin I < 0.02 ng/ml (0.00-0.05) 08/12/18 15:49 Total Protein 7.0 g/dl (6.4-8.2) 08/12/18 15:49 Albumin 3.7 g/dl (3.4-5.0) 08/12/18 15:49 Imaging - Results Chest X-ray: Report Reviewed (no significant chnages since last study) EKG: Report Reviewed (Sinus Tcahycrdia RBBB (at base line RBBB)) Problem List - Problems (1) Acute on chronic respiratory failure with hypoxia Assessment/Plan: Due to COPD excaerbation secondary to RTI cont IV Ceftriaxone and azithromycine , IV solumedrol O2 inflation, Pulmonary consult, Duo neb q 6 hrly and albuterol Nebs q 6 HRLY PRN. Code(s): J96.21 - ACUTE AND CHRONIC RESPIRATORY FAILURE WITH HYPOXIA (2) COPD exacerbation Assessment/Plan: Known case of COPD with chronic respiratory failure, needs evaluation for home O2 4th Hod[italization since 06/13 cont IV solumedrol, Duo neb and albuterol neb PTRN Code(s): J44.1 - CHRONIC OBSTRUCTIVE PULMONARY DISEASE W (ACUTE) EXACERBATION (3) RTI (respiratory tract infection) Assessment/Plan: Received Ceftriaxone and Azithromycin F/u culture and ID recommendation,Lactic acid is normal no obvious infiltrate Code(s): J98.8 - OTHER SPECIFIED RESPIRATORY DISORDERS (4) Human immunodeficiency virus (HIV) disease Assessment/Plan: Last CD4 176 VL 50 in 06/13 pm Bactrim for PCP prophylaxis. F/U ID for HIV Meds. Code(s): B20 - HUMAN IMMUNODEFICIENCY VIRUS [HIV] DISEASE (5) Pulmonary nodule, right Assessment/Plan: evaluted by Pulmonary recommonded F/U CT in 6 months Code(s): R91.1 - SOLITARY PULMONARY NODULE (6) Chronic diastolic (congestive) heart failure Assessment/Plan: Compensated will F/U BNP cont lasix 20 mg last ECHO normal 05/2018 Code(s): I50.32 - CHRONIC DIASTOLIC (CONGESTIVE) HEART FAILURE (7) Tachycardia Assessment/Plan: sinus tachycardia in the setting of COPd exacerbation, fever and Nebs treatment , base line RBBB previously evaluated for PE at present no chest pain, no calf swelling or calf tenderness will re evaluate, consider CTA with PE protocol if persistent tachycardia despite optimization of COPD exacerbation treatment. Code(s): R00.0 - TACHYCARDIA, UNSPECIFIED
[2018-08-12] MEDS ORDERED: methylPREDNISolone NA SUCC 125 MG/2 ML VIAL IVPB SCH (18:00)
[2018-08-12] MEDS ORDERED: AZITHROMYCIN IVPB 500 MG/250 ML BAG IVPB ONE (18:01)
[2018-08-12 18:30] LABS: LDH 312 U/L (87-246)
--- NOTE | 2018-08-12 18:53 | PDOC ---
Documentation entered by Marysol Phan SCRIBE, acting as scribe for Kenia Galaviz MD. Kenia Galaviz MD: This documentation has been prepared by the miroslava, Marysol Phan SCRIBE, under my direction and personally reviewed by me in its entirety. I confirm that the documentation accurately reflects all work, treatment, procedures, and medical decision making performed by me. Attending Attestation - Resident Resident Name: Emdund Aviles - ED Attending Attestation I have performed the following: I have examined & evaluated the patient, The case was reviewed & discussed with the resident, I agree w/resident's findings & plan, Exceptions are as noted - HPI HPI: 08/12/18 16:58 The patient is a 63 year old male with a past medical history significant for hx of diastolic heart failure, COPD, HLD, HTN, DM and HIV (last recorded CD4 176 , on bactrim prophylaxis) presents to the emergency department accompanied with son with shortness of breath. The patient presents with 1 day of shortness of breath, reports he feels like he has water in his lungs associated with pressure like pain to the upper back, subjective fever and productive cough. The son states his home O2 was 87-90, no improvement noted with albuterol treatment. The son reports when it gets too humid outside, he does get similar symptoms. The patient is compliant with medication. Denies nausea, vomiting, abdominal pain. The son reports, patient did have sick contact with the sons . Allergies: NKA - Physicial Exam PE: 08/12/18 17:39 GENERAL: The patient is in no acute distress. ENT: Ears normal, nares patent, oropharynx clear without exudates. Moist mucous membranes. NECK: Normal range of motion, supple, no nuchal rigidity LUNGS: +rhonchorous breath sounds. clear to auscultation bilaterally. No wheezes, and no crackles. HEART: +tachycardia. normal S1 and S2 without murmurs, rubs or gallops. ABDOMEN: Soft, nontender, normoactive bowel sounds. No guarding, no rebound. No masses palpable. EXTREMITIES: Normal range of motion, no edema. NEUROLOGICAL: Cranial nerves II through XII grossly intact. Normal speech. No focal neurological deficits. SKIN: Warm, Dry, normal turgor, no rashes or lesions noted. - Medical Decision Making 08/12/18 16:[address] Mcdonough. spoke with the service, waiting for a call back 08/12/18 16:50 Mr. Nay Henriquez is a 63 year-old male, recently emigrated from [place], with a PMH significant for HLD, diastolic heart failure, HIV, COPD, BPH, TB treated 8 years ago. He presents to the ER again for a complaint of increased shortness of breath Multiple recent admissions for Pneumonia, COPD exacerbation and CHF Recent hospitalizations: May 2018: hospitalized in [place] for pneumonia 06/06-06/09 at [facility] for COPD exacerbation 07/09-07/11 at [facility] for CHF/COPD exacerbation Again differential diagnosis includes PNA, COPD, CHF Will do: Labs CXR (I do not think this patient needs CT chest as he had had multiple) Nebs/Solumedrol already given 08/12/18 18:53 Laboratory Tests 08/12/18 08/12/18 08/12/18 15:49 15:49 16:40 WBC 9.0 Hgb 12.0 Hct 35.3 L Plt Count 300 D BUN 13.8 Creatinine 0.9 Lactic Acid 1.9 Creatine Kinase 211 Creatine Kinase Index 0.9 CK-MB (CK-2) 2.1 Troponin I < 0.02 B-Natriuretic Peptide 148.0 H
[2018-08-12 19:04] LABS: ARTERIAL BLD GAS O2 SATURATION 98.4 % (95-98); ARTERIAL BLOOD GAS BASE EXCESS -1.6 meq/l (-2-2); ARTERIAL BLOOD GAS PCO2 35.6 mmHg (35-45); ARTERIAL BLOOD GAS PO2 115 mmHg (80-105); ARTERIAL BLOOD GAS pH 7.41 (7.35-7.45); CARBOXYHEMOGLOBIN 1.5 % (0-2)
[2018-08-12 19:05] LABS: ALLENS TEST POSITIVE
[2018-08-12 20:25] VITALS: BMI 30.1
[2018-08-12] MEDS ORDERED: SODIUM CHLORIDE 1,000 ML IV STA ×2 (21:25→21:26)
[2018-08-12] MEDS: methylPREDNISolone NA SUCC 40 MG/1 ML VIAL IVPB SCH (21:59)
[2018-08-12] MEDS: ATORVASTATIN CA 40 MG TABLET (FP) PO SCH (22:00)
[2018-08-12] MEDS ORDERED: BUDESONIDE/FORMETEROL FUMARATE 160/4.5 mcg INHALER IH SCH (22:00)
[2018-08-12] MEDS: SENNOSIDES 8.6MG TABLET (FP) PO SCH (22:00)
[2018-08-12] MEDS: DOCUSATE SODIUM 100 MG CAPSULE (FP) PO SCH (22:00)
[2018-08-13] MEDS: ALBUTEROL SO4 2.5/IPRATROPIUM 0.5 INH SOL 3 ML VIAL.NEB. NEB PRN ×2 (00:08→21:24)
[2018-08-13] MEDS: LACTATED RINGERS SOLUTION 1,000 ML/1,000 ML INFUS.BAG IV SCH ×2 (00:42→18:24)
[2018-08-13] MEDS: methylPREDNISolone NA SUCC 40 MG/1 ML VIAL IVPB SCH ×3 (02:00→17:59)
[2018-08-13] MEDS: DOCUSATE SODIUM 100 MG CAPSULE (FP) PO SCH ×3 (06:14→21:18)
--- NOTE | 2018-08-13 07:53 | PN ---
Progress Note, Physician Chief Complaint: worsening SOB, Cough. fever on presentation. States he feels better today History of Present Illness: History of Present Illness: 63 year-old male, known to service with mutiple previous hospitalizations 4th since 06/13 last admitted at [facility] on 08/01/18 with COPD excaerbation f/U with ID clinic last vist was on 08/05/2018, H/O HIV AIDS last CD4 count 176 in 06/13 VL 50 on PCP prophylaxis with Bactrim, COPD required home O2 but could get due to insurance issue, Dyslipedemia, present with 2 days H/O worsening SOB, Cough , mild expectoration and fever on arrival to patient was Hypoxic, 80s , tachycardiac and febrile received IV solumedrol and Nebs X3 with O2 inhalation that relives symptoms, patient denies any chest pain , Id consulted recommended IV abx for CABP and Hospitalization. - Current Medication List Current Medications: Active Medications Albuterol/Ipratropium (Duoneb -) 1 amp NEB QID PRN PRN Reason: WHEEZING Last Admin: 08/13/18 00:08 Dose: 1 amp Aspirin (Asa -) 81 mg PO DAILY [facility] Atorvastatin Calcium (Lipitor -) 40 mg PO HS [facility] Last Admin: 08/12/18 22:00 Dose: 40 mg Docusate Sodium (Colace -) 100 mg PO TID [facility] Last Admin: 08/13/18 06:14 Dose: 100 mg Enoxaparin Sodium (Lovenox -) 40 mg SQ DAILY [facility] Furosemide (Lasix -) 20 mg PO DAILY [facility] Azithromycin (Zithromax 500mg Ivpb (Pre-Docked)) 500 mg in 250 mls @ 250 mls/ hr IVPB DAILY [facility] Ceftriaxone Sodium 1 gm/ (Dextrose) 50 mls @ 100 mls/hr IVPB DAILY [facility] Lactated Ringer's (Lactated Ringers Solution) 1,000 ml in 1,000 mls @ 75 mls/ hr IV ASDIR [facility] Last Admin: 08/13/18 00:42 Dose: 75 mls/hr Methylprednisolone Sodium Succinate (Solu-Medrol -) 60 mg IVPB Q8H [facility] Last Admin: 08/13/18 02:00 Dose: 60 mg Senna (Senna -) 2 tab PO HS [facility] Last Admin: 08/12/18 22:00 Dose: 2 tab Tamsulosin HCl (Flomax -) 0.4 mg PO DAILY [facility] Trimethoprim/Sulfamethoxazole (Bactrim Ds -) 1 each PO DAILY [facility] - Objective Vital Signs: Vital Signs Temperature 98.1 F 08/13/18 06:13 Pulse Rate 90 08/13/18 06:13 Respiratory Rate 18 08/13/18 06:13 Blood Pressure 104/66 08/13/18 06:13 O2 Sat by Pulse Oximetry (%) 97 08/12/18 20:37 Constitutional: Yes: Well Nourished, No Distress, Calm Eyes: Yes: WNL, Conjunctiva Clear, EOM Intact HENT: Yes: WNL, Atraumatic, Normocephalic Neck: Yes: WNL, Supple, Trachea Midline Cardiovascular: Yes: WNL, Regular Rate and Rhythm Respiratory: Yes: WNL, Regular, CTA Bilaterally, Diminished (at bases) Gastrointestinal: Yes: WNL, Normal Bowel Sounds, Soft ...Rectal Exam: Yes: Deferred Genitourinary: Yes: WNL Musculoskeletal: Yes: WNL Extremities: Yes: WNL Edema: No Peripheral Pulses WNL: Yes Integumentary: Yes: WNL Neurological: Yes: WNL, Alert, Oriented ...Motor Strength: WNL Psychiatric: Yes: WNL, Alert, Oriented Labs: CBC, BMP 08/12/18 15:49 - ....Imaging Chest X-ray: Report Reviewed, Image Reviewed (no effusions/infiltrates) Problem List - Problems (1) Prophylactic measure Assessment/Plan: FEN diabetic diet monitor electrolytes Prohy ambulation ad vicky scds if in bed Dispo maintain as in patient discharge planning full code Code(s): Z29.9 - ENCOUNTER FOR PROPHYLACTIC MEASURES, UNSPECIFIED (2) Acute on chronic respiratory failure with hypoxia Assessment/Plan: COPD excaerbation continue IV steroids cont Ceftriaxone and azithromycin continue inhaled bronchodilators pulmonary consult pending Code(s): J96.21 - ACUTE AND CHRONIC RESPIRATORY FAILURE WITH HYPOXIA (3) Human immunodeficiency virus (HIV) disease Assessment/Plan: Last CD4 176 VL 50 in 06/13 pm Bactrim for PCP prophylaxis F/U ID for HIV Meds. Code(s): B20 - HUMAN IMMUNODEFICIENCY VIRUS [HIV] DISEASE (4) Shortness of breath Assessment/Plan: resolving on steroids/abx Code(s): R06.02 - SHORTNESS OF BREATH (5) COPD (chronic obstructive pulmonary disease) Assessment/Plan: pre and post ambulation O2 sats requested, pt have trouble getting home O2 as per family will discuss with SW & family Code(s): J44.9 - CHRONIC OBSTRUCTIVE PULMONARY DISEASE, UNSPECIFIED Qualifiers: COPD type: emphysema Emphysema type: centrilobular Qualified Code(s): J43.2 - Centrilobular emphysema (6) Chronic diastolic (congestive) heart failure Assessment/Plan: Compensated BNP 148 cont lasix 20 mg last ECHO normal 05/2018 Code(s): I50.32 - CHRONIC DIASTOLIC (CONGESTIVE) HEART FAILURE Visit type - Emergency Visit Emergency Visit: Yes ED Registration Date: 08/12/18 Care time: The patient presented to the Emergency Department on the above date and was hospitalized for further evaluation of their emergent condition. - New Patient This patient is new to me today: Yes Date on this admission: 08/13/18 - Critical Care Critical Care patient: No - Discharge Referral Referred to [facility] Med [facility].C[facility] No
[2018-08-13 08:02] LABS: ALBUMIN 3.4 g/dl (3.4-5.0); BILIRUBIN,TOTAL 0.4 mg/dL (0.2-1); BLOOD UREA NITROGEN 11.7 mg/dL (7-18); CALCIUM 8.2 mg/dL (8.5-10.1); CREATININE 0.9 mg/dL (0.55-1.3); POTASSIUM 4.2 mmol/L (3.5-5.1); TOT PROT 6.4 g/dl (6.4-8.2)
[2018-08-13] MEDS ORDERED: DEXTROSE 5%-WATER - 50 ML IVPB ONE (09:30)
[2018-08-13] MEDS ORDERED: cefTRIAXone SODIUM 1 GM VIAL ONE (09:30)
[2018-08-13] MEDS ORDERED: AZITHROMYCIN IVPB 500 MG/250 ML BAG IVPB SCH (10:00)
[2018-08-13] MEDS: TAMSULOSIN HCL 0.4 MG CAP PO SCH (10:17)
[2018-08-13] MEDS: ENOXAPARIN NA (PORCINE) 40 MG/0.4 ML DISP.SYRIN SQ SCH (10:17)
[2018-08-13] MEDS: FUROSEMIDE 20 MG TABLET (FP) PO SCH (10:17)
[2018-08-13] MEDS: ASPIRIN 81 MG CHEWABLE TABLETS PO SCH (10:17)
[2018-08-13] MEDS: CEFTRIAXONE 1 GM in DEXTROSE 5%-WATER - 50 ML IVPB SCH (10:18)
--- NOTE | 2018-08-13 10:22 | CON.ID ---
Consult Consult Specialty:: infectious disease Referred by:: hospitalist - History of Present Illness Chief Complaint: sob History of Present Illness: 63 yo man with HIV, copd, ?diastolic HF, - fourth recent admission to [facility] he lives at home with his son and is very adherent to his meds exsmoker stopped a couple of months ago reports it became very humid yesterday and he couldn't breath came to ED was hypoxic and wheezing now improved after nebs, steroids he got rocephin/zith for possible pneumonia given fever and lactic acidosis no sick contacts nonproductive cough - Past Medical History Cardio/Vascular: Yes: Hyperlipdemia Pulmonary: Yes: COPD Renal/: Yes: BPH Infectious Disease: Yes: HIV - Alcohol/Substance Use Hx Alcohol Use: No - Smoking History Smoking history: Former smoker Have you smoked in the past 12 months: No Aproximately how many cigarettes per day: 20 If you are a former smoker, when did you quit?: 3months - Social History Usual Living Arrangement: With Child ADL: Independent Place of : Other ([place]) History of Recent Travel: No Home Medications - Allergies Allergies/Adverse Reactions: Allergies Allergy/AdvReac Type Severity Reaction Status Date / Time No Known Allergies Allergy Verified 08/12/18 15:22 - Home Medications Home Medications: Ambulatory Orders Albuterol 0.083% Nebulizer Julissa [Ventolin 0.083% Nebulizer Soln -] 1 neb NEB Q6H 07/30/18 Albuterol Sulfate Inhaler - [Ventolin Hfa Inhaler -] 2 inh PO Q4H 07/30/18 Aspirin 81 mg PO DAILY 07/30/18 Atorvastatin Ca [Lipitor] 20 mg PO HS 07/30/18 Docusate Sodium [Colace] 1 cap PO DAILY 07/30/18 Efavirenz [Sustiva] 600 mg PO HS 07/30/18 Furosemide [Lasix] 40 mg PO DAILY 07/30/18 Lamivudine/Zidovudine 150/300 [Combivir Tablet 150/300 -] 1 tab PO BID 07/30/18 Sennosides [Senna] 2 tab PO HS 07/30/18 Albuterol 2.5/Ipratropium 0.5 [Duoneb -] 1 neb IH QID PRN #1 box 08/01/18 Nebulizer Accessories [Adult Aerosol Mask] 1 each ASDIR #1 each 08/01/18 Nebulizer [Aeroeclipse II] 1 each ASDIR #1 each 08/01/18 Prednisone [Deltasone] 20 mg PO ASDIR #13 tablet 08/01/18 Budesonide/Formeterol Fumarate [SYMBICORT 160/4.5mcg -] 2 puff IH BID #1 inhaler 08/05/18 Furosemide [Lasix -] 20 mg PO DAILY #30 tablet 08/05/18 Sulfamethoxazole/Trimethoprim [Bactrim DS -] 1 tab PO DAILY #30 tablet 08/05/18 Tamsulosin HCl [Flomax] 1 cap PO DAILY #30 capsule 08/05/18 Family Disease History - Family Disease History Family Disease History: Diabetes: Father, Heart Disease: Mother (Parkinsons), Other: Mother, Brother (2), Sister (3), Son (2) Review of Systems - Review of Systems Constitutional: reports: No Symptoms Eyes: reports: No Symptoms HENT: reports: No Symptoms Neck: reports: No Symptoms Cardiovascular: reports: No Symptoms. denies: Chest Pain Respiratory: reports: Cough, Wheezing Gastrointestinal: reports: No Symptoms Genitourinary: reports: No Symptoms Breasts: reports: No Symptoms Reported Musculoskeletal: reports: No Symptoms Physical Exam Vital Signs: Vital Signs Temperature 98.1 F 08/13/18 06:13 Pulse Rate 90 08/13/18 06:13 Respiratory Rate 18 08/13/18 06:13 Blood Pressure 104/66 08/13/18 06:13 O2 Sat by Pulse Oximetry (%) 97 08/12/18 20:37 Constitutional: Yes: Well Nourished, No Distress, Calm Eyes: Yes: Conjunctiva Clear, EOM Intact HENT: No: Thrush Neck: Yes: Supple, Trachea Midline Cardiovascular: Yes: Regular Rate and Rhythm Respiratory: Yes: Regular, Diminished (at bases) Gastrointestinal: Yes: Normal Bowel Sounds, Soft. No: Tenderness, Epigastrium ...Rectal Exam: Yes: Deferred Edema: LLE: Trace, RLE: Trace Integumentary: Yes: WNL Neurological: Yes: Alert, Oriented Labs: CBC, BMP 08/12/18 15:49 08/13/18 06:41 Imaging - Results Chest X-ray: Report Reviewed, Image Reviewed Problem List - Problems (1) COPD exacerbation Code(s): J44.1 - CHRONIC OBSTRUCTIVE PULMONARY DISEASE W (ACUTE) EXACERBATION (2) Human immunodeficiency virus (HIV) disease Code(s): B20 - HUMAN IMMUNODEFICIENCY VIRUS [HIV] DISEASE (3) BPH (benign prostatic hyperplasia) Code(s): N40.0 - BENIGN PROSTATIC HYPERPLASIA WITHOUT LOWER URINRY TRACT SYMP (4) Pulmonary nodule, right Code(s): R91.1 - SOLITARY PULMONARY NODULE Assessment/Plan fever- bronchitis? cxray is clear check legionella urinary antigen rocephin/zithromax for now stable HIV now on biktarvy for ART and bactrim for pcp prophylaxis -to continue doubt PCP cd4 176 d/w dr benson
--- NOTE | 2018-08-13 11:16 | EKG ---
Test Reason : Blood Pressure : / mmHG Vent. Rate : 117 BPM Atrial Rate : 117 BPM P-R Int : 132 ms QRS Dur : 122 ms QT Int : 332 ms P-R-T Axes : 062 084 082 degrees QTc Int : 463 ms SINUS TACHYCARDIA RIGHT BUNDLE BRANCH BLOCK ST ELEVATION CONSIDER INFERIOR INJURY OR ACUTE INFARCT ACUTE VT / STEMI ABNORMAL ECG WHEN COMPARED WITH ECG OF 30-JUL-2018 11:18, NO SIGNIFICANT CHANGE WAS FOUND Confirmed by CRISSY LOWRY MD ([id number]) on 08/13/2018 11:15:56 AM Referred By: Confirmed By:CRISSY LOWRY MD
--- NOTE | 2018-08-13 11:16 | EKG ---
Test Reason : Blood Pressure : / mmHG Vent. Rate : 114 BPM Atrial Rate : 114 BPM P-R Int : 134 ms QRS Dur : 118 ms QT Int : 342 ms P-R-T Axes : 073 082 057 degrees QTc Int : 471 ms SINUS TACHYCARDIA RIGHT BUNDLE BRANCH BLOCK ABNORMAL ECG WHEN COMPARED WITH ECG OF 12-AUG-2018 15:20, NO SIGNIFICANT CHANGE WAS FOUND Confirmed by CRISSY LOWRY MD ([id number]) on 08/13/2018 11:16:44 AM Referred By: Confirmed By:CRISSY LOWRY MD
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
[2018-08-13] MEDS ORDERED: PT OWN MED DRAWER 7, Y5N ONE ×3 (13:18→17:32)
[2018-08-13] MEDS: SULFAMETHOXAZOLE/TRIMETHOPRIM 800MG/160MG D.S. TABLET PO SCH (15:33)
[2018-08-13] MEDS: SENNOSIDES 8.6MG TABLET (FP) PO SCH (21:18)
[2018-08-13] MEDS: ATORVASTATIN CA 40 MG TABLET (FP) PO SCH (21:18)
[2018-08-13] MEDS: BIKTARVY PO SCH (21:20)
[2018-08-14] MEDS: methylPREDNISolone NA SUCC 40 MG/1 ML VIAL IVPB SCH ×2 (02:04→10:30)
[2018-08-14] MEDS: DOCUSATE SODIUM 100 MG CAPSULE (FP) PO SCH ×3 (05:38→21:33)
[2018-08-14] MEDS: LACTATED RINGERS SOLUTION 1,000 ML/1,000 ML INFUS.BAG IV SCH ×2 (05:39→21:29)
[2018-08-14 07:45] LABS: ALBUMIN 3.5 g/dl (3.4-5.0); BILIRUBIN,TOTAL 0.3 mg/dL (0.2-1); CALCIUM 8.2 mg/dL (8.5-10.1); CREATININE 0.8 mg/dL (0.55-1.3); MAGNESIUM 2.4 mg/dL (1.8-2.4); POTASSIUM 4.7 mmol/L (3.5-5.1); TOT PROT 6.8 g/dl (6.4-8.2)
[2018-08-14] MEDS: ALBUTEROL SO4 2.5/IPRATROPIUM 0.5 INH SOL 3 ML VIAL.NEB. NEB PRN (07:47)
[2018-08-14 07:55] LABS: HEMATOCRIT 35.4 % (35.4-49); HEMOGLOBIN 11.6 GM/dL (11.7-16.9); LYMPH % 6.6 % (8-40); MCH 37.3 pg (25.7-33.7); MCHC 32.9 g/dl (32.0-35.9); MEAN CELL VOLUME 113.5 fl (80-96); MEAN PLT VOLUME 7.6 fl (7.5-11.1); MONO % 3.1 % (3.8-10.2); NEUT % 90.3 % (42.8-82.8); PLATELET COUNT 302 K/MM3 (134-434); RBC 3.12 M/mm3 (4.00-5.60); RDW 19.1 % (11.9-15.9); WHITE BLOOD COUNT 13.5 K/mm3 (4.0-10.0)
--- NOTE | 2018-08-14 08:08 | PN ---
Progress Note, Physician Chief Complaint: worsening SOB, Cough. fever on presentation. States he feels better today History of Present Illness: History of Present Illness: 63 year-old male, known to service with mutiple previous hospitalizations 4th since 06/13 last admitted at [facility] on 08/01/18 with COPD excaerbation f/U with ID clinic last vist was on 08/05/2018, H/O HIV AIDS last CD4 count 176 in 06/13 VL 50 on PCP prophylaxis with Bactrim, COPD required home O2 but could get due to insurance issue, Dyslipedemia, present with 2 days H/O worsening SOB, Cough , mild expectoration and fever on arrival to patient was Hypoxic, 80s , tachycardiac and febrile received IV solumedrol and Nebs X3 with O2 inhalation that relives symptoms, patient denies any chest pain , Id consulted recommended IV abx for CABP and Hospitalization. - Current Medication List Current Medications: Active Medications Albuterol/Ipratropium (Duoneb -) 1 amp NEB QID PRN PRN Reason: WHEEZING Last Admin: 08/14/18 07:47 Dose: 1 amp Aspirin (Asa -) 81 mg PO DAILY [facility] Last Admin: 08/13/18 10:17 Dose: 81 mg Atorvastatin Calcium (Lipitor -) 40 mg PO HS [facility] Last Admin: 08/13/18 21:18 Dose: 40 mg Docusate Sodium (Colace -) 100 mg PO TID [facility] Last Admin: 08/14/18 05:38 Dose: 100 mg Doxycycline Hyclate (Vibramycin -) 100 mg PO BID@1000,1800 [facility] Enoxaparin Sodium (Lovenox -) 40 mg SQ DAILY [facility] Last Admin: 08/13/18 10:17 Dose: 40 mg Furosemide (Lasix -) 20 mg PO DAILY [facility] Last Admin: 08/13/18 10:17 Dose: 20 mg Ceftriaxone Sodium 1 gm/ (Dextrose) 50 mls @ 100 mls/hr IVPB DAILY [facility] Last Admin: 08/13/18 10:18 Dose: 100 mls/hr Lactated Ringer's (Lactated Ringers Solution) 1,000 ml in 1,000 mls @ 75 mls/ hr IV ASDIR [facility] Last Admin: 08/14/18 05:39 Dose: 75 mls/hr Methylprednisolone Sodium Succinate (Solu-Medrol -) 60 mg IVPB Q8H [facility] Last Admin: 08/14/18 02:04 Dose: 60 mg Patient's Own Medication (Non- Formulary):Biktarvy 1 each PO DAILY [facility] Last Admin: 08/13/18 21:20 Dose: 1 each Senna (Senna -) 2 tab PO HS [facility] Last Admin: 08/13/18 21:18 Dose: 2 tab Tamsulosin HCl (Flomax -) 0.4 mg PO DAILY [facility] Last Admin: 08/13/18 10:17 Dose: 0.4 mg Trimethoprim/Sulfamethoxazole (Bactrim Ds -) 1 each PO DAILY [facility] Last Admin: 08/13/18 15:33 Dose: 1 each - Objective Vital Signs: Vital Signs Temperature 98.4 F 08/14/18 06:41 Pulse Rate 94 H 08/14/18 06:41 Respiratory Rate 08/14/18 06:41 Blood Pressure 108/70 08/14/18 06:41 O2 Sat by Pulse Oximetry (%) 97 08/13/18 21:00 Constitutional: Yes: Well Nourished, No Distress, Calm Eyes: Yes: WNL, Conjunctiva Clear, EOM Intact HENT: Yes: WNL, Atraumatic, Normocephalic Neck: Yes: WNL, Supple, Trachea Midline Cardiovascular: Yes: WNL, Regular Rate and Rhythm Respiratory: Yes: WNL, Regular, Diminished (at bases) Gastrointestinal: Yes: WNL, Normal Bowel Sounds, Soft ...Rectal Exam: Yes: WNL, Deferred Breast(s): Yes: WNL Musculoskeletal: Yes: WNL Extremities: Yes: WNL Edema: No Peripheral Pulses WNL: Yes Integumentary: Yes: WNL Neurological: Yes: WNL, Alert, Oriented ...Motor Strength: WNL Psychiatric: Yes: WNL, Alert, Oriented Labs: CBC, BMP 08/14/18 06:15 - ....Imaging Chest X-ray: Report Reviewed, Image Reviewed Problem List - Problems (1) Prophylactic measure Assessment/Plan: FEN diabetic diet monitor electrolytes Prohy ambulation ad vicky scds if in bed Dispo maintain as in patient discharge planning full code Code(s): Z29.9 - ENCOUNTER FOR PROPHYLACTIC MEASURES, UNSPECIFIED (2) Acute on chronic respiratory failure with hypoxia Assessment/Plan: COPD excaerbation continue IV steroids at 40mg q12h, can likely change to PO prednisone 40mg daily in AM cont Ceftriaxone and azithromycin continue inhaled bronchodilators pulmonary consult appreciated Can re[eat Chest CT 12/2018 Code(s): J96.21 - ACUTE AND CHRONIC RESPIRATORY FAILURE WITH HYPOXIA (3) Human immunodeficiency virus (HIV) disease Assessment/Plan: Last CD4 176 VL 50 in 06/13 pm Bactrim for PCP prophylaxis CD4 count pending F/U ID for HIV Meds. Code(s): B20 - HUMAN IMMUNODEFICIENCY VIRUS [HIV] DISEASE (4) Shortness of breath Code(s): R06.02 - SHORTNESS OF BREATH (5) COPD (chronic obstructive pulmonary disease) Assessment/Plan: pre and post ambulation O2 sats requested, pt have trouble getting home O2 as per family on last discharge will discuss with SW & family Code(s): J44.9 - CHRONIC OBSTRUCTIVE PULMONARY DISEASE, UNSPECIFIED Qualifiers: COPD type: emphysema Emphysema type: centrilobular Qualified Code(s): J43.2 - Centrilobular emphysema (6) Chronic diastolic (congestive) heart failure Assessment/Plan: Compensated BNP 148 cont lasix 20 mg last ECHO normal 05/2018 Code(s): I50.32 - CHRONIC DIASTOLIC (CONGESTIVE) HEART FAILURE Impression/Plan Impression/Plan: Imaging - Results Chest X-ray: Report Reviewed (no significant chnages since last study) EKG: Report Reviewed (Sinus Tcahycrdia RBBB (at base line RBBB)) Visit type - Emergency Visit Emergency Visit: Yes ED Registration Date: 08/12/18 Care time: The patient presented to the Emergency Department on the above date and was hospitalized for further evaluation of their emergent condition. - New Patient This patient is new to me today: No - Critical Care Critical Care patient: No - Discharge Referral Referred to [facility] Med P.C.: No
[2018-08-14] MEDS ORDERED: cefTRIAXone SODIUM 1 GM VIAL ONE (10:23)
[2018-08-14] MEDS ORDERED: DEXTROSE 5%-WATER - 50 ML IVPB ONE (10:23)
[2018-08-14] MEDS: DOXYCYCLINE HYCLATE 100 MG CAPSULE PO SCH ×2 (10:32→17:23)
[2018-08-14] MEDS: TAMSULOSIN HCL 0.4 MG CAP PO SCH (10:32)
[2018-08-14] MEDS: ASPIRIN 81 MG CHEWABLE TABLETS PO SCH (10:33)
[2018-08-14] MEDS: FUROSEMIDE 20 MG TABLET (FP) PO SCH (10:33)
[2018-08-14] MEDS: SULFAMETHOXAZOLE/TRIMETHOPRIM 800MG/160MG D.S. TABLET PO SCH (10:33)
[2018-08-14] MEDS: BIKTARVY PO SCH (10:34)
[2018-08-14] MEDS: ENOXAPARIN NA (PORCINE) 40 MG/0.4 ML DISP.SYRIN SQ SCH (10:38)
[2018-08-14] MEDS: CEFTRIAXONE 1 GM in DEXTROSE 5%-WATER - 50 ML IVPB SCH (11:24)
--- NOTE | 2018-08-14 11:26 | PN ---
Progress Note (short form) - Note Progress Note: PULMONARY States breathing is improved. No cough or wheezing. No fevers or chills. Vital Signs Period Temp Pulse Resp BP Sys/[place] Pulse Ox Last 24 Hr 98.4 F-99.0 F 94-111 20-20 108-134/55-83 92-97 Gen: NAD at rest Heart: RRR Lung: decreased breath sounds at the bases, no wheezes Abd: soft, nontender Ext: no edema CBC, BMP 08/14/18 06:15 08/14/18 06:15 Active Medications Albuterol/Ipratropium (Duoneb -) 1 amp NEB QID PRN PRN Reason: WHEEZING Last Admin: 08/14/18 07:47 Dose: 1 amp Aspirin (Asa -) 81 mg PO DAILY [facility] Last Admin: 08/14/18 10:33 Dose: 81 mg Atorvastatin Calcium (Lipitor -) 40 mg PO HS [facility] Last Admin: 08/13/18 21:18 Dose: 40 mg Docusate Sodium (Colace -) 100 mg PO TID [facility] Last Admin: 08/14/18 05:38 Dose: 100 mg Doxycycline Hyclate (Vibramycin -) 100 mg PO BID@1000,1800 [facility] Last Admin: 08/14/18 10:32 Dose: 100 mg Enoxaparin Sodium (Lovenox -) 40 mg SQ DAILY [facility] Last Admin: 08/14/18 10:38 Dose: 40 mg Furosemide (Lasix -) 20 mg PO DAILY [facility] Last Admin: 08/14/18 10:33 Dose: 20 mg Ceftriaxone Sodium 1 gm/ (Dextrose) 50 mls @ 100 mls/hr IVPB DAILY [facility] Last Admin: 08/13/18 10:18 Dose: 100 mls/hr Lactated Ringer's (Lactated Ringers Solution) 1,000 ml in 1,000 mls @ 75 mls/ hr IV ASDIR [facility] Last Admin: 08/14/18 05:39 Dose: 75 mls/hr Methylprednisolone Sodium Succinate (Solu-Medrol -) 60 mg IVPB Q8H [facility] Last Admin: 08/14/18 10:30 Dose: 60 mg Patient's Own Medication (Non- Formulary):Biktarvy 1 each PO DAILY [facility] Last Admin: 08/14/18 10:34 Dose: 1 each Senna (Senna -) 2 tab PO HS [facility] Last Admin: 08/13/18 21:18 Dose: 2 tab Tamsulosin HCl (Flomax -) 0.4 mg PO DAILY [facility] Last Admin: 08/14/18 10:32 Dose: 0.4 mg Trimethoprim/Sulfamethoxazole (Bactrim Ds -) 1 each PO DAILY [facility] Last Admin: 08/14/18 10:33 Dose: 1 each A/P Acute COPD Exacerbation HIV LV Diastolic Dysfunction Lung Nodule Former Smoker - will decrease medrol to 40mg q12h, can likely change to PO prednisone 40mg daily in AM - inhaled bronchodilators - O2 to keep SpO2 >90%, check ambulatory SpO2 on room air when ready for discharge - outpt PFTs - repeat CT chest in December 2018 - DVT prophylaxis
[2018-08-14] MEDS ORDERED: PT OWN MED DRAWER 7, Y5N ONE (21:25)
[2018-08-14] MEDS: ATORVASTATIN CA 40 MG TABLET (FP) PO SCH (21:33)
[2018-08-14] MEDS: SENNOSIDES 8.6MG TABLET (FP) PO SCH (21:33)
[2018-08-14] MEDS ORDERED: methylPREDNISolone NA SUCC 40 MG/1 ML VIAL IVPB SCH (22:00)
[2018-08-15] MEDS: ALBUTEROL SO4 2.5/IPRATROPIUM 0.5 INH SOL 3 ML VIAL.NEB. NEB PRN ×3 (00:36→20:10)
[2018-08-15] MEDS: LACTATED RINGERS SOLUTION 1,000 ML/1,000 ML INFUS.BAG IV SCH (06:33)
[2018-08-15] MEDS: DOCUSATE SODIUM 100 MG CAPSULE (FP) PO SCH ×3 (06:33→21:37)
[2018-08-15 07:55] LABS: BASO % 0.1 % (0-2.0); HEMOGLOBIN 11.8 GM/dL (11.7-16.9); LYMPH % 12.7 % (8-40); MCH 37.8 pg (25.7-33.7); MCHC 33.7 g/dl (32.0-35.9); MEAN PLT VOLUME 7.7 fl (7.5-11.1); NEUT % 80.2 % (42.8-82.8); PLATELET COUNT 293 K/MM3 (134-434); RBC 3.12 M/mm3 (4.00-5.60); RDW 19.1 % (11.9-15.9); WHITE BLOOD COUNT 11.4 K/mm3 (4.0-10.0)
[2018-08-15 08:21] LABS: ALBUMIN 3.3 g/dl (3.4-5.0); BILIRUBIN,TOTAL 0.2 mg/dL (0.2-1); BLOOD UREA NITROGEN 12.9 mg/dL (7-18); CALCIUM 8.3 mg/dL (8.5-10.1); CREATININE 0.8 mg/dL (0.55-1.3); MAGNESIUM 2.4 mg/dL (1.8-2.4); POTASSIUM 4.3 mmol/L (3.5-5.1); TOT PROT 6.4 g/dl (6.4-8.2)
--- NOTE | 2018-08-15 09:04 | PN ---
Progress Note, Physician Chief Complaint: worsening SOB, Cough. fever on presentation. States he feels better today History of Present Illness: History of Present Illness: 63 year-old male, known to service with mutiple previous hospitalizations 4th since 06/13 last admitted at [facility] on 08/01/18 with COPD excaerbation f/U with ID clinic last vist was on 08/05/2018, H/O HIV AIDS last CD4 count 176 in 06/13 VL 50 on PCP prophylaxis with Bactrim, COPD required home O2 but could get due to insurance issue, Dyslipedemia, present with 2 days H/O worsening SOB, Cough , mild expectoration and fever on arrival to patient was Hypoxic, 80s , tachycardiac and febrile received IV solumedrol and Nebs X3 with O2 inhalation that relives symptoms, patient denies any chest pain , Id consulted recommended IV abx for CABP and Hospitalization. - Current Medication List Current Medications: Active Medications Albuterol/Ipratropium (Duoneb -) 1 amp NEB QID PRN PRN Reason: WHEEZING Last Admin: 08/15/18 07:29 Dose: 1 amp Aspirin (Asa -) 81 mg PO DAILY [facility] Last Admin: 08/14/18 10:33 Dose: 81 mg Atorvastatin Calcium (Lipitor -) 40 mg PO HS [facility] Last Admin: 08/14/18 21:33 Dose: 40 mg Docusate Sodium (Colace -) 100 mg PO TID [facility] Last Admin: 08/15/18 06:33 Dose: 100 mg Doxycycline Hyclate (Vibramycin -) 100 mg PO BID@1000,1800 [facility] Last Admin: 08/14/18 17:23 Dose: 100 mg Enoxaparin Sodium (Lovenox -) 40 mg SQ DAILY [facility] Last Admin: 08/14/18 10:38 Dose: 40 mg Furosemide (Lasix -) 20 mg PO DAILY [facility] Last Admin: 08/14/18 10:33 Dose: 20 mg Ceftriaxone Sodium 1 gm/ (Dextrose) 50 mls @ 100 mls/hr IVPB DAILY [facility] Last Admin: 08/14/18 11:24 Dose: 100 mls/hr Patient's Own Medication (Non- Formulary):Biktarvy 1 each PO DAILY [facility] Last Admin: 08/14/18 10:34 Dose: 1 each Prednisone (Deltasone -) 40 mg PO DAILY [facility] Senna (Senna -) 2 tab PO HS [facility] Last Admin: 08/14/18 21:33 Dose: 2 tab Tamsulosin HCl (Flomax -) 0.4 mg PO DAILY [facility] Last Admin: 08/14/18 10:32 Dose: 0.4 mg Trimethoprim/Sulfamethoxazole (Bactrim Ds -) 1 each PO DAILY [facility] Last Admin: 08/14/18 10:33 Dose: 1 each - Objective Vital Signs: Vital Signs Temperature 98.4 F 08/15/18 06:00 Pulse Rate 95 H 08/15/18 06:00 Respiratory Rate 18 08/15/18 06:00 Blood Pressure 114/75 08/15/18 06:00 O2 Sat by Pulse Oximetry (%) 95 08/14/18 21:00 Constitutional: Yes: Well Nourished, No Distress, Calm Eyes: Yes: WNL, Conjunctiva Clear, EOM Intact HENT: Yes: WNL, Atraumatic, Normocephalic Neck: Yes: WNL, Supple, Trachea Midline Cardiovascular: Yes: WNL, Regular Rate and Rhythm Respiratory: Yes: WNL, Regular, CTA Bilaterally, Diminished (at bases) Gastrointestinal: Yes: WNL, Normal Bowel Sounds, Soft ...Rectal Exam: Yes: Deferred Genitourinary: Yes: WNL Musculoskeletal: Yes: WNL Extremities: Yes: WNL Edema: Yes Edema: LLE: Trace, RLE: Trace Peripheral Pulses WNL: Yes Integumentary: Yes: WNL Neurological: Yes: WNL, Alert, Oriented ...Motor Strength: WNL Psychiatric: Yes: WNL, Alert, Oriented Labs: CBC, BMP 08/15/18 07:00 08/15/18 07:00 - ....Imaging Chest X-ray: Image Reviewed Problem List - Problems (1) Prophylactic measure Assessment/Plan: FEN diabetic diet monitor electrolytes Prohy ambulation ad vicky scds if in bed Dispo maintain as in patient discharge planning full code Code(s): Z29.9 - ENCOUNTER FOR PROPHYLACTIC MEASURES, UNSPECIFIED (2) Acute on chronic respiratory failure with hypoxia Assessment/Plan: COPD excaerbation steroids changed to prednisone 40mg daily in AM cont Ceftriaxone and azithromycin, if femains afebrile can descelate in am-will confirm with ID continue inhaled bronchodilators pulmonary consult appreciated Can repeat Chest CT 12/2018 Code(s): J96.21 - ACUTE AND CHRONIC RESPIRATORY FAILURE WITH HYPOXIA (3) Human immunodeficiency virus (HIV) disease Assessment/Plan: Last CD4 176 VL 50 in 06/13 pm Bactrim for PCP prophylaxis, now 149 F/U ID for HIV Meds. Code(s): B20 - HUMAN IMMUNODEFICIENCY VIRUS [HIV] DISEASE (4) Shortness of breath Assessment/Plan: resolving on steroids/abx Code(s): R06.02 - SHORTNESS OF BREATH (5) COPD (chronic obstructive pulmonary disease) Assessment/Plan: pre and post ambulation O2 sats requested, pt have trouble getting home O2 as per family on last discharge will discuss with SW & family Code(s): J44.9 - CHRONIC OBSTRUCTIVE PULMONARY DISEASE, UNSPECIFIED Qualifiers: COPD type: emphysema Emphysema type: centrilobular Qualified Code(s): J43.2 - Centrilobular emphysema (6) Chronic diastolic (congestive) heart failure Assessment/Plan: Compensated BNP 148 cont lasix 20 mg last ECHO normal 05/2018 Code(s): I50.32 - CHRONIC DIASTOLIC (CONGESTIVE) HEART FAILURE Impression/Plan Impression/Plan: Imaging - Results Chest X-ray: Report Reviewed (no significant chnages since last study) EKG: Report Reviewed (Sinus Tcahycrdia RBBB (at base line RBBB)) Visit type - Emergency Visit Emergency Visit: Yes ED Registration Date: 08/12/18 Care time: The patient presented to the Emergency Department on the above date and was hospitalized for further evaluation of their emergent condition. - New Patient This patient is new to me today: No - Critical Care Critical Care patient: No - Discharge Referral Referred to [facility] Med P.C.: No
[2018-08-15] MEDS ORDERED: PT OWN MED DRAWER 7, Y5N ONE (09:35)
[2018-08-15] MEDS ORDERED: DEXTROSE 5%-WATER - 50 ML IVPB ONE (09:35)
[2018-08-15] MEDS ORDERED: cefTRIAXone SODIUM 1 GM VIAL ONE (09:35)
[2018-08-15] MEDS: CEFTRIAXONE 1 GM in DEXTROSE 5%-WATER - 50 ML IVPB SCH (09:37)
[2018-08-15] MEDS: ASPIRIN 81 MG CHEWABLE TABLETS PO SCH (09:38)
[2018-08-15] MEDS: TAMSULOSIN HCL 0.4 MG CAP PO SCH (09:38)
[2018-08-15] MEDS: FUROSEMIDE 20 MG TABLET (FP) PO SCH (09:38)
[2018-08-15] MEDS: predniSONE 20 MG TABLET (UD) PO SCH (09:38)
[2018-08-15] MEDS: SULFAMETHOXAZOLE/TRIMETHOPRIM 800MG/160MG D.S. TABLET PO SCH (09:38)
[2018-08-15] MEDS: DOXYCYCLINE HYCLATE 100 MG CAPSULE PO SCH ×2 (09:39→17:58)
[2018-08-15] MEDS: ENOXAPARIN NA (PORCINE) 40 MG/0.4 ML DISP.SYRIN SQ SCH (09:39)
[2018-08-15] MEDS: BIKTARVY PO SCH (09:39)
--- NOTE | 2018-08-15 15:09 | PN ---
Progress Note (short form) - Note Progress Note: PULMONARY Appears short of breath while speaking. vss/afebrile Anicteric Heart: RRR Lung: decreased breath sounds at the bases, no wheezes Abd: soft, nontender Ext: no edema Active Medications noted A/P Acute hypoxemic resp failure COPD Exacerbation HIV LV Diastolic Dysfunction Lung Nodule Former Smoker - continue IV medrol for now - inhaled bronchodilators - O2 to keep SpO2 >90%, check ambulatory SpO2 on room air when ready for discharge - outpt PFTs - repeat CT chest in December 2018 - DVT prophylaxis Oscar CONDE MD
[2018-08-15] MEDS: ATORVASTATIN CA 40 MG TABLET (FP) PO SCH (21:37)
[2018-08-15] MEDS: SENNOSIDES 8.6MG TABLET (FP) PO SCH (21:37)
[2018-08-16] MEDS: DOCUSATE SODIUM 100 MG CAPSULE (FP) PO SCH ×3 (05:40→21:46)
[2018-08-16 09:33] LABS: BASO % 0.2 % (0-2.0); HEMATOCRIT 41.7 % (35.4-49); HEMOGLOBIN 13.7 GM/dL (11.7-16.9); LYMPH % 28.2 % (8-40); MCH 37.4 pg (25.7-33.7); MCHC 32.9 g/dl (32.0-35.9); MEAN CELL VOLUME 113.5 fl (80-96); MEAN PLT VOLUME 8.1 fl (7.5-11.1); MONO % 9.8 % (3.8-10.2); NEUT % 60.8 % (42.8-82.8); PLATELET COUNT 287 K/MM3 (134-434); RBC 3.67 M/mm3 (4.00-5.60); RDW 19.2 % (11.9-15.9); WHITE BLOOD COUNT 7.9 K/mm3 (4.0-10.0)
--- NOTE | 2018-08-16 09:35 | PN ---
Physical Exam: SUBJECTIVE: Patient seen and examined pt is still have sob and he wants to go home on oxygen only CHANCE 63 year-old male, known to service with mutiple previous hospitalizations 4th since 06/13 last admitted at [facility] on 08/01/18 with COPD excaerbation f/U with ID clinic last vist was on 08/05/2018, H/O HIV AIDS last CD4 count 176 in 06/13 VL 50 on PCP prophylaxis with Bactrim, COPD required home O2 but could get due to insurance issue, Dyslipedemia, present with 2 days H/O worsening SOB, Cough , mild expectoration and fever on arrival to patient was Hypoxic, 80s , tachycardiac and febrile received IV solumedrol and Nebs X3 with O2 inhalation that relives symptoms, patient denies any chest pain , Id consulted recommended IV abx for CABP and Hospitalization. OBJECTIVE: Vital Signs Period Temp Pulse Resp BP Sys/[place] Pulse Ox Last 24 Hr 98.1 F-99.3 F 88-112 20-20 102-154/62-76 95 GENERAL: The patient is awake, alert, and fully oriented, in no acute distress. HEAD: Normal with no signs of trauma. EYES: PERRL, extraocular movements intact, sclera anicteric, conjunctiva clear. No ptosis. ENT: Ears normal, nares patent, oropharynx clear without exudates, moist mucous membranes. NECK: Trachea midline, full range of motion, supple. LUNGS:darien mild wheezing and has moderate a/c darien lungs HEART: Regular rate and rhythm, S1, S2 ABDOMEN: Soft, nontender, nondistended, normoactive bowel sounds, no guarding, no rebound, no hepatosplenomegaly, no masses. EXTREMITIES: 2+ pulses, warm, well-perfused, no edema. NEUROLOGICAL: Cranial nerves II through XII grossly intact. Normal speech, gait not observed. Laboratory Results - last 24 hr 08/14/18 06:15 WBC 13.6 H Absolute Lymphs (auto) 1.0 Lymphocytes 8 Nucleated RBCs TNP Absolute CD3 Count 670 % CD3+ Lymphocytes 67.0 Absolute CD4 [place] 149 L % CD4+ Lymphocyte 14.9 L CD4/CD8 Ratio 0.28 L % CD8+ Lymphocyte 52.3 H Absolute CD8 Count 523 Active Medications Generic Name Dose Route Start Last Admin Trade Name Freq PRN Reason Stop Dose Admin Albuterol/Ipratropium 1 amp 08/12/18 17:47 08/15/18 20:10 Duoneb - NEB 1 amp QID PRN Administration WHEEZING Aspirin 81 mg 08/13/18 10:00 08/15/18 09:38 Asa - PO 81 mg DAILY GLENNY Administration Atorvastatin Calcium 40 mg 08/12/18 22:00 08/15/18 21:37 Lipitor - PO 40 mg HS GLENNY Administration Docusate Sodium 100 mg 08/12/18 22:00 08/16/18 05:40 Colace - PO 100 mg TID GLENNY Administration Doxycycline Hyclate 100 mg 08/14/18 10:00 08/15/18 17:58 Vibramycin - PO 100 mg BID@1000,1800 GLENNY Administration Enoxaparin Sodium 40 mg 08/13/18 10:00 08/15/18 09:39 Lovenox - SQ 40 mg DAILY GLENNY Administration Furosemide 20 mg 08/13/18 10:00 08/15/18 09:38 Lasix - PO 20 mg DAILY GLENNY Administration Ceftriaxone Sodium 1 gm/ 50 mls @ 100 mls/hr 08/13/18 10:00 08/15/18 09:37 Dextrose IVPB 100 mls/hr DAILY GLENNY Administration Patient's Own 1 each 08/13/18 20:00 08/15/18 09:39 Medication (Non- PO 1 each Formulary):Biktarvy DAILY GLENNY Administration Prednisone 40 mg 08/15/18 10:00 08/15/18 09:38 Deltasone - PO 40 mg DAILY GLENNY Administration Senna 2 tab 08/12/18 22:00 08/15/18 21:37 Senna - PO 2 tab HS GLENNY Administration Tamsulosin HCl 0.4 mg 08/13/18 10:00 08/15/18 09:38 Flomax - PO 0.4 mg DAILY GLENNY Administration Trimethoprim/Sulfamethoxazole 1 each 08/13/18 10:00 08/15/18 09:38 Bactrim Ds - PO 1 each DAILY GLENNY Administration ASSESSMENT/PLAN: 63 year-old male, with COPD excaerbation H/O HIV AIDS last CD4 count 176 in VL 50 on PCP prophylaxis with Bactrim, COPD required home O2 but could get due to insurance issue, Dyslipedemia, will do oxygen qualification test again. continue lasix and nebulzer Albuterol/Ipratropium (Duoneb -) 1 amp NEB QID PRN PRN Reason: WHEEZING Last Admin: 08/15/18 20:10 Dose: 1 amp Aspirin (Asa -) 81 mg PO DAILY [facility] Last Admin: 08/15/18 09:38 Dose: 81 mg Atorvastatin Calcium (Lipitor -) 40 mg PO HS [facility] Last Admin: 08/15/18 21:37 Dose: 40 mg Docusate Sodium (Colace -) 100 mg PO TID [facility] Last Admin: 08/16/18 05:40 Dose: 100 mg Doxycycline Hyclate (Vibramycin -) 100 mg PO BID@1000,1800 [facility] Last Admin: 08/15/18 17:58 Dose: 100 mg Enoxaparin Sodium (Lovenox -) 40 mg SQ DAILY [facility] Last Admin: 08/15/18 09:39 Dose: 40 mg Furosemide (Lasix -) 20 mg PO DAILY [facility] Last Admin: 08/15/18 09:38 Dose: 20 mg Ceftriaxone Sodium 1 gm/ (Dextrose) 50 mls @ 100 mls/hr IVPB DAILY [facility] Last Admin: 08/15/18 09:37 Dose: 100 mls/hr Patient's Own Medication (Non- Formulary):Biktarvy 1 each PO DAILY [facility] Last Admin: 08/15/18 09:39 Dose: 1 each Prednisone (Deltasone -) 40 mg PO DAILY [facility] Last Admin: 08/15/18 09:38 Dose: 40 mg Senna (Senna -) 2 tab PO HS [facility] Last Admin: 08/15/18 21:37 Dose: 2 tab Tamsulosin HCl (Flomax -) 0.4 mg PO DAILY [facility] Last Admin: 08/15/18 09:38 Dose: 0.4 mg Trimethoprim/Sulfamethoxazole (Bactrim Ds -) 1 each PO DAILY [facility] Last Admin: 08/15/18 09:38 Dose: 1 each Visit type - Emergency Visit Emergency Visit: Yes ED Registration Date: 08/12/18 Care time: The patient presented to the Emergency Department on the above date and was hospitalized for further evaluation of their emergent condition. - New Patient This patient is new to me today: Yes Date on this admission: 08/16/18 - Critical Care Critical Care patient: No - Discharge Referral Referred to [facility] No
[2018-08-16 09:38] LABS: ALBUMIN 3.5 g/dl (3.4-5.0); BILIRUBIN,TOTAL 0.4 mg/dL (0.2-1); BLOOD UREA NITROGEN 13.4 mg/dL (7-18); CALCIUM 8.7 mg/dL (8.5-10.1); MAGNESIUM 2.1 mg/dL (1.8-2.4); TOT PROT 6.8 g/dl (6.4-8.2)
[2018-08-16] MEDS ORDERED: cefTRIAXone SODIUM 1 GM VIAL ONE (11:09)
[2018-08-16] MEDS ORDERED: DEXTROSE 5%-WATER - 50 ML IVPB ONE (11:09)
[2018-08-16] MEDS: CEFTRIAXONE 1 GM in DEXTROSE 5%-WATER - 50 ML IVPB SCH (11:43)
[2018-08-16] MEDS: ASPIRIN 81 MG CHEWABLE TABLETS PO SCH (11:43)
[2018-08-16] MEDS: FUROSEMIDE 20 MG TABLET (FP) PO SCH (11:44)
[2018-08-16] MEDS: predniSONE 20 MG TABLET (UD) PO SCH (11:44)
[2018-08-16] MEDS: TAMSULOSIN HCL 0.4 MG CAP PO SCH (11:44)
[2018-08-16] MEDS: SULFAMETHOXAZOLE/TRIMETHOPRIM 800MG/160MG D.S. TABLET PO SCH (11:44)
[2018-08-16] MEDS: ENOXAPARIN NA (PORCINE) 40 MG/0.4 ML DISP.SYRIN SQ SCH (11:46)
[2018-08-16] MEDS: BIKTARVY PO SCH (11:46)
[2018-08-16] MEDS: DOXYCYCLINE HYCLATE 100 MG CAPSULE PO SCH ×2 (11:47→18:29)
[2018-08-16] MEDS: ALBUTEROL SO4 2.5/IPRATROPIUM 0.5 INH SOL 3 ML VIAL.NEB. NEB PRN (13:51)
[2018-08-16 15:23] LABS: ANISOCYTOSIS 1+; MACROCYTOSIS 1+; PLATELET ESTIMATE NORMAL
[2018-08-16] MEDS: ATORVASTATIN CA 40 MG TABLET (FP) PO SCH (21:46)
[2018-08-16] MEDS: SENNOSIDES 8.6MG TABLET (FP) PO SCH (21:46)
[2018-08-17] MEDS: DOCUSATE SODIUM 100 MG CAPSULE (FP) PO SCH ×3 (06:23→21:22)
[2018-08-17] MEDS ORDERED: cefTRIAXone SODIUM 1 GM VIAL ONE (12:13)
[2018-08-17] MEDS ORDERED: DEXTROSE 5%-WATER - 50 ML IVPB ONE (12:13)
[2018-08-17] MEDS: CEFTRIAXONE 1 GM in DEXTROSE 5%-WATER - 50 ML IVPB SCH (12:19)
[2018-08-17] MEDS: ENOXAPARIN NA (PORCINE) 40 MG/0.4 ML DISP.SYRIN SQ SCH (12:19)
[2018-08-17] MEDS: predniSONE 20 MG TABLET (UD) PO SCH (12:20)
[2018-08-17] MEDS: DOXYCYCLINE HYCLATE 100 MG CAPSULE PO SCH ×2 (12:20→18:38)
[2018-08-17] MEDS: TAMSULOSIN HCL 0.4 MG CAP PO SCH (12:20)
[2018-08-17] MEDS: FUROSEMIDE 20 MG TABLET (FP) PO SCH (12:20)
[2018-08-17] MEDS: ASPIRIN 81 MG CHEWABLE TABLETS PO SCH (12:20)
--- NOTE | 2018-08-17 12:21 | DS ---
Physical Examination Vital Signs: Vital Signs Temperature 98.4 F 08/17/18 06:00 Pulse Rate 96 H 08/17/18 06:00 Respiratory Rate 20 08/17/18 06:00 Blood Pressure 120/71 08/17/18 06:00 O2 Sat by Pulse Oximetry (%) 98 08/16/18 21:00 Labs: CBC, BMP 08/16/18 08:25 08/16/18 08:25 Discharge Summary Reason For Visit: HIV DISEASE/ACUTE EXCERBATION OF CHRONIC Current Active Problems Acute on chronic respiratory failure with hypoxia (Acute) COPD exacerbation (Acute) Human immunodeficiency virus (HIV) disease (Acute) Prophylactic measure (Acute) RTI (respiratory tract infection) (Acute) Shortness of breath (Acute) Tachycardia (Acute) Condition: Fair - Instructions - Home Medications Comprehensive Discharge Medication List: Ambulatory Orders Albuterol 0.083% Nebulizer Julissa [Ventolin 0.083% Nebulizer Soln -] 1 neb NEB Q6H 07/30/18 Albuterol Sulfate Inhaler - [Ventolin Hfa Inhaler -] 2 inh PO Q4H 07/30/18 Aspirin 81 mg PO DAILY 07/30/18 Atorvastatin Ca [Lipitor] 20 mg PO HS 07/30/18 Docusate Sodium [Colace] 1 cap PO DAILY 07/30/18 Efavirenz [Sustiva] 600 mg PO HS 07/30/18 Furosemide [Lasix] 40 mg PO DAILY 07/30/18 Lamivudine/Zidovudine 150/300 [Combivir Tablet 150/300 -] 1 tab PO BID 07/30/18 Sennosides [Senna] 2 tab PO HS 07/30/18 Albuterol 2.5/Ipratropium 0.5 [Duoneb -] 1 neb IH QID PRN #1 box 08/01/18 Nebulizer Accessories [Adult Aerosol Mask] 1 each ASDIR #1 each 08/01/18 Nebulizer [Aeroeclipse II] 1 each ASDIR #1 each 08/01/18 Prednisone [Deltasone] 20 mg PO ASDIR #13 tablet 08/01/18 Budesonide/Formeterol Fumarate [SYMBICORT 160/4.5mcg -] 2 puff IH BID #1 inhaler 08/05/18 Furosemide [Lasix -] 20 mg PO DAILY #30 tablet 08/05/18 Sulfamethoxazole/Trimethoprim [Bactrim DS -] 1 tab PO DAILY #30 tablet 08/05/18 Tamsulosin HCl [Flomax] 1 cap PO DAILY #30 capsule 08/05/18 - Discharge Referral Referred to [facility] No
[2018-08-17] MEDS: BIKTARVY PO SCH (12:22)
[2018-08-17] MEDS: SULFAMETHOXAZOLE/TRIMETHOPRIM 800MG/160MG D.S. TABLET PO SCH (12:26)
[2018-08-17] MEDS ORDERED: PT OWN MED DRAWER 7, Y5N ONE ×2 (18:21→20:13)
[2018-08-17] MEDS: ALBUTEROL SO4 2.5/IPRATROPIUM 0.5 INH SOL 3 ML VIAL.NEB. NEB PRN (19:33)
[2018-08-17] MEDS: ATORVASTATIN CA 40 MG TABLET (FP) PO SCH (21:22)
[2018-08-17] MEDS: SENNOSIDES 8.6MG TABLET (FP) PO SCH (21:22)
--- NOTE | 2018-08-17 22:17 | PN ---
Progress Note, Physician Chief Complaint: Shortness of breath with cough and fever History of Present Illness: Presented to the ED with 2 days of SOB, cough, and fever upon arrival. This is the pts 4th admittance the hospital since 06/13. Last admitted to [facility] on 08/01 for COPD exacerbation. F/U with las was on 08/05/2018, H/O HIV AIDS, last CD$ 176 VL 50 risa PCP Proph with Bactrim. In the ED pt received IV sterods, Nebs x# with o2 inhalation that relieves symptoms. pt denies CP, ID consulted and recomm. IV ABX and Hospitalization. - Current Medication List Current Medications: Active Medications Albuterol/Ipratropium (Duoneb -) 1 amp NEB QID PRN PRN Reason: WHEEZING Last Admin: 08/17/18 19:33 Dose: 1 amp Aspirin (Asa -) 81 mg PO DAILY [facility] Last Admin: 08/17/18 12:20 Dose: 81 mg Atorvastatin Calcium (Lipitor -) 40 mg PO HS [facility] Last Admin: 08/17/18 21:22 Dose: 40 mg Docusate Sodium (Colace -) 100 mg PO TID [facility] Last Admin: 08/17/18 21:22 Dose: 100 mg Doxycycline Hyclate (Vibramycin -) 100 mg PO BID@1000,1800 [facility] Last Admin: 08/17/18 18:38 Dose: 100 mg Enoxaparin Sodium (Lovenox -) 40 mg SQ DAILY [facility] Last Admin: 08/17/18 12:19 Dose: 40 mg Furosemide (Lasix -) 20 mg PO DAILY [facility] Last Admin: 08/17/18 12:20 Dose: 20 mg Ceftriaxone Sodium 1 gm/ (Dextrose) 50 mls @ 100 mls/hr IVPB DAILY [facility] Last Admin: 08/17/18 12:19 Dose: 100 mls/hr Patient's Own Medication (Non- Formulary):Biktarvy 1 each PO DAILY [facility] Last Admin: 08/17/18 12:22 Dose: 1 each Prednisone (Deltasone -) 40 mg PO DAILY [facility] Last Admin: 08/17/18 12:20 Dose: 40 mg Senna (Senna -) 2 tab PO HS [facility] Last Admin: 08/17/18 21:22 Dose: 2 tab Tamsulosin HCl (Flomax -) 0.4 mg PO DAILY [facility] Last Admin: 08/17/18 12:20 Dose: 0.4 mg Trimethoprim/Sulfamethoxazole (Bactrim Ds -) 1 each PO DAILY [facility] Last Admin: 08/17/18 12:26 Dose: 1 each - Objective Vital Signs: Vital Signs Temperature 98.0 F 08/17/18 18:00 Pulse Rate 108 H 08/17/18 18:00 Respiratory Rate 18 08/17/18 18:00 Blood Pressure 115/69 08/17/18 18:00 O2 Sat by Pulse Oximetry (%) 98 08/17/18 09:00 Constitutional: Yes: Well Nourished, No Distress, Anxious Eyes: Yes: WNL, Conjunctiva Clear, EOM Intact HENT: Yes: WNL, Atraumatic, Normocephalic Neck: Yes: WNL, Supple, Trachea Midline Cardiovascular: Yes: WNL, Regular Rate and Rhythm, S1, S2 Respiratory: Yes: Wheezes, Other Labs: CBC, BMP 08/16/18 08:25 08/16/18 08:25 Problem List - Problems (1) Acute on chronic respiratory failure with hypoxia Code(s): J96.21 - ACUTE AND CHRONIC RESPIRATORY FAILURE WITH HYPOXIA (2) COPD exacerbation Assessment/Plan: COntinue PO Steroids Continue inhaled bronchodilators Continue Ceftriaxone and Vibramycin Code(s): J44.1 - CHRONIC OBSTRUCTIVE PULMONARY DISEASE W (ACUTE) EXACERBATION (3) Human immunodeficiency virus (HIV) disease Assessment/Plan: Bactrim for Prophy for PCP F/U with ID for HIV meds Code(s): B20 - HUMAN IMMUNODEFICIENCY VIRUS [HIV] DISEASE (4) Shortness of breath Code(s): R06.02 - SHORTNESS OF BREATH (5) Acute on chronic diastolic heart failure Assessment/Plan: COntinue Lasix Code(s): I50.33 - ACUTE ON CHRONIC DIASTOLIC (CONGESTIVE) HEART FAILURE Impression/Plan Impression/Plan: Patient only wants to go home on O2. He is not approved on his insurance but will pay monthly for it. Patient walks around on RA with an O2 sat of 92% so he does not need the home O2. Due to patient's anxiety he states he needs to have and it makes more comfortable to have it. Per case management the home O2 will be delivered to his home on 08/18/2018. Patient will stay the night and go home on portable O2, which last for 4 hours per case management. -Continue current treatment -Discharge home in AM on 08/18/2018 Visit type - Emergency Visit Emergency Visit: Yes ED Registration Date: 08/12/18 Care time: The patient presented to the Emergency Department on the above date and was hospitalized for further evaluation of their emergent condition. - New Patient This patient is new to me today: Yes Date on this admission: 08/18/18 - Critical Care Critical Care patient: No
[2018-08-18] MEDS: DOCUSATE SODIUM 100 MG CAPSULE (FP) PO SCH ×2 (06:18→15:25)
--- NOTE | 2018-08-18 07:52 | DS ---
Physical Examination Vital Signs: Vital Signs Temperature 97.8 F 08/18/18 06:00 Pulse Rate 82 08/18/18 06:00 Respiratory Rate 20 08/18/18 06:00 Blood Pressure 121/86 08/18/18 06:00 O2 Sat by Pulse Oximetry (%) 97 08/17/18 21:00 Constitutional: Yes: Well Nourished, No Distress, Calm Eyes: Yes: WNL, Conjunctiva Clear, EOM Intact HENT: Yes: WNL, Atraumatic, Normocephalic, Other Neck: Yes: WNL, Supple Cardiovascular: Yes: WNL, Regular Rate and Rhythm Respiratory: Yes: WNL, Regular, CTA Bilaterally, On Nasal O2 (pre/post ambulation does not support O2 tehrapy however patient states he "feels more comfortable" in place) Gastrointestinal: Yes: WNL, Normal Bowel Sounds, Soft ...Rectal Exam: Yes: Deferred Musculoskeletal: Yes: WNL Extremities: Yes: WNL Edema: No Peripheral Pulses WNL: Yes Integumentary: Yes: WNL Neurological: Yes: WNL, Alert, Oriented ...Motor Strength: WNL Psychiatric: Yes: WNL, Alert, Oriented Labs: CBC, BMP 08/16/18 08:25 08/16/18 08:25 Discharge Summary Reason For Visit: HIV DISEASE/ACUTE EXCERBATION OF CHRONIC Current Active Problems Acute on chronic respiratory failure with hypoxia (Acute) COPD exacerbation (Acute) Human immunodeficiency virus (HIV) disease (Acute) Prophylactic measure (Acute) RTI (respiratory tract infection) (Acute) Shortness of breath (Acute) Tachycardia (Acute) Hospital Course: Patient admitted form ED and treated with ceftriaxone and doxycillin. IV steroids started and taper to oral with clinical improvement. Inhaled bronchodiltors and lasix continue at home dose. Pre-post ambulation saturations preformed and does no support use of home O2 however patient states he feeld more comfortbale with it in place and agreed to pay out of pocket. Patient will continue oral steroid taper of prednisone for 2 weeks ontil off. Taper given to patient. - Instructions Diet, Activity, Other Instructions: PREDNISONE TAPER 08/18 40 mg (4- 10mg tablets) 6 40 mg (4- 10mg tablets) 6 40 mg (4- 10mg tablets) 6 30 mg (3- 10mg tablets) 6/ 30 mg (3- 10mg tablets) 08/23 30 mg (3- 10mg tablets) 6/30 20 mg (2- 10mg tablets) 7/1 20 mg (2- 10mg tablets) 7/2 20 mg (2- 10mg tablets) 7/3 10 mg (1- 10mg tablets) 7/4 10 mg (1- 10mg tablets) 7/5 10 mg (1- 10mg tablets) 7/6 5 mg (1/2- 10mg tablets) 0 Disposition: HOME - Home Medications Comprehensive Discharge Medication List: Ambulatory Orders Albuterol Sulfate Inhaler - [Ventolin HFA Inhaler -] 2 inh PO Q4H 07/30/18 Aspirin 81 mg PO DAILY 07/30/18 Atorvastatin Ca [Lipitor] 20 mg PO HS 07/30/18 Docusate Sodium [Colace] 1 cap PO DAILY 07/30/18 Efavirenz [Sustiva] 600 mg PO HS 07/30/18 Lamivudine/Zidovudine 150/300 [Combivir Tablet 150/300 -] 1 tab PO BID 07/30/18 Sennosides [Senna -] 2 tab PO HS 07/30/18 Budesonide/Formeterol Fumarate [SYMBICORT 160/4.5mcg -] 2 puff IH BID #1 inhaler 08/05/18 Furosemide [Lasix -] 20 mg PO DAILY #30 tablet 08/05/18 Sulfamethoxazole/Trimethoprim [Bactrim DS -] 1 tab PO DAILY #30 tablet 08/05/18 Tamsulosin HCl [Flomax] 1 cap PO DAILY #30 capsule 08/05/18 Aspirin [ASA -] 81 mg PO DAILY tab.chew 08/18/18 predniSONE [Deltasone -] 10 mg PO DAILY #30 tablet 08/18/18 This patient is new to me today: No Emergency Visit: Yes ED Registration Date: 08/12/18 Care time: The patient presented to the Emergency Department on the above date and was hospitalized for further evaluation of their emergent condition. Critical Care patient: No - Discharge Referral Referred to [facility] No
[2018-08-18] MEDS ORDERED: MAGNESIUM CITRATE 300 ML BOTTLE PO ONE (08:41)
[2018-08-18] MEDS ORDERED: DEXTROSE 5%-WATER - 50 ML IVPB ONE (08:54)
[2018-08-18] MEDS ORDERED: cefTRIAXone SODIUM 1 GM VIAL ONE (08:54)
[2018-08-18] MEDS: FUROSEMIDE 20 MG TABLET (FP) PO SCH (09:01)
[2018-08-18] MEDS: ENOXAPARIN NA (PORCINE) 40 MG/0.4 ML DISP.SYRIN SQ SCH (09:01)
[2018-08-18] MEDS: predniSONE 20 MG TABLET (UD) PO SCH (09:01)
[2018-08-18] MEDS: CEFTRIAXONE 1 GM in DEXTROSE 5%-WATER - 50 ML IVPB SCH (09:01)
[2018-08-18] MEDS: ASPIRIN 81 MG CHEWABLE TABLETS PO SCH (09:01)
[2018-08-18] MEDS: BIKTARVY PO SCH (09:02)
[2018-08-18] MEDS: SULFAMETHOXAZOLE/TRIMETHOPRIM 800MG/160MG D.S. TABLET PO SCH (09:04)
[2018-08-18] MEDS: TAMSULOSIN HCL 0.4 MG CAP PO SCH (09:04)
[2018-08-18] MEDS: DOXYCYCLINE HYCLATE 100 MG CAPSULE PO SCH ×2 (12:05→18:58)
[2018-08-18 18:07] VITALS: BP 119/68; PULSE 111; TEMP 98
== END 2018-08-18 19:31 | disposition home or self-care (01) | DRG 892 ==
LOC: JER 15:20 → JERBED 17:05 → J5S 18:40
PROVIDERS: ADMIT Internal Medicine; ATTEND Nurse Practitioner Acute Care
DX: J96.21 Acute and chronic respiratory failure with hypoxia (principal); E78.5 Hyperlipidemia, unspecified; E11.9 Type 2 diabetes mellitus without complications; B20 Human immunodeficiency virus [HIV] disease; J44.1 Chronic obstructive pulmonary disease with (acute) exacerbation; R00.0 Tachycardia, unspecified; R91.1 Solitary pulmonary nodule; I45.10 Unspecified right bundle-branch block; N40.0 Benign prostatic hyperplasia without lower urinary tract symptoms; I11.0 Hypertensive heart disease with heart failure; R50.9 Fever, unspecified; E87.2 Acidosis; I50.32 Chronic diastolic (congestive) heart failure; Z87.891 Personal history of nicotine dependence; Z99.81 Dependence on supplemental oxygen
CPT/HCPCS: 36415; 36600; 71045-TC-FY; 80048; 80053; 82375; 82550; 82553; 82803; 83050; 83605; 83615; 83735; 83880; 84484; 85025; 86359; 86360; 87040; 87899; 93005; 93010; 94640; 94761; 99285-25; J0131; J7030

== ENCOUNTER 2018-08-19 17:36 | Inpatient (IN) | payer OTHER | END 2018-08-20 18:53 | disposition home health service (06) | LOC: JER 17:36 → JERBED 08-20 17:05 ==

== ENCOUNTER 2018-09-02 11:07 | Inpatient (IN) | payer OTHER ==
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
[2018-09-02] MEDS ORDERED: FUROSEMIDE 40 MG/4 ML INJECTABLE VIAL IVPUSH ONE (12:06)
[2018-09-02 12:36] LABS: BASO % 0.3 % (0-2.0); EOS % 0.1 % (0-4.5); HEMATOCRIT 38.8 % (35.4-49); HEMOGLOBIN 12.8 GM/dL (11.7-16.9); LYMPH % 10.5 % (8-40); MCHC 33.1 g/dl (32.0-35.9); MEAN CELL VOLUME 108.8 fl (80-96); MEAN PLT VOLUME 7.7 fl (7.5-11.1); MONO % 8.8 % (3.8-10.2); NEUT % 80.3 % (42.8-82.8); PLATELET COUNT 194 K/MM3 (134-434); RBC 3.57 M/mm3 (4.00-5.60); RDW 18.4 % (11.9-15.9); WHITE BLOOD COUNT 6.7 K/mm3 (4.0-10.0)
[2018-09-02 12:45] LABS: INR 0.95 (0.83-1.09); PROTHROMBIN TIME (PATIENT) 11.2 SEC (9.7-13.0)
[2018-09-02 12:47] LABS: ACTIVATED PTT 30.6 SECONDS (25.2-36.5)
[2018-09-02 12:48] LABS: PH,URINE 6.5 (5.0-8.0); URINE APPEARANCE CLEAR; URINE BILIRUBIN NEGATIVE (NEGATIVE); URINE COLOR YELLOW; URINE GLUCOSE (UA) NEGATIVE (NEGATIVE); URINE KETONE NEGATIVE (NEGATIVE); URINE LEUK ESTERASE NEGATIVE (NEGATIVE); URINE NITRITE NEGATIVE (NEGATIVE); URINE PROTEIN NEGATIVE (NEGATIVE); URINE UROBILINOGEN 0.2 mg/dL (0.2-1.0)
[2018-09-02 12:52] LABS: VENOUS PC02 51.9 mmHg (41-51); VENOUS PH 7.37 (7.31-7.41); VENOUS PO2 40.5 mmHg (30-40)
--- NOTE | 2018-09-02 12:52 | PDOC ---
Attending Attestation - Resident Resident Name: Charles Kamaraorn - ED Attending Attestation I have performed the following: I have examined & evaluated the patient, The case was reviewed & discussed with the resident, I agree w/resident's findings & plan - HPI HPI: 09/02/18 12:49 63-year-old male with history of well-controlled HIV, COPD, diastolic heart failure sent from PCP office with volume overload/dyspnea and episode of chest pain this morning. - Physicial Exam PE: 09/02/18 12:49 Afebrile, slight tachycardia and tachypnea, blood pressure as noted Patient is alert seated in stretcher speaking on his cell phone Heart is regular Lungs with bibasilar crackles, no wheezing or prolonged expiration Abdomen benign Bilateral pitting edema to both knees - Medical Decision Making 09/02/18 12:50 63-year-old male with history of COPD and CHF presents with acute exacerbation of diastolic heart failure with volume overload and shortness of breath. Labs, EKG Chest x-ray Diuresis Admission Heart Score/ECG Review #1 ECG reviewed & interpreted by me at: 11:26 General ECG Interpretation: Sinus Rhythm, Normal Rate (102), Normal Intervals ( qtc 466, RBBB qrs 122), No acute ischemic changes Compared to previous ECG there are: No significant change (08/19/18)
[2018-09-02 13:12] LABS: ALBUMIN 3.6 g/dl (3.4-5.0); ALK PHOS 40 U/L (45-117); ANION GAP 6 MMOL/L (8-16); BILIRUBIN,TOTAL 0.3 mg/dL (0.2-1); BLOOD UREA NITROGEN 15.7 mg/dL (7-18); CALCIUM 8.6 mg/dL (8.5-10.1); CHLORIDE 104 mmol/L (98-107); CO2 31 mmol/L (21-32); CREATININE 0.9 mg/dL (0.55-1.3); GLUCOSE,RANDOM 135 mg/dL (74-106); N-TERMINAL BNP 119.5 pg/ml (5-125); POTASSIUM 4.3 mmol/L (3.5-5.1); SGOT/AST 22 U/L (15-37); SGPT/ALT 42 U/L (13-61); SODIUM 141 mmol/L (136-145); TOT PROT 6.7 g/dl (6.4-8.2)
--- NOTE | 2018-09-02 14:33 | EKG ---
Test Reason : Blood Pressure : / mmHG Vent. Rate : 102 BPM Atrial Rate : 102 BPM P-R Int : 134 ms QRS Dur : 122 ms QT Int : 358 ms P-R-T Axes : 072 083 056 degrees QTc Int : 466 ms SINUS TACHYCARDIA RIGHT BUNDLE BRANCH BLOCK ABNORMAL ECG WHEN COMPARED WITH ECG OF 19-AUG-2018 18:08, NO SIGNIFICANT CHANGE WAS FOUND Confirmed by Leandro Hogan ([id number]) on 09/02/2018 2:32:42 PM Referred By: Confirmed By:Leandro Hogan
[2018-09-02 15:34] LABS: ANISOCYTOSIS 1+; MACROCYTOSIS 1+; PLATELET ESTIMATE NORMAL
--- NOTE | 2018-09-02 15:38 | PN ---
Teaching Attending Note Name of Resident: Enoch Shabazz ATTENDING PHYSICIAN STATEMENT I saw and evaluated the patient. I reviewed the resident's note and discussed the case with the resident. I agree with the resident's findings and plan as documented. 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 Pt was in Dr. Cantor's clinic today where he was found to be hypoxic and tachypneic. On 2 liter oxygen but cannot recah to his shower , became short of breath post shower today. OBJECTIVE: Vital Signs Temperature 98.0 F 09/02/18 11:18 Pulse Rate 102 H 09/02/18 11:18 Respiratory Rate 26 H 09/02/18 11:18 Blood Pressure 116/91 09/02/18 11:18 O2 Sat by Pulse Oximetry (%) 98 09/02/18 11:18 CBCD WBC 6.7 K/mm3 (4.0-10.0) 09/02/18 12:10 RBC 3.57 M/mm3 (4.00-5.60) L 09/02/18 12:10 Hgb 12.8 GM/dL (11.7-16.9) 09/02/18 12:10 Hct 38.8 % (35.4-49) 09/02/18 12:10 MCV 108.8 fl (80-96) H 09/02/18 12:10 MCHC 33.1 g/dl (32.0-35.9) 09/02/18 12:10 RDW 18.4 % (11.9-15.9) H 09/02/18 12:10 Plt Count 194 K/MM3 (134-434) D 09/02/18 12:10 MPV 7.7 fl (7.5-11.1) 09/02/18 12:10 GENERAL: The patient is awake, alert, and fully oriented, in mild distress. On 2Liter NC HEAD: Normal with no signs of trauma. EYES: PERRL, extraocular movements intact, sclera anicteric, conjunctiva clear. ENT: Ears normal, oropharynx clear without exudates, moist mucous membranes. NECK: Trachea midline, full range of motion, supple. LUNGS:decreased Breath sounds bl , positive for rhonchi and mild accessory muscle use. HEART: tachycardic , S1, S2 positive, no rub or gallop. ABDOMEN: Soft, nontender, mild distension with umbilical hernia . no masses appreciated. EXTREMITIES: 2+ pulses, warm, well-perfused, 3 plus edema bl NEUROLOGICAL: Cranial nerves II through XII grossly intact. Normal speech, gait not observed. PSYCH: Normal mood, normal affect. SKIN: Warm, dry, normal turgor, no rashes or lesions noted CMP Sodium 141 mmol/L (136-145) 09/02/18 12:10 Potassium 4.3 mmol/L (3.5-5.1) 09/02/18 12:10 Chloride 104 mmol/L (98-107) 09/02/18 12:10 Carbon Dioxide 31 mmol/L (21-32) 09/02/18 12:10 Anion Gap 6 MMOL/L (8-16) L 09/02/18 12:10 BUN 15.7 mg/dL (7-18) 09/02/18 12:10 Creatinine 0.9 mg/dL (0.55-1.3) 09/02/18 12:10 Random Glucose 135 mg/dL (74-106) H 09/02/18 12:10 Calcium 8.6 mg/dL (8.5-10.1) 09/02/18 12:10 Total Bilirubin 0.3 mg/dL (0.2-1) 09/02/18 12:10 AST 22 U/L (15-37) 09/02/18 12:10 ALT 42 U/L (13-61) 09/02/18 12:10 Alkaline Phosphatase 40 U/L (45-117) L 09/02/18 12:10 Total Protein 6.7 g/dl (6.4-8.2) 09/02/18 12:10 Albumin 3.6 g/dl (3.4-5.0) 09/02/18 12:10 CARDIAC ENZYMES Troponin I < 0.02 ng/ml (0.00-0.05) 09/02/18 12:10 Home Medications Medication Instructions Recorded Albuterol Sulfate Inhaler - 2 inh PO Q4H 07/30/18 [Ventolin HFA Inhaler -] Aspirin 81 mg PO DAILY 07/30/18 Atorvastatin Ca [Lipitor] 20 mg PO HS 07/30/18 Docusate Sodium [Colace] 1 cap PO DAILY 07/30/18 Efavirenz [Sustiva] 600 mg PO HS 07/30/18 Lamivudine/Zidovudine 150/300 1 tab PO BID 07/30/18 [Combivir Tablet 150/300 -] Sennosides [Senna -] 2 tab PO HS 07/30/18 Budesonide/Formeterol Fumarate 2 puff IH BID #1 inhaler 08/05/18 [SYMBICORT 160/4.5mcg -] Furosemide [Lasix -] 20 mg PO DAILY #30 tablet 08/05/18 Sulfamethoxazole/Trimethoprim 1 tab PO DAILY #30 tablet 08/05/18 [Bactrim DS -] Tamsulosin HCl [Flomax] 1 cap PO DAILY #30 capsule 08/05/18 Aspirin [ASA -] 81 mg PO DAILY tab.chew 08/18/18 predniSONE [Deltasone -] 10 mg PO DAILY #30 tablet 08/18/18 Laboratory Tests 09/02/18 12:10 VBG pH 7.37 POC VBG pCO2 51.9 H POC VBG pO2 40.5 H VBG HCO3 29.2 H VBG O2 Sat (Josephine) 67.1 L VBG Base Excess 3.7 H CXR- no infiltrates, no congestion, no cardiomegaly EKG- QTC 466, no acute ischemic changes, consistent with prior EKG. Echo- 07/13 shows normal LA,LV,RA,RV no dilation, trace TR, 60-65% EF CTA- 07/13 was negative for PE ASSESSMENT AND PLAN: This is a 63 y/o Male with PMHx of COPD, HIV, Miliary TB, HLD, diastolic CHF who presented for having SOB, and increased swellign of b/l lower extrremities. #Acute hypoxic hypercapnic respiratory failure due to having COPD exacerbation, duonebs q6h PRN, continue symbicort, Pulm consult- Dr. Soto continue supplemental O2 2L NC and titrate SPO2 > 90%, Bipap prn #Acute diastolic CHF exacerbation will reoeat his echo, IV lasix 20mg BID , - daily weights, Is and O's # BL swelling of lower extremities willpalce him on lasix, will repeat his echo , low salt and fluid restriction diet, will order duplex of lower extremities. #RML nodule: RML nodule 6 cm f/u with marketing assistant to repeat CT in 3-6 months as outpatient. #HLD: continue atorvastatin 20mg PO HS #HIV: contine lamivudine/zidovudine, efavirenz. Px bactrim 1 tab PO HS; ID consult dr cantor DVT px: Loenox 40mg sq
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
[2018-09-03] MEDS: ALBUTEROL SO4 2.5/IPRATROPIUM 0.5 INH SOL 3 ML VIAL.NEB. NEB PRN ×2 (00:10→20:52)
[2018-09-03 08:53] LABS: ALBUMIN 3.3 g/dl (3.4-5.0); BILIRUBIN,TOTAL 0.3 mg/dL (0.2-1); BLOOD UREA NITROGEN 13.5 mg/dL (7-18); CALCIUM 8.1 mg/dL (8.5-10.1); CREATININE 0.9 mg/dL (0.55-1.3); MAGNESIUM 2.1 mg/dL (1.8-2.4); PHOSPHOROUS 5.3 mg/dL (2.5-4.9); POTASSIUM 3.9 mmol/L (3.5-5.1); TOT PROT 6.1 g/dl (6.4-8.2)
--- NOTE | 2018-09-03 09:04 | CON.CARD ---
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 Pt was in Dr. Machado's clinic where he was found to be hypoxic, tachypneic, and tachycardic, symptoms improved with significant IV diuresis. Admits to salt intake, reports med compliance, ? NSAID use. - History Source History Provided By: Patient Limitations to Obtaining History: No Limitations - Past Medical History Cardio/Vascular: Yes: Hyperlipdemia Pulmonary: Yes: COPD, O2 Dependent Renal/: Yes: BPH Infectious Disease: Yes: HIV - Past Surgical History Past Surgical History: Yes: None - Alcohol/Substance Use Hx Alcohol Use: Yes - Smoking History Smoking history: Former smoker Have you smoked in the past 12 months: No Aproximately how many cigarettes per day: 20 If you are a former smoker, when did you quit?: 3months - Social History Usual Living Arrangement: With Child ADL: Independent History of Recent Travel: No Home Medications - Allergies Allergies/Adverse Reactions: Allergies Allergy/AdvReac Type Severity Reaction Status Date / Time No Known Allergies Allergy Verified 09/02/18 11:39 - Home Medications Home Medications: Ambulatory Orders Albuterol Sulfate Inhaler - [Ventolin HFA Inhaler -] 2 inh PO QID PRN 07/30/18 Atorvastatin Ca [Lipitor] 20 mg PO HS 07/30/18 Furosemide [Lasix -] 20 mg PO DAILY #30 tablet 08/05/18 Sulfamethoxazole/Trimethoprim [Bactrim DS -] 1 tab PO DAILY #30 tablet 08/05/18 Tamsulosin HCl [Flomax] 1 cap PO DAILY #30 capsule 08/05/18 Aspirin [ASA -] 81 mg PO DAILY tab.chew 08/18/18 predniSONE [Deltasone -] 10 mg PO DAILY #30 tablet 08/18/18 Bictegrav/Emtricit/Tenofov Ala [Biktarvy 50-200-25 mg Tablet] 1 tablet PO DAILY 09/02/18 Budesonide/Formeterol Fumarate [SYMBICORT 160/4.5mcg -] 1 puff IH BID 09/02/18 Docusate Calcium 60 mg PO BID 09/02/18 Family Disease History - Family Disease History Family Disease History: Diabetes: Father, Heart Disease: Mother (Parkinsons), Other: Mother, Brother (2), Sister (3), Son (2) Vital Signs: Vital Signs Temperature 99.1 F 09/03/18 06:00 Pulse Rate 96 H 09/03/18 06:00 Respiratory Rate 20 09/03/18 06:00 Blood Pressure 137/86 09/03/18 06:00 O2 Sat by Pulse Oximetry (%) 97 09/02/18 22:00 Constitutional: Yes: No Distress, Calm Neck: Yes: Supple Respiratory: Yes: Regular, Diminished, On Nasal O2 Gastrointestinal: Yes: Soft, Hypoactive Bowel Sounds Cardiovascular: Yes: Tachycardia JVD: No Carotid Bruit: No Heart Sounds: Yes: S1, S2 Murmur: Yes: Systolic Murmur, Grade 1 Edema: Yes Edema: LLE: 1+, RLE: 1+ - Other Data Labs, Other Data: CBC, BMP 09/03/18 06:27 INR, PTT INR 0.95 (0.83-1.09) 09/02/18 12:10 Troponin, BNP 09/02/18 12:10 Troponin I < 0.02 B-Natriuretic Peptide 119.5 Troponin, BNP 09/02/18 12:10 Troponin I < 0.02 B-Natriuretic Peptide 119.5 ST @ 102 RBBB Ejection Fraction %: LVEF > or = 40 % Imaging - Results Chest X-ray: Report Reviewed (NAD) Problem List - Problems (1) Dyspnea Code(s): R06.00 - DYSPNEA, UNSPECIFIED Qualifiers: Dyspnea type: unspecified Qualified Code(s): R06.00 - Dyspnea, unspecified (2) Acute on chronic diastolic heart failure Code(s): I50.33 - ACUTE ON CHRONIC DIASTOLIC (CONGESTIVE) HEART FAILURE (3) Acute on chronic respiratory failure with hypoxia Code(s): J96.21 - ACUTE AND CHRONIC RESPIRATORY FAILURE WITH HYPOXIA (4) Bilateral leg edema Code(s): R60.0 - LOCALIZED EDEMA (5) Hyperlipidemia Code(s): E78.5 - HYPERLIPIDEMIA, UNSPECIFIED Qualifiers: Hyperlipidemia type: pure hypercholesterolemia Qualified Code(s): E78.00 - Pure hypercholesterolemia, unspecified; E78.0 - Pure hypercholesterolemia (6) COPD (chronic obstructive pulmonary disease) Code(s): J44.9 - CHRONIC OBSTRUCTIVE PULMONARY DISEASE, UNSPECIFIED Qualifiers: COPD type: emphysema Emphysema type: centrilobular Qualified Code(s): J43.2 - Centrilobular emphysema Assessment/Plan 07/09/2018 Chest CTA: No PE, mild centrilobular emphysema, mildly dilated main PA, interval resolution of focal right posterior basilar infiltrate or ATX peviously seen 06/06/2018 07/10/2018 Echo: Normal LV and RV size and fxn LVEF 60-65%, tr TR 1. Recurrent acute on chronic diastolic heart failure r/o pulm HTN referable to diet noncompliance resolving 2. COPD with h/o exacerbation 3. Acute Hypoxic Respiratory Failure 4. HIV on HAART- last CD4 196 5. Hyperlipidemia P: 1. IV diuresis with monitor diuretic response, renal fxn and electrolytes 2. Continue ASA 81 qd, Lipitor 20 qhs, start cardizem CD 120 qd 3. BD and O2 as needed, LAMA/LABA combination inhalational device, oral steroid taper 4. Outpatient PFTs 5. DVT prophylaxis 6. Thank you for consultative opportunity
[2018-09-03 09:08] LABS: BASO % 0.4 % (0-2.0); EOS % 1.9 % (0-4.5); HEMATOCRIT 39.7 % (35.4-49); HEMOGLOBIN 13.1 GM/dL (11.7-16.9); LYMPH % 20.7 % (8-40); MCH 36.1 pg (25.7-33.7); MCHC 32.9 g/dl (32.0-35.9); MEAN CELL VOLUME 109.7 fl (80-96); MEAN PLT VOLUME 8.3 fl (7.5-11.1); MONO % 11.8 % (3.8-10.2); NEUT % 65.2 % (42.8-82.8); PLATELET COUNT 168 K/MM3 (134-434); RBC 3.62 M/mm3 (4.00-5.60); RDW 18.5 % (11.9-15.9); WHITE BLOOD COUNT 4.5 K/mm3 (4.0-10.0)
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
[2018-09-03] MEDS ORDERED: PT OWN MED DRAWER 7, Y5N ONE (09:21)
[2018-09-03] MEDS: FUROSEMIDE 40 MG/4 ML INJECTABLE VIAL IVPUSH SCH ×2 (09:55→13:06)
[2018-09-03] MEDS: ENOXAPARIN NA (PORCINE) 40 MG/0.4 ML DISP.SYRIN SQ SCH (09:55)
[2018-09-03] MEDS: TAMSULOSIN HCL 0.4 MG CAP PO SCH (09:56)
[2018-09-03] MEDS: ASPIRIN 81 MG CHEWABLE TABLETS PO SCH (09:56)
[2018-09-03] MEDS ORDERED: predniSONE 10 MG TABLET (UD) PO SCH (10:00)
[2018-09-03] MEDS ORDERED: PATIENT'S OWN MEDICATION (NON-FORMULARY) (Bictegrav/Emtricit/Tenofov Ala 1 TABLET) PO SCH (10:00)
[2018-09-03] MEDS: BUDESONIDE/FORMETEROL FUMARATE 160/4.5 mcg INHALER IH SCH ×2 (10:32→21:35)
[2018-09-03 10:52] LABS: COCAINE, UR NEGATIVE ng/ml (CUTOFF=300); METHADONE, UR NEGATIVE ng/ml (CUTOFF=300); OPIATES, URI NEGATIVE ng/ml (CUTOFF=300); PHENCYCLIDINE,URINE NEGATIVE ng/ml (CUTOFF=25); URINE AMPHETAMINES NEGATIVE ng/ml (CUTOFF=500); URINE BARBITURATES NEGATIVE ng/ml (CUTOFF=200); URINE BENZODIAZEPINES NEGATIVE ng/ml (CUTOFF=200)
[2018-09-03] MEDS: SULFAMETHOXAZOLE/TRIMETHOPRIM 800MG/160MG D.S. TABLET PO SCH (11:16)
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
[2018-09-03] MEDS ORDERED: ALBUTEROL SO4 0.083% IH SOL 2.5 MG/3 ML VIAL.NEB. NEB SCH (13:00)
[2018-09-03] MEDS: methylPREDNISolone NA SUCC 40 MG/1 ML VIAL IVPUSH SCH ×2 (13:06→17:44)
[2018-09-03 13:43] LABS: ALLENS TEST POSITIVE
[2018-09-03 13:56] LABS: ARTERIAL BLOOD GAS PCO2 45.1 mmHg (35-45); ARTERIAL BLOOD GAS pH 7.42 (7.35-7.45)
[2018-09-03 13:57] LABS: ARTERIAL BLD GAS O2 SATURATION 98 % (95-98); ARTERIAL BLOOD GAS PO2 109 mmHg (80-105)
--- NOTE | 2018-09-03 15:37 | ECHO ---
Name: FRANCISCA KEN Exam:Adult Echocardiogram Study Date: 09/03/2018 08:20 AM Age: 63 yrs Reason For Study: CHF Height: 66 in Weight: 165 lb BSA: 1.8 m2 MMode/2D Measurements & Calculations IVSd: 0.87 cm ACS: 1.9 cm LVIDd: 2.8 cm LVIDs: 2.3 cm LVPWd: 1.2 cm EDV(Teich): 28.6 ml LVOT diam: 2.0 cm ESV(Teich): 17.6 ml Doppler Measurements & Calculations MV E max chicho: 99.3 cm/sec Ao V2 max: 101.6 cm/sec MV A max chicho: 109.1 cm/sec Ao max P.1 mmHg MV E/A: 0.91 Ao V2 mean: 68.0 cm/sec Ao mean P.2 mmHg Ao V2 VTI: 16.5 cm NIELS(I,D): 2.5 cm2 NIELS(V,D): 2.6 cm2 LV V1 max P.1 mmHg SV(LVOT): 41.9 ml LV V1 mean P.4 mmHg LV V1 max: 87.6 cm/sec LV V1 mean: 56.6 cm/sec LV V1 VTI: 14.0 cm Med Peak E' Chicho: 9.7 cm/sec Med E/e': 10.3 Lat Peak E' Chicho: 8.2 cm/sec Lat E/e': 12.1 Procedure The study was technically difficult with many images being suboptimal in quality. The study was non-d iagnostic in quality. No definitive statements could be made about this echo due to extremely poor acoustic win dows. Left Ventricle The left ventricle is grossly normal size. The left ventricle is not well visualized. Due to the poor quality of the echocardiogram, an assessment of left ventricular ejection fraction cannot be made. Regional w all motion abnormalities cannot be excluded due to limited visualization. Right Ventricle The right ventricle is not well visualized. Atria The left atrium is not well visualized. Right atrium not well visualized. Mitral Valve The mitral valve is not well visualized. Tricuspid Valve The tricuspid valve is not well visualized. Aortic Valve The aortic valve is not well visualized. Pulmonic Valve The pulmonic valve is not well visualized. Great Vessels The aortic root is normal size. Pericardium/Pleura There is no pericardial effusion. Interpretation Summary The study was technically difficult with many images being suboptimal in quality. The left ventricle is grossly normal size. Due to the poor quality of the echocardiogram, an assessment of left ventricular ejection fraction ca nnot be made. The left ventricle is not well visualized. Regional wall motion abnormalities cannot be excluded due to limited visualization. The right ventricle is not well visualized. The mitral valve is not well visualized. The tricuspid valve is not well visualized. The aortic valve is not well visualized. The pulmonic valve is not well visualized. The study was non-diagnostic in quality. No definitive statements could be made about this echo due t o extremely poor acoustic windows. MD Jamison Vernon 09/03/2018 03:37 PM
--- NOTE | 2018-09-03 16:20 | PN ---
Physical Exam: SUBJECTIVE: Patient seen and examined OBJECTIVE: Vital Signs Period Temp Pulse Resp BP Sys/Clifton Pulse Ox Last 24 Hr 97.8 F-99.1 F 96-115 20-22 104-137/62-88 97-99 GENERAL: The patient is awake, alert, and fully oriented, in no acute distress. HEAD: Normal with no signs of trauma. EYES: PERRL, extraocular movements intact, sclera anicteric, conjunctiva clear. No ptosis. ENT: Ears normal, nares patent, oropharynx clear without exudates, moist mucous membranes. NECK: Trachea midline, full range of motion, supple. LUNGS: Breath sounds equal, clear to auscultation bilaterally, no wheezes, no crackles, no accessory muscle use. HEART: Regular rate and rhythm, S1, S2 without murmur, rub or gallop. ABDOMEN: Soft, nontender, nondistended, normoactive bowel sounds, no guarding, no rebound, no hepatosplenomegaly, no masses. EXTREMITIES: 2+ pulses, warm, well-perfused, no edema. NEUROLOGICAL: Cranial nerves II through XII grossly intact. Normal speech, gait not observed. PSYCH: Normal mood, normal affect. SKIN: Warm, dry, normal turgor, no rashes or lesions noted Laboratory Results - last 24 hr 09/02/18 09/03/18 09/03/18 16:15 06:27 06:27 WBC 4.5 RBC 3.62 L Hgb 13.1 Hct 39.7 MCV 109.7 H MCH 36.1 H MCHC 32.9 RDW 18.5 H Plt Count 168 MPV 8.3 Absolute Neuts (auto) 2.9 Neutrophils % 65.2 Lymphocytes % 20.7 D Monocytes % 11.8 H Eosinophils % 1.9 D Basophils % 0.4 Nucleated RBC % 0 Anticoagulation Therapy Puncture Site ABG pH ABG pCO2 at Pt Temp ABG pO2 at Pt Temp ABG HCO3 ABG O2 Sat (Measured) ABG O2 Content ABG Base Excess Lefty Test O2 Delivery Device Oxygen Flow Rate Vent Mode Vent Rate Mechanical Rate Pressure Support Vent Sodium 140 Potassium 3.9 Chloride 103 Carbon Dioxide 32 Anion Gap 6 L BUN 13.5 Creatinine 0.9 Est GFR (CKD-EPI)AfAm 105.72 Est GFR (CKD-EPI)NonAf 91.22 Random Glucose 133 H Lactic Acid 2.0 Calcium 8.1 L Phosphorus 5.3 H Magnesium 2.1 Total Bilirubin 0.3 AST 30 ALT 40 Alkaline Phosphatase 37 L Troponin I 0.02 Total Protein 6.1 L Albumin 3.3 L Vitamin B12 320 TSH 0.88 Opiates Screen Methadone Screen Barbiturate Screen Phencyclidine Screen Ur Amphetamines Screen MDMA (Ecstasy) Screen Benzodiazepines Screen Cocaine Screen U Marijuana (THC) Screen 09/03/18 09/03/18 09:50 13:30 WBC RBC Hgb Hct MCV MCH MCHC RDW Plt Count MPV Absolute Neuts (auto) Neutrophils % Lymphocytes % Monocytes % Eosinophils % Basophils % Nucleated RBC % Anticoagulation Therapy No Result Required. Puncture Site Right radial ABG pH 7.42 ABG pCO2 at Pt Temp 45.1 H ABG pO2 at Pt Temp 109 H ABG HCO3 28.6 H ABG O2 Sat (Measured) 98 ABG O2 Content 19.3 ABG Base Excess 4.0 H Lefty Test Positive O2 Delivery Device N/c Oxygen Flow Rate 2l Vent Mode No Result Required. Vent Rate No Result Required. Mechanical Rate No Result Required. Pressure Support Vent No Result Required. Sodium Potassium Chloride Carbon Dioxide Anion Gap BUN Creatinine Est GFR (CKD-EPI)AfAm Est GFR (CKD-EPI)NonAf Random Glucose Lactic Acid Calcium Phosphorus Magnesium Total Bilirubin AST ALT Alkaline Phosphatase Troponin I Total Protein Albumin Vitamin B12 TSH Opiates Screen Negative Methadone Screen Negative Barbiturate Screen Negative Phencyclidine Screen Negative Ur Amphetamines Screen Negative MDMA (Ecstasy) Screen Negative Benzodiazepines Screen Negative Cocaine Screen Negative U Marijuana (THC) Screen Negative Active Medications Generic Name Dose Route Start Last Admin Trade Name Freq PRN Reason Stop Dose Admin Albuterol Sulfate 1 amp 09/03/18 13:00 Ventolin 0.083% Nebulizer Soln - NEB RTID GLENNY Albuterol/Ipratropium 1 amp 09/02/18 17:06 09/03/18 00:10 Duoneb - NEB 1 amp Q6H PRN Administration SHORTNESS OF BREATH Aspirin 81 mg 09/03/18 10:00 09/03/18 09:56 Asa - PO 81 mg DAILY GLENNY Administration Budesonide/Formoterol Fumarate 1 puff 09/03/18 10:00 09/03/18 10:32 Symbicort 160/4.5mcg - IH 1 puff BID GLENNY Administration Diltiazem HCl 120 mg 09/03/18 11:30 09/03/18 11:36 Cardizem Cd - PO 120 mg DAILY GLENNY Administration Enoxaparin Sodium 40 mg 09/03/18 10:00 09/03/18 09:55 Lovenox - SQ 40 mg DAILY GLENNY Administration Furosemide 20 mg 09/03/18 08:00 09/03/18 13:06 Lasix Injection - IVPUSH 20 mg BID@0800,1400 GLENNY Administration Methylprednisolone Sodium Succinate 40 mg 09/03/18 13:00 09/03/18 13:06 Solu-Medrol - IVPUSH 40 mg Q8H-IV GLENNY Administration Non-Formulary Medication 1 tablet 09/03/18 10:00 Bictegrav/Emtricit/Tenofov Ala PO DAILY GLENNY Tamsulosin HCl 0.4 mg 09/03/18 08:45 09/03/18 09:56 Flomax - PO 0.4 mg DAILY@0830 GLENNY Administration Trimethoprim/Sulfamethoxazole 1 each 09/03/18 10:00 09/03/18 11:16 Bactrim Ds - PO 1 each DAILY GLENNY Administration ASSESSMENT/PLAN: This is a 63 y/o M w a PMH of COPD, HIV, Miliary TB, HLD, diastolic HF who presented for SOB, b/l leg swelling X 1 day. #Acute on chronic hypercapnic hypoxemic respiratory failure/Acute CHF exacerbation -ABG- 7.42, 45.1, 109%O2, HCO3-28.6, SaO2 98% on 2L NC, base excess of 4. - CXR- no infiltrates, no congestion, no cardiomegaly, - duonebs q6h PRN - IV lasix 20mg BID (8am and 2pm) - peak flow to bedside - continue symbicort - daily weights, measure YUSRA's - Pulm consult(Dr. Soto)- acute on chronic hypoxemic w acute hypercapnic resp failure, short course of medrol 40mg q8IV, inhaled bronchodilators, c/w lasix, ABG, chest ct ordered fro 6mm RLL ground glass nodule. - continue supplemental O2 2L NC and titrate SPO2 > 90% #Angina R/O ACS - Cardio (Dr. Turner)- started on cardizem 120 for HFpEF hx. Echo- poor study. - Trop negative X2 will continue to trend. - DVT b/l negative for LE's. - EKG- QTC 466, no acute ischemic changes, consistent with prior EKG. - Echo- 07/13 shows normal LA,LV,RA,RV no dilation, trace TR, 60-65% EF. - CTA- 07/13 was negative for PE RML nodule - RML nodule 6 mm consistent with prior CXR. -f/u with emergency room nurse to repeat CT in 3-6 mths as outpatient. #HLD - continue atorvastatin 20mg PO HS #HIV - Dr. Machado- CD4 149, viral load- 50 on bactrim and biktarvy. Visit type - Emergency Visit Emergency Visit: Yes ED Registration Date: 09/02/18 Care time: The patient presented to the Emergency Department on the above date and was hospitalized for further evaluation of their emergent condition. - New Patient This patient is new to me today: No - Critical Care Critical Care patient: No - Discharge Referral Referred to [facility] No ATTENDING PHYSICIAN STATEMENT I saw and evaluated the patient. I reviewed the resident's note and discussed the case with the resident. I agree with the resident's findings and plan as documented. SUBJECTIVE: OBJECTIVE: ASSESSMENT AND PLAN:
[2018-09-03] MEDS ORDERED: ALBUTEROL SO4 2.5/IPRATROPIUM 0.5 INH SOL 3 ML VIAL.NEB. NEB ONE (16:45)
--- NOTE | 2018-09-03 17:52 | PN ---
Teaching Attending Note Name of Resident: Enoch Shabazz ATTENDING PHYSICIAN STATEMENT I saw and evaluated the patient. I reviewed the resident's note and discussed the case with the resident. I agree with the resident's findings and plan as documented. SUBJECTIVE: feels better. improvement in SOB OBJECTIVE: NAD Cv : RRR Lungs: CTAB, decreased breath sounds at bases Ext : 2+ edema on legs . 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 1- Acute on chronic diastolic CHF exacerbation : - improved - cont IV laisx - appreciate card input. cardizem added 2- Acute COPD exacerbation : on chronic steroids at home - cont steroids . IV medrol added today - cont nebs - cont symbicort 3- H/o HIV: cont home medication ( patient has to bring form home ) - cont prophylactic bactrim 4- Pulm nodule. CT in 06/13 documented a R hilar nodule of [address] in 08/13 documented a 8 mm nodule in RLL . Ct of chest ordered by pulm to re-evaluate. 5- DVT PX : lovenox
[2018-09-04] MEDS: methylPREDNISolone NA SUCC 40 MG/1 ML VIAL IVPUSH SCH ×3 (02:32→17:39)
[2018-09-04] MEDS: ALBUTEROL SO4 2.5/IPRATROPIUM 0.5 INH SOL 3 ML VIAL.NEB. NEB PRN ×3 (03:36→22:15)
[2018-09-04 07:43] LABS: BASO % 0.1 % (0-2.0); HEMATOCRIT 39.4 % (35.4-49); HEMOGLOBIN 13.3 GM/dL (11.7-16.9); LYMPH % 8.4 % (8-40); MCH 36.1 pg (25.7-33.7); MCHC 33.9 g/dl (32.0-35.9); MEAN CELL VOLUME 106.5 fl (80-96); MEAN PLT VOLUME 8.3 fl (7.5-11.1); MONO % 2.8 % (3.8-10.2); NEUT % 88.7 % (42.8-82.8); PLATELET COUNT 197 K/MM3 (134-434); RDW 17.8 % (11.9-15.9); WHITE BLOOD COUNT 4.8 K/mm3 (4.0-10.0)
[2018-09-04 07:55] LABS: ALBUMIN 3.5 g/dl (3.4-5.0); BILIRUBIN,TOTAL 0.3 mg/dL (0.2-1); BLOOD UREA NITROGEN 21.3 mg/dL (7-18); CALCIUM 8.6 mg/dL (8.5-10.1); CREATININE 1.1 mg/dL (0.55-1.3); POTASSIUM 4.4 mmol/L (3.5-5.1); TOT PROT 6.9 g/dl (6.4-8.2)
[2018-09-04] MEDS: FUROSEMIDE 40 MG/4 ML INJECTABLE VIAL IVPUSH SCH (08:29)
[2018-09-04] MEDS: TAMSULOSIN HCL 0.4 MG CAP PO SCH (08:29)
[2018-09-04] MEDS: ASPIRIN 81 MG CHEWABLE TABLETS PO SCH (09:24)
[2018-09-04] MEDS: ENOXAPARIN NA (PORCINE) 40 MG/0.4 ML DISP.SYRIN SQ SCH (09:24)
[2018-09-04] MEDS: SULFAMETHOXAZOLE/TRIMETHOPRIM 800MG/160MG D.S. TABLET PO SCH (09:24)
[2018-09-04] MEDS: BUDESONIDE/FORMETEROL FUMARATE 160/4.5 mcg INHALER IH SCH ×2 (09:25→21:10)
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
--- NOTE | 2018-09-04 10:14 | PN ---
Progress Note, Physician History of Present Illness: SOB and leg swelling bilaterally improved with significant IV diuresis, azotemia increasing. - Current Medication List Current Medications: Active Medications Albuterol/Ipratropium (Duoneb -) 1 amp NEB Q6H PRN PRN Reason: SHORTNESS OF BREATH Last Admin: 09/04/18 09:27 Dose: 1 amp Aspirin (Asa -) 81 mg PO DAILY [facility] Last Admin: 09/04/18 09:24 Dose: 81 mg Budesonide/Formoterol Fumarate (Symbicort 160/4.5mcg -) 1 puff IH BID [facility] Last Admin: 09/04/18 09:25 Dose: 1 puff Diltiazem HCl (Cardizem Cd -) 120 mg PO DAILY [facility] Last Admin: 09/04/18 09:24 Dose: 120 mg Enoxaparin Sodium (Lovenox -) 40 mg SQ DAILY [facility] Last Admin: 09/04/18 09:24 Dose: 40 mg Furosemide (Lasix Injection -) 20 mg IVPUSH BID@0800,1400 [facility] Last Admin: 09/04/18 08:29 Dose: 20 mg Methylprednisolone Sodium Succinate (Solu-Medrol -) 40 mg IVPUSH Q8H-IV [facility] Last Admin: 09/04/18 09:25 Dose: 40 mg Non-Formulary Medication (Bictegrav/Emtricit/Tenofov Ala) 1 tablet PO DAILY [facility] Tamsulosin HCl (Flomax -) 0.4 mg PO DAILY@0830 [facility] Last Admin: 09/04/18 08:29 Dose: 0.4 mg Trimethoprim/Sulfamethoxazole (Bactrim Ds -) 1 each PO DAILY [facility] Last Admin: 09/04/18 09:24 Dose: 1 each - Objective Vital Signs: Vital Signs Temperature 98.1 F 09/04/18 09:00 Pulse Rate 95 H 09/04/18 09:00 Respiratory Rate 18 09/04/18 09:00 Blood Pressure 119/61 09/04/18 09:00 O2 Sat by Pulse Oximetry (%) 95 09/04/18 09:00 Constitutional: Yes: No Distress, Calm Neck: Yes: Supple Cardiovascular: Yes: Regular Rate and Rhythm Respiratory: Yes: Regular, Diminished, On Nasal O2 Gastrointestinal: Yes: Normal Bowel Sounds, Soft Edema: Yes Edema: LLE: 1+, RLE: 1+ Labs: CBC, BMP 09/04/18 05:40 09/04/18 05:40 INR, PTT INR 0.95 (0.83-1.09) 09/02/18 12:10 - ....Imaging Ultrasound: Report Reviewed ([facility] US: No DVT bilaterally) EKG: Report Reviewed (Tele: SR) Problem List - Problems (1) Dyspnea Code(s): R06.00 - DYSPNEA, UNSPECIFIED Qualifiers: Dyspnea type: unspecified Qualified Code(s): R06.00 - Dyspnea, unspecified (2) Acute on chronic diastolic heart failure Code(s): I50.33 - ACUTE ON CHRONIC DIASTOLIC (CONGESTIVE) HEART FAILURE (3) Acute on chronic respiratory failure with hypoxia Code(s): J96.21 - ACUTE AND CHRONIC RESPIRATORY FAILURE WITH HYPOXIA (4) Bilateral leg edema Code(s): R60.0 - LOCALIZED EDEMA (5) Hyperlipidemia Code(s): E78.5 - HYPERLIPIDEMIA, UNSPECIFIED Qualifiers: Hyperlipidemia type: pure hypercholesterolemia Qualified Code(s): E78.00 - Pure hypercholesterolemia, unspecified; E78.0 - Pure hypercholesterolemia (6) COPD (chronic obstructive pulmonary disease) Code(s): J44.9 - CHRONIC OBSTRUCTIVE PULMONARY DISEASE, UNSPECIFIED Qualifiers: COPD type: emphysema Emphysema type: centrilobular Qualified Code(s): J43.2 - Centrilobular emphysema Assessment/Plan 07/09/2018 Chest CTA: No PE, mild centrilobular emphysema, mildly dilated main PA, interval resolution of focal right posterior basilar infiltrate or ATX peviously seen 06/06/2018 09/03/2018 Echo: Nondiagnostic, poor windows 07/10/2018 Echo: Normal LV and RV size and fxn LVEF 60-65%, tr TR 1. Recurrent acute on chronic diastolic heart failure r/o pulm HTN referable to diet noncompliance resolving 2. COPD with h/o exacerbation 3. Acute Hypoxic Respiratory Failure 4. HIV on HAART- last CD4 196 5. Hyperlipidemia 6. Pulm nodule P: 1. Decrease diuresis with monitor diuretic response, renal fxn and electrolytes 2. Continue ASA 81 qd, Lipitor 20 qhs, cardizem CD 120 qd 3. BD and O2 as needed, LAMA/LABA combination inhalational device, IV steroid taper 4. Outpatient PFTs, f/u chest CT results to reassess pulm nodules 5. DVT prophylaxis
[2018-09-04] MEDS ORDERED: INSULIN SLIDING SCALE (NOVOLOG) 1 VIAL SQ SCH (11:00)
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
--- NOTE | 2018-09-04 14:13 | PN ---
Teaching Attending Note Name of Resident: Karin Rankin ATTENDING PHYSICIAN STATEMENT I saw and evaluated the patient. I reviewed the resident's note and discussed the case with the resident. I agree with the resident's findings and plan as documented. SUBJECTIVE: No fever or chills. breathing is better . denies Cp or palpitations OBJECTIVE: NAD CV: RRR Lungs: scattered wheezes, decreased breath sounds at bases Ext: 2+ edema on legs . 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 1- Acute on chronic diastolic CHF exacerbation : - improved - appreciate card input, po lasix today - cont cardizem 2- Acute COPD exacerbation : on chronic steroids at home - cont steroids day 2 of 80 q8h - cont nebs - cont symbicort 3- H/o HIV: cont home medication - cont prophylactic bactrim 4- Pulm nodule. Ct scan reviewed with radiologist by resident. Report is pending . 5- DVT PX : lovenox
--- NOTE | 2018-09-04 15:12 | PN ---
Physical Exam: SUBJECTIVE: Patient seen and examined at the bedside. Pt had one episode of respiratory distress overnight so a nebulizer was given. Pt currently on 2LNC SaO2 of 95%. OBJECTIVE: Vital Signs Period Temp Pulse Resp BP Sys/Clifton Pulse Ox Last 24 Hr 98.0 F-98.1 F 93-115 18-20 114-133/55-73 95-95 GENERAL: The patient is awake, alert, and fully oriented, in no acute distress. HEAD: Normal with no signs of trauma. EYES: sclera anicteric, conjunctiva clear. No ptosis. NECK: Trachea midline, full range of motion, supple. LUNGS: Breath sounds decreased, improved wheezes b/l, no crackles, no accessory muscle use. HEART: Regular rate and rhythm, S1, S2 without murmur, rub or gallop. ABDOMEN: Soft, nontender, nondistended, normoactive bowel sounds, no guarding, no rebound. EXTREMITIES: 2+ pulses, warm, well-perfused, no edema. NEUROLOGICAL: Cranial nerves II through XII grossly intact. Normal speech, gait not observed. PSYCH: Normal mood, normal affect. SKIN: Warm, dry, normal turgor, no rashes or lesions noted Laboratory Results - last 24 hr 09/02/18 09/03/18 09/04/18 12:10 06:27 05:40 WBC 4.8 RBC 3.70 L Hgb 13.3 Hct 38.0 39.4 MCV 106.5 H MCH 36.1 H MCHC 33.9 RDW 17.8 H Plt Count 197 MPV 8.3 Absolute Neuts (auto) 4.3 Neutrophils % 88.7 H D Lymphocytes % 8.4 D Monocytes % 2.8 L Eosinophils % 0.0 D Basophils % 0.1 Nucleated RBC % 0 VBG pH 7.37 POC VBG pCO2 51.9 H POC VBG pO2 40.5 H VBG HCO3 29.2 H VBG O2 Sat (Josephine) 67.1 L VBG Base Excess 3.7 H Sodium Potassium Chloride Carbon Dioxide Anion Gap BUN Creatinine Est GFR (CKD-EPI)AfAm Est GFR (CKD-EPI)NonAf POC Glucometer Random Glucose Hemoglobin A1c % Calcium Total Bilirubin AST ALT Alkaline Phosphatase Total Protein Albumin Folate 1041 Folate Hemolysate 395.6 09/04/18 09/04/18 09/04/18 05:40 05:40 12:54 WBC RBC Hgb Hct MCV MCH MCHC RDW Plt Count MPV Absolute Neuts (auto) Neutrophils % Lymphocytes % Monocytes % Eosinophils % Basophils % Nucleated RBC % VBG pH POC VBG pCO2 POC VBG pO2 VBG HCO3 VBG O2 Sat (Jospehine) VBG Base Excess Sodium 134 L Potassium 4.4 Chloride 96 L Carbon Dioxide 30 Anion Gap 9 BUN 21.3 H Creatinine 1.1 Est GFR (CKD-EPI)AfAm 82.95 Est GFR (CKD-EPI)NonAf 71.57 POC Glucometer 277 Random Glucose 251 H Hemoglobin A1c % 6.8 H Calcium 8.6 Total Bilirubin 0.3 AST 37 ALT 50 Alkaline Phosphatase 40 L Total Protein 6.9 Albumin 3.5 Folate Folate Hemolysate Active Medications Generic Name Dose Route Start Last Admin Trade Name Freq PRN Reason Stop Dose Admin Albuterol/Ipratropium 1 amp 09/02/18 17:06 09/04/18 09:27 Duoneb - NEB 1 amp Q6H PRN Administration SHORTNESS OF BREATH Aspirin 81 mg 09/03/18 10:00 09/04/18 09:24 Asa - PO 81 mg DAILY [facility] Administration Atorvastatin Calcium 20 mg 09/04/18 22:00 Lipitor - PO HS [facility] Budesonide/Formoterol Fumarate 1 puff 09/03/18 10:00 09/04/18 09:25 Symbicort 160/4.5mcg - IH 1 puff BID [facility] Administration Diltiazem HCl 120 mg 09/03/18 11:30 09/04/18 09:24 Cardizem Cd - PO 120 mg DAILY [facility] Administration Enoxaparin Sodium 40 mg 09/03/18 10:00 09/04/18 09:24 Lovenox - SQ 40 mg DAILY [facility] Administration Furosemide 20 mg 09/05/18 10:00 Lasix - PO DAILY [facility] Insulin Aspart 1 vial 09/04/18 12:18 Novolog Vial Sliding Scale - SQ TIDAC [facility] Protocol Methylprednisolone Sodium Succinate 40 mg 09/03/18 13:00 09/04/18 09:25 Solu-Medrol - IVPUSH 40 mg Q8H-IV [facility] Administration Non-Formulary Medication 1 tablet 09/03/18 10:00 Bictegrav/Emtricit/Tenofov Ala PO DAILY [facility] Tamsulosin HCl 0.4 mg 09/03/18 08:45 09/04/18 08:29 Flomax - PO 0.4 mg DAILY@0830 [facility] Administration Trimethoprim/Sulfamethoxazole 1 each 09/03/18 10:00 09/04/18 09:24 Bactrim Ds - PO 1 each DAILY [facility] Administration ASSESSMENT/PLAN: This is a 63 y/o M w a PMH of COPD, HIV, Miliary TB, HLD, diastolic HF who presented for SOB, b/l leg swelling X 1 day. Images: 07/09/2018 Chest CTA: No PE, mild centrilobular emphysema, mildly dilated main PA, interval resolution of focal right posterior basilar infiltrate previously seen 06/06/2018 09/03/2018 Echo: Nondiagnostic, poor windows 07/10/2018 Echo: Normal LV and RV size and fxn LVEF 60-65%, tr TR CXR 09/02/18- no infiltrates, no congestion, or cardiomegaly CT chest 09/04- awaiting results DVT- negative b/l EKG- QTC 466, no acute ischemic changes, consistent with prior EKG. #Acute on chronic hypercapnic hypoxemic respiratory failure/Acute CHF exacerbation - 09/03 ABG- 7.42, 45.1, 109%O2, HCO3-28.6, SaO2 98% on 2L NC, base excess of 4. - CXR- no infiltrates, no congestion, no cardiomegaly, - duonebs q6h PRN - IV lasix 20mg BID (8am and 2pm) - peak flow to bedside - continue symbicort - daily weights, measure YUSRA's - Pulm consult(Dr. Martin)- acute on chronic hypoxemic w acute hypercapnic resp failure, short course of medrol 40mg q8IV, inhaled bronchodilators, c/w lasix, ABG, chest ct awaiting results for 6mm RML ground glass nodule appears more like linear scarring on coronal/saggital images and there is a non- calcified sub-centimeter nodule in the RLL that was not mentioned in the report. - continue supplemental O2 2L NC and titrate SPO2 > 90% #Angina R/O ACS - Cardio (Dr. Turner)- continue Cardizem 120 for HFpEF hx, ASA 81, . - decrease the lasix bc of the prerenal azotemia noted (BUN 21.3 up from 13.5), will watch it as well electrolytes. RML nodule - RML nodule 6 mm consistent with prior CXR. - awaiting CT results #Newly dx DM - started insulin sliding scale - A1C- 6.8 - metformin 500 BID as outpatient. - no dosage adjustment ok to be on metformin due to GFR >45. - glucose 251 prior was 133. ? hyperglycemia due to steroids. - dietary modification, low sugar, wt loss (BMI 31). #HLD - continue atorvastatin 20mg PO HS #HIV - Dr. Machado- CD4 149, viral load- 50 on bactrim and biktarvy. Visit type - Emergency Visit Emergency Visit: Yes ED Registration Date: 09/02/18 Care time: The patient presented to the Emergency Department on the above date and was hospitalized for further evaluation of their emergent condition. - New Patient This patient is new to me today: No - Critical Care Critical Care patient: No - Discharge Referral Referred to [facility] Med P.C.: No ATTENDING PHYSICIAN STATEMENT I saw and evaluated the patient. I reviewed the resident's note and discussed the case with the resident. I agree with the resident's findings and plan as documented. SUBJECTIVE: OBJECTIVE: ASSESSMENT AND PLAN:
[2018-09-04] MEDS: INSULIN SLIDING SCALE (NOVOLOG) 1 VIAL SQ SCH ×2 (17:38→23:25)
[2018-09-04] MEDS: ATORVASTATIN CA 20 MG TABLET (FP) PO SCH (21:10)
[2018-09-05] MEDS: methylPREDNISolone NA SUCC 40 MG/1 ML VIAL IVPUSH SCH ×4 (02:19→22:19)
[2018-09-05] MEDS: ALBUTEROL SO4 2.5/IPRATROPIUM 0.5 INH SOL 3 ML VIAL.NEB. NEB PRN ×2 (04:18→14:08)
[2018-09-05] MEDS ORDERED: INSULIN (NOVOLOG) ASPART 100 UNITS/ML 10ML VIAL ONE (06:15)
[2018-09-05 06:19] LABS: BASO % 0.1 % (0-2.0); HEMATOCRIT 40.9 % (35.4-49); HEMOGLOBIN 13.6 GM/dL (11.7-16.9); LYMPH % 6.2 % (8-40); MCH 35.6 pg (25.7-33.7); MCHC 33.2 g/dl (32.0-35.9); MEAN CELL VOLUME 107.3 fl (80-96); MEAN PLT VOLUME 8.5 fl (7.5-11.1); MONO % 5.6 % (3.8-10.2); NEUT % 88.1 % (42.8-82.8); PLATELET COUNT 203 K/MM3 (134-434); RBC 3.81 M/mm3 (4.00-5.60); RDW 17.8 % (11.9-15.9); WHITE BLOOD COUNT 8.5 K/mm3 (4.0-10.0)
[2018-09-05] MEDS: INSULIN SLIDING SCALE (NOVOLOG) 1 VIAL SQ SCH ×3 (06:25→17:27)
[2018-09-05 06:45] LABS: ALBUMIN 3.8 g/dl (3.4-5.0); BILIRUBIN,TOTAL 0.2 mg/dL (0.2-1); BLOOD UREA NITROGEN 21.7 mg/dL (7-18); CALCIUM 8.9 mg/dL (8.5-10.1); POTASSIUM 4.5 mmol/L (3.5-5.1)
[2018-09-05] MEDS: ASPIRIN 81 MG CHEWABLE TABLETS PO SCH (09:10)
[2018-09-05] MEDS: ENOXAPARIN NA (PORCINE) 40 MG/0.4 ML DISP.SYRIN SQ SCH (09:10)
[2018-09-05] MEDS: SULFAMETHOXAZOLE/TRIMETHOPRIM 800MG/160MG D.S. TABLET PO SCH (09:10)
[2018-09-05] MEDS: TAMSULOSIN HCL 0.4 MG CAP PO SCH (09:10)
[2018-09-05] MEDS: BUDESONIDE/FORMETEROL FUMARATE 160/4.5 mcg INHALER IH SCH ×2 (09:11→22:20)
--- NOTE | 2018-09-05 09:20 | PN ---
Progress Note, Physician History of Present Illness: SOB and leg swelling bilaterally improved with significant IV diuresis, back on home diuretic regimen. - Current Medication List Current Medications: Active Medications Albuterol/Ipratropium (Duoneb -) 1 amp NEB Q6H PRN PRN Reason: SHORTNESS OF BREATH Last Admin: 09/05/18 04:18 Dose: 1 amp Aspirin (Asa -) 81 mg PO DAILY [facility] Last Admin: 09/05/18 09:10 Dose: 81 mg Atorvastatin Calcium (Lipitor -) 20 mg PO HS [facility] Last Admin: 09/04/18 21:10 Dose: 20 mg Budesonide/Formoterol Fumarate (Symbicort 160/4.5mcg -) 1 puff IH BID [facility] Last Admin: 09/05/18 09:11 Dose: 1 puff Diltiazem HCl (Cardizem Cd -) 120 mg PO DAILY [facility] Last Admin: 09/05/18 09:10 Dose: 120 mg Enoxaparin Sodium (Lovenox -) 40 mg SQ DAILY [facility] Last Admin: 09/05/18 09:10 Dose: 40 mg Furosemide (Lasix -) 20 mg PO DAILY [facility] Last Admin: 09/05/18 09:10 Dose: 20 mg Insulin Aspart (Novolog Vial Sliding Scale -) 1 vial SQ TIDAC [facility]; Protocol Last Admin: 09/05/18 06:25 Dose: 10 unit Methylprednisolone Sodium Succinate (Solu-Medrol -) 40 mg IVPUSH Q8H-IV [facility] Last Admin: 09/05/18 09:10 Dose: 40 mg Non-Formulary Medication (Bictegrav/Emtricit/Tenofov Ala) 1 tablet PO DAILY [facility] Tamsulosin HCl (Flomax -) 0.4 mg PO DAILY@0830 [facility] Last Admin: 09/05/18 09:10 Dose: 0.4 mg Trimethoprim/Sulfamethoxazole (Bactrim Ds -) 1 each PO DAILY [facility] Last Admin: 09/05/18 09:10 Dose: 1 each - Objective Vital Signs: Vital Signs Temperature 97.8 F 09/05/18 07:54 Pulse Rate 109 H 09/05/18 07:54 Respiratory Rate 20 09/05/18 07:56 Blood Pressure 129/95 09/05/18 07:54 O2 Sat by Pulse Oximetry (%) 96 09/05/18 07:56 Constitutional: Yes: No Distress, Calm Neck: Yes: Supple Cardiovascular: Yes: Regular Rate and Rhythm Respiratory: Yes: Regular, Diminished Gastrointestinal: Yes: Normal Bowel Sounds, Soft, Abdomen, Obese Edema: Yes Edema: LLE: 1+, RLE: 1+ Labs: CBC, BMP 09/05/18 05:15 09/05/18 05:15 INR, PTT INR 0.95 (0.83-1.09) 09/02/18 12:10 Problem List - Problems (1) Dyspnea Code(s): R06.00 - DYSPNEA, UNSPECIFIED Qualifiers: Qualified Code(s): R06.00 - Dyspnea, unspecified (2) Acute on chronic diastolic heart failure Code(s): I50.33 - ACUTE ON CHRONIC DIASTOLIC (CONGESTIVE) HEART FAILURE (3) Acute on chronic respiratory failure with hypoxia Code(s): J96.21 - ACUTE AND CHRONIC RESPIRATORY FAILURE WITH HYPOXIA (4) Bilateral leg edema Code(s): R60.0 - LOCALIZED EDEMA (5) Hyperlipidemia Code(s): E78.5 - HYPERLIPIDEMIA, UNSPECIFIED Qualifiers: Qualified Code(s): E78.00 - Pure hypercholesterolemia, unspecified; E78.0 - Pure hypercholesterolemia (6) COPD (chronic obstructive pulmonary disease) Code(s): J44.9 - CHRONIC OBSTRUCTIVE PULMONARY DISEASE, UNSPECIFIED Qualifiers: Qualified Code(s): J43.2 - Centrilobular emphysema Assessment/Plan 09/04/2018: Chest CT: Stable granulomas and pulm nodule 07/09/2018 Chest CTA: No PE, mild centrilobular emphysema, mildly dilated main PA, interval resolution of focal right posterior basilar infiltrate or ATX peviously seen 06/06/2018 09/03/2018 Echo: Nondiagnostic, poor windows 07/10/2018 Echo: Normal LV and RV size and fxn LVEF 60-65%, tr TR 1. Recurrent acute on chronic diastolic heart failure r/o pulm HTN referable to diet noncompliance resolving 2. COPD with h/o exacerbation 3. Acute Hypoxic, hypercapneic Respiratory Failure 4. HIV on HAART- last CD4 196 5. H/o pulm TB 6. Hyperlipidemia 7. Pulm nodule P: 1. Resumed Lasix 20 qd with monitor diuretic response, renal fxn and electrolytes 2. Continue ASA 81 qd, Lipitor 20 qhs, cardizem CD 120 qd 3. BD and O2 as needed, LAMA/LABA combination inhalational device, IV steroid taper 4. Outpatient PFTs, f/u 5. DVT prophylaxis
[2018-09-05] MEDS ORDERED: FUROSEMIDE 20 MG TABLET (FP) PO SCH (10:00)
[2018-09-05] MEDS ORDERED: FUROSEMIDE 40 MG/4 ML INJECTABLE VIAL ONE (12:08)
[2018-09-05] MEDS: DOLUTEGRAVIR SODIUM 50 MG TABLET (NON-FORMULARY) PO SCH (12:10)
[2018-09-05] MEDS ORDERED: FUROSEMIDE 40 MG/4 ML INJECTABLE VIAL IVPUSH ONE (12:15)
--- NOTE | 2018-09-05 13:24 | PN ---
Physical Exam: SUBJECTIVE: Patient seen and examined at the bedside. Pt seen with multiple cookies on counter and on bed clearly indicating he has not been keeping to a diabetic diet so I ordered one today. Patient was slightly wheezing and nurse complained that HIV meds have been held so I spoke to Dr. Machado and she said she would talk to the pharmacy to get his HIV meds that they have on formulary here for him. OBJECTIVE: Vital Signs Period Temp Pulse Resp BP Sys/Clifton Pulse Ox Last 24 Hr 97.3 F-973.9 F 86-112 20-20 119-142/58-102 96-96 GENERAL: The patient is awake, alert, and fully oriented, in no acute distress. HEAD: Normal with no signs of trauma. EYES: conjunctiva clear. No ptosis. NECK: supple. LUNGS: Breath sounds decreased mainly on left side, increased wheezing today, no crackles, no accessory muscle use. HEART: Regular rate and rhythm, S1, S2 without murmur, rub or gallop. ABDOMEN: Soft, nontender, nondistended, normoactive bowel sounds, no guarding, no rebound. EXTREMITIES: 2+ pulses, warm, well-perfused, slightly worsened edema. NEUROLOGICAL: Cranial nerves II through XII grossly intact. Normal speech, gait not observed. PSYCH: Normal mood, normal affect. SKIN: Warm, dry. Laboratory Results - last 24 hr CBC, BMP 09/05/18 05:15 09/05/18 05:15 Active Medications Albuterol/Ipratropium (Duoneb -) 1 amp NEB Q6H PRN PRN Reason: SHORTNESS OF BREATH Last Admin: 09/05/18 04:18 Dose: 1 amp Aspirin (Asa -) 81 mg PO DAILY [facility] Last Admin: 09/05/18 09:10 Dose: 81 mg Atorvastatin Calcium (Lipitor -) 20 mg PO HS [facility] Last Admin: 09/04/18 21:10 Dose: 20 mg Budesonide/Formoterol Fumarate (Symbicort 160/4.5mcg -) 1 puff IH BID [facility] Last Admin: 09/05/18 09:11 Dose: 1 puff Diltiazem HCl (Cardizem Cd -) 120 mg PO DAILY [facility] Last Admin: 09/05/18 09:10 Dose: 120 mg Enoxaparin Sodium (Lovenox -) 40 mg SQ DAILY [facility] Last Admin: 09/05/18 09:10 Dose: 40 mg Furosemide (Lasix -) 20 mg PO DAILY [facility] Last Admin: 09/05/18 09:10 Dose: 20 mg Insulin Aspart (Novolog Vial Sliding Scale -) 1 vial SQ TIDAC [facility]; Protocol Last Admin: 09/05/18 12:10 Dose: 8 unit Methylprednisolone Sodium Succinate (Solu-Medrol -) 40 mg IVPUSH Q8H-IV [facility] Last Admin: 09/05/18 09:10 Dose: 40 mg Non-Formulary Medication (Bictegrav/Emtricit/Tenofov Ala) 1 tablet PO DAILY [facility] Sitagliptin Phosphate (Januvia -) 25 mg PO DAILY@0700 [facility] Tamsulosin HCl (Flomax -) 0.4 mg PO DAILY@0830 [facility] Last Admin: 09/05/18 09:10 Dose: 0.4 mg Trimethoprim/Sulfamethoxazole (Bactrim Ds -) 1 each PO DAILY [facility] Last Admin: 09/05/18 09:10 Dose: 1 each ASSESSMENT/PLAN: This is a 63 y/o M w a PMH of COPD, HIV, Miliary TB, HLD, diastolic HF who presented for SOB, b/l leg swelling X 1 day. Images: 07/09/2018 Chest CTA: No PE, mild centrilobular emphysema, mildly dilated main PA, interval resolution of focal right posterior basilar infiltrate previously seen 06/06/2018 09/03/2018 Echo: Nondiagnostic, poor windows 07/10/2018 Echo: Normal LV and RV size and fxn LVEF 60-65%, tr TR CXR 09/02/18- no infiltrates, no congestion, or cardiomegaly CT chest 09/04- awaiting results DVT- negative b/l EKG- QTC 466, no acute ischemic changes, consistent with prior EKG. CT scan 09/05/18: granulomatous disease and lung nodule stable compared to prior imaging. Multiple calcified granulomas of the noted scattered through the lungs unchanged from prior imaging. A noncalcified nodule within the medial segment of RML is again noted measuring 7mm best seen on image 77. There is motion artifact which degrades image quality. No endobronchial lesions seen. Pleura- negative calified rt hilar and left axillary LN's From TB. vascular calfications noted including coronary. #Acute on chronic hypercapnic hypoxemic respiratory failure/Acute CHF exacerbation - 09/03 ABG- 7.42, 45.1, 109%O2, HCO3-28.6, SaO2 98% on 2L NC, base excess of 4. - CXR- no infiltrates, no congestion, no cardiomegaly. - peak flow to bedside - continue symbicort - daily weights, measure YUSRA's - Pulm consult(Dr. Anand)- increase lasix to 40mg IV daily, [id number] GLENNY, 1 amp prn albuterol, steroids 40mgIV q6h, VBG, stat CXR, stat EKG ORDERED, recommends decrease water intake. #Angina R/O ACS - Cardio (Dr. Turner)- continue Cardizem 120 for HFpEF hx, ASA 81, . BUN still elevated 21.3 --> 21.7 today. RML nodule - RML nodule 7 mm consistent with prior CXR. - CT as above in images. - f/u as outpatient #Newly dx DM - started insulin sliding scale - A1C- 6.8 - started on januvia - glucose 251 prior was 133. Not due to steroids likely considering A1c elevation. - diabetic diet, wt loss (BMI 31). #HLD - continue atorvastatin 20mg PO HS #HIV - Dr. Machado- CD4 149, viral load- 50 on bactrim and descorvy/tiviay. - Biktarvy is not on formulary here so its been held. Spoke to Dr. Machado and she will continue on the equivalent medicine here on formulary. #FEN - fluids not indicated due to volume overload - monitor electrolytes - low Na/diabetic diet DVT PPX: lovenox 40mgSQ Dispo: planning d/c once his peripheral edema and wheezing subside and we get him on PO steroid taper, PO lasix. Visit type - Emergency Visit Emergency Visit: Yes ED Registration Date: 09/02/18 Care time: The patient presented to the Emergency Department on the above date and was hospitalized for further evaluation of their emergent condition. - New Patient This patient is new to me today: No - Critical Care Critical Care patient: No - Discharge Referral Referred to [facility] Med [facility].C[facility] No ATTENDING PHYSICIAN STATEMENT I saw and evaluated the patient. I reviewed the resident's note and discussed the case with the resident. I agree with the resident's findings and plan as documented. SUBJECTIVE: OBJECTIVE: ASSESSMENT AND PLAN:
[2018-09-05] MEDS: EMTRICITABINE/TENOFOV ALAFENAM (DESCOVY) TABLET PO SCH (15:14)
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
--- NOTE | 2018-09-05 15:57 | PN ---
Teaching Attending Note Name of Resident: Enoch Shabazz ATTENDING PHYSICIAN STATEMENT I saw and evaluated the patient. I reviewed the resident's note and discussed the case with the resident. I agree with the resident's findings and plan as documented. 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 No fever or chill. no cough. LE edema is better OBJECTIVE: resp distress , improved after placing NC on CV: RRR Lungs: decreased breath sounds at bases. Ext: 1+ edema on legs . no erythema ASSESSMENT AND PLAN: 63 y/o man with h/o diastlic heart failure, HLP, HIV, COPD, and miliary TB who presented with SOB and LE edema and was found to have acute diastoic CHF and acute COPD exacerbation. 1- Acute on chronic diastolic CHF exacerbation : - give an extra ne dose of IV lasix today - cont 20 po daily - cont cardizem 2- Acute COPD exacerbation : on chronic steroids at home - cont current dose of solu-Medrol, dose increased today - cont nebs - cont symbicort 3- H/o HIV: cont home medication - cont prophylactic bactrim 4-new onset Dm: uncovered by steroids use - cont SSI - add januvia. try to avoid metformin due to CHf and risk for hypoxemia. 5- Pulm nodule. Ct scan final report reviewed. 7 mm in RML. f/u as out pt 6- DVT PX : lovenox
[2018-09-05] MEDS: ALBUTEROL SO4 2.5/IPRATROPIUM 0.5 INH SOL 3 ML VIAL.NEB. NEB SCH ×2 (16:06→20:34)
[2018-09-05] MEDS: FUROSEMIDE 40 MG/4 ML INJECTABLE VIAL IVPUSH SCH (16:54)
--- NOTE | 2018-09-05 17:04 | PN ---
Progress Note (short form) - Note Progress Note: reports some improvement in leg edema still sob with effort, still wheezing Vital Signs Period Temp Pulse Resp BP Sys/Clifton Pulse Ox Last 24 Hr 97.7 F-98.5 F 104-116 20-22 129-142/72-102 96-96 cor-rrr lungs bilateral wheezing abd soft,nt ext +edema pitting 2+ bilaterally CBC, BMP 09/05/18 05:15 09/05/18 05:15 Microbiology 09/02/18 12:10 Blood - Peripheral Venous Blood Culture - Preliminary NO GROWTH OBTAINED AFTER 72 HOURS, INCUBATION TO CONTINUE FOR 2 DAYS. 09/02/18 12:10 Blood - Peripheral Venous Blood Culture - Preliminary NO GROWTH OBTAINED AFTER 72 HOURS, INCUBATION TO CONTINUE FOR 2 DAYS. 09/02/18 12:10 Urine - Urine Clean Catch Urine Culture - Final Diphtheroid/Corynebacterium Current Medications Albuterol Sulfate (Ventolin 0.083% Nebulizer Soln -) 1 amp NEB Q1H PRN PRN Reason: SHORT OF BREATH/WHEEZING Albuterol/Ipratropium (Duoneb -) 1 amp NEB RQID [facility] Last Admin: 09/05/18 16:06 Dose: 1 amp Aspirin (Asa -) 81 mg PO DAILY [facility] Last Admin: 09/05/18 09:10 Dose: 81 mg Atorvastatin Calcium (Lipitor -) 20 mg PO HS [facility] Last Admin: 09/04/18 21:10 Dose: 20 mg Budesonide/Formoterol Fumarate (Symbicort 160/4.5mcg -) 1 puff IH BID [facility] Last Admin: 09/05/18 09:11 Dose: 1 puff Diltiazem HCl (Cardizem Cd -) 120 mg PO DAILY [facility] Last Admin: 09/05/18 09:10 Dose: 120 mg Enoxaparin Sodium (Lovenox -) 40 mg SQ DAILY [facility] Last Admin: 09/05/18 09:10 Dose: 40 mg Furosemide (Lasix Injection -) 40 mg IVPUSH DAILY [facility] Last Admin: 09/05/18 16:54 Dose: 40 mg Insulin Aspart (Novolog Vial Sliding Scale -) 1 vial SQ TIDAC [facility]; Protocol Last Admin: 09/05/18 12:10 Dose: 8 unit Methylprednisolone Sodium Succinate (Solu-Medrol -) 40 mg IVPUSH Q6H-IV [facility] Last Admin: 09/05/18 16:55 Dose: 40 mg Sitagliptin Phosphate (Januvia -) 25 mg PO DAILY@0700 [facility] Tamsulosin HCl (Flomax -) 0.4 mg PO DAILY@0830 [facility] Last Admin: 09/05/18 09:10 Dose: 0.4 mg Trimethoprim/Sulfamethoxazole (Bactrim Ds -) 1 each PO DAILY [facility] Last Admin: 09/05/18 09:10 Dose: 1 each tivicay/descovy a/p stable HIV- biktarvy not available, switch to descovy/tivicay while in hospital , has his meds at home volume overload continue diuresis copd remains on steroids Problem List - Problems (1) Shortness of breath Code(s): R06.02 - SHORTNESS OF BREATH (2) Bilateral leg edema Code(s): R60.0 - LOCALIZED EDEMA (3) Human immunodeficiency virus (HIV) disease Code(s): B20 - HUMAN IMMUNODEFICIENCY VIRUS [HIV] DISEASE (4) COPD (chronic obstructive pulmonary disease) Code(s): J44.9 - CHRONIC OBSTRUCTIVE PULMONARY DISEASE, UNSPECIFIED Qualifiers: COPD type: emphysema Emphysema type: centrilobular Qualified Code(s): J43.2 - Centrilobular emphysema
[2018-09-05] MEDS: ATORVASTATIN CA 20 MG TABLET (FP) PO SCH (22:19)
[2018-09-06] MEDS: methylPREDNISolone NA SUCC 40 MG/1 ML VIAL IVPUSH SCH ×4 (04:30→22:45)
[2018-09-06] MEDS: INSULIN SLIDING SCALE (NOVOLOG) 1 VIAL SQ SCH ×3 (06:44→17:34)
[2018-09-06 08:10] LABS: BASO % 0.1 % (0-2.0); HEMATOCRIT 40.3 % (35.4-49); HEMOGLOBIN 13.6 GM/dL (11.7-16.9); LYMPH % 5.8 % (8-40); MCHC 33.8 g/dl (32.0-35.9); MEAN CELL VOLUME 106.4 fl (80-96); MONO % 4.2 % (3.8-10.2); NEUT % 89.9 % (42.8-82.8); RBC 3.79 M/mm3 (4.00-5.60); RDW 17.4 % (11.9-15.9); WHITE BLOOD COUNT 9.4 K/mm3 (4.0-10.0)
[2018-09-06] MEDS: ALBUTEROL SO4 2.5/IPRATROPIUM 0.5 INH SOL 3 ML VIAL.NEB. NEB SCH ×4 (08:30→19:40)
[2018-09-06 08:34] LABS: ALBUMIN 3.5 g/dl (3.4-5.0); BILIRUBIN,TOTAL 0.4 mg/dL (0.2-1); BLOOD UREA NITROGEN 23.6 mg/dL (7-18); CALCIUM 8.6 mg/dL (8.5-10.1); CREATININE 1.1 mg/dL (0.55-1.3); POTASSIUM 4.2 mmol/L (3.5-5.1); TOT PROT 6.8 g/dl (6.4-8.2)
--- NOTE | 2018-09-06 08:38 | PN ---
Progress Note, Physician - Current Medication List Current Medications: Active Medications Albuterol Sulfate (Ventolin 0.083% Nebulizer Soln -) 1 amp NEB Q1H PRN PRN Reason: SHORT OF BREATH/WHEEZING Albuterol/Ipratropium (Duoneb -) 1 amp NEB RQID [facility] Last Admin: 09/05/18 20:34 Dose: 1 amp Aspirin (Asa -) 81 mg PO DAILY [facility] Last Admin: 09/05/18 09:10 Dose: 81 mg Atorvastatin Calcium (Lipitor -) 20 mg PO HS [facility] Last Admin: 09/05/18 22:19 Dose: 20 mg Budesonide/Formoterol Fumarate (Symbicort 160/4.5mcg -) 1 puff IH BID [facility] Last Admin: 09/05/18 22:20 Dose: 1 puff Diltiazem HCl (Cardizem Cd -) 120 mg PO DAILY [facility] Last Admin: 09/05/18 09:10 Dose: 120 mg Enoxaparin Sodium (Lovenox -) 40 mg SQ DAILY [facility] Last Admin: 09/05/18 09:10 Dose: 40 mg Furosemide (Lasix Injection -) 40 mg IVPUSH DAILY [facility] Last Admin: 09/05/18 16:54 Dose: 40 mg Insulin Aspart (Novolog Vial Sliding Scale -) 1 vial SQ TIDAC [facility]; Protocol Last Admin: 09/06/18 06:44 Dose: 4 unit Methylprednisolone Sodium Succinate (Solu-Medrol -) 40 mg IVPUSH Q6H-IV [facility] Last Admin: 09/06/18 04:30 Dose: 40 mg Sitagliptin Phosphate (Januvia -) 25 mg PO DAILY@0700 [facility] Last Admin: 09/06/18 06:44 Dose: 25 mg Tamsulosin HCl (Flomax -) 0.4 mg PO DAILY@0830 [facility] Last Admin: 09/05/18 09:10 Dose: 0.4 mg Trimethoprim/Sulfamethoxazole (Bactrim Ds -) 1 each PO DAILY [facility] Last Admin: 09/05/18 09:10 Dose: 1 each - Objective Vital Signs: Vital Signs Temperature 98.2 F 09/06/18 06:00 Pulse Rate 94 H 09/06/18 06:00 Respiratory Rate 20 09/06/18 06:00 Blood Pressure 130/90 09/06/18 06:00 O2 Sat by Pulse Oximetry (%) 96 09/05/18 07:56 Eyes: Yes: WNL, Conjunctiva Clear, EOM Intact HENT: Yes: WNL, Atraumatic, Normocephalic Neck: Yes: WNL, Supple, Trachea Midline Cardiovascular: Yes: WNL, Regular Rate and Rhythm Respiratory: Yes: WNL, Regular, CTA Bilaterally Gastrointestinal: Yes: WNL, Normal Bowel Sounds Genitourinary: Yes: WNL Musculoskeletal: Yes: WNL Extremities: Yes: WNL Edema: Yes Edema: LLE: 1+, RLE: 1+ Integumentary: Yes: WNL Neurological: Yes: WNL, Alert, Oriented ...Motor Strength: WNL Psychiatric: Yes: WNL Labs: CBC, BMP 09/06/18 05:35 INR, PTT INR 0.95 (0.83-1.09) 09/02/18 12:10 Assessment/Plan Assessment/Plan 09/04/2018: Chest CT: Stable granulomas and pulm nodule 07/09/2018 Chest CTA: No PE, mild centrilobular emphysema, mildly dilated main PA, interval resolution of focal right posterior basilar infiltrate or ATX peviously seen 06/06/2018 09/03/2018 Echo: Nondiagnostic, poor windows 07/10/2018 Echo: Normal LV and RV size and fxn LVEF 60-65%, tr TR 1. Recurrent acute on chronic diastolic heart failure r/o pulm HTN referable to diet noncompliance resolving 2. COPD with h/o exacerbation 3. Acute Hypoxic, hypercapneic Respiratory Failure 4. HIV on HAART- last CD4 196 5. H/o pulm TB 6. Hyperlipidemia 7. Pulm nodule P: 1. Resumed Lasix 20 qd with monitor diuretic response, renal fxn and electrolytes 2. Continue ASA 81 qd, Lipitor 20 qhs, cardizem CD 120 qd 3. BD and O2 as needed, LAMA/LABA combination inhalational device, IV steroid taper 4. Outpatient PFTs, f/u 5. DVT prophylaxis Coverage for dr. Sung
[2018-09-06 09:06] LABS: PLATELET COUNT 214 K/MM3 (134-434)
[2018-09-06] MEDS: FUROSEMIDE 40 MG/4 ML INJECTABLE VIAL IVPUSH SCH (09:49)
[2018-09-06] MEDS: ASPIRIN 81 MG CHEWABLE TABLETS PO SCH (09:50)
[2018-09-06] MEDS: DOLUTEGRAVIR SODIUM 50 MG TABLET (NON-FORMULARY) PO SCH (09:50)
[2018-09-06] MEDS: EMTRICITABINE/TENOFOV ALAFENAM (DESCOVY) TABLET PO SCH (09:50)
[2018-09-06] MEDS: TAMSULOSIN HCL 0.4 MG CAP PO SCH (09:50)
[2018-09-06] MEDS: SULFAMETHOXAZOLE/TRIMETHOPRIM 800MG/160MG D.S. TABLET PO SCH (09:50)
[2018-09-06] MEDS: BUDESONIDE/FORMETEROL FUMARATE 160/4.5 mcg INHALER IH SCH ×2 (09:51→22:48)
[2018-09-06] MEDS: ENOXAPARIN NA (PORCINE) 40 MG/0.4 ML DISP.SYRIN SQ SCH (09:51)
--- NOTE | 2018-09-06 10:04 | EKG ---
Test Reason : Blood Pressure : / mmHG Vent. Rate : 089 BPM Atrial Rate : 089 BPM P-R Int : 128 ms QRS Dur : 128 ms QT Int : 378 ms P-R-T Axes : 052 085 055 degrees QTc Int : 459 ms POOR DATA QUALITY, INTERPRETATION MAY BE ADVERSELY AFFECTED NORMAL SINUS RHYTHM NON-SPECIFIC INTRA-VENTRICULAR CONDUCTION BLOCK ABNORMAL ECG WHEN COMPARED WITH ECG OF 02-SEP-2018 11:26, NON-SPECIFIC INTRA-VENTRICULAR CONDUCTION BLOCK HAS REPLACED RIGHT BUNDLE BRANCH BLOCK Confirmed by ESSENCE HELLER, CRISSY ([id number]) on 09/06/2018 10:04:23 AM Referred By: Confirmed By:CRISSY LOWRY MD
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
--- NOTE | 2018-09-06 12:34 | PN ---
Teaching Attending Note Name of Resident: Federica Marcos ATTENDING PHYSICIAN STATEMENT I saw and evaluated the patient. I reviewed the resident's note and discussed the case with the resident. I agree with the resident's findings and plan as documented. SUBJECTIVE: no fever or chills. feels a little better than yesterday but still SOB . OBJECTIVE: No distress. calm . audible wheezing CV: RRR, no MRG Lungs: decreased breath sounds at bases.scattered wheezing , no crackles Ext: 1+ edema on legs . no erythema ASSESSMENT AND PLAN: 63 y/o man with h/o diastlic heart failure, HLP, HIV, COPD, and miliary TB who presented with SOB and LE edema and was found to have acute diastoic CHF and acute COPD exacerbation. 1- Acute on chronic diastolic CHF exacerbation : - give lasix at 30 daily orally - cont cardizem 2- Acute COPD exacerbation : on chronic steroids at home - cont current dose of solu-Medrol. - cont nebs - cont symbicort - PE is unlikely. WELLS score is 1.5% ( immobilization x 3 days ). clinical suspicion is low especially with COPD exacerbation being the alternative diagnosis. of note US of LE Neg for dvt - D/w Dr. farias who agrees with above 3- H/o HIV: cont home medication - cont prophylactic bactrim 4-new onset DM: - cont SSI - cont januvia. try to avoid metformin due to CHf and risk for hypoxemia. 5- Pulm nodule. 7 mm in RML. f/u as out pt 6- DVT PX: lovenox
[2018-09-06 13:36] LABS: ANISOCYTOSIS 1+; MACROCYTOSIS 1+; OVALOCYTE 1+; PLATELET ESTIMATE NORMAL
--- NOTE | 2018-09-06 17:35 | PN ---
Physical Exam: SUBJECTIVE: Patient seen and examined at bedside this morning. No acute events overnight. Patient reports feeling better this morning, with less SOB and leg swelling improved. He denies any fever, chills, headache, dizziness, chest pain , palpitations, abdominal pain, diarrhea, urinary symptoms. OBJECTIVE: Vital Signs Temperature 98.6 F 09/06/18 14:00 Pulse Rate 110 H 09/06/18 14:00 Respiratory Rate 21 H 09/06/18 14:00 Blood Pressure 121/73 09/06/18 14:00 O2 Sat by Pulse Oximetry (%) 96 09/06/18 08:58 GENERAL: The patient is awake, alert, and fully oriented, on 3L NC HEAD: Normal with no signs of trauma. EYES: PERRLA, EOMI, sclera anicteric, conjunctiva clear. ENT: moist mucous membranes. NECK: Trachea midline, full range of motion, supple. LUNGS: decreased breath sounds on bilateral bases L>R HEART: Regular rate and rhythm, S1, S2 without murmur, rub or gallop. ABDOMEN: Soft, nontender, nondistended, normoactive bowel sounds. EXTREMITIES: 2+ pulses, warm, well-perfused, +2 pitting edema BLE NEUROLOGICAL: Cranial nerves II through XII grossly intact. Normal speech, gait not observed. PSYCH: Normal mood, normal affect. SKIN: Warm, dry, normal turgor, no rashes or lesions noted Laboratory Results - last 24 hr 09/06/18 09/06/18 05:35 05:35 WBC 9.4 RBC 3.79 L Hgb 13.6 Hct 40.3 MCV 106.4 H MCH 36.0 H MCHC 33.8 RDW 17.4 H Plt Count 214 MPV 8.0 Absolute Neuts (auto) 8.5 H Neutrophils % 89.9 H Lymphocytes % 5.8 L Monocytes % 4.2 Eosinophils % 0.0 Basophils % 0.1 Nucleated RBC % 0 Hypochromia 0 Platelet Estimate Normal Polychromasia 0 Poikilocytosis 0 Anisocytosis 1+ Microcytosis 0 Macrocytosis 1+ Ovalocytes 1+ Sodium 135 L Potassium 4.2 Chloride 92 L Carbon Dioxide 33 H Anion Gap 10 BUN 23.6 H Creatinine 1.1 Est GFR (CKD-EPI)AfAm 82.95 Est GFR (CKD-EPI)NonAf 71.57 Random Glucose 242 H Calcium 8.6 Total Bilirubin 0.4 AST 28 ALT 51 Alkaline Phosphatase 39 L Total Protein 6.8 Albumin 3.5 Active Medications Generic Name Dose Route Start Last Admin Trade Name Drake PRN Reason Stop Dose Admin Albuterol Sulfate 1 amp 09/05/18 15:31 Ventolin 0.083% Nebulizer Soln - NEB Q1H PRN SHORT OF BREATH/WHEEZING Albuterol/Ipratropium 1 amp 09/05/18 16:00 09/06/18 15:34 Duoneb - NEB 1 amp RQID [facility] Administration Aspirin 81 mg 09/03/18 10:00 09/06/18 09:50 Asa - PO 81 mg DAILY [facility] Administration Atorvastatin Calcium 20 mg 09/04/18 22:00 09/05/18 22:19 Lipitor - PO 20 mg HS [facility] Administration Budesonide/Formoterol Fumarate 1 puff 09/03/18 10:00 09/06/18 09:51 Symbicort 160/4.5mcg - IH 1 puff BID [facility] Administration Diltiazem HCl 120 mg 09/03/18 11:30 09/06/18 09:50 Cardizem Cd - PO 120 mg DAILY [facility] Administration Enoxaparin Sodium 40 mg 09/03/18 10:00 09/06/18 09:51 Lovenox - SQ 40 mg DAILY [facility] Administration Furosemide 30 mg 09/07/18 10:00 Lasix - PO DAILY [facility] Insulin Aspart 1 vial 09/04/18 12:18 09/06/18 12:15 Novolog Vial Sliding Scale - SQ 10 unit TIDAC [facility] Administration Protocol Methylprednisolone Sodium Succinate 40 mg 09/05/18 15:45 09/06/18 14:24 Solu-Medrol - IVPUSH 40 mg Q6H-IV [facility] Administration Sitagliptin Phosphate 25 mg 09/06/18 07:00 09/06/18 06:44 Januvia - PO 25 mg DAILY@0700 [facility] Administration Tamsulosin HCl 0.4 mg 09/03/18 08:45 09/06/18 09:50 Flomax - PO 0.4 mg DAILY@0830 [facility] Administration Trimethoprim/Sulfamethoxazole 1 each 09/03/18 10:00 09/06/18 09:50 Bactrim Ds - PO 1 each DAILY [facility] Administration ASSESSMENT/PLAN: Patient is a 63 year old male with past medical history of diastolic CHF, HLD, HIV (on HAART), COPD and miliary TB, presented to the ED with SOB and LE edema. #Acute on chronic diastolic CHF exacerbation -Decrease Lasix 30mg PO daily -Continue [id number] daily #Acute hypoxic respiratory failure 2/2 COPD exacerbation, CHF -Continue Iv solu medrol 40 q6h -Continue duonebs RQID -Continue Symbicort BID #HIV on HAART -Continue Tivicay and Descovy -Bactrim for ppx (last CD4 196) -ID (Dr. Machado) consulted. #DM -new onset, A1c 6.8 -Insulin sliding scale -Sitagliptin 25mg daily -BGM TIDAC #HLD -Continue Lipitor 20mg HS -ASA 81 mg daily #FEN -Not on any standing fluids -Electrolytes wnl, routine bmp monitoring -Diabetic/sodium restricted diet #Prophylaxis -Lovenox 40mg sq daily #Disposition -full code -tele Visit type - Emergency Visit Emergency Visit: Yes ED Registration Date: 09/02/18 Care time: The patient presented to the Emergency Department on the above date and was hospitalized for further evaluation of their emergent condition. - New Patient This patient is new to me today: Yes Date on this admission: 09/06/18 - Critical Care Critical Care patient: No ATTENDING PHYSICIAN STATEMENT I saw and evaluated the patient. I reviewed the resident's note and discussed the case with the resident. I agree with the resident's findings and plan as documented. SUBJECTIVE: OBJECTIVE: ASSESSMENT AND PLAN:
[2018-09-06] MEDS: ATORVASTATIN CA 20 MG TABLET (FP) PO SCH (22:45)
[2018-09-06] MEDS: ALBUTEROL SO4 0.083% IH SOL 2.5 MG/3 ML VIAL.NEB. NEB PRN (23:32)
[2018-09-07] MEDS: methylPREDNISolone NA SUCC 40 MG/1 ML VIAL IVPUSH SCH ×4 (02:13→21:39)
[2018-09-07] MEDS: ALBUTEROL SO4 0.083% IH SOL 2.5 MG/3 ML VIAL.NEB. NEB PRN ×2 (03:55→22:13)
[2018-09-07] MEDS: INSULIN SLIDING SCALE (NOVOLOG) 1 VIAL SQ SCH ×3 (06:26→17:21)
[2018-09-07 07:00] LABS: HEMATOCRIT 39.7 % (35.4-49); HEMOGLOBIN 13.2 GM/dL (11.7-16.9); LYMPH % 2.9 % (8-40); MCH 35.6 pg (25.7-33.7); MCHC 33.2 g/dl (32.0-35.9); MEAN CELL VOLUME 107.2 fl (80-96); MEAN PLT VOLUME 8.1 fl (7.5-11.1); MONO % 3.5 % (3.8-10.2); NEUT % 93.6 % (42.8-82.8); PLATELET COUNT 219 K/MM3 (134-434); RDW 17.7 % (11.9-15.9)
[2018-09-07 07:40] LABS: BLOOD UREA NITROGEN 28.6 mg/dL (7-18); CALCIUM 8.4 mg/dL (8.5-10.1); CREATININE 1.3 mg/dL (0.55-1.3); MAGNESIUM 2.5 mg/dL (1.8-2.4); PHOSPHOROUS 4.5 mg/dL (2.5-4.9); POTASSIUM 4.4 mmol/L (3.5-5.1)
[2018-09-07] MEDS: ALBUTEROL SO4 2.5/IPRATROPIUM 0.5 INH SOL 3 ML VIAL.NEB. NEB SCH ×4 (07:59→20:27)
[2018-09-07] MEDS ORDERED: FUROSEMIDE 40 MG/4 ML INJECTABLE VIAL IVPUSH ONE (08:45)
[2018-09-07] MEDS ORDERED: INSULIN (LEVEMIR) 100 UNITS/ML UNITS SQ ONE (08:46)
--- NOTE | 2018-09-07 08:51 | PN ---
Progress Note (short form) - Note Progress Note: Subjective: cont to feel SOB , worse last night compared to other nights Objective: Vital Signs: Last Vital Signs Temp Pulse Resp BP Pulse Ox 98.6 F 114 H 26 H 132/53 L 98 09/07/18 04:07 09/07/18 04:07 09/07/18 04:07 09/07/18 04:07 09/06/18 21:00 Laboratory Results - last 24 hr 09/06/18 09/07/18 09/07/18 05:35 05:45 05:45 WBC 9.4 8.0 RBC 3.79 L 3.70 L Hgb 13.6 13.2 Hct 40.3 39.7 MCV 106.4 H 107.2 H MCH 36.0 H 35.6 H MCHC 33.8 33.2 RDW 17.4 H 17.7 H Plt Count 214 219 MPV 8.0 8.1 Absolute Neuts (auto) 8.5 H 7.5 Neutrophils % 89.9 H 93.6 H Lymphocytes % 5.8 L 2.9 L D Monocytes % 4.2 3.5 L Eosinophils % 0.0 0.0 Basophils % 0.1 0.0 Nucleated RBC % 0 0 Hypochromia 0 Platelet Estimate Normal Polychromasia 0 Poikilocytosis 0 Anisocytosis 1+ Microcytosis 0 Macrocytosis 1+ Ovalocytes 1+ Sodium 132 L Potassium 4.4 Chloride 93 L Carbon Dioxide 31 Anion Gap 9 BUN 28.6 H Creatinine 1.3 Est GFR (CKD-EPI)AfAm 67.78 Est GFR (CKD-EPI)NonAf 58.48 Random Glucose 351 H* Calcium 8.4 L Phosphorus 4.5 Magnesium 2.5 H Physical Exam: No distress. audible wheezing . tachypnic CV: RRR, no MRG Lungs: .scattered wheezing , no crackles Ext: 2+ edema on legs . no erythema ASSESSMENT AND PLAN: 63 y/o man with h/o diastlic heart failure, HLP, HIV, COPD, and miliary TB who presented with SOB and LE edema and was found to have acute diastoic CHF and acute COPD exacerbation. 1- Acute on chronic diastolic CHF exacerbation : - give extra dose of lasix 40 mg IV today. steroids are worsening fluid retention - cont lasix 30 mg po daily - cont cardizem - tele reviewed. sinus tahcy 2- Acute COPD exacerbation : on chronic steroids at home - cont current dose of solu-Medrol. - place on BIPAP x 2 hours now, then PRN and HS. - add Mucomyst Nebs due to thick secretions - cont nebs - cont symbicort 3- H/o HIV: cont home medication - cont prophylactic bactrim 4-New onset DM: uncontrolled due to steroids and non compliance with food - cont SSI - add 5 units of levemir daily - cont januvia. try to avoid metformin due to CHf and risk for hypoxemia. 5- Pulm nodule. 7 mm in RML. f/u as out pt 6- DVT PX: lovenox Visit type - Emergency Visit Emergency Visit: Yes ED Registration Date: 09/02/18 Care time: The patient presented to the Emergency Department on the above date and was hospitalized for further evaluation of their emergent condition. - New Patient This patient is new to me today: No - Critical Care Critical Care patient: No
[2018-09-07] MEDS ORDERED: PT OWN MED DRAWER 7, Y5N ONE (10:00)
[2018-09-07] MEDS: ASPIRIN 81 MG CHEWABLE TABLETS PO SCH (10:11)
[2018-09-07] MEDS: SULFAMETHOXAZOLE/TRIMETHOPRIM 800MG/160MG D.S. TABLET PO SCH (10:11)
[2018-09-07] MEDS: TAMSULOSIN HCL 0.4 MG CAP PO SCH (10:11)
[2018-09-07] MEDS: DOLUTEGRAVIR SODIUM 50 MG TABLET (NON-FORMULARY) PO SCH (10:12)
[2018-09-07] MEDS: BUDESONIDE/FORMETEROL FUMARATE 160/4.5 mcg INHALER IH SCH (10:12)
[2018-09-07] MEDS: ENOXAPARIN NA (PORCINE) 40 MG/0.4 ML DISP.SYRIN SQ SCH (10:12)
[2018-09-07] MEDS: EMTRICITABINE/TENOFOV ALAFENAM (DESCOVY) TABLET PO SCH (10:12)
[2018-09-07] MEDS: FUROSEMIDE 20 MG TABLET (FP) PO SCH (10:12)
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
[2018-09-07] MEDS ORDERED: ACETYLCYSTEINE 20% 200MG/ML 30 ML VIAL *FOR ORAL / INH USE ONLY NEB SCH (11:00)
[2018-09-07 11:30] LABS: ANISOCYTOSIS 1+; MACROCYTOSIS 1+; OVALOCYTE 1+; PLATELET ESTIMATE NORMAL
[2018-09-07] MEDS: ATORVASTATIN CA 20 MG TABLET (FP) PO SCH (21:39)
[2018-09-07] MEDS: ACETYLCYSTEINE 20% 200MG/ML 4 ML VIAL *FOR ORAL / INH USE ONLY NEB SCH (22:13)
[2018-09-08] MEDS: BUDESONIDE/FORMETEROL FUMARATE 160/4.5 mcg INHALER IH SCH ×3 (01:00→21:18)
[2018-09-08] MEDS: methylPREDNISolone NA SUCC 40 MG/1 ML VIAL IVPUSH SCH ×3 (02:00→21:18)
[2018-09-08] MEDS: ALBUTEROL SO4 0.083% IH SOL 2.5 MG/3 ML VIAL.NEB. NEB PRN (02:46)
[2018-09-08] MEDS: INSULIN (LEVEMIR) 100 UNITS/ML UNITS SQ SCH (06:23)
[2018-09-08] MEDS: INSULIN SLIDING SCALE (NOVOLOG) 1 VIAL SQ SCH ×3 (06:25→18:06)
[2018-09-08] MEDS: ALBUTEROL SO4 2.5/IPRATROPIUM 0.5 INH SOL 3 ML VIAL.NEB. NEB SCH (07:29)
[2018-09-08 08:08] LABS: BLOOD UREA NITROGEN 27.7 mg/dL (7-18); CALCIUM 8.6 mg/dL (8.5-10.1); CREATININE 1.1 mg/dL (0.55-1.3); POTASSIUM 4.4 mmol/L (3.5-5.1)
[2018-09-08 08:38] LABS: ARTERIAL BLD GAS O2 SATURATION 99.8 % (95-98); ARTERIAL BLOOD GAS BASE EXCESS 7.4 meq/l (-2-2); ARTERIAL BLOOD GAS PCO2 41.4 mmHg (35-45); ARTERIAL BLOOD GAS PO2 171 mmHg (80-105); ARTERIAL BLOOD GAS pH 7.49 (7.35-7.45)
[2018-09-08 08:42] LABS: ALLENS TEST POSITIVE
[2018-09-08] MEDS ORDERED: PT OWN MED DRAWER 7, Y5N ONE ×2 (10:07→20:52)
[2018-09-08] MEDS: FUROSEMIDE 20 MG TABLET (FP) PO SCH (10:09)
[2018-09-08] MEDS: SULFAMETHOXAZOLE/TRIMETHOPRIM 800MG/160MG D.S. TABLET PO SCH (10:09)
[2018-09-08] MEDS: ASPIRIN 81 MG CHEWABLE TABLETS PO SCH (10:10)
[2018-09-08] MEDS: TAMSULOSIN HCL 0.4 MG CAP PO SCH (10:10)
[2018-09-08] MEDS: ENOXAPARIN NA (PORCINE) 40 MG/0.4 ML DISP.SYRIN SQ SCH (10:10)
[2018-09-08] MEDS: DOLUTEGRAVIR SODIUM 50 MG TABLET (NON-FORMULARY) PO SCH (10:11)
[2018-09-08] MEDS: EMTRICITABINE/TENOFOV ALAFENAM (DESCOVY) TABLET PO SCH (10:11)
[2018-09-08] MEDS: ACETYLCYSTEINE 20% 200MG/ML 4 ML VIAL *FOR ORAL / INH USE ONLY NEB SCH ×2 (11:00→21:30)
[2018-09-08] MEDS: ALBUTEROL SO4 0.083% IH SOL 2.5 MG/3 ML VIAL.NEB. NEB SCH ×3 (11:00→21:30)
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
--- NOTE | 2018-09-08 11:31 | PN ---
Progress Note, Physician History of Present Illness: Increased work of breathing, tachycardic, orthopneic on bipap this AM. - Current Medication List Current Medications: Active Medications Acetylcysteine (Mucomyst 20 Oral / Inh Use Only*) 600 mg NEB BID [facility] Last Admin: 09/07/18 22:13 Dose: 600 mg Albuterol Sulfate (Ventolin 0.083% Nebulizer Soln -) 1 amp NEB Q6H PRN PRN Reason: SHORT OF BREATH/WHEEZING Last Admin: 09/08/18 02:46 Dose: 1 amp Albuterol/Ipratropium (Duoneb -) 1 amp NEB RQID [facility] Last Admin: 09/08/18 07:29 Dose: 1 amp Aspirin (Asa -) 81 mg PO DAILY [facility] Last Admin: 09/08/18 10:10 Dose: 81 mg Atorvastatin Calcium (Lipitor -) 20 mg PO HS [facility] Last Admin: 09/07/18 21:39 Dose: 20 mg Budesonide/Formoterol Fumarate (Symbicort 160/4.5mcg -) 1 puff IH BID [facility] Last Admin: 09/08/18 01:00 Dose: 1 puff Diltiazem HCl (Cardizem Cd -) 120 mg PO DAILY [facility] Last Admin: 09/08/18 10:09 Dose: 120 mg Enoxaparin Sodium (Lovenox -) 40 mg SQ DAILY [facility] Last Admin: 09/08/18 10:10 Dose: 40 mg Furosemide (Lasix -) 30 mg PO DAILY [facility] Last Admin: 09/08/18 10:09 Dose: 30 mg Insulin Aspart (Novolog Vial Sliding Scale -) 1 vial SQ TIDAC [facility]; Protocol Last Admin: 09/08/18 06:25 Dose: 3 unit Insulin Detemir (Levemir Vial) 5 units SQ AM [facility] Last Admin: 09/08/18 06:23 Dose: 5 units Methylprednisolone Sodium Succinate (Solu-Medrol -) 40 mg IVPUSH Q6H-IV [facility] Last Admin: 09/08/18 10:10 Dose: 40 mg Sitagliptin Phosphate (Januvia -) 25 mg PO DAILY@0700 [facility] Last Admin: 09/08/18 06:24 Dose: 25 mg Tamsulosin HCl (Flomax -) 0.4 mg PO DAILY@0830 [facility] Last Admin: 07/15/19 10:10 Dose: 0.4 mg Trimethoprim/Sulfamethoxazole (Bactrim Ds -) 1 each PO DAILY [facility] Last Admin: 09/08/18 10:09 Dose: 1 each - Objective Vital Signs: Vital Signs Temperature 97.6 F 09/08/18 10:00 Pulse Rate 105 H 09/08/18 10:00 Respiratory Rate 26 H 09/08/18 10:00 Blood Pressure 144/75 09/08/18 10:00 O2 Sat by Pulse Oximetry (%) 95 09/08/18 06:31 Constitutional: Yes: No Distress, Calm Neck: Yes: Supple Cardiovascular: Yes: Regular Rate and Rhythm Respiratory: Yes: Regular, Diminished, On BiPap Gastrointestinal: Yes: Normal Bowel Sounds, Soft, Abdomen, Obese Edema: Yes Edema: LLE: 2+, RLE: 2+ Labs: CBC, BMP 09/07/18 05:45 09/08/18 07:07 INR, PTT INR 0.95 (0.83-1.09) 09/02/18 12:10 Problem List - Problems (1) Dyspnea Code(s): R06.00 - DYSPNEA, UNSPECIFIED Qualifiers: Dyspnea type: unspecified Qualified Code(s): R06.00 - Dyspnea, unspecified (2) Acute on chronic diastolic heart failure Code(s): I50.33 - ACUTE ON CHRONIC DIASTOLIC (CONGESTIVE) HEART FAILURE (3) Acute on chronic respiratory failure with hypoxia Code(s): J96.21 - ACUTE AND CHRONIC RESPIRATORY FAILURE WITH HYPOXIA (4) Bilateral leg edema Code(s): R60.0 - LOCALIZED EDEMA (5) Hyperlipidemia Code(s): E78.5 - HYPERLIPIDEMIA, UNSPECIFIED Qualifiers: Hyperlipidemia type: pure hypercholesterolemia Qualified Code(s): E78.00 - Pure hypercholesterolemia, unspecified; E78.0 - Pure hypercholesterolemia (6) COPD (chronic obstructive pulmonary disease) Code(s): J44.9 - CHRONIC OBSTRUCTIVE PULMONARY DISEASE, UNSPECIFIED Qualifiers: COPD type: emphysema Emphysema type: centrilobular Qualified Code(s): J43.2 - Centrilobular emphysema Assessment/Plan 09/04/2018: Chest CT: Stable granulomas and pulm nodule 07/09/2018 Chest CTA: No PE, mild centrilobular emphysema, mildly dilated main PA, interval resolution of focal right posterior basilar infiltrate or ATX peviously seen 06/06/2018 09/03/2018 Echo: Nondiagnostic, poor windows 07/10/2018 Echo: Normal LV and RV size and fxn LVEF 60-65%, tr TR 1. Recurrent acute on chronic diastolic heart failure r/o pulm HTN 2. COPD with h/o exacerbation 3. Acute Hypoxic, hypercapneic Respiratory Failure 4. HIV on HAART- last CD4 196 5. H/o pulm TB 6. Hyperlipidemia 7. Pulm nodule P: 1. Increased IV diuresis with monitor diuretic response, renal fxn and electrolytes 2. Continue ASA 81 qd, Lipitor 20 qhs, cardizem CD 120 qd 3. BD, Bipap and O2 as needed, mucolytic, LAMA/LABA combination inhalational device, IV steroid taper 4. Outpatient PFTs, f/u CXR 5. DVT prophylaxis
[2018-09-08] MEDS ORDERED: ALBUTEROL SO4 0.083% IH SOL 2.5 MG/3 ML VIAL.NEB. NEB PRN (11:33)
[2018-09-08] MEDS ORDERED: FUROSEMIDE 40 MG/4 ML INJECTABLE VIAL IVPUSH ONE (11:37)
--- NOTE | 2018-09-08 12:40 | PN ---
Teaching Attending Note Name of Resident: Enoch Shabazz ATTENDING PHYSICIAN STATEMENT I saw and evaluated the patient. I reviewed the resident's note and discussed the case with the resident. I agree with the resident's findings and plan as documented. SUBJECTIVE: No fever or chills. HE feels SOB but a little better from before. Used BIPAP all night last night and he likes it OBJECTIVE: No distress . slight tachypnea CV: RRR, no MRG Lungs: .scattered wheezing , no crackles Ext: 2+ edema on legs . no erythema ASSESSMENT AND PLAN: 63 y/o man with h/o diastlic heart failure, HLP, HIV, COPD, and miliary TB who presented with SOB and LE edema and was found to have acute diastoic CHF and acute COPD exacerbation. 1- Acute hypoxic hypercapnic resp failure due to acute on chronic diastolic CHF exacerbation and COPD exacerbation: - case d/w Dr. Turner , who indicated the need for IV diuresis , since condition had worsened after stopping IV diuresis. will watch his bicarb level - cont cardizem - tele reviewed. sinus tahcy which had improved - CONT BIPAP - cont steroids. decreased to BID - cont nebs - cont symbicort. - repeat ABG on BIPAP now, as he might be developing fatigue. - transfer to ICU 2- H/o HIV: cont home medication - cont prophylactic bactrim 3-New onset DM: - cont SSI - cont 5 units of levemir daily - cont januvia. 4- Pulm nodule. 7 mm in RML. f/u as out pt 5- DVT PX: lovenox Transfer to ICU for close monitoring.
[2018-09-08 13:44] LABS: ARTERIAL BLD GAS O2 SATURATION 96.5 % (95-98); ARTERIAL BLOOD GAS BASE EXCESS 8.9 meq/l (-2-2); ARTERIAL BLOOD GAS PCO2 53.7 mmHg (35-45); ARTERIAL BLOOD GAS PO2 87.5 mmHg (80-105); ARTERIAL BLOOD GAS pH 7.43 (7.35-7.45)
[2018-09-08 13:56] LABS: ALLENS TEST POSITIVE
--- NOTE | 2018-09-08 15:21 | CONSULT ---
Consultation: REQUESTING PROVIDER: Dr. Rankin CONSULT REQUEST: We have been asked to medically evaluate this patient for Acute hypoxic respiratory failure HISTORY OF PRESENT ILLNESS: 63 year old male with a history of HFpEF, HLD, HIV on HAART, COPD on 2L home O2 , miliary TB initially presented to the hospital with shortness of breath and lower extremity edema that occurred for 1 day. He reports that he recently had a COPD exacerbation for which he was on a steroid taper. Reports worsening dyspnea on exertion, especially when walking up stairs. Patient was admitted for CHF exacerbation with concomittant COPD and treated with IV lasix 40 BID ( up from his home dose of 20 daily), steroids, and duonebs. Overnight, primary team reported to me that he had increased work of breathing and is tachypneic, non-compliant with his bipap. They would like ICU evaluation for decompensated respiratory status. On my evaluation, patient is sitting comfortably on the bed with his bipap on, saturating 94%. He reports no current dyspnea, chest pain, nausea, vomiting, diarrhea, fevers, chills, cough. Reports that his legs are mildly more swollen than normal but improved since admission. States that his breathing has improved since initially evaluated by morning team. REVIEW OF SYSTEMS: CONSTITUTIONAL: Absent: fever, chills, diaphoresis, generalized weakness, malaise, loss of appetite, weight change HEENT: Absent: rhinorrhea, nasal congestion, throat pain, throat swelling, difficulty swallowing, mouth swelling, ear pain, eye pain, visual changes CARDIOVASCULAR: Absent: chest pain, syncope, palpitations, irregular heart rate, lightheadedness , peripheral edema RESPIRATORY: dyspnea with exertion Absent: cough, shortness of breath, orthopnea, wheezing, stridor, hemoptysis GASTROINTESTINAL: Absent: abdominal pain, abdominal distension, nausea, vomiting, diarrhea, constipation, melena, hematochezia GENITOURINARY: Absent: dysuria, frequency, urgency, hesitancy, hematuria, flank pain, genital pain MUSCULOSKELETAL: Absent: myalgia, arthralgia, joint swelling, back pain, neck pain SKIN: Absent: rash, itching, pallor HEMATOLOGIC/IMMUNOLOGIC: Absent: easy bleeding, easy bruising, lymphadenopathy, frequent infections ENDOCRINE: Absent: unexplained weight gain, unexplained weight loss, heat intolerance, cold intolerance NEUROLOGIC: Absent: headache, focal weakness or paresthesias, dizziness, unsteady gait, seizure, mental status changes, bladder or bowel incontinence PSYCHIATRIC: Absent: anxiety, depression, suicidal or homicidal ideation, hallucinations. PHYSICAL EXAMINATION Vital Signs - 24 hr 09/07/18 09/07/18 09/07/18 16:30 17:18 17:58 Temperature 97.9 F 98.0 F Pulse Rate 115 H 105 H Respiratory 24 H 23 H Rate Blood Pressure 142/80 142/80 O2 Sat by Pulse 95 Oximetry (%) 09/07/18 09/07/18 09/07/18 20:27 21:00 22:00 Temperature 98.5 F Pulse Rate 116 H Respiratory 23 H 20 Rate Blood Pressure 150/89 O2 Sat by Pulse 95 97 Oximetry (%) 09/07/18 09/08/18 09/08/18 22:51 02:00 02:46 Temperature 97.3 F L Pulse Rate 88 Respiratory 18 Rate Blood Pressure 108/60 O2 Sat by Pulse 95 95 Oximetry (%) 09/08/18 09/08/18 09/08/18 06:00 06:31 09:00 Temperature 97.6 F Pulse Rate 100 H Respiratory 18 26 H Rate Blood Pressure 127/74 O2 Sat by Pulse 95 98 Oximetry (%) 09/08/18 09/08/18 09/08/18 10:00 11:00 14:00 Temperature 97.6 F 97.8 F Pulse Rate 105 H 112 H Respiratory 26 H 26 H Rate Blood Pressure 144/75 137/77 O2 Sat by Pulse 98 Oximetry (%) GENERAL: A&Ox3, no acute distress EYES: PERRLA, EOMI ENT: Moist mucus membranes NECK: No JVD LUNGS: decreased breath sounds, worse on the L than on the R, no wheezes or rhales noted on exam HEART: RRR, no murmurs ABDOMEN: Soft, nontender, BS present MUSCULOSKELETAL: No CVA Tenderness EXTREMITIES: 2+ pulses, 2+ peripheral edema noted in b/l legs NEUROLOGICAL: Cranial nerves II-XII intact. No focal deficits noted. Laboratory Results - last 24 hr 09/05/18 09/05/18 09/06/18 12:08 17:24 05:21 Anticoagulation Therapy Puncture Site ABG pH ABG pCO2 at Pt Temp ABG pO2 at Pt Temp ABG HCO3 ABG O2 Sat (Measured) ABG O2 Content ABG Base Excess Lefty Test O2 Delivery Device Oxygen Flow Rate Vent Mode Vent Rate Mechanical Rate Pressure Support Vent Sodium Potassium Chloride Carbon Dioxide Anion Gap BUN Creatinine Est GFR (CKD-EPI)AfAm Est GFR (CKD-EPI)NonAf POC Glucometer 302 230 254 Random Glucose Calcium 09/06/18 09/06/18 09/07/18 11:59 17:25 05:38 Anticoagulation Therapy Puncture Site ABG pH ABG pCO2 at Pt Temp ABG pO2 at Pt Temp ABG HCO3 ABG O2 Sat (Measured) ABG O2 Content ABG Base Excess Lefty Test O2 Delivery Device Oxygen Flow Rate Vent Mode Vent Rate Mechanical Rate Pressure Support Vent Sodium Potassium Chloride Carbon Dioxide Anion Gap BUN Creatinine Est GFR (CKD-EPI)AfAm Est GFR (CKD-EPI)NonAf POC Glucometer 365 327 366 Random Glucose Calcium 09/07/18 09/07/18 09/07/18 12:35 17:15 17:24 Anticoagulation Therapy Puncture Site ABG pH ABG pCO2 at Pt Temp ABG pO2 at Pt Temp ABG HCO3 ABG O2 Sat (Measured) ABG O2 Content ABG Base Excess Lefty Test O2 Delivery Device Oxygen Flow Rate Vent Mode Vent Rate Mechanical Rate Pressure Support Vent Sodium Potassium Chloride Carbon Dioxide Anion Gap BUN Creatinine Est GFR (CKD-EPI)AfAm Est GFR (CKD-EPI)NonAf POC Glucometer 279 131 132 Random Glucose Calcium 09/08/18 09/08/18 09/08/18 06:16 07:07 08:25 Anticoagulation Therapy No Result Required. Puncture Site No Result Required. ABG pH 7.49 H ABG pCO2 at Pt Temp 41.4 ABG pO2 at Pt Temp 171 H ABG HCO3 31.2 H ABG O2 Sat (Measured) 99.8 H ABG O2 Content 20.0 ABG Base Excess 7.4 H Lefty Test Positive O2 Delivery Device No Result Required. Oxygen Flow Rate 3l Vent Mode No Result Required. Vent Rate No Result Required. Mechanical Rate No Result Required. Pressure Support Vent No Result Required. Sodium 135 L Potassium 4.4 Chloride 94 L Carbon Dioxide 35 H Anion Gap 5 L BUN 27.7 H Creatinine 1.1 Est GFR (CKD-EPI)AfAm 82.95 Est GFR (CKD-EPI)NonAf 71.57 POC Glucometer 276 Random Glucose 266 H Calcium 8.6 09/08/18 13:36 Anticoagulation Therapy No Result Required. Puncture Site Left radial ABG pH 7.43 ABG pCO2 at Pt Temp 53.7 H ABG pO2 at Pt Temp 87.5 ABG HCO3 34.8 H ABG O2 Sat (Measured) 96.5 ABG O2 Content 19.1 ABG Base Excess 8.9 H Lefty Test Positive O2 Delivery Device No Result Required. Oxygen Flow Rate Yes Vent Mode No Result Required. Vent Rate No Result Required. Mechanical Rate No Result Required. Pressure Support Vent No Result Required. Sodium Potassium Chloride Carbon Dioxide Anion Gap BUN Creatinine Est GFR (CKD-EPI)AfAm Est GFR (CKD-EPI)NonAf POC Glucometer Random Glucose Calcium Active Medications Generic Name Dose Route Start Last Admin Trade Name Freq PRN Reason Stop Dose Admin Acetylcysteine 600 mg 09/07/18 11:00 09/08/18 11:00 Mucomyst 20 Oral / Inh Use Only* NEB 600 mg BID [facility] Administration Albuterol Sulfate 1 amp 09/08/18 11:33 Ventolin 0.083% Nebulizer Soln - NEB Q4H PRN SHORT OF BREATH/WHEEZING Albuterol Sulfate 1 amp 09/08/18 12:00 09/08/18 11:00 Ventolin 0.083% Nebulizer Soln - NEB 1 amp RQID [facility] Administration Aspirin 81 mg 09/03/18 10:00 09/08/18 10:10 Asa - PO 81 mg DAILY [facility] Administration Atorvastatin Calcium 20 mg 09/04/18 22:00 09/07/18 21:39 Lipitor - PO 20 mg HS [facility] Administration Budesonide/Formoterol Fumarate 1 puff 09/03/18 10:00 09/08/18 10:00 Symbicort 160/4.5mcg - IH 1 puff BID [facility] Administration Chlorhexidine Gluconate 1 applic 09/08/18 22:00 Hibiclens For Decolonization - TP HS [facility] Diltiazem HCl 120 mg 09/03/18 11:30 09/08/18 10:09 Cardizem Cd - PO 120 mg DAILY [facility] Administration Enoxaparin Sodium 40 mg 09/03/18 10:00 09/08/18 10:10 Lovenox - SQ 40 mg DAILY [facility] Administration Furosemide 40 mg 09/08/18 16:00 Lasix Injection - IVPUSH BID@0600,1400 [facility] Insulin Aspart 1 vial 09/04/18 12:18 09/08/18 11:00 Novolog Vial Sliding Scale - SQ Not Given TIDAC [facility] Protocol Insulin Detemir 5 units 09/08/18 07:00 09/08/18 06:23 Levemir Vial SQ 5 units AM [facility] Administration Methylprednisolone Sodium Succinate 40 mg 09/08/18 22:00 Solu-Medrol - IVPUSH BID [facility] Mupirocin 1 applic 09/08/18 22:00 Bactroban Ointment (For Decolonization) - NS 09/13/18 21:59 BID [facility] Sitagliptin Phosphate 25 mg 09/06/18 07:00 09/08/18 06:24 Januvia - PO 25 mg DAILY@0700 [facility] Administration Tamsulosin HCl 0.4 mg 09/03/18 08:45 09/08/18 10:10 Flomax - PO 0.4 mg DAILY@0830 [facility] Administration Trimethoprim/Sulfamethoxazole 1 each 09/03/18 10:00 09/08/18 10:09 Bactrim Ds - PO 1 each DAILY [facility] Administration ASSESSMENT/PLAN: 63 year old male with a history of HFpEF, HLD, HIV on HAART, COPD on 2L home O2 , miliary TB initially presented to the hospital with shortness of breath and lower extremity edema that occurred for 1 day and admitted for treatment of CHF exacerbation with superimposed COPD exacerbation Neurological -neurologically intact -no acute issues -monitor for signs of lethargy or increased work of breathing Cardiovascular -patient has peripheral edema suggestive of fluid retention from CHF exacerbation -BNP was normal on admission -patient seems to be in contraction alkalosis given elevating BUN/Cre ratio and elevated bicarbonate -continue to diurese with lasix 40 IV BID -continue cardizem 120 daily -continue aspirin -continue atorvastatin Pulmonary -pulmonary status stable on bipap with settings IPAP/EPAP 12/6, rate 16, FiO2 35 % -saturating 94-95% -continue medrol IV 40 daily -duonebs -albuterol PRN -patient is amenable to mechanical ventilation if necessary -can monitor in ICU -can trial high flow once in ICU Gastrointestinal -no acute issues Renal -contraction alkalosis likely 2/2 diuretic use Infectious Diseases -HIV on haart therapy at home -continue bactrim -continue dolutegravir, emtricitabine Endocrine -DM, ISS, BGM ACHS FEN -no standing fluids -replete lytes as necessary -diet per primary Prophylaxis -lovenox prophylaxis Disposition -can monitor in ICU, anticipate downgrade in 1-2 days Visit type - Emergency Visit Emergency Visit: No - New Patient This patient is new to me today: No - Critical Care Critical Care patient: Yes Total Critical Care Time (in minutes): 40 Critical Care Statement: The care of this patient involved high complexity decision making to prevent further life threatening deterioration of the patient 's condition and/or to evaluate & treat vital organ system(s) failure or risk of failure. ATTENDING PHYSICIAN STATEMENT I saw and evaluated the patient. I reviewed the resident's note and discussed the case with the resident. I agree with the resident's findings and plan as documented. SUBJECTIVE: OBJECTIVE: ASSESSMENT AND PLAN:
[2018-09-08] MEDS ORDERED: FUROSEMIDE 40 MG/4 ML INJECTABLE VIAL IVPUSH SCH (16:00)
--- NOTE | 2018-09-08 16:25 | PN ---
Progress Note (short form) - Note Progress Note: some worseing of sob this am now on bipap Vital Signs Period Temp Pulse Resp BP Sys/Clifton Pulse Ox Last 24 Hr 97.3 F-98.5 F 88-116 18-26 108-150/60-89 95-98 cor-rrr lungs decreased bs at bases abd soft,nt ext +edema (improved from admission) CBC, BMP 09/07/18 05:45 09/08/18 07:07 Microbiology 09/02/18 12:10 Blood - Peripheral Venous Blood Culture - Final NO GROWTH AFTER 5 DAYS INCUBATION 09/02/18 12:10 Blood - Peripheral Venous Blood Culture - Final NO GROWTH AFTER 5 DAYS INCUBATION 09/02/18 12:10 Urine - Urine Clean Catch Urine Culture - Final Diphtheroid/Corynebacterium Current Medications Acetylcysteine (Mucomyst 20 Oral / Inh Use Only*) 600 mg NEB BID [facility] Last Admin: 09/08/18 11:00 Dose: 600 mg Albuterol Sulfate (Ventolin 0.083% Nebulizer Soln -) 1 amp NEB Q4H PRN PRN Reason: SHORT OF BREATH/WHEEZING Albuterol Sulfate (Ventolin 0.083% Nebulizer Soln -) 1 amp NEB RQID [facility] Last Admin: 09/08/18 11:00 Dose: 1 amp Aspirin (Asa -) 81 mg PO DAILY [facility] Last Admin: 09/08/18 10:10 Dose: 81 mg Atorvastatin Calcium (Lipitor -) 20 mg PO HS [facility] Last Admin: 09/07/18 21:39 Dose: 20 mg Budesonide/Formoterol Fumarate (Symbicort 160/4.5mcg -) 1 puff IH BID [facility] Last Admin: 09/08/18 10:00 Dose: 1 puff Chlorhexidine Gluconate (Hibiclens For Decolonization -) 1 applic TP [facility] Diltiazem HCl (Cardizem Cd -) 120 mg PO DAILY [facility] Last Admin: 09/08/18 10:09 Dose: 120 mg Enoxaparin Sodium (Lovenox -) 40 mg SQ DAILY [facility] Last Admin: 09/08/18 10:10 Dose: 40 mg Furosemide (Lasix Injection -) 40 mg IVPUSH BID@0600,1400 [facility] Insulin Aspart (Novolog Vial Sliding Scale -) 1 vial SQ TIDAC [facility]; Protocol Last Admin: 09/08/18 11:00 Dose: Not Given Insulin Detemir (Levemir Vial) 5 units SQ AM [facility] Last Admin: 09/08/18 06:23 Dose: 5 units Methylprednisolone Sodium Succinate (Solu-Medrol -) 40 mg IVPUSH BID [facility] Mupirocin (Bactroban Ointment (For Decolonization) -) 1 applic NS BID [facility] Stop: 09/13/18 21:59 Sitagliptin Phosphate (Januvia -) 25 mg PO DAILY@0700 [facility] Last Admin: 09/08/18 06:24 Dose: 25 mg Tamsulosin HCl (Flomax -) 0.4 mg PO DAILY@0830 [facility] Last Admin: 09/08/18 10:10 Dose: 0.4 mg Trimethoprim/Sulfamethoxazole (Bactrim Ds -) 1 each PO DAILY [facility] Last Admin: 09/08/18 10:09 Dose: 1 each tivicay/descovy a/p worsening SOB-for transfer to ICU- management per pulmonary/cardiology, ? pulmonary htn stable HIV- biktarvy not available, switch to descovy/tivicay while in hospital , has his meds at home volume overload- on diuretics copd remains on steroids Problem List - Problems (1) Shortness of breath Code(s): R06.02 - SHORTNESS OF BREATH (2) Bilateral leg edema Code(s): R60.0 - LOCALIZED EDEMA (3) Human immunodeficiency virus (HIV) disease Code(s): B20 - HUMAN IMMUNODEFICIENCY VIRUS [HIV] DISEASE (4) COPD (chronic obstructive pulmonary disease) Code(s): J44.9 - CHRONIC OBSTRUCTIVE PULMONARY DISEASE, UNSPECIFIED Qualifiers: COPD type: emphysema Emphysema type: centrilobular Qualified Code(s): J43.2 - Centrilobular emphysema
--- NOTE | 2018-09-08 17:27 | PN ---
Physical Exam: SUBJECTIVE: Patient seen and examined at bedside this AM in no acut distress. Later on in the day, pt was found to be tachypneic, tachycardic, and tripod position endorsing that the BIPAP is having no beneficial effect on him. He feels like it is not turned on. Since he has been doing much better on BIPAP. OBJECTIVE: Vital Signs Period Temp Pulse Resp BP Sys/Clifton Pulse Ox Last 24 Hr 97.3 F-98.5 F 88-116 18-26 108-150/60-89 95-98 GENERAL: The patient is awake, alert, and fully oriented, in no acute distress. HEAD: Normal with no signs of trauma. EYES: sclera anicteric, conjunctiva clear. No ptosis. NECK: supple. LUNGS: Breath sounds decreased, minimal wheezes, no crackles, no accessory muscle use. HEART: Regular rate and rhythm, S1, S2 without murmur, rub or gallop. ABDOMEN: Soft, nontender, nondistended, normoactive bowel sounds, no guarding, no rebound, no masses. EXTREMITIES: 2+ pulses, warm, well-perfused, 2+ pitting edema. SKIN: Warm, dry, no rashes or lesions noted Laboratory Results - last 24 hr 09/05/18 09/05/18 09/06/18 12:08 17:24 05:21 Anticoagulation Therapy Puncture Site ABG pH ABG pCO2 at Pt Temp ABG pO2 at Pt Temp ABG HCO3 ABG O2 Sat (Measured) ABG O2 Content ABG Base Excess Lefty Test O2 Delivery Device Oxygen Flow Rate Vent Mode Vent Rate Mechanical Rate Pressure Support Vent Sodium Potassium Chloride Carbon Dioxide Anion Gap BUN Creatinine Est GFR (CKD-EPI)AfAm Est GFR (CKD-EPI)NonAf POC Glucometer 302 230 254 Random Glucose Calcium 09/06/18 09/06/18 09/07/18 11:59 17:25 05:38 Anticoagulation Therapy Puncture Site ABG pH ABG pCO2 at Pt Temp ABG pO2 at Pt Temp ABG HCO3 ABG O2 Sat (Measured) ABG O2 Content ABG Base Excess Lefty Test O2 Delivery Device Oxygen Flow Rate Vent Mode Vent Rate Mechanical Rate Pressure Support Vent Sodium Potassium Chloride Carbon Dioxide Anion Gap BUN Creatinine Est GFR (CKD-EPI)AfAm Est GFR (CKD-EPI)NonAf POC Glucometer 365 327 366 Random Glucose Calcium 09/07/18 09/07/18 09/07/18 12:35 17:15 17:24 Anticoagulation Therapy Puncture Site ABG pH ABG pCO2 at Pt Temp ABG pO2 at Pt Temp ABG HCO3 ABG O2 Sat (Measured) ABG O2 Content ABG Base Excess Lefty Test O2 Delivery Device Oxygen Flow Rate Vent Mode Vent Rate Mechanical Rate Pressure Support Vent Sodium Potassium Chloride Carbon Dioxide Anion Gap BUN Creatinine Est GFR (CKD-EPI)AfAm Est GFR (CKD-EPI)NonAf POC Glucometer 279 131 132 Random Glucose Calcium 09/08/18 09/08/18 09/08/18 06:16 07:07 08:25 Anticoagulation Therapy No Result Required. Puncture Site No Result Required. ABG pH 7.49 H ABG pCO2 at Pt Temp 41.4 ABG pO2 at Pt Temp 171 H ABG HCO3 31.2 H ABG O2 Sat (Measured) 99.8 H ABG O2 Content 20.0 ABG Base Excess 7.4 H Lefty Test Positive O2 Delivery Device No Result Required. Oxygen Flow Rate 3l Vent Mode No Result Required. Vent Rate No Result Required. Mechanical Rate No Result Required. Pressure Support Vent No Result Required. Sodium 135 L Potassium 4.4 Chloride 94 L Carbon Dioxide 35 H Anion Gap 5 L BUN 27.7 H Creatinine 1.1 Est GFR (CKD-EPI)AfAm 82.95 Est GFR (CKD-EPI)NonAf 71.57 POC Glucometer 276 Random Glucose 266 H Calcium 8.6 09/08/18 09/08/18 12:26 13:36 Anticoagulation Therapy No Result Required. Puncture Site Left radial ABG pH 7.43 ABG pCO2 at Pt Temp 53.7 H ABG pO2 at Pt Temp 87.5 ABG HCO3 34.8 H ABG O2 Sat (Measured) 96.5 ABG O2 Content 19.1 ABG Base Excess 8.9 H Lefty Test Positive O2 Delivery Device No Result Required. Oxygen Flow Rate Yes Vent Mode No Result Required. Vent Rate No Result Required. Mechanical Rate No Result Required. Pressure Support Vent No Result Required. Sodium Potassium Chloride Carbon Dioxide Anion Gap BUN Creatinine Est GFR (CKD-EPI)AfAm Est GFR (CKD-EPI)NonAf POC Glucometer 296 Random Glucose Calcium Active Medications Generic Name Dose Route Start Last Admin Trade Name Freq PRN Reason Stop Dose Admin Acetylcysteine 600 mg 09/07/18 11:00 09/08/18 11:00 Mucomyst 20 Oral / Inh Use Only* NEB 600 mg BID [facility] Administration Albuterol Sulfate 1 amp 09/08/18 11:33 Ventolin 0.083% Nebulizer Soln - NEB Q4H PRN SHORT OF BREATH/WHEEZING Albuterol Sulfate 1 amp 09/08/18 12:00 09/08/18 16:48 Ventolin 0.083% Nebulizer Soln - NEB 1 amp RQID [facility] Administration Aspirin 81 mg 09/03/18 10:00 09/08/18 10:10 Asa - PO 81 mg DAILY [facility] Administration Atorvastatin Calcium 20 mg 09/04/18 22:00 09/07/18 21:39 Lipitor - PO 20 mg HS [facility] Administration Budesonide/Formoterol Fumarate 1 puff 09/03/18 10:00 09/08/18 10:00 Symbicort 160/4.5mcg - IH 1 puff BID [facility] Administration Chlorhexidine Gluconate 1 applic 09/08/18 22:00 Hibiclens For Decolonization - TP HS [facility] Diltiazem HCl 120 mg 09/03/18 11:30 09/08/18 10:09 Cardizem Cd - PO 120 mg DAILY [facility] Administration Enoxaparin Sodium 40 mg 09/03/18 10:00 09/08/18 10:10 Lovenox - SQ 40 mg DAILY [facility] Administration Furosemide 40 mg 09/08/18 16:00 09/08/18 17:04 Lasix Injection - IVPUSH Not Given BID@0600,1400 [facility] Insulin Aspart 1 vial 09/04/18 12:18 09/08/18 11:00 Novolog Vial Sliding Scale - SQ Not Given TIDAC [facility] Protocol Insulin Detemir 5 units 09/08/18 07:00 09/08/18 06:23 Levemir Vial SQ 5 units AM [facility] Administration Methylprednisolone Sodium Succinate 40 mg 09/08/18 22:00 Solu-Medrol - IVPUSH BID [facility] Mupirocin 1 applic 09/08/18 22:00 Bactroban Ointment (For Decolonization) - NS 09/13/18 21:59 BID [facility] Sitagliptin Phosphate 25 mg 09/06/18 07:00 09/08/18 06:24 Januvia - PO 25 mg DAILY@0700 [facility] Administration Tamsulosin HCl 0.4 mg 09/03/18 08:45 09/08/18 10:10 Flomax - PO 0.4 mg DAILY@0830 [facility] Administration Trimethoprim/Sulfamethoxazole 1 each 09/03/18 10:00 09/08/18 10:09 Bactrim Ds - PO 1 each DAILY [facility] Administration ASSESSMENT/PLAN: This is a 63 y/o M w a PMH of COPD, HIV, Miliary TB, HLD, diastolic HF who presented for SOB, b/l leg swelling X 1 day. Images: 07/09/2018 Chest CTA: No PE, mild centrilobular emphysema, mildly dilated main PA, interval resolution of focal right posterior basilar infiltrate previously seen 06/06/2018 09/03/2018 Echo: Nondiagnostic, poor windows 07/10/2018 Echo: Normal LV and RV size and fxn LVEF 60-65%, tr TR CXR 09/02/18- no infiltrates, no congestion, or cardiomegaly CT chest 09/04- awaiting results DVT- negative b/l EKG- QTC 466, no acute ischemic changes, consistent with prior EKG. CT scan 09/05/18: granulomatous disease and lung nodule stable compared to prior imaging. Multiple calcified granulomas of the noted scattered through the lungs unchanged from prior imaging. A noncalcified nodule within the medial segment of RML is again noted measuring 7mm best seen on image 77. There is motion artifact which degrades image quality. No endobronchial lesions seen. Pleura- negative calified rt hilar and left axillary LN's From TB. vascular calfications noted including coronary. #Acute on chronic hypercapnic hypoxemic respiratory failure/Acute CHF exacerbation - 09/08 ABG- 7.43, 53.7, 96.5%SaO2, HCO3-34.8. elevated HCO3 from contraction alkalosis 2/2 diuresis. - CXR- healed rt proximal humerus fracture, no pnuemothorax, no effusion/ infiltrates, no congestion, no cardiomegaly. - continue symbicort - daily weights, measure YUSRA's - cardio consult(Dr. Turner)- increase lasix to 80mg IV one dose and pt felt better. Will continue to watch HCO3. Continue cardizem 120daily. Sinus tachy improved and continue BIPAP, continue steroids reduced to BID, transfer to ICU. Pulm- Dr MILLER: continue medrol dose, lasix, daily weights, inhaled bronchodilators. RML nodule - RML nodule 7 mm consistent with prior CXR. - CT as above in images. - f/u as outpatient #Newly dx DM - started insulin sliding scale - A1C- 6.8 - started on januvia - glucose 251 prior was 133. Not due to steroids likely considering A1c elevation. - diabetic diet, wt loss (BMI 31). #HLD - continue atorvastatin 20mg PO HS #HIV - Dr. Machado- CD4 149, viral load- 50 on bactrim and descorvy/tiviay. - Biktarvy is not on formulary here so its been held. - worsening of SOB transferred to icu, continue the descovy/tivicay. #FEN - fluids not indicated due to volume overload - monitor electrolytes - low Na/diabetic diet DVT PPX: lovenox 40mgSQ Dispo: icu transfer Visit type - Emergency Visit Emergency Visit: No - New Patient This patient is new to me today: No - Critical Care Critical Care patient: Yes Total Critical Care Time (in minutes): 45 Critical Care Statement: The care of this patient involved high complexity decision making to prevent further life threatening deterioration of the patient 's condition and/or to evaluate & treat vital organ system(s) failure or risk of failure. - Discharge Referral Referred to [facility] Med [facility] No ATTENDING PHYSICIAN STATEMENT I saw and evaluated the patient. I reviewed the resident's note and discussed the case with the resident. I agree with the resident's findings and plan as documented. SUBJECTIVE: OBJECTIVE: ASSESSMENT AND PLAN:
[2018-09-08] MEDS: ATORVASTATIN CA 20 MG TABLET (FP) PO SCH (21:18)
[2018-09-08] MEDS ORDERED: CHLORHEXIDINE GLUCONATE 4% CLEANSER FOR DECOLONIZATION TP SCH (22:00)
[2018-09-09] MEDS: INSULIN (LEVEMIR) 100 UNITS/ML UNITS SQ SCH (06:32)
[2018-09-09] MEDS: INSULIN SLIDING SCALE (NOVOLOG) 1 VIAL SQ SCH ×3 (06:33→16:51)
[2018-09-09 07:12] LABS: BASO % 0.2 % (0-2.0); HEMATOCRIT 38.2 % (35.4-49); HEMOGLOBIN 12.9 GM/dL (11.7-16.9); LYMPH % 6.4 % (8-40); MCH 35.6 pg (25.7-33.7); MCHC 33.8 g/dl (32.0-35.9); MEAN CELL VOLUME 105.1 fl (80-96); MEAN PLT VOLUME 7.9 fl (7.5-11.1); MONO % 4.6 % (3.8-10.2); NEUT % 88.8 % (42.8-82.8); RBC 3.63 M/mm3 (4.00-5.60); RDW 17.6 % (11.9-15.9); WHITE BLOOD COUNT 7.7 K/mm3 (4.0-10.0)
[2018-09-09 07:45] LABS: ALBUMIN 3.2 g/dl (3.4-5.0); BILIRUBIN,TOTAL 0.5 mg/dL (0.2-1); BLOOD UREA NITROGEN 32.5 mg/dL (7-18); CALCIUM 8.4 mg/dL (8.5-10.1); POTASSIUM 4.2 mmol/L (3.5-5.1)
[2018-09-09] MEDS: ALBUTEROL SO4 0.083% IH SOL 2.5 MG/3 ML VIAL.NEB. NEB SCH ×3 (08:15→18:25)
[2018-09-09 08:16] LABS: PLATELET COUNT 220 K/MM3 (134-434)
[2018-09-09] MEDS: TAMSULOSIN HCL 0.4 MG CAP PO SCH (08:35)
[2018-09-09] MEDS ORDERED: PT OWN MED DRAWER 7, Y5N ONE (09:21)
--- NOTE | 2018-09-09 09:29 | PN ---
Progress Note, Physician Chief Complaint: Events noted Currently on BIPAP History of Present Illness: Patient was seen and examined. Awake and alert. Chart was reviewed Denies chest pain or palpitations Dyspnea improving - Current Medication List Current Medications: Active Medications Acetylcysteine (Mucomyst 20 Oral / Inh Use Only*) 600 mg NEB BID [facility] Last Admin: 09/08/18 21:30 Dose: 600 mg Albuterol Sulfate (Ventolin 0.083% Nebulizer Soln -) 1 amp NEB Q4H PRN PRN Reason: SHORT OF BREATH/WHEEZING Albuterol Sulfate (Ventolin 0.083% Nebulizer Soln -) 1 amp NEB RQID [facility] Last Admin: 09/09/18 08:15 Dose: 1 amp Aspirin (Asa -) 81 mg PO DAILY [facility] Last Admin: 09/08/18 10:10 Dose: 81 mg Atorvastatin Calcium (Lipitor -) 20 mg PO HS [facility] Last Admin: 09/08/18 21:18 Dose: 20 mg Budesonide/Formoterol Fumarate (Symbicort 160/4.5mcg -) 1 puff IH BID [facility] Last Admin: 09/08/18 21:18 Dose: 1 puff Chlorhexidine Gluconate (Hibiclens For Decolonization -) 1 applic TP [facility] Diltiazem HCl (Cardizem Cd -) 120 mg PO DAILY [facility] Last Admin: 09/08/18 10:09 Dose: 120 mg Enoxaparin Sodium (Lovenox -) 40 mg SQ DAILY [facility] Last Admin: 09/08/18 10:10 Dose: 40 mg Furosemide (Lasix Injection -) 40 mg IVPUSH DAILY [facility] Insulin Aspart (Novolog Vial Sliding Scale -) 1 vial SQ TIDAC [facility]; Protocol Last Admin: 09/09/18 06:33 Dose: 4 unit Insulin Detemir (Levemir Vial) 5 units SQ AM [facility] Last Admin: 09/09/18 06:32 Dose: 5 units Methylprednisolone Sodium Succinate (Solu-Medrol -) 40 mg IVPUSH BID [facility] Last Admin: 09/08/18 21:18 Dose: 40 mg Mupirocin (Bactroban Ointment (For Decolonization) -) 1 applic NS BID [facility] Stop: 09/13/18 21:59 Sitagliptin Phosphate (Januvia -) 25 mg PO DAILY@0700 [facility] Last Admin: 09/09/18 06:32 Dose: 25 mg Tamsulosin HCl (Flomax -) 0.4 mg PO DAILY@0830 [facility] Last Admin: 09/09/18 08:35 Dose: 0.4 mg Trimethoprim/Sulfamethoxazole (Bactrim Ds -) 1 each PO DAILY [facility] Last Admin: 09/08/18 10:09 Dose: 1 each - Objective Vital Signs: Vital Signs Temperature 97.6 F 09/09/18 08:30 Pulse Rate 95 H 09/09/18 08:30 Respiratory Rate 21 H 09/09/18 08:30 Blood Pressure 135/77 09/09/18 08:30 O2 Sat by Pulse Oximetry (%) 98 09/09/18 03:28 Eyes: Yes: PERRL HENT: Yes: Atraumatic Neck: Yes: Supple Cardiovascular: Yes: Regular Rate and Rhythm, S1, S2 Respiratory: Yes: On BiPap, Wheezes Gastrointestinal: Yes: Normal Bowel Sounds, Soft. No: Tenderness Edema: Yes Edema: LLE: 1+, RLE: 1+ Additional Findings/Remarks: - Review of Systems Constitutional: denies: Chills, Fever Cardiovascular: denies: Chest Pain, Palpitations, Shortness of Breath Respiratory: denies: Cough, Hemoptysis, Orthopnea, PND Gastrointestinal: denies: Abdominal Pain, Constipation, Diarrhea, Melena, Nausea , Rectal Bleeding, Vomiting Musculoskeletal: denies: Back Pain, Joint Pain Neurological: denies: Dizziness, Headache, Seizure, Syncope Labs: CBC, BMP 09/09/18 06:15 09/09/18 06:15 Problem List - Problems (1) Acute hypercapnic respiratory failure Code(s): J96.02 - ACUTE RESPIRATORY FAILURE WITH HYPERCAPNIA (2) Dyspnea Code(s): R06.00 - DYSPNEA, UNSPECIFIED Qualifiers: Dyspnea type: unspecified Qualified Code(s): R06.00 - Dyspnea, unspecified (3) Acute on chronic diastolic heart failure Code(s): I50.33 - ACUTE ON CHRONIC DIASTOLIC (CONGESTIVE) HEART FAILURE (4) Acute on chronic respiratory failure with hypoxia Code(s): J96.21 - ACUTE AND CHRONIC RESPIRATORY FAILURE WITH HYPOXIA (5) COPD exacerbation Code(s): J44.1 - CHRONIC OBSTRUCTIVE PULMONARY DISEASE W (ACUTE) EXACERBATION (6) Human immunodeficiency virus (HIV) disease Code(s): B20 - HUMAN IMMUNODEFICIENCY VIRUS [HIV] DISEASE (7) Hyperlipidemia Code(s): E78.5 - HYPERLIPIDEMIA, UNSPECIFIED Qualifiers: Hyperlipidemia type: pure hypercholesterolemia Qualified Code(s): E78.00 - Pure hypercholesterolemia, unspecified; E78.0 - Pure hypercholesterolemia (8) Peripheral edema Code(s): R60.9 - EDEMA, UNSPECIFIED (9) Pulmonary nodule, right Code(s): R91.1 - SOLITARY PULMONARY NODULE Assessment/Plan 1. Recurrent acute on chronic diastolic heart failure 2. COPD with exacerbation 3. Acute Hypoxic and hypercapneic Respiratory Failure 4. HIV on HAART 5. History of pulmonary TB 6. Hyperlipidemia 7. Pulmonary nodule PLAN: 1. Continue IV diuresis with monitoring renal function and electrolytes 2. Continue ASA 81 mg QD, Lipitor 20 mg QHS and Cardizem CD 120 mg QD 3. Bronchodilator, BIPAP and O2 as needed and IV steroid taper 4. Outpatient PFT 5. DVT prophylaxis Further plans are to follow Arvind Smith MD
[2018-09-09] MEDS: methylPREDNISolone NA SUCC 40 MG/1 ML VIAL IVPUSH SCH ×2 (09:39→21:42)
[2018-09-09] MEDS: SULFAMETHOXAZOLE/TRIMETHOPRIM 800MG/160MG D.S. TABLET PO SCH (09:42)
[2018-09-09] MEDS: EMTRICITABINE/TENOFOV ALAFENAM (DESCOVY) TABLET PO SCH (09:42)
[2018-09-09] MEDS: ASPIRIN 81 MG CHEWABLE TABLETS PO SCH (09:42)
[2018-09-09] MEDS: FUROSEMIDE 40 MG/4 ML INJECTABLE VIAL IVPUSH SCH (09:42)
[2018-09-09] MEDS: ENOXAPARIN NA (PORCINE) 40 MG/0.4 ML DISP.SYRIN SQ SCH (09:42)
[2018-09-09] MEDS: BUDESONIDE/FORMETEROL FUMARATE 160/4.5 mcg INHALER IH SCH ×2 (09:43→21:42)
[2018-09-09] MEDS: DOLUTEGRAVIR SODIUM 50 MG TABLET (NON-FORMULARY) PO SCH (09:43)
[2018-09-09] MEDS: ACETYLCYSTEINE 20% 200MG/ML 4 ML VIAL *FOR ORAL / INH USE ONLY NEB SCH ×2 (10:20→21:00)
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
[2018-09-09 11:33] LABS: ANISOCYTOSIS 1+; MACROCYTOSIS 1+; PLATELET ESTIMATE NORMAL
--- NOTE | 2018-09-09 14:34 | PN ---
Progress Note (short form) - Note Progress Note: currently on nasal canulla still needing bipap intermittently Vital Signs Period Temp Pulse Resp BP Sys/Clifton Pulse Ox Last 24 Hr 97.3 F-97.6 F 87-111 20-21 109-135/64-77 96-98 cor-rrr lungs clear abd soft,nt ext +edema CBC, BMP 09/09/18 06:15 09/09/18 06:15 Microbiology 09/02/18 12:10 Blood - Peripheral Venous Blood Culture - Final NO GROWTH AFTER 5 DAYS INCUBATION 09/02/18 12:10 Blood - Peripheral Venous Blood Culture - Final NO GROWTH AFTER 5 DAYS INCUBATION 09/02/18 12:10 Urine - Urine Clean Catch Urine Culture - Final Diphtheroid/Corynebacterium Current Medications Acetylcysteine (Mucomyst 20 Oral / Inh Use Only*) 600 mg NEB BID [facility] Last Admin: 09/08/18 21:30 Dose: 600 mg Albuterol Sulfate (Ventolin 0.083% Nebulizer Soln -) 1 amp NEB Q4H PRN PRN Reason: SHORT OF BREATH/WHEEZING Albuterol Sulfate (Ventolin 0.083% Nebulizer Soln -) 1 amp NEB RQID [facility] Last Admin: 09/09/18 08:15 Dose: 1 amp Aspirin (Asa -) 81 mg PO DAILY [facility] Last Admin: 09/09/18 09:42 Dose: 81 mg Atorvastatin Calcium (Lipitor -) 20 mg PO HS [facility] Last Admin: 09/08/18 21:18 Dose: 20 mg Budesonide/Formoterol Fumarate (Symbicort 160/4.5mcg -) 1 puff IH BID [facility] Last Admin: 09/09/18 09:43 Dose: 1 puff Chlorhexidine Gluconate (Hibiclens For Decolonization -) 1 applic TP HS [facility] Diltiazem HCl (Cardizem Cd -) 120 mg PO DAILY [facility] Last Admin: 09/09/18 09:42 Dose: 120 mg Enoxaparin Sodium (Lovenox -) 40 mg SQ DAILY [facility] Last Admin: 09/09/18 09:42 Dose: 40 mg Furosemide (Lasix Injection -) 40 mg IVPUSH DAILY [facility] Last Admin: 09/09/18 09:42 Dose: 40 mg Insulin Aspart (Novolog Vial Sliding Scale -) 1 vial SQ TIDAC [facility]; Protocol Last Admin: 09/09/18 11:39 Dose: 6 unit Insulin Detemir (Levemir Vial) 5 units SQ AM [facility] Last Admin: 09/09/18 06:32 Dose: 5 units Methylprednisolone Sodium Succinate (Solu-Medrol -) 30 mg IVPUSH BID [facility] Mupirocin (Bactroban Ointment (For Decolonization) -) 1 applic NS BID [facility] Stop: 09/13/18 21:59 Sitagliptin Phosphate (Januvia -) 25 mg PO DAILY@0700 [facility] Last Admin: 09/09/18 06:32 Dose: 25 mg Tamsulosin HCl (Flomax -) 0.4 mg PO DAILY@0830 [facility] Last Admin: 09/09/18 08:35 Dose: 0.4 mg Trimethoprim/Sulfamethoxazole (Bactrim Ds -) 1 each PO DAILY [facility] Last Admin: 09/09/18 09:42 Dose: 1 each tivicay/descovy a/p improved sob- management per pulmonary/cardiology, ?pulmonary htn stable HIV- biktarvy not available, switch to descovy/tivicay while in hospital , has his meds at home volume overload- on diuretics copd remains on steroids Problem List - Problems (1) Shortness of breath Code(s): R06.02 - SHORTNESS OF BREATH (2) Bilateral leg edema Code(s): R60.0 - LOCALIZED EDEMA (3) Human immunodeficiency virus (HIV) disease Code(s): B20 - HUMAN IMMUNODEFICIENCY VIRUS [HIV] DISEASE (4) COPD (chronic obstructive pulmonary disease) Code(s): J44.9 - CHRONIC OBSTRUCTIVE PULMONARY DISEASE, UNSPECIFIED Qualifiers: COPD type: emphysema Emphysema type: centrilobular Qualified Code(s): J43.2 - Centrilobular emphysema
--- NOTE | 2018-09-09 15:09 | PN ---
Physical Exam: SUBJECTIVE: Patient seen and examined OBJECTIVE: Vital Signs Period Temp Pulse Resp BP Sys/Clifton Pulse Ox Last 24 Hr 97.3 F-97.6 F 87-111 20-21 109-135/64-77 96-98 GENERAL: The patient is awake, alert, and fully oriented, in no acute distress. HEAD: Normal with no signs of trauma. EYES: PERRL, extraocular movements intact, sclera anicteric, conjunctiva clear. No ptosis. ENT: Ears normal, nares patent, oropharynx clear without exudates, moist mucous membranes. NECK: Trachea midline, full range of motion, supple. LUNGS: Breath sounds equal, clear to auscultation bilaterally, no wheezes, no crackles, no accessory muscle use. HEART: Regular rate and rhythm, S1, S2 without murmur, rub or gallop. ABDOMEN: Soft, nontender, nondistended, normoactive bowel sounds, no guarding, no rebound, no hepatosplenomegaly, no masses. EXTREMITIES: 2+ pulses, warm, well-perfused, no edema. NEUROLOGICAL: Cranial nerves II through XII grossly intact. Normal speech, gait not observed. PSYCH: Normal mood, normal affect. SKIN: Warm, dry, normal turgor, no rashes or lesions noted Laboratory Results - last 24 hr 09/08/18 09/08/18 09/08/18 12:26 17:22 21:16 WBC RBC Hgb Hct MCV MCH MCHC RDW Plt Count MPV Absolute Neuts (auto) Neutrophils % Lymphocytes % Monocytes % Eosinophils % Basophils % Nucleated RBC % Hypochromia Platelet Estimate Polychromasia Poikilocytosis Anisocytosis Microcytosis Macrocytosis Sodium Potassium Chloride Carbon Dioxide Anion Gap BUN Creatinine Est GFR (CKD-EPI)AfAm Est GFR (CKD-EPI)NonAf POC Glucometer 296 244 249 Random Glucose Calcium Total Bilirubin AST ALT Alkaline Phosphatase Total Protein Albumin 09/09/18 09/09/18 09/09/18 06:15 06:15 06:30 WBC 7.7 RBC 3.63 L Hgb 12.9 Hct 38.2 MCV 105.1 H MCH 35.6 H MCHC 33.8 RDW 17.6 H Plt Count 220 MPV 7.9 Absolute Neuts (auto) 6.9 Neutrophils % 88.8 H Lymphocytes % 6.4 L D Monocytes % 4.6 Eosinophils % 0.0 Basophils % 0.2 D Nucleated RBC % 0 Hypochromia 0 Platelet Estimate Normal Polychromasia 0 Poikilocytosis 0 Anisocytosis 1+ Microcytosis 0 Macrocytosis 1+ Sodium 137 Potassium 4.2 Chloride 93 L Carbon Dioxide 37 H Anion Gap 7 L BUN 32.5 H Creatinine 1.0 Est GFR (CKD-EPI)AfAm 93.08 Est GFR (CKD-EPI)NonAf 80.31 POC Glucometer 233 Random Glucose 229 H Calcium 8.4 L Total Bilirubin 0.5 AST 21 ALT 48 Alkaline Phosphatase 34 L Total Protein 6.0 L Albumin 3.2 L 09/09/18 11:38 WBC RBC Hgb Hct MCV MCH MCHC RDW Plt Count MPV Absolute Neuts (auto) Neutrophils % Lymphocytes % Monocytes % Eosinophils % Basophils % Nucleated RBC % Hypochromia Platelet Estimate Polychromasia Poikilocytosis Anisocytosis Microcytosis Macrocytosis Sodium Potassium Chloride Carbon Dioxide Anion Gap BUN Creatinine Est GFR (CKD-EPI)AfAm Est GFR (CKD-EPI)NonAf POC Glucometer 287 Random Glucose Calcium Total Bilirubin AST ALT Alkaline Phosphatase Total Protein Albumin Active Medications Generic Name Dose Route Start Last Admin Trade Name Freq PRN Reason Stop Dose Admin Acetylcysteine 600 mg 09/07/18 11:00 09/08/18 21:30 Mucomyst 20 Oral / Inh Use Only* NEB 600 mg BID [facility] Administration Albuterol Sulfate 1 amp 09/08/18 11:33 Ventolin 0.083% Nebulizer Soln - NEB Q4H PRN SHORT OF BREATH/WHEEZING Albuterol Sulfate 1 amp 09/08/18 12:00 09/09/18 08:15 Ventolin 0.083% Nebulizer Soln - NEB 1 amp RQID [facility] Administration Aspirin 81 mg 09/03/18 10:00 09/09/18 09:42 Asa - PO 81 mg DAILY [facility] Administration Atorvastatin Calcium 20 mg 09/04/18 22:00 09/08/18 21:18 Lipitor - PO 20 mg HS [facility] Administration Budesonide/Formoterol Fumarate 1 puff 09/03/18 10:00 09/09/18 09:43 Symbicort 160/4.5mcg - IH 1 puff BID [facility] Administration Chlorhexidine Gluconate 1 applic 09/08/18 22:00 Hibiclens For Decolonization - TP HS [facility] Diltiazem HCl 120 mg 09/03/18 11:30 09/09/18 09:42 Cardizem Cd - PO 120 mg DAILY [facility] Administration Enoxaparin Sodium 40 mg 09/03/18 10:00 09/09/18 09:42 Lovenox - SQ 40 mg DAILY [facility] Administration Furosemide 40 mg 09/09/18 10:00 09/09/18 09:42 Lasix Injection - IVPUSH 40 mg DAILY [facility] Administration Insulin Aspart 1 vial 09/04/18 12:18 09/09/18 11:39 Novolog Vial Sliding Scale - SQ 6 unit TIDAC [facility] Administration Protocol Insulin Detemir 5 units 09/08/18 07:00 09/09/18 06:32 Levemir Vial SQ 5 units AM [facility] Administration Methylprednisolone Sodium Succinate 30 mg 09/09/18 11:32 Solu-Medrol - IVPUSH BID [facility] Mupirocin 1 applic 09/08/18 22:00 Bactroban Ointment (For Decolonization) - NS 09/13/18 21:59 BID [facility] Sitagliptin Phosphate 25 mg 09/06/18 07:00 09/09/18 06:32 Januvia - PO 25 mg DAILY@0700 [facility] Administration Tamsulosin HCl 0.4 mg 09/03/18 08:45 09/09/18 08:35 Flomax - PO 0.4 mg DAILY@0830 [facility] Administration Trimethoprim/Sulfamethoxazole 1 each 09/03/18 10:00 09/09/18 09:42 Bactrim Ds - PO 1 each DAILY [facility] Administration ASSESSMENT/PLAN: This is a 63 y/o M w a PMH of COPD, HIV, Miliary TB, HLD, diastolic HF who presented for SOB, b/l leg swelling X 1 day. Images: 07/09/2018 Chest CTA: No PE, mild centrilobular emphysema, mildly dilated main PA, interval resolution of focal right posterior basilar infiltrate previously seen 06/06/2018 09/03/2018 Echo: Nondiagnostic, poor windows 07/10/2018 Echo: Normal LV and RV size and fxn LVEF 60-65%, tr TR CXR 09/02/18- no infiltrates, no congestion, or cardiomegaly CT chest 09/04- awaiting results DVT- negative b/l EKG- QTC 466, no acute ischemic changes, consistent with prior EKG. CT scan 09/05/18: granulomatous disease and lung nodule stable compared to prior imaging. Multiple calcified granulomas of the noted scattered through the lungs unchanged from prior imaging. A noncalcified nodule within the medial segment of RML is again noted measuring 7mm best seen on image 77. There is motion artifact which degrades image quality. No endobronchial lesions seen. Pleura- negative calified rt hilar and left axillary LN's From TB. vascular calfications noted including coronary. #Acute on chronic hypercapnic hypoxemic respiratory failure/Acute CHF exacerbation - 09/08 ABG- 7.43, 53.7, 96.5%SaO2, HCO3-34.8. elevated HCO3 from contraction alkalosis 2/2 diuresis. - CXR- healed rt proximal humerus fracture, no pnuemothorax, no effusion/ infiltrates, no congestion, no cardiomegaly. - continue symbicort - daily weights, measure YUSRA's - cardio consult(Dr. Turner)- continue lasix 40mg IV push daily. Will continue to watch HCO3. Continue cardizem 120daily. Sinus tachy improved and continue BIPAP , continue steroids reduced to BID, transfer to ICU. Pulm(Dr Soto): tapered medrol dose(pt on 30mgIV), lasix, daily weights, inhaled bronchodilators. RML nodule - RML nodule 7 mm consistent with prior CXR. - CT as above in images. - f/u as outpatient #Newly dx DM - continue insulin sliding scale - A1C- 6.8 - continue januvia - glucose stable. - diabetic diet, wt loss (BMI 31). #HLD - continue atorvastatin 20mg PO HS #HIV - Dr. Machado- CD4 149, viral load- 50 on bactrim and descorvy/tiviay. - Biktarvy is not on formulary here so its been held. - continue the descovy/tivicay. #FEN - fluids not indicated due to volume overload - monitor electrolytes - low Na/diabetic diet DVT PPX: lovenox 40mgSQ Visit type - Emergency Visit Emergency Visit: No - New Patient This patient is new to me today: No - Critical Care Critical Care patient: No - Discharge Referral Referred to [facility] No ATTENDING PHYSICIAN STATEMENT I saw and evaluated the patient. I reviewed the resident's note and discussed the case with the resident. I agree with the resident's findings and plan as documented. SUBJECTIVE: OBJECTIVE: ASSESSMENT AND PLAN:
--- NOTE | 2018-09-09 17:59 | PN ---
Teaching Attending Note Name of Resident: Enoch Shabazz ATTENDING PHYSICIAN STATEMENT I saw and evaluated the patient. I reviewed the resident's note and discussed the case with the resident. I agree with the resident's findings and plan as documented. SUBJECTIVE: No fever or chills. feels better today OBJECTIVE: No distress. slight tachypnea CV: RRR, no MRG Lungs: scattered wheezing, no crackles. good air entry Ext: 2+ edema on legs. no erythema. 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 1- Acute hypoxic hypercapnic resp failure due to acute on chronic diastolic CHF exacerbation and COPD exacerbation: -cont lasix and steroids at current doses - cont cardizem - CONT BIPAP - cont nebs - cont symbicort. 2- H/o HIV: cont current medication - cont prophylactic bactrim 3-New onset DM: - cont SSI - cont 5 units of levemir daily - cont januvia. - at dc and if sugar is controlled with steroid tper , can dc on januvia only. 4- Pulm nodule. 7 mm in RML. f/u as out pt. 5- DVT PX: lovenox HLOC
[2018-09-09] MEDS ORDERED: ALBUTEROL SO4 2.5/IPRATROPIUM 0.5 INH SOL 3 ML VIAL.NEB. NEB ONE (20:19)
[2018-09-09] MEDS: ALBUTEROL SO4 0.083% IH SOL 2.5 MG/3 ML VIAL.NEB. NEB PRN (20:36)
[2018-09-09] MEDS: ATORVASTATIN CA 20 MG TABLET (FP) PO SCH (21:42)
[2018-09-10] MEDS: INSULIN (LEVEMIR) 100 UNITS/ML UNITS SQ SCH (07:11)
[2018-09-10] MEDS: INSULIN SLIDING SCALE (NOVOLOG) 1 VIAL SQ SCH ×3 (07:12→16:50)
[2018-09-10 07:21] LABS: BASO % 0.3 % (0-2.0); HEMATOCRIT 42.1 % (35.4-49); HEMOGLOBIN 14.1 GM/dL (11.7-16.9); LYMPH % 5.8 % (8-40); MCH 35.3 pg (25.7-33.7); MCHC 33.5 g/dl (32.0-35.9); MEAN CELL VOLUME 105.6 fl (80-96); MEAN PLT VOLUME 8.1 fl (7.5-11.1); MONO % 5.4 % (3.8-10.2); NEUT % 88.5 % (42.8-82.8); PLATELET COUNT 253 K/MM3 (134-434); RBC 3.99 M/mm3 (4.00-5.60); RDW 18.1 % (11.9-15.9); WHITE BLOOD COUNT 8.7 K/mm3 (4.0-10.0)
[2018-09-10 07:43] LABS: ALBUMIN 3.5 g/dl (3.4-5.0); BILIRUBIN,TOTAL 0.5 mg/dL (0.2-1); BLOOD UREA NITROGEN 30.8 mg/dL (7-18); CALCIUM 8.8 mg/dL (8.5-10.1); POTASSIUM 4.8 mmol/L (3.5-5.1); TOT PROT 6.7 g/dl (6.4-8.2)
[2018-09-10] MEDS: ALBUTEROL SO4 0.083% IH SOL 2.5 MG/3 ML VIAL.NEB. NEB SCH ×4 (08:04→21:00)
--- NOTE | 2018-09-10 08:44 | PN ---
Teaching Attending Note Name of Resident: Enoch Shabazz ATTENDING PHYSICIAN STATEMENT I saw and evaluated the patient. I reviewed the resident's note and discussed the case with the resident. I agree with the resident's findings and plan as documented. SUBJECTIVE: Patient continues to be on continues Bipap. OBJECTIVE: Vital Signs Temperature 97.4 F L 09/10/18 06:00 Pulse Rate 100 H 09/10/18 08:25 Respiratory Rate 20 09/10/18 06:00 Blood Pressure 132/83 09/10/18 06:00 O2 Sat by Pulse Oximetry (%) 97 09/10/18 08:25 GENERAL: The patient is awake, alert, and fully oriented, in no acute distress. HEAD: Normal with no signs of trauma. EYES: PERRL, extraocular movements intact, sclera anicteric, conjunctiva clear. ENT: Ears normal, oropharynx clear without exudates, moist mucous membranes. NECK: Trachea midline, full range of motion, supple. LUNGS: Breath sounds equal, clear to auscultation bilaterally, no wheezes, no crackles, no accessory muscle use. HEART: Regular rate and rhythm, S1, S2 without murmur, rub or gallop. ABDOMEN: Soft, NT,ND, normoactive bowel sounds, no guarding, no rebound, no hepatosplenomegaly, no masses. EXTREMITIES: 2+ pulses, warm, well-perfused, no edema. NEUROLOGICAL: Cranial nerves II through XII grossly intact. Normal speech, gait not observed. PSYCH: Normal mood, normal affect. SKIN: Warm, dry, normal turgor, no rashes or lesions noted CBCD WBC 8.7 K/mm3 (4.0-10.0) 09/10/18 06:10 RBC 3.99 M/mm3 (4.00-5.60) L 09/10/18 06:10 Hgb 14.1 GM/dL (11.7-16.9) 09/10/18 06:10 Hct 42.1 % (35.4-49) 09/10/18 06:10 MCV 105.6 fl (80-96) H 09/10/18 06:10 MCHC 33.5 g/dl (32.0-35.9) 09/10/18 06:10 RDW 18.1 % (11.9-15.9) H 09/10/18 06:10 Plt Count 253 K/MM3 (134-434) 09/10/18 06:10 MPV 8.1 fl (7.5-11.1) 09/10/18 06:10 CMP Sodium 139 mmol/L (136-145) 09/10/18 06:10 Potassium 4.8 mmol/L (3.5-5.1) 09/10/18 06:10 Chloride 96 mmol/L (98-107) L 09/10/18 06:10 Carbon Dioxide 38 mmol/L (21-32) H 09/10/18 06:10 Anion Gap 5 MMOL/L (8-16) L 09/10/18 06:10 BUN 30.8 mg/dL (7-18) H 09/10/18 06:10 Creatinine 1.0 mg/dL (0.55-1.3) 09/10/18 06:10 Random Glucose 250 mg/dL (74-106) H 09/10/18 06:10 Calcium 8.8 mg/dL (8.5-10.1) 09/10/18 06:10 Total Bilirubin 0.5 mg/dL (0.2-1) 09/10/18 06:10 AST 19 U/L (15-37) 09/10/18 06:10 ALT 53 U/L (13-61) 09/10/18 06:10 Alkaline Phosphatase 41 U/L (45-117) L 09/10/18 06:10 Total Protein 6.7 g/dl (6.4-8.2) 09/10/18 06:10 Albumin 3.5 g/dl (3.4-5.0) 09/10/18 06:10 CARDIAC ENZYMES Troponin I 0.02 ng/ml (0.00-0.05) 09/03/18 06:27 Current Medications Generic Name Dose Route Start Last Admin Trade Name Freq PRN Reason Stop Dose Admin Acetylcysteine 600 mg 09/09/18 22:00 09/09/18 21:00 Mucomyst 20 Oral / Inh Use Only* NEB 600 mg BID [facility]NY Administration Albuterol Sulfate 1 amp 09/09/18 20:19 09/09/18 20:36 Ventolin 0.083% Nebulizer Soln - NEB 1 amp Q4H PRN Administration SHORT OF BREATH/WHEEZING Albuterol Sulfate 1 amp 09/10/18 08:00 09/10/18 08:04 Ventolin 0.083% Nebulizer Soln - NEB 1 amp RQID [facility] Administration Aspirin 81 mg 09/10/18 10:00 Asa - PO DAILY [facility] Atorvastatin Calcium 20 mg 09/09/18 22:00 09/09/18 21:42 Lipitor - PO 20 mg HS [facility] Administration Budesonide/Formoterol Fumarate 1 puff 09/09/18 22:00 09/09/18 21:42 Symbicort 160/4.5mcg - IH 1 puff BID [facility] Administration Diltiazem HCl 120 mg 09/10/18 10:00 Cardizem Cd - PO DAILY [facility] Enoxaparin Sodium 40 mg 09/10/18 10:00 Lovenox - SQ DAILY [facility] Furosemide 40 mg 09/09/18 10:00 09/09/18 09:42 Lasix Injection - IVPUSH 40 mg DAILY [facility] Administration Insulin Aspart 1 vial 09/10/18 07:00 09/10/18 07:12 Novolog Vial Sliding Scale - SQ 6 units TIDAC [facility] Administration Protocol Insulin Detemir 5 units 09/10/18 07:00 09/10/18 07:11 Levemir Vial SQ 5 units AM [facility] Administration Methylprednisolone Sodium Succinate 30 mg 09/09/18 11:32 09/09/18 21:42 Solu-Medrol - IVPUSH 30 mg BID [facility] Administration Sitagliptin Phosphate 25 mg 09/10/18 07:00 09/10/18 07:11 Januvia - PO 25 mg DAILY@0700 [facility] Administration Tamsulosin HCl 0.4 mg 09/10/18 08:30 Flomax - PO DAILY@0830 [facility] Trimethoprim/Sulfamethoxazole 1 each 09/10/18 10:00 Bactrim Ds - PO DAILY [facility] Home Medications Medication Instructions Recorded Albuterol Sulfate Inhaler - 2 inh PO QID PRN 07/30/18 [Ventolin HFA Inhaler -] Atorvastatin Ca [Lipitor] 20 mg PO HS 07/30/18 Furosemide [Lasix -] 20 mg PO DAILY #30 tablet 08/05/18 Sulfamethoxazole/Trimethoprim 1 tab PO DAILY #30 tablet 08/05/18 [Bactrim DS -] Tamsulosin HCl [Flomax] 1 cap PO DAILY #30 capsule 08/05/18 Aspirin [ASA -] 81 mg PO DAILY tab.chew 08/18/18 predniSONE [Deltasone -] 10 mg PO DAILY #30 tablet 08/18/18 Bictegrav/Emtricit/Tenofov Ala 1 tablet PO DAILY 09/02/18 [Biktarvy 50-200-25 mg Tablet] Budesonide/Formeterol Fumarate 1 puff IH BID 09/02/18 [SYMBICORT 160/4.5mcg -] Docusate Calcium 60 mg PO BID 09/02/18 ASSESSMENT AND PLAN: Patient is a 63 yo male with hx of diastlic heart failure, HLP, HIV, COPD, 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 # Acute hypoxic hypercapnic resp failure due to acute on chronic diastolic CHF exacerbation on lasix continue # Acute COPD exacerbation: on Bipap continouesly , steroid continue , nebs, symbicort # H/o HIV: cont current medication on Px bactrim #New onset DM: cont SSI , levemir, januvia. # Pulm nodule. 7 mm in RML. f/u as out pt. DVT PX: lovenox patient needs Bipap
[2018-09-10] MEDS: TAMSULOSIN HCL 0.4 MG CAP PO SCH (09:10)
[2018-09-10] MEDS: ACETYLCYSTEINE 20% 200MG/ML 4 ML VIAL *FOR ORAL / INH USE ONLY NEB SCH ×2 (09:29→21:00)
[2018-09-10] MEDS: ALBUTEROL SO4 0.083% IH SOL 2.5 MG/3 ML VIAL.NEB. NEB PRN (09:29)
--- NOTE | 2018-09-10 09:55 | PN ---
Progress Note (short form) - Note Progress Note: remains on bipap son at bedside, reports better night lst night remins on steroids and iv diuretics Vital Signs Period Temp Pulse Resp BP Sys/Clifton Pulse Ox Last 24 Hr 96.7 F-98.4 F 90-105 18-20 132-160/69-84 97-100 cor-rrr lungs decreased bs at bases abd soft,nt ext +edema CBC, BMP 09/10/18 06:10 09/10/18 06:10 Microbiology 09/02/18 12:10 Blood - Peripheral Venous Blood Culture - Final NO GROWTH AFTER 5 DAYS INCUBATION 09/02/18 12:10 Blood - Peripheral Venous Blood Culture - Final NO GROWTH AFTER 5 DAYS INCUBATION 09/02/18 12:10 Urine - Urine Clean Catch Urine Culture - Final Diphtheroid/Corynebacterium Current Medications Acetylcysteine (Mucomyst 20 Oral / Inh Use Only*) 600 mg NEB BID [facility] Last Admin: 09/10/18 09:29 Dose: 600 mg Albuterol Sulfate (Ventolin 0.083% Nebulizer Soln -) 1 amp NEB Q4H PRN PRN Reason: SHORT OF BREATH/WHEEZING Last Admin: 09/10/18 09:29 Dose: 1 amp Albuterol Sulfate (Ventolin 0.083% Nebulizer Soln -) 1 amp NEB RQID [facility] Last Admin: 09/10/18 08:04 Dose: 1 amp Aspirin (Asa -) 81 mg PO DAILY [facility] Atorvastatin Calcium (Lipitor -) 20 mg PO HS [facility] Last Admin: 09/09/18 21:42 Dose: 20 mg Budesonide/Formoterol Fumarate (Symbicort 160/4.5mcg -) 1 puff IH BID [facility] Last Admin: 09/09/18 21:42 Dose: 1 puff Diltiazem HCl (Cardizem Cd -) 120 mg PO DAILY [facility] Enoxaparin Sodium (Lovenox -) 40 mg SQ DAILY [facility] Furosemide (Lasix Injection -) 40 mg IVPUSH DAILY [facility] Last Admin: 09/09/18 09:42 Dose: 40 mg Insulin Aspart (Novolog Vial Sliding Scale -) 1 vial SQ TIDAC [facility]; Protocol Last Admin: 09/10/18 07:12 Dose: 6 units Insulin Detemir (Levemir Vial) 5 units SQ AM [facility] Last Admin: 09/10/18 07:11 Dose: 5 units Methylprednisolone Sodium Succinate (Solu-Medrol -) 30 mg IVPUSH BID [facility] Last Admin: 09/09/18 21:42 Dose: 30 mg Sitagliptin Phosphate (Januvia -) 25 mg PO DAILY@0700 [facility] Last Admin: 09/10/18 07:11 Dose: 25 mg Tamsulosin HCl (Flomax -) 0.4 mg PO DAILY@0830 [facility] Trimethoprim/Sulfamethoxazole (Bactrim Ds -) 1 each PO DAILY [facility] tivicay/descovy a/p improved sob- management per pulmonary/cardiology, ?pulmonary htn stable HIV- biktarvy not available, switch to descovy/tivicay while in hospital , has his meds at home volume overload- on diuretics copd remains on steroids now receiving insulin as well-will need diabetic teaching spoke with son about low salt diet at home Problem List - Problems (1) Shortness of breath Code(s): R06.02 - SHORTNESS OF BREATH (2) Bilateral leg edema Code(s): R60.0 - LOCALIZED EDEMA (3) Human immunodeficiency virus (HIV) disease Code(s): B20 - HUMAN IMMUNODEFICIENCY VIRUS [HIV] DISEASE (4) COPD (chronic obstructive pulmonary disease) Code(s): J44.9 - CHRONIC OBSTRUCTIVE PULMONARY DISEASE, UNSPECIFIED Qualifiers: COPD type: emphysema Emphysema type: centrilobular Qualified Code(s): J43.2 - Centrilobular emphysema
--- NOTE | 2018-09-10 10:10 | PN ---
Progress Note, Physician History of Present Illness: Dyspnea improved now on NC eating lunch. - Current Medication List Current Medications: Active Medications Acetylcysteine (Mucomyst 20 Oral / Inh Use Only*) 600 mg NEB BID [facility] Last Admin: 09/10/18 09:29 Dose: 600 mg Albuterol Sulfate (Ventolin 0.083% Nebulizer Soln -) 1 amp NEB Q4H PRN PRN Reason: SHORT OF BREATH/WHEEZING Last Admin: 09/10/18 09:29 Dose: 1 amp Albuterol Sulfate (Ventolin 0.083% Nebulizer Soln -) 1 amp NEB RQID [facility] Last Admin: 09/10/18 08:04 Dose: 1 amp Aspirin (Asa -) 81 mg PO DAILY [facility] Atorvastatin Calcium (Lipitor -) 20 mg PO HS [facility] Last Admin: 09/09/18 21:42 Dose: 20 mg Budesonide/Formoterol Fumarate (Symbicort 160/4.5mcg -) 1 puff IH BID [facility] Last Admin: 09/09/18 21:42 Dose: 1 puff Diltiazem HCl (Cardizem Cd -) 120 mg PO DAILY [facility] Enoxaparin Sodium (Lovenox -) 40 mg SQ DAILY [facility] Furosemide (Lasix Injection -) 40 mg IVPUSH DAILY [facility] Last Admin: 09/09/18 09:42 Dose: 40 mg Insulin Aspart (Novolog Vial Sliding Scale -) 1 vial SQ TIDAC [facility]; Protocol Last Admin: 09/10/18 07:12 Dose: 6 units Insulin Detemir (Levemir Vial) 5 units SQ AM [facility] Last Admin: 09/10/18 07:11 Dose: 5 units Methylprednisolone Sodium Succinate (Solu-Medrol -) 30 mg IVPUSH BID [facility] Last Admin: 09/09/18 21:42 Dose: 30 mg Sitagliptin Phosphate (Januvia -) 25 mg PO DAILY@0700 [facility] Last Admin: 09/10/18 07:11 Dose: 25 mg Tamsulosin HCl (Flomax -) 0.4 mg PO DAILY@0830 [facility] Trimethoprim/Sulfamethoxazole (Bactrim Ds -) 1 each PO DAILY [facility] - Objective Vital Signs: Vital Signs Temperature 97.4 F L 09/10/18 06:00 Pulse Rate 100 H 09/10/18 08:25 Respiratory Rate 20 09/10/18 06:00 Blood Pressure 132/83 09/10/18 06:00 O2 Sat by Pulse Oximetry (%) 97 09/10/18 08:25 Constitutional: Yes: No Distress, Calm Neck: Yes: Supple Cardiovascular: Yes: Regular Rate and Rhythm Respiratory: Yes: Regular, Diminished, On Nasal O2 Gastrointestinal: Yes: Normal Bowel Sounds, Soft, Abdomen, Obese Edema: Yes Edema: LLE: 2+, RLE: 2+ Labs: CBC, BMP 09/10/18 06:10 09/10/18 06:10 INR, PTT INR 0.95 (0.83-1.09) 09/02/18 12:10 Problem List - Problems (1) Dyspnea Code(s): R06.00 - DYSPNEA, UNSPECIFIED Qualifiers: Dyspnea type: unspecified Qualified Code(s): R06.00 - Dyspnea, unspecified (2) Acute on chronic diastolic heart failure Code(s): I50.33 - ACUTE ON CHRONIC DIASTOLIC (CONGESTIVE) HEART FAILURE (3) Acute on chronic respiratory failure with hypoxia Code(s): J96.21 - ACUTE AND CHRONIC RESPIRATORY FAILURE WITH HYPOXIA (4) Bilateral leg edema Code(s): R60.0 - LOCALIZED EDEMA (5) Hyperlipidemia Code(s): E78.5 - HYPERLIPIDEMIA, UNSPECIFIED Qualifiers: Hyperlipidemia type: pure hypercholesterolemia Qualified Code(s): E78.00 - Pure hypercholesterolemia, unspecified; E78.0 - Pure hypercholesterolemia (6) COPD (chronic obstructive pulmonary disease) Code(s): J44.9 - CHRONIC OBSTRUCTIVE PULMONARY DISEASE, UNSPECIFIED Qualifiers: COPD type: emphysema Emphysema type: centrilobular Qualified Code(s): J43.2 - Centrilobular emphysema Assessment/Plan 09/04/2018: Chest CT: Stable granulomas and pulm nodule 07/09/2018 Chest CTA: No PE, mild centrilobular emphysema, mildly dilated main PA, interval resolution of focal right posterior basilar infiltrate or ATX peviously seen 06/06/2018 09/03/2018 Echo: Nondiagnostic, poor windows 07/10/2018 Echo: Normal LV and RV size and fxn LVEF 60-65%, tr TR 1. Recurrent acute on chronic diastolic heart failure 2. COPD with exacerbation 3. Acute Hypoxic and hypercapneic Respiratory Failure 4. HIV on HAART 5. History of pulmonary TB 6. Hyperlipidemia 7. Pulmonary nodule PLAN: 1. Continue IV diuresis with monitoring renal function and electrolytes 2. Continue ASA 81 mg QD, Lipitor 20 mg QHS and Cardizem CD 120 mg QD 3. Bronchodilator, BIPAP and O2 as needed and IV steroid taper 4. Outpatient PFT 5. DVT prophylaxis
[2018-09-10] MEDS ORDERED: PT OWN MED DRAWER 7, Y5N ONE (10:47)
[2018-09-10] MEDS: SULFAMETHOXAZOLE/TRIMETHOPRIM 800MG/160MG D.S. TABLET PO SCH (10:50)
[2018-09-10] MEDS: ASPIRIN 81 MG CHEWABLE TABLETS PO SCH (10:50)
[2018-09-10] MEDS: methylPREDNISolone NA SUCC 40 MG/1 ML VIAL IVPUSH SCH ×2 (10:51→22:02)
[2018-09-10] MEDS: FUROSEMIDE 40 MG/4 ML INJECTABLE VIAL IVPUSH SCH (10:51)
[2018-09-10] MEDS: BUDESONIDE/FORMETEROL FUMARATE 160/4.5 mcg INHALER IH SCH ×2 (10:52→22:03)
[2018-09-10] MEDS: DOLUTEGRAVIR SODIUM 50 MG TABLET (NON-FORMULARY) PO SCH (10:53)
[2018-09-10] MEDS: EMTRICITABINE/TENOFOV ALAFENAM (DESCOVY) TABLET PO SCH (10:53)
[2018-09-10] MEDS: ENOXAPARIN NA (PORCINE) 40 MG/0.4 ML DISP.SYRIN SQ SCH (10:53)
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
[2018-09-10] MEDS ORDERED: FUROSEMIDE 40 MG/4 ML INJECTABLE VIAL IVPUSH ONE (14:00)
--- NOTE | 2018-09-10 14:14 | PN ---
Physical Exam: SUBJECTIVE: Patient seen and examined at the bedside. No acute events overnight. OBJECTIVE: Vital Signs Period Temp Pulse Resp BP Sys/Clifton Pulse Ox Last 24 Hr 96.7 F-97.9 F 90-123 20-20 122-144/69-84 92-100 GENERAL: The patient is awake, alert, and fully oriented, in no acute distress. HEAD: Normal with no signs of trauma. NECK: supple. LUNGS: Breath sounds decreased, clear to auscultation bilaterally, no wheezes, no crackles, no accessory muscle use. HEART: Regular rate and rhythm, S1, S2 without murmur, rub or gallop. ABDOMEN: Soft, nontender, nondistended, normoactive bowel sounds, no guarding, no rebound. EXTREMITIES: 2+ pitting edema. NEUROLOGICAL: Cranial nerves II through XII grossly intact. Normal speech, gait not observed. PSYCH: Normal mood, normal affect. SKIN: Warm, no rashes or lesions noted Laboratory Results - last 24 hr 09/09/18 09/10/18 09/10/18 16:49 06:00 06:10 WBC 8.7 RBC 3.99 L Hgb 14.1 Hct 42.1 MCV 105.6 H MCH 35.3 H MCHC 33.5 RDW 18.1 H Plt Count 253 MPV 8.1 Absolute Neuts (auto) 7.7 Neutrophils % 88.5 H Lymphocytes % 5.8 L Monocytes % 5.4 Eosinophils % 0.0 Basophils % 0.3 Nucleated RBC % 0 Sodium Potassium Chloride Carbon Dioxide Anion Gap BUN Creatinine Est GFR (CKD-EPI)AfAm Est GFR (CKD-EPI)NonAf POC Glucometer 302 260 Random Glucose Calcium Total Bilirubin AST ALT Alkaline Phosphatase Total Protein Albumin 09/10/18 09/10/18 06:10 11:19 WBC RBC Hgb Hct MCV MCH MCHC RDW Plt Count MPV Absolute Neuts (auto) Neutrophils % Lymphocytes % Monocytes % Eosinophils % Basophils % Nucleated RBC % Sodium 139 Potassium 4.8 Chloride 96 L Carbon Dioxide 38 H Anion Gap 5 L BUN 30.8 H Creatinine 1.0 Est GFR (CKD-EPI)AfAm 93.08 Est GFR (CKD-EPI)NonAf 80.31 POC Glucometer 352 Random Glucose 250 H Calcium 8.8 Total Bilirubin 0.5 AST 19 ALT 53 Alkaline Phosphatase 41 L Total Protein 6.7 Albumin 3.5 Active Medications Generic Name Dose Route Start Last Admin Trade Name Freq PRN Reason Stop Dose Admin Acetylcysteine 600 mg 09/09/18 22:00 09/10/18 09:29 Mucomyst 20 Oral / Inh Use Only* NEB 600 mg BID GLENNY Administration Albuterol Sulfate 1 amp 09/09/18 20:19 09/10/18 09:29 Ventolin 0.083% Nebulizer Soln - NEB 1 amp Q4H PRN Administration SHORT OF BREATH/WHEEZING Albuterol Sulfate 1 amp 09/10/18 08:00 09/10/18 11:50 Ventolin 0.083% Nebulizer Soln - NEB 1 amp RQID GLENNY Administration Aspirin 81 mg 09/10/18 10:00 09/10/18 10:50 Asa - PO 81 mg DAILY GLENNY Administration Atorvastatin Calcium 20 mg 09/09/18 22:00 09/09/18 21:42 Lipitor - PO 20 mg HS GLENNY Administration Budesonide/Formoterol Fumarate 1 puff 09/09/18 22:00 09/10/18 10:52 Symbicort 160/4.5mcg - IH 1 puff BID GLENNY Administration Diltiazem HCl 120 mg 09/10/18 10:00 09/10/18 10:51 Cardizem Cd - PO 120 mg DAILY GLENNY Administration Enoxaparin Sodium 40 mg 09/10/18 10:00 09/10/18 10:53 Lovenox - SQ 40 mg DAILY GLENNY Administration Furosemide 40 mg 09/09/18 10:00 09/10/18 10:51 Lasix Injection - IVPUSH 40 mg DAILY GLENNY Administration Insulin Aspart 1 vial 09/10/18 07:00 09/10/18 11:35 Novolog Vial Sliding Scale - SQ 10 units TIDAC GLENNY Administration Protocol Insulin Detemir 5 units 09/10/18 07:00 09/10/18 07:11 Levemir Vial SQ 5 units AM GLENNY Administration Methylprednisolone Sodium Succinate 30 mg 09/09/18 11:32 09/10/18 10:51 Solu-Medrol - IVPUSH 09/10/18 23:00 30 mg BID GLENNY Administration Prednisone 40 mg 09/11/18 10:00 Deltasone - PO DAILY GLENNY Sitagliptin Phosphate 25 mg 09/10/18 07:00 09/10/18 07:11 Januvia - PO 25 mg DAILY@0700 GLENNY Administration Tamsulosin HCl 0.4 mg 09/10/18 08:30 09/10/18 09:10 Flomax - PO 0.4 mg DAILY@0830 GLENNY Administration Trimethoprim/Sulfamethoxazole 1 each 09/10/18 10:00 09/10/18 10:50 Bactrim Ds - PO 1 each DAILY GLENNY Administration ASSESSMENT/PLAN: This is a 63 y/o M w a PMH of COPD, HIV, Miliary TB, HLD, diastolic HF who presented for SOB, b/l leg swelling X 1 day. Images: 07/09/2018 Chest CTA: No PE, mild centrilobular emphysema, mildly dilated main PA, interval resolution of focal right posterior basilar infiltrate previously seen 06/06/2018 09/03/2018 Echo: Nondiagnostic, poor windows 07/10/2018 Echo: Normal LV and RV size and fxn LVEF 60-65%, tr TR CXR 09/02/18- no infiltrates, no congestion, or cardiomegaly CT chest 09/04- awaiting results DVT- negative b/l EKG- QTC 466, no acute ischemic changes, consistent with prior EKG. CT scan 09/05/18: granulomatous disease and lung nodule stable compared to prior imaging. Multiple calcified granulomas of the noted scattered through the lungs unchanged from prior imaging. A noncalcified nodule within the medial segment of RML is again noted measuring 7mm best seen on image 77. There is motion artifact which degrades image quality. No endobronchial lesions seen. Pleura- negative calified rt hilar and left axillary LN's From TB. vascular calfications noted including coronary. #Acute on chronic hypercapnic hypoxemic respiratory failure/Acute CHF exacerbation - continue symbicort - daily weights, measure YUSRA's -Cardio consult(Dr. Turner)- continue lasix 40mg IV push daily, ASA 81, Lipitor 20mgQHS, and cardiazem 120mg QD. recommendation appreciated Pulm(Dr Soto): start PO prednsone 40mg tm AM, continue lasix, daily weights, inhaled bronchodilators, BIPAP. Recommendation appreciated. RML nodule - RML nodule 7 mm consistent with prior CXR. - CT as above in images. - f/u as outpatient #Newly dx DM - needs diabetic diet counseling bc patient noncompliant and sugars rising due to poor diet. - continue insulin sliding scale - A1C- 6.8 - continue januvia - glucose stable. - diabetic diet, wt loss (BMI 31). #HLD - continue atorvastatin 20mg PO HS #HIV - Dr. Machado- CD4 149, viral load- 50 on bactrim and descorvy/tiviay, needs better diabetes management. - Biktarvy is not on formulary here so its been held. - continue the descovy/tivicay. #FEN - fluids not indicated due to volume overload - monitor electrolytes - low Na/diabetic diet DVT PPX: lovenox 40mgSQ Dispo: upon d/c pt will need pulmonary rehab and pt agreed to this. Visit type - Emergency Visit Emergency Visit: No - New Patient This patient is new to me today: No - Critical Care Critical Care patient: No - Discharge Referral Referred to [facility] Med P.C.: No ATTENDING PHYSICIAN STATEMENT I saw and evaluated the patient. I reviewed the resident's note and discussed the case with the resident. I agree with the resident's findings and plan as documented. SUBJECTIVE: OBJECTIVE: ASSESSMENT AND PLAN:
[2018-09-10] MEDS: ATORVASTATIN CA 20 MG TABLET (FP) PO SCH (21:45)
[2018-09-11] MEDS: INSULIN (LEVEMIR) 100 UNITS/ML UNITS SQ SCH (06:25)
[2018-09-11] MEDS: INSULIN SLIDING SCALE (NOVOLOG) 1 VIAL SQ SCH ×3 (06:25→17:22)
[2018-09-11 07:00] LABS: BASO % 0.4 % (0-2.0); HEMATOCRIT 41.3 % (35.4-49); HEMOGLOBIN 13.9 GM/dL (11.7-16.9); LYMPH % 5.7 % (8-40); MCH 35.6 pg (25.7-33.7); MCHC 33.7 g/dl (32.0-35.9); MEAN CELL VOLUME 105.6 fl (80-96); MONO % 6.9 % (3.8-10.2); RBC 3.91 M/mm3 (4.00-5.60); RDW 17.8 % (11.9-15.9); WHITE BLOOD COUNT 8.4 K/mm3 (4.0-10.0)
[2018-09-11 07:23] LABS: ALBUMIN 3.4 g/dl (3.4-5.0); BILIRUBIN,TOTAL 0.5 mg/dL (0.2-1); BLOOD UREA NITROGEN 30.2 mg/dL (7-18); CALCIUM 8.8 mg/dL (8.5-10.1); CREATININE 0.9 mg/dL (0.55-1.3); POTASSIUM 4.9 mmol/L (3.5-5.1); TOT PROT 6.5 g/dl (6.4-8.2)
[2018-09-11] MEDS: ALBUTEROL SO4 0.083% IH SOL 2.5 MG/3 ML VIAL.NEB. NEB SCH ×4 (08:07→20:50)
[2018-09-11 08:12] LABS: PLATELET COUNT 255 K/MM3 (134-434)
[2018-09-11 09:33] LABS: ANISOCYTOSIS 1+; MACROCYTOSIS 1+; PLATELET ESTIMATE NORMAL
[2018-09-11] MEDS: ACETYLCYSTEINE 20% 200MG/ML 4 ML VIAL *FOR ORAL / INH USE ONLY NEB SCH (10:00)
[2018-09-11] MEDS ORDERED: PT OWN MED DRAWER 7, Y5N ONE ×2 (10:08→18:48)
[2018-09-11] MEDS: TAMSULOSIN HCL 0.4 MG CAP PO SCH (10:19)
[2018-09-11] MEDS: DOLUTEGRAVIR SODIUM 50 MG TABLET (NON-FORMULARY) PO SCH (10:22)
[2018-09-11] MEDS: ASPIRIN 81 MG CHEWABLE TABLETS PO SCH (10:22)
[2018-09-11] MEDS: predniSONE 20 MG TABLET (UD) PO SCH (10:22)
[2018-09-11] MEDS: ENOXAPARIN NA (PORCINE) 40 MG/0.4 ML DISP.SYRIN SQ SCH (10:22)
[2018-09-11] MEDS: SULFAMETHOXAZOLE/TRIMETHOPRIM 800MG/160MG D.S. TABLET PO SCH (10:22)
[2018-09-11] MEDS: BUDESONIDE/FORMETEROL FUMARATE 160/4.5 mcg INHALER IH SCH ×2 (10:23→22:31)
[2018-09-11] MEDS: FUROSEMIDE 40 MG/4 ML INJECTABLE VIAL IVPUSH SCH (10:23)
[2018-09-11] MEDS: EMTRICITABINE/TENOFOV ALAFENAM (DESCOVY) TABLET PO SCH (10:23)
--- NOTE | 2018-09-11 11:52 | PN ---
Progress Note (short form) - Note Progress Note: PULMONARY Remains on BiPAP but states breathing is improving. +nonproductive cough. Vital Signs Period Temp Pulse Resp BP Sys/Clifton Pulse Ox Last 24 Hr 97.8 F-98.5 F 92-123 20-21 120-134/61-76 94-99 Gen: mildly tachypneic on BiPAP Heart: tachycardic, regular Lung: scattered rhonchi Abd: soft, nontender Ext: no edema CBC, BMP 09/11/18 06:05 09/11/18 06:05 Active Medications Acetylcysteine (Mucomyst 20 Oral / Inh Use Only*) 600 mg NEB BID [facility] Last Admin: 09/10/18 21:00 Dose: 600 mg Albuterol Sulfate (Ventolin 0.083% Nebulizer Soln -) 1 amp NEB Q4H PRN PRN Reason: SHORT OF BREATH/WHEEZING Last Admin: 09/10/18 09:29 Dose: 1 amp Albuterol Sulfate (Ventolin 0.083% Nebulizer Soln -) 1 amp NEB RQID [facility] Last Admin: 09/11/18 08:07 Dose: 1 amp Aspirin (Asa -) 81 mg PO DAILY [facility] Last Admin: 09/11/18 10:22 Dose: 81 mg Atorvastatin Calcium (Lipitor -) 20 mg PO HS [facility] Last Admin: 09/10/18 21:45 Dose: 20 mg Budesonide/Formoterol Fumarate (Symbicort 160/4.5mcg -) 1 puff IH BID [facility] Last Admin: 09/11/18 10:23 Dose: 1 puff Diltiazem HCl (Cardizem Cd -) 120 mg PO DAILY [facility] Last Admin: 09/11/18 10:22 Dose: 120 mg Enoxaparin Sodium (Lovenox -) 40 mg SQ DAILY [facility] Last Admin: 09/11/18 10:22 Dose: 40 mg Furosemide (Lasix Injection -) 40 mg IVPUSH DAILY [facility] Last Admin: 09/11/18 10:23 Dose: 40 mg Insulin Aspart (Novolog Vial Sliding Scale -) 1 vial SQ TIDAC [facility]; Protocol Last Admin: 09/11/18 11:44 Dose: 8 units Insulin Detemir (Levemir Vial) 5 units SQ AM [facility] Last Admin: 09/11/18 06:25 Dose: 5 units Prednisone (Deltasone -) 40 mg PO DAILY [facility] Last Admin: 09/11/18 10:22 Dose: 40 mg Sitagliptin Phosphate (Januvia -) 25 mg PO DAILY@0700 [facility] Last Admin: 09/11/18 06:26 Dose: 25 mg Tamsulosin HCl (Flomax -) 0.4 mg PO DAILY@0830 [facility] Last Admin: 09/11/18 10:19 Dose: 0.4 mg Trimethoprim/Sulfamethoxazole (Bactrim Ds -) 1 each PO DAILY [facility] Last Admin: 09/11/18 10:22 Dose: 1 each A/P Acute on Chronic Hypoxic Respiratory Failure Acute Hypercapneic Respiratory Failure improving Acute COPD Exacerbation Acute on Chronic Diastolic Heart Failure Lung Nodule HIV - continue lasix - monitor urine output, creatinine - prednisone taper - inhaled bronchodilators - BiPAP to assist in work of breathing - transition to nasal cannula - DVT prophylaxis
--- NOTE | 2018-09-11 12:11 | PN ---
Progress Note, Physician History of Present Illness: Resting on bipap. - Current Medication List Current Medications: Active Medications Acetylcysteine (Mucomyst 20 Oral / Inh Use Only*) 600 mg NEB BID REPLACED BY [facility] Last Admin: 09/11/18 10:00 Dose: 600 mg Albuterol Sulfate (Ventolin 0.083% Nebulizer Soln -) 1 amp NEB Q4H PRN PRN Reason: SHORT OF BREATH/WHEEZING Last Admin: 09/10/18 09:29 Dose: 1 amp Albuterol Sulfate (Ventolin 0.083% Nebulizer Soln -) 1 amp NEB RQID REPLACED BY [facility] Last Admin: 09/11/18 12:00 Dose: 1 amp Aspirin (Asa -) 81 mg PO DAILY [facility]PL[facility] BY [facility] Last Admin: 09/11/18 10:22 Dose: 81 mg Atorvastatin Calcium (Lipitor -) 20 mg PO HS REPLACED BY [facility] Last Admin: 09/10/18 21:45 Dose: 20 mg Budesonide/Formoterol Fumarate (Symbicort 160/4.5mcg -) 1 puff IH BID REPLACED BY [facility] Last Admin: 09/11/18 10:23 Dose: 1 puff Diltiazem HCl (Cardizem Cd -) 120 mg PO DAILY [facility] Last Admin: 09/11/18 10:22 Dose: 120 mg Enoxaparin Sodium (Lovenox -) 40 mg SQ DAILY [facility] Last Admin: 09/11/18 10:22 Dose: 40 mg Furosemide (Lasix Injection -) 40 mg IVPUSH DAILY [facility]PL[facility] BY [facility] Last Admin: 09/11/18 10:23 Dose: 40 mg Insulin Aspart (Novolog Vial Sliding Scale -) 1 vial SQ TIDAC REPLACED BY [facility]; Protocol Last Admin: 09/11/18 11:44 Dose: 8 units Insulin Detemir (Levemir Vial) 5 units SQ AM REPLACED BY [facility] Last Admin: 09/11/18 06:25 Dose: 5 units Prednisone (Deltasone -) 40 mg PO DAILY [facility] BY [facility] Last Admin: 09/11/18 10:22 Dose: 40 mg Sitagliptin Phosphate (Januvia -) 25 mg PO DAILY@0700 REPLACED BY [facility] Last Admin: 09/11/18 06:26 Dose: 25 mg Tamsulosin HCl (Flomax -) 0.4 mg PO DAILY@0830 REPLACED BY [facility] Last Admin: 09/11/18 10:19 Dose: 0.4 mg Trimethoprim/Sulfamethoxazole (Bactrim Ds -) 1 each PO DAILY REPLACED BY [facility] Last Admin: 09/11/18 10:22 Dose: 1 each - Objective Vital Signs: Vital Signs Temperature 98.3 F 09/11/18 06:00 Pulse Rate 111 H 09/11/18 07:56 Respiratory Rate 21 H 09/11/18 07:56 Blood Pressure 134/61 09/11/18 07:56 O2 Sat by Pulse Oximetry (%) 94 L 09/11/18 12:00 Constitutional: Yes: No Distress, Calm Neck: Yes: Supple Cardiovascular: Yes: Regular Rate and Rhythm Respiratory: Yes: Regular, Diminished, On BiPap, Rhonchi Gastrointestinal: Yes: Soft, Hypoactive Bowel Sounds Edema: Yes Edema: LLE: 1+, RLE: 1+ Labs: CBC, BMP 09/11/18 06:05 09/11/18 06:05 INR, PTT INR 0.95 (0.83-1.09) 09/02/18 12:10 Problem List - Problems (1) Dyspnea Code(s): R06.00 - DYSPNEA, UNSPECIFIED Qualifiers: Dyspnea type: unspecified Qualified Code(s): R06.00 - Dyspnea, unspecified (2) Acute on chronic diastolic heart failure Code(s): I50.33 - ACUTE ON CHRONIC DIASTOLIC (CONGESTIVE) HEART FAILURE (3) Acute on chronic respiratory failure with hypoxia Code(s): J96.21 - ACUTE AND CHRONIC RESPIRATORY FAILURE WITH HYPOXIA (4) Bilateral leg edema Code(s): R60.0 - LOCALIZED EDEMA (5) Hyperlipidemia Code(s): E78.5 - HYPERLIPIDEMIA, UNSPECIFIED Qualifiers: Hyperlipidemia type: pure hypercholesterolemia Qualified Code(s): E78.00 - Pure hypercholesterolemia, unspecified; E78.0 - Pure hypercholesterolemia (6) COPD (chronic obstructive pulmonary disease) Code(s): J44.9 - CHRONIC OBSTRUCTIVE PULMONARY DISEASE, UNSPECIFIED Qualifiers: COPD type: emphysema Emphysema type: centrilobular Qualified Code(s): J43.2 - Centrilobular emphysema Assessment/Plan 09/04/2018: Chest CT: Stable granulomas and pulm nodule 07/09/2018 Chest CTA: No PE, mild centrilobular emphysema, mildly dilated main PA, interval resolution of focal right posterior basilar infiltrate or ATX peviously seen 06/06/2018 09/03/2018 Echo: Nondiagnostic, poor windows 07/10/2018 Echo: Normal LV and RV size and fxn LVEF 60-65%, tr TR 1. Recurrent acute on chronic diastolic heart failure 2. COPD with exacerbation 3. Acute Hypoxic and hypercapneic Respiratory Failure 4. HIV on HAART 5. History of pulmonary TB 6. Hyperlipidemia 7. Pulmonary nodule PLAN: 1. Continue IV diuresis with monitoring renal function and electrolytes 2. Continue ASA 81 mg QD, Lipitor 20 mg QHS and Cardizem CD 120 mg QD 3. Bronchodilator, BIPAP and O2 as needed and oral steroid taper 4. Outpatient PFT 5. DVT prophylaxis
[2018-09-11] MEDS ORDERED: GLYCERIN 1 RECTAL SUPPOSITORY, ADULT RC PRN (12:33)
[2018-09-11] MEDS ORDERED: DOCUSATE SODIUM 100 MG CAPSULE (FP) PO PRN (12:34)
[2018-09-11] MEDS ORDERED: FUROSEMIDE 40 MG/4 ML INJECTABLE VIAL IVPUSH ONE (14:00)
--- NOTE | 2018-09-11 15:01 | PN ---
Physical Exam: SUBJECTIVE: Patient seen and examined at the bedside. NO acute events overnight. OBJECTIVE: Vital Signs Period Temp Pulse Resp BP Sys/Clifton Pulse Ox Last 24 Hr 97.8 F-98.5 F 92-111 20-21 113-134/61-77 94-99 GENERAL: The patient is awake, alert, and fully oriented, in no acute distress. HEAD: Normal with no signs of trauma. EYES: sclera anicteric, conjunctiva clear. No ptosis. NECK: supple. LUNGS: Breath sounds decreased b/l, no wheezes, no crackles, no accessory muscle use. HEART: Regular rate and rhythm, S1, S2 without murmur, rub or gallop. ABDOMEN: Soft, nontender, nondistended, normoactive bowel sounds, no guarding, no rebound, no masses. EXTREMITIES: 1+ edema, 2+ pulses, warm, well-perfused. NEUROLOGICAL: Cranial nerves II through XII grossly intact. Normal speech, gait not observed. PSYCH: Normal mood, normal affect. SKIN: Warm, dry, no rashes or lesions noted Laboratory Results - last 24 hr 09/10/18 09/11/18 09/11/18 15:38 06:05 06:05 WBC 8.4 RBC 3.91 L Hgb 13.9 Hct 41.3 MCV 105.6 H MCH 35.6 H MCHC 33.7 RDW 17.8 H Plt Count 255 MPV 8.0 Absolute Neuts (auto) 7.3 Neutrophils % 87.0 H Neutrophils % (Manual) 86.0 H Band Neutrophils % 0.0 Lymphocytes % 5.7 L Lymphocytes % (Manual) 8.0 D Monocytes % 6.9 Monocytes % (Manual) 6 D Eosinophils % 0.0 Eosinophils % (Manual) 0.0 Basophils % 0.4 Basophils % (Manual) 0.0 Myelocytes % (Man) 0 Promyelocytes % (Man) 0 Blast Cells % (Manual) 0 Nucleated RBC % 1 H Metamyelocytes 0 Hypochromia 0 Platelet Estimate Normal Polychromasia 0 Poikilocytosis 0 Anisocytosis 1+ Microcytosis 0 Macrocytosis 1+ Sodium 136 Potassium 4.9 Chloride 95 L Carbon Dioxide 37 H Anion Gap 5 L BUN 30.2 H Creatinine 0.9 Est GFR (CKD-EPI)AfAm 105.72 Est GFR (CKD-EPI)NonAf 91.22 POC Glucometer 372 Random Glucose 286 H Calcium 8.8 Total Bilirubin 0.5 AST 17 ALT 52 Alkaline Phosphatase 42 L Total Protein 6.5 Albumin 3.4 09/11/18 09/11/18 06:24 11:43 WBC RBC Hgb Hct MCV MCH MCHC RDW Plt Count MPV Absolute Neuts (auto) Neutrophils % Neutrophils % (Manual) Band Neutrophils % Lymphocytes % Lymphocytes % (Manual) Monocytes % Monocytes % (Manual) Eosinophils % Eosinophils % (Manual) Basophils % Basophils % (Manual) Myelocytes % (Man) Promyelocytes % (Man) Blast Cells % (Manual) Nucleated RBC % Metamyelocytes Hypochromia Platelet Estimate Polychromasia Poikilocytosis Anisocytosis Microcytosis Macrocytosis Sodium Potassium Chloride Carbon Dioxide Anion Gap BUN Creatinine Est GFR (CKD-EPI)AfAm Est GFR (CKD-EPI)NonAf POC Glucometer 302 317 Random Glucose Calcium Total Bilirubin AST ALT Alkaline Phosphatase Total Protein Albumin Active Medications Generic Name Dose Route Start Last Admin Trade Name Freq PRN Reason Stop Dose Admin Acetylcysteine 600 mg 09/09/18 22:00 09/11/18 10:00 Mucomyst 20 Oral / Inh Use Only* NEB 600 mg BID GLENNY Administration Albuterol Sulfate 1 amp 09/09/18 20:19 09/10/18 09:29 Ventolin 0.083% Nebulizer Soln - NEB 1 amp Q4H PRN Administration SHORT OF BREATH/WHEEZING Albuterol Sulfate 1 amp 09/10/18 08:00 09/11/18 12:00 Ventolin 0.083% Nebulizer Soln - NEB 1 amp RQID GLENNY Administration Aspirin 81 mg 09/10/18 10:00 09/11/18 10:22 Asa - PO 81 mg DAILY GLENNY Administration Atorvastatin Calcium 20 mg 09/09/18 22:00 09/10/18 21:45 Lipitor - PO 20 mg HS GLENNY Administration Budesonide/Formoterol Fumarate 1 puff 09/09/18 22:00 09/11/18 10:23 Symbicort 160/4.5mcg - IH 1 puff BID GLENNY Administration Diltiazem HCl 120 mg 09/10/18 10:00 09/11/18 10:22 Cardizem Cd - PO 120 mg DAILY GLENNY Administration Docusate Sodium 100 mg 09/11/18 22:00 Colace - PO BID GLENNY Enoxaparin Sodium 40 mg 09/10/18 10:00 09/11/18 10:22 Lovenox - SQ 40 mg DAILY GLENNY Administration Furosemide 40 mg 09/09/18 10:00 09/11/18 10:23 Lasix Injection - IVPUSH 40 mg DAILY GLENNY Administration Glycerin 1 each 09/11/18 12:33 Glycerin Suppository Adult - RC ONCE PRN CONSTIPATION Glycerin 1 each 09/12/18 10:00 Glycerin Suppository Adult - RC DAILY PRN CONSTIPATION Insulin Aspart 1 vial 09/10/18 07:00 09/11/18 11:44 Novolog Vial Sliding Scale - SQ 8 units TIDAC GLENNY Administration Protocol Insulin Detemir 5 units 09/10/18 07:00 09/11/18 06:25 Levemir Vial SQ 5 units AM GLENNY Administration Prednisone 40 mg 09/11/18 10:00 09/11/18 10:22 Deltasone - PO 40 mg DAILY GLENNY Administration Sitagliptin Phosphate 25 mg 09/10/18 07:00 09/11/18 06:26 Januvia - PO 25 mg DAILY@0700 GLENNY Administration Tamsulosin HCl 0.4 mg 09/10/18 08:30 09/11/18 10:19 Flomax - PO 0.4 mg DAILY@0830 GLENNY Administration Trimethoprim/Sulfamethoxazole 1 each 09/10/18 10:00 09/11/18 10:22 Bactrim Ds - PO 1 each DAILY GLENNY Administration ASSESSMENT/PLAN: This is a 63 y/o M w a PMH of COPD, HIV, Miliary TB, HLD, diastolic HF who presented for SOB, b/l leg swelling X 1 day. Images: 07/09/2018 Chest CTA: No PE, mild centrilobular emphysema, mildly dilated main PA, interval resolution of focal right posterior basilar infiltrate previously seen 06/06/2018 09/03/2018 Echo: Nondiagnostic, poor windows 07/10/2018 Echo: Normal LV and RV size and fxn LVEF 60-65%, tr TR CXR 09/02/18- no infiltrates, no congestion, or cardiomegaly CT chest 09/04- awaiting results DVT- negative b/l EKG- QTC 466, no acute ischemic changes, consistent with prior EKG. CT scan 09/05/18: granulomatous disease and lung nodule stable compared to prior imaging. Multiple calcified granulomas of the noted scattered through the lungs unchanged from prior imaging. A noncalcified nodule within the medial segment of RML is again noted measuring 7mm best seen on image 77. There is motion artifact which degrades image quality. No endobronchial lesions seen. Pleura- negative calified rt hilar and left axillary LN's From TB. vascular calfications noted including coronary. #Acute on chronic hypercapnic hypoxemic respiratory failure/Acute CHF exacerbation - continue symbicort - daily weights, measure YUSAR's -Cardio consult(Dr. Turner)- continue lasix 40mg IV push daily, ASA 81, Lipitor 20mgQHS, and cardiazem 120mg QD. recommendation appreciated Pulm(Dr Raya)- start PO prednsone 40mg daily, continue lasix, daily weights, inhaled bronchodilators, BIPAP. Recommendation appreciated. RML nodule - RML nodule 7 mm consistent with prior CXR. - CT as above in images. - f/u as outpatient #Newly dx DM - needs diabetic diet counseling bc patient noncompliant and sugars rising due to poor diet. - continue insulin sliding scale - A1C- 6.8 - continue januvia - glucose stable. - diabetic diet, wt loss (BMI 31). #HLD - continue atorvastatin 20mg PO HS #HIV - Dr. Machado- CD4 149, viral load- 50 on bactrim and descorvy/tiviay, needs better diabetes management. - Biktarvy is not on formulary here so its been held. - continue the descovy/tivicay. Constipation - started on colase 100 BID - rectal glycerin suppostories PRN once given. #FEN - fluids not indicated due to volume overload - monitor electrolytes - low Na/diabetic diet DVT PPX: lovenox 40mgSQ Dispo: upon d/c pt will need pulmonary rehab and pt agreed to this. Visit type - Emergency Visit Emergency Visit: No - New Patient This patient is new to me today: No - Critical Care Critical Care patient: No - Discharge Referral Referred to [facility] Med P.C.: No ATTENDING PHYSICIAN STATEMENT I saw and evaluated the patient. I reviewed the resident's note and discussed the case with the resident. I agree with the resident's findings and plan as documented. SUBJECTIVE: OBJECTIVE: ASSESSMENT AND PLAN:
--- NOTE | 2018-09-11 15:48 | PN ---
Teaching Attending Note Name of Resident: Enoch Shabazz ATTENDING PHYSICIAN STATEMENT I saw and evaluated the patient. I reviewed the resident's note and discussed the case with the resident. I agree with the resident's findings and plan as documented. SUBJECTIVE: Patient continues to wear Bipap. OBJECTIVE: Vital Signs Temperature 98.3 F 09/11/18 14:00 Pulse Rate 110 H 09/11/18 14:00 Respiratory Rate 20 09/11/18 14:00 Blood Pressure 113/77 09/11/18 14:00 O2 Sat by Pulse Oximetry (%) 94 L 09/11/18 12:00 GENERAL: The patient is awake, alert, and fully oriented, in no acute distress. HEAD: Normal with no signs of trauma. EYES: PERRL, extraocular movements intact, sclera anicteric, conjunctiva clear. ENT: Ears normal, oropharynx clear without exudates, moist mucous membranes. NECK: Trachea midline, full range of motion, supple. LUNGS: decreased BS BL, positive for Rhonchi, no crackles, no accessory muscle use. HEART: Regular rate and rhythm, S1, S2 without murmur, rub or gallop. ABDOMEN: Soft, NT, ND, normoactive bowel sounds, no guarding, no rebound, no hepatosplenomegaly, no masses. EXTREMITIES: 2+ pulses, warm, well-perfused, no edema. NEUROLOGICAL: Cranial nerves II through XII grossly intact. Normal speech, gait not observed. PSYCH: Normal mood, normal affect. SKIN: Warm, dry, normal turgor, no rashes or lesions noted CBCD WBC 8.4 K/mm3 (4.0-10.0) 09/11/18 06:05 RBC 3.91 M/mm3 (4.00-5.60) L 09/11/18 06:05 Hgb 13.9 GM/dL (11.7-16.9) 09/11/18 06:05 Hct 41.3 % (35.4-49) 09/11/18 06:05 MCV 105.6 fl (80-96) H 09/11/18 06:05 MCHC 33.7 g/dl (32.0-35.9) 09/11/18 06:05 RDW 17.8 % (11.9-15.9) H 09/11/18 06:05 Plt Count 255 K/MM3 (134-434) 09/11/18 06:05 MPV 8.0 fl (7.5-11.1) 09/11/18 06:05 CMP Sodium 136 mmol/L (136-145) 09/11/18 06:05 Potassium 4.9 mmol/L (3.5-5.1) 09/11/18 06:05 Chloride 95 mmol/L (98-107) L 09/11/18 06:05 Carbon Dioxide 37 mmol/L (21-32) H 09/11/18 06:05 Anion Gap 5 MMOL/L (8-16) L 09/11/18 06:05 BUN 30.2 mg/dL (7-18) H 09/11/18 06:05 Creatinine 0.9 mg/dL (0.55-1.3) 09/11/18 06:05 Random Glucose 286 mg/dL (74-106) H 09/11/18 06:05 Calcium 8.8 mg/dL (8.5-10.1) 09/11/18 06:05 Total Bilirubin 0.5 mg/dL (0.2-1) 09/11/18 06:05 AST 17 U/L (15-37) 09/11/18 06:05 ALT 52 U/L (13-61) 09/11/18 06:05 Alkaline Phosphatase 42 U/L (45-117) L 09/11/18 06:05 Total Protein 6.5 g/dl (6.4-8.2) 09/11/18 06:05 Albumin 3.4 g/dl (3.4-5.0) 09/11/18 06:05 CARDIAC ENZYMES Troponin I 0.02 ng/ml (0.00-0.05) 09/03/18 06:27 Current Medications Generic Name Dose Route Start Last Admin Trade Name Freq PRN Reason Stop Dose Admin Acetylcysteine 600 mg 09/09/18 22:00 09/11/18 10:00 Mucomyst 20 Oral / Inh Use Only* NEB 600 mg BID GLENNY Administration Albuterol Sulfate 1 amp 09/09/18 20:19 09/10/18 09:29 Ventolin 0.083% Nebulizer Soln - NEB 1 amp Q4H PRN Administration SHORT OF BREATH/WHEEZING Albuterol Sulfate 1 amp 09/10/18 08:00 09/11/18 12:00 Ventolin 0.083% Nebulizer Soln - NEB 1 amp RQID GLENNY Administration Aspirin 81 mg 09/10/18 10:00 09/11/18 10:22 Asa - PO 81 mg DAILY GLENNY Administration Atorvastatin Calcium 20 mg 09/09/18 22:00 09/10/18 21:45 Lipitor - PO 20 mg HS GLENNY Administration Budesonide/Formoterol Fumarate 1 puff 09/09/18 22:00 09/11/18 10:23 Symbicort 160/4.5mcg - IH 1 puff BID GLENNY Administration Diltiazem HCl 120 mg 09/10/18 10:00 09/11/18 10:22 Cardizem Cd - PO 120 mg DAILY GLENNY Administration Docusate Sodium 100 mg 09/11/18 22:00 Colace - PO BID GLENNY Enoxaparin Sodium 40 mg 09/10/18 10:00 09/11/18 10:22 Lovenox - SQ 40 mg DAILY GLENNY Administration Furosemide 40 mg 09/09/18 10:00 09/11/18 10:23 Lasix Injection - IVPUSH 40 mg DAILY GLENNY Administration Glycerin 1 each 09/11/18 12:33 Glycerin Suppository Adult - RC ONCE PRN CONSTIPATION Glycerin 1 each 09/12/18 10:00 Glycerin Suppository Adult - RC DAILY PRN CONSTIPATION Insulin Aspart 1 vial 09/10/18 07:00 09/11/18 11:44 Novolog Vial Sliding Scale - SQ 8 units TIDAC [facility] Administration Protocol Insulin Detemir 5 units 09/10/18 07:00 09/11/18 06:25 Levemir Vial SQ 5 units AM GLENNY Administration Prednisone 40 mg 09/11/18 10:00 09/11/18 10:22 Deltasone - PO 40 mg DAILY GLENNY Administration Sitagliptin Phosphate 25 mg 09/10/18 07:00 09/11/18 06:26 Januvia - PO 25 mg DAILY@0700 GLENNY Administration Tamsulosin HCl 0.4 mg 09/10/18 08:30 09/11/18 10:19 Flomax - PO 0.4 mg DAILY@0830 GLENNY Administration Trimethoprim/Sulfamethoxazole 1 each 09/10/18 10:00 09/11/18 10:22 Bactrim Ds - PO 1 each DAILY [facility] Administration Home Medications Medication Instructions Recorded Albuterol Sulfate Inhaler - 2 inh PO QID PRN 07/30/18 [Ventolin HFA Inhaler -] Atorvastatin Ca [Lipitor] 20 mg PO HS 07/30/18 Furosemide [Lasix -] 20 mg PO DAILY #30 tablet 08/05/18 Sulfamethoxazole/Trimethoprim 1 tab PO DAILY #30 tablet 08/05/18 [Bactrim DS -] Tamsulosin HCl [Flomax] 1 cap PO DAILY #30 capsule 08/05/18 Aspirin [ASA -] 81 mg PO DAILY tab.chew 08/18/18 predniSONE [Deltasone -] 10 mg PO DAILY #30 tablet 08/18/18 Bictegrav/Emtricit/Tenofov Ala 1 tablet PO DAILY 09/02/18 [Biktarvy 50-200-25 mg Tablet] Budesonide/Formeterol Fumarate 1 puff IH BID 09/02/18 [SYMBICORT 160/4.5mcg -] Docusate Calcium 60 mg PO BID 09/02/18 ASSESSMENT AND PLAN: Patient is a 63 yo male with hx of diastlic heart failure, HLP, HIV, COPD, 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 # Acute hypoxic hypercapnic respiratory failure due to acute on chronic diastolic CHF exacerbation on Lasix continue #End stage COPD with Acute Exacerbation : on Bipap continouesly, steroid continue , nebs, symbicort # H/o HIV: cont current medication on Px Bactrim #New onset DM: cont SSI , levemir, januvia. # Pulm nodule. 7 mm in RML. f/u as out pt. DVT PX: lovenox patient needs continues Bipap
[2018-09-11] MEDS: DOCUSATE SODIUM 100 MG CAPSULE (FP) PO SCH (22:31)
[2018-09-11] MEDS: ATORVASTATIN CA 20 MG TABLET (FP) PO SCH (22:31)
[2018-09-12] MEDS: INSULIN SLIDING SCALE (NOVOLOG) 1 VIAL SQ SCH ×3 (06:30→17:02)
[2018-09-12] MEDS: INSULIN (LEVEMIR) 100 UNITS/ML UNITS SQ SCH (06:30)
[2018-09-12] MEDS ORDERED: INSULIN (LEVEMIR) 100 UNITS/ML UNITS SQ ONE (06:38)
[2018-09-12] MEDS ORDERED: INSULIN SLIDING SCALE (NOVOLOG) 1 VIAL SQ ONE (06:38)
[2018-09-12 07:59] LABS: ALBUMIN 3.3 g/dl (3.4-5.0); BILIRUBIN,TOTAL 1.4 mg/dL (0.2-1); BLOOD UREA NITROGEN 29.1 mg/dL (7-18); CALCIUM 8.3 mg/dL (8.5-10.1); CREATININE 0.9 mg/dL (0.55-1.3); TOT PROT 6.5 g/dl (6.4-8.2)
[2018-09-12] MEDS: ALBUTEROL SO4 0.083% IH SOL 2.5 MG/3 ML VIAL.NEB. NEB SCH ×4 (08:00→21:10)
[2018-09-12 08:04] LABS: BASO % 0.1 % (0-2.0); EOS % 0.3 % (0-4.5); HEMATOCRIT 45.1 % (35.4-49); HEMOGLOBIN 15.3 GM/dL (11.7-16.9); LYMPH % 14.9 % (8-40); MCH 35.5 pg (25.7-33.7); MCHC 33.9 g/dl (32.0-35.9); MEAN CELL VOLUME 104.8 fl (80-96); MEAN PLT VOLUME 7.8 fl (7.5-11.1); MONO % 7.8 % (3.8-10.2); NEUT % 76.9 % (42.8-82.8); RDW 17.7 % (11.9-15.9); WHITE BLOOD COUNT 9.7 K/mm3 (4.0-10.0)
[2018-09-12 08:19] LABS: PLATELET COUNT 284 K/MM3 (134-434)
[2018-09-12] MEDS: TAMSULOSIN HCL 0.4 MG CAP PO SCH (08:34)
[2018-09-12] MEDS: ACETYLCYSTEINE 20% 200MG/ML 4 ML VIAL *FOR ORAL / INH USE ONLY NEB SCH ×2 (10:00→21:10)
[2018-09-12] MEDS ORDERED: GLYCERIN 1 RECTAL SUPPOSITORY, ADULT RC PRN (10:00)
[2018-09-12 10:06] LABS: ANISOCYTOSIS 1+; MACROCYTOSIS 1+; PLATELET ESTIMATE NORMAL
[2018-09-12] MEDS ORDERED: PT OWN MED DRAWER 7, Y5N ONE (10:21)
[2018-09-12] MEDS: SULFAMETHOXAZOLE/TRIMETHOPRIM 800MG/160MG D.S. TABLET PO SCH (10:52)
[2018-09-12] MEDS: FUROSEMIDE 40 MG/4 ML INJECTABLE VIAL IVPUSH SCH (10:52)
[2018-09-12] MEDS: ENOXAPARIN NA (PORCINE) 40 MG/0.4 ML DISP.SYRIN SQ SCH (10:52)
[2018-09-12] MEDS: BUDESONIDE/FORMETEROL FUMARATE 160/4.5 mcg INHALER IH SCH ×2 (10:53→21:20)
[2018-09-12] MEDS: EMTRICITABINE/TENOFOV ALAFENAM (DESCOVY) TABLET PO SCH (10:53)
[2018-09-12] MEDS: DOLUTEGRAVIR SODIUM 50 MG TABLET (NON-FORMULARY) PO SCH (10:53)
[2018-09-12] MEDS: DOCUSATE SODIUM 100 MG CAPSULE (FP) PO SCH ×2 (10:53→21:20)
[2018-09-12] MEDS: predniSONE 20 MG TABLET (UD) PO SCH (10:53)
[2018-09-12] MEDS: ASPIRIN 81 MG CHEWABLE TABLETS PO SCH (10:56)
--- NOTE | 2018-09-12 11:15 | PN ---
Progress Note, Physician History of Present Illness: Resting on bipap. LE edema improving with diuresis. - Current Medication List Current Medications: Active Medications Acetylcysteine (Mucomyst 20 Oral / Inh Use Only*) 600 mg NEB BID [facility] Last Admin: 09/11/18 10:00 Dose: 600 mg Albuterol Sulfate (Ventolin 0.083% Nebulizer Soln -) 1 amp NEB Q4H PRN PRN Reason: SHORT OF BREATH/WHEEZING Last Admin: 09/10/18 09:29 Dose: 1 amp Albuterol Sulfate (Ventolin 0.083% Nebulizer Soln -) 1 amp NEB RQID [facility] Last Admin: 09/12/18 08:00 Dose: 1 amp Aspirin (Asa -) 81 mg PO DAILY [facility] Last Admin: 09/12/18 10:56 Dose: 81 mg Atorvastatin Calcium (Lipitor -) 20 mg PO HS [facility] Last Admin: 09/11/18 22:31 Dose: 20 mg Budesonide/Formoterol Fumarate (Symbicort 160/4.5mcg -) 1 puff IH BID [facility] Last Admin: 09/12/18 10:53 Dose: 1 puff Diltiazem HCl (Cardizem Cd -) 120 mg PO DAILY [facility] Last Admin: 09/12/18 10:53 Dose: 120 mg Docusate Sodium (Colace -) 100 mg PO BID [facility] Last Admin: 09/12/18 10:53 Dose: 100 mg Enoxaparin Sodium (Lovenox -) 40 mg SQ DAILY [facility] Last Admin: 09/12/18 10:52 Dose: 40 mg Furosemide (Lasix Injection -) 40 mg IVPUSH DAILY [facility] Last Admin: 09/12/18 10:52 Dose: 40 mg Glycerin (Glycerin Suppository Adult -) 1 each RC ONCE PRN PRN Reason: CONSTIPATION Glycerin (Glycerin Suppository Adult -) 1 each RC DAILY PRN PRN Reason: CONSTIPATION Insulin Aspart (Novolog Vial Sliding Scale -) 1 vial SQ TIDAC [facility]; Protocol Last Admin: 09/12/18 06:30 Dose: 2 units Insulin Detemir (Levemir Vial) 5 units SQ AM [facility] Last Admin: 09/12/18 06:30 Dose: 5 units Prednisone (Deltasone -) 40 mg PO DAILY [facility] Last Admin: 09/12/18 10:53 Dose: 40 mg Sitagliptin Phosphate (Januvia -) 25 mg PO DAILY@0700 [facility] Last Admin: 09/12/18 06:31 Dose: 25 mg Tamsulosin HCl (Flomax -) 0.4 mg PO DAILY@0830 [facility] Last Admin: 09/12/18 08:34 Dose: 0.4 mg Trimethoprim/Sulfamethoxazole (Bactrim Ds -) 1 each PO DAILY [facility] Last Admin: 09/12/18 10:52 Dose: 1 each - Objective Vital Signs: Vital Signs Temperature 98.1 F 09/12/18 11:00 Pulse Rate 98 H 09/12/18 11:00 Respiratory Rate 18 09/12/18 11:00 Blood Pressure 131/70 09/12/18 11:00 O2 Sat by Pulse Oximetry (%) 99 09/12/18 07:50 Constitutional: Yes: No Distress, Calm Neck: Yes: Supple Cardiovascular: Yes: Regular Rate and Rhythm Respiratory: Yes: Regular, Diminished, On BiPap Gastrointestinal: Yes: Normal Bowel Sounds, Soft Edema: Yes Edema: LLE: 1+, RLE: 1+ Labs: CBC, BMP 09/12/18 07:01 09/12/18 07:01 INR, PTT INR 0.95 (0.83-1.09) 09/02/18 12:10 Problem List - Problems (1) Dyspnea Code(s): R06.00 - DYSPNEA, UNSPECIFIED Qualifiers: Dyspnea type: unspecified Qualified Code(s): R06.00 - Dyspnea, unspecified (2) Acute on chronic diastolic heart failure Code(s): I50.33 - ACUTE ON CHRONIC DIASTOLIC (CONGESTIVE) HEART FAILURE (3) Acute on chronic respiratory failure with hypoxia Code(s): J96.21 - ACUTE AND CHRONIC RESPIRATORY FAILURE WITH HYPOXIA (4) Bilateral leg edema Code(s): R60.0 - LOCALIZED EDEMA (5) Hyperlipidemia Code(s): E78.5 - HYPERLIPIDEMIA, UNSPECIFIED Qualifiers: Hyperlipidemia type: pure hypercholesterolemia Qualified Code(s): E78.00 - Pure hypercholesterolemia, unspecified; E78.0 - Pure hypercholesterolemia (6) COPD (chronic obstructive pulmonary disease) Code(s): J44.9 - CHRONIC OBSTRUCTIVE PULMONARY DISEASE, UNSPECIFIED Qualifiers: COPD type: emphysema Emphysema type: centrilobular Qualified Code(s): J43.2 - Centrilobular emphysema Assessment/Plan 09/04/2018: Chest CT: Stable granulomas and pulm nodule 07/09/2018 Chest CTA: No PE, mild centrilobular emphysema, mildly dilated main PA, interval resolution of focal right posterior basilar infiltrate or ATX peviously seen 06/06/2018 09/03/2018 Echo: Nondiagnostic, poor windows 07/10/2018 Echo: Normal LV and RV size and fxn LVEF 60-65%, tr TR 1. Recurrent acute on chronic diastolic heart failure 2. COPD with exacerbation 3. Acute Hypoxic and hypercapneic Respiratory Failure 4. HIV on HAART 5. History of pulmonary TB 6. Hyperlipidemia 7. Pulmonary nodule PLAN: 1. Continue IV diuresis with monitoring renal function and electrolytes 2. Continue ASA 81 mg QD, Lipitor 20 mg QHS and Cardizem CD 120 mg QD 3. Bronchodilator, BIPAP and O2 as needed and oral steroid taper 4. Outpatient PFT 5. DVT prophylaxis
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
[2018-09-12] MEDS ORDERED: FUROSEMIDE 40 MG/4 ML INJECTABLE VIAL IVPUSH ONE (14:00)
--- NOTE | 2018-09-12 17:24 | PN ---
Physical Exam: SUBJECTIVE: Patient seen and examined at the bedside not shown to be in acute distress. No acute events overnight. OBJECTIVE: Vital Signs Period Temp Pulse Resp BP Sys/Clifton Pulse Ox Last 24 Hr 98.0 F-98.6 F 93-107 18-21 110-148/57-79 93-99 GENERAL: The patient is awake, alert, and fully oriented, in no acute distress. HEAD: Normal with no signs of trauma. EYES: extraocular movements grossly intact, sclera anicteric, conjunctiva clear. No ptosis. NECK: supple. LUNGS: Breath sounds decreased b/l, no wheezes, no crackles, no accessory muscle use. HEART: Regular rate and rhythm, S1, S2 without murmur, rub or gallop. ABDOMEN: Soft, nontender, nondistended, normoactive bowel sounds, no guarding, no rebound. EXTREMITIES: warm, well-perfused, 1+ edema. Laboratory Results - last 24 hr 09/11/18 09/11/18 09/12/18 17:20 22:29 05:26 WBC RBC Hgb Hct MCV MCH MCHC RDW Plt Count MPV Absolute Neuts (auto) Neutrophils % Neutrophils % (Manual) Band Neutrophils % Lymphocytes % Lymphocytes % (Manual) Monocytes % Monocytes % (Manual) Eosinophils % Eosinophils % (Manual) Basophils % Basophils % (Manual) Myelocytes % (Man) Promyelocytes % (Man) Blast Cells % (Manual) Nucleated RBC % Metamyelocytes Hypochromia Platelet Estimate Polychromasia Poikilocytosis Anisocytosis Microcytosis Macrocytosis Sodium Potassium Chloride Carbon Dioxide Anion Gap BUN Creatinine Est GFR (CKD-EPI)AfAm Est GFR (CKD-EPI)NonAf POC Glucometer 380 254 161 Random Glucose Calcium Total Bilirubin AST ALT Alkaline Phosphatase Total Protein Albumin 09/12/18 09/12/18 09/12/18 07:01 07:01 11:47 WBC 9.7 RBC 4.30 Hgb 15.3 Hct 45.1 MCV 104.8 H MCH 35.5 H MCHC 33.9 RDW 17.7 H Plt Count 284 MPV 7.8 Absolute Neuts (auto) 7.4 Neutrophils % 76.9 Neutrophils % (Manual) 82.0 Band Neutrophils % 0.0 Lymphocytes % 14.9 D Lymphocytes % (Manual) 7.0 L Monocytes % 7.8 Monocytes % (Manual) 5 Eosinophils % 0.3 D Eosinophils % (Manual) 0.0 Basophils % 0.1 Basophils % (Manual) 0.0 Myelocytes % (Man) 1 D Promyelocytes % (Man) 0 Blast Cells % (Manual) 0 Nucleated RBC % 0 Metamyelocytes 3 H D Hypochromia 0 Platelet Estimate Normal Polychromasia 0 Poikilocytosis 0 Anisocytosis 1+ Microcytosis 0 Macrocytosis 1+ Sodium 137 Potassium 4.0 Chloride 95 L Carbon Dioxide 38 H Anion Gap 4 L BUN 29.1 H Creatinine 0.9 Est GFR (CKD-EPI)AfAm 105.72 Est GFR (CKD-EPI)NonAf 91.22 POC Glucometer 152 Random Glucose 211 H Calcium 8.3 L Total Bilirubin 1.4 H AST 19 ALT 50 Alkaline Phosphatase 40 L Total Protein 6.5 Albumin 3.3 L 09/12/18 17:00 WBC RBC Hgb Hct MCV MCH MCHC RDW Plt Count MPV Absolute Neuts (auto) Neutrophils % Neutrophils % (Manual) Band Neutrophils % Lymphocytes % Lymphocytes % (Manual) Monocytes % Monocytes % (Manual) Eosinophils % Eosinophils % (Manual) Basophils % Basophils % (Manual) Myelocytes % (Man) Promyelocytes % (Man) Blast Cells % (Manual) Nucleated RBC % Metamyelocytes Hypochromia Platelet Estimate Polychromasia Poikilocytosis Anisocytosis Microcytosis Macrocytosis Sodium Potassium Chloride Carbon Dioxide Anion Gap BUN Creatinine Est GFR (CKD-EPI)AfAm Est GFR (CKD-EPI)NonAf POC Glucometer 298 Random Glucose Calcium Total Bilirubin AST ALT Alkaline Phosphatase Total Protein Albumin Active Medications Generic Name Dose Route Start Last Admin Trade Name Freq PRN Reason Stop Dose Admin Acetylcysteine 600 mg 09/09/18 22:00 09/12/18 10:00 Mucomyst 20 Oral / Inh Use Only* NEB 600 mg BID GLENNY Administration Albuterol Sulfate 1 amp 09/09/18 20:19 09/10/18 09:29 Ventolin 0.083% Nebulizer Soln - NEB 1 amp Q4H PRN Administration SHORT OF BREATH/WHEEZING Albuterol Sulfate 1 amp 09/10/18 08:00 09/12/18 16:06 Ventolin 0.083% Nebulizer Soln - NEB 1 amp RQID GLENNY Administration Aspirin 81 mg 09/10/18 10:00 09/12/18 10:56 Asa - PO 81 mg DAILY GLENNY Administration Atorvastatin Calcium 20 mg 09/09/18 22:00 09/11/18 22:31 Lipitor - PO 20 mg HS GLENNY Administration Budesonide/Formoterol Fumarate 1 puff 09/09/18 22:00 09/12/18 10:53 Symbicort 160/4.5mcg - IH 1 puff BID GLENNY Administration Diltiazem HCl 120 mg 09/10/18 10:00 09/12/18 10:53 Cardizem Cd - PO 120 mg DAILY GLENNY Administration Docusate Sodium 100 mg 09/11/18 22:00 09/12/18 10:53 Colace - PO 100 mg BID GLENNY Administration Enoxaparin Sodium 40 mg 09/10/18 10:00 09/12/18 10:52 Lovenox - SQ 40 mg DAILY GLENNY Administration Furosemide 40 mg 09/09/18 10:00 09/12/18 10:52 Lasix Injection - IVPUSH 40 mg DAILY GLENNY Administration Glycerin 1 each 09/11/18 12:33 Glycerin Suppository Adult - RC ONCE PRN CONSTIPATION Glycerin 1 each 09/12/18 10:00 Glycerin Suppository Adult - RC DAILY PRN CONSTIPATION Insulin Aspart 1 vial 09/10/18 07:00 09/12/18 17:02 Novolog Vial Sliding Scale - SQ 2 units TIDAC [facility] Administration Protocol Insulin Detemir 5 units 09/10/18 07:00 09/12/18 06:30 Levemir Vial SQ 5 units AM GLENNY Administration Prednisone 40 mg 09/11/18 10:00 09/12/18 10:53 Deltasone - PO 40 mg DAILY GLENNY Administration Sitagliptin Phosphate 25 mg 09/10/18 07:00 09/12/18 06:31 Januvia - PO 25 mg DAILY@0700 GLENNY Administration Tamsulosin HCl 0.4 mg 09/10/18 08:30 09/12/18 08:34 Flomax - PO 0.4 mg DAILY@0830 GLENNY Administration Trimethoprim/Sulfamethoxazole 1 each 09/10/18 10:00 09/12/18 10:52 Bactrim Ds - PO 1 each DAILY GLENNY Administration ASSESSMENT/PLAN: This is a 63 y/o M w a PMH of COPD, HIV, Miliary TB, HLD, diastolic HF who presented for SOB, b/l leg swelling X 1 day. Images: 07/09/2018 Chest CTA: No PE, mild centrilobular emphysema, mildly dilated main PA, interval resolution of focal right posterior basilar infiltrate previously seen 06/06/2018 09/03/2018 Echo: Nondiagnostic, poor windows 07/10/2018 Echo: Normal LV and RV size and fxn LVEF 60-65%, tr TR CXR 09/02/18- no infiltrates, no congestion, or cardiomegaly CT chest 09/04- awaiting results DVT- negative b/l EKG- QTC 466, no acute ischemic changes, consistent with prior EKG. CT scan 09/05/18: granulomatous disease and lung nodule stable compared to prior imaging. Multiple calcified granulomas of the noted scattered through the lungs unchanged from prior imaging. A noncalcified nodule within the medial segment of RML is again noted measuring 7mm best seen on image 77. There is motion artifact which degrades image quality. No endobronchial lesions seen. Pleura- negative calified rt hilar and left axillary LN's From TB. vascular calfications noted including coronary. CXR- 09/12: No Pna, infiltrate, or chf, or pulmonary edema noted. #Acute on chronic hypercapnic hypoxemic respiratory failure/Acute CHF exacerbation - continue symbicort - daily weights, measure YUSRA's -Cardio consult(Dr. Turner)- continue IV lasix 40mg IV push daily, ASA 81, Lipitor 20mgQHS, and cardiazem 120mg QD. recommendation appreciated Pulm(Dr Raya)- continue PO prednisone taper 40mg daily, continue IV lasix, daily weights, inhaled bronchodilators, BIPAP. Recommendation appreciated. RML nodule - RML nodule 7 mm consistent with prior CXR. - CT as above in images. - f/u as outpatient #Newly dx DM - needs diabetic diet counseling bc patient noncompliant and sugars rising due to poor diet. - continue insulin sliding scale - A1C- 6.8 - continue januvia - glucose stable. - diabetic diet, wt loss (BMI 31). #HLD - continue atorvastatin 20mg PO HS #HIV - Dr. Machado- CD4 149, viral load- 50 on bactrim and descorvy/tiviay, needs better diabetes management. - Biktarvy is not on formulary here so its been held. - continue the descovy/tivicay. # Constipation - started on colase 100 BID - rectal glycerin suppostories PRN once given. - pt asypmtomatic currently #FEN - fluids not indicated due to volume overload - monitor electrolytes - low Na/diabetic diet DVT PPX: lovenox 40mgSQ Dispo: upon d/c pt will need pulmonary rehab and pt agreed to this. Visit type - Emergency Visit Emergency Visit: No - New Patient This patient is new to me today: No - Critical Care Critical Care patient: No - Discharge Referral Referred to [facility] Med [facility].C[facility] No ATTENDING PHYSICIAN STATEMENT I saw and evaluated the patient. I reviewed the resident's note and discussed the case with the resident. I agree with the resident's findings and plan as documented. SUBJECTIVE: OBJECTIVE: ASSESSMENT AND PLAN:
[2018-09-12] MEDS: MUPIROCIN 2% TOPICAL OINTMENT FOR DECOLONIZATION NS SCH ×2 (19:59→20:00)
--- NOTE | 2018-09-12 20:35 | PN ---
Teaching Attending Note Name of Resident: Enoch Shabazz ATTENDING PHYSICIAN STATEMENT I saw and evaluated the patient. I reviewed the resident's note and discussed the case with the resident. I agree with the resident's findings and plan as documented. SUBJECTIVE: Patient is slightly better on NC. Bipap at night. OBJECTIVE: Vital Signs Temperature 98.6 F 09/12/18 14:29 Pulse Rate 107 H 09/12/18 14:29 Respiratory Rate 18 09/12/18 20:01 Blood Pressure 114/57 L 09/12/18 14:29 O2 Sat by Pulse Oximetry (%) 95 09/12/18 20:01 GENERAL: The patient is awake, alert, and fully oriented, in no acute distress. HEAD: Normal with no signs of trauma. EYES: PERRL, extraocular movements intact, sclera anicteric, conjunctiva clear. ENT: Ears normal, oropharynx clear without exudates, moist mucous membranes. NECK: Trachea midline, full range of motion, supple. LUNGS: decreased BS BL, positive for Rhonchi, no crackles, no accessory muscle use. HEART: Regular rate and rhythm, S1, S2 without murmur, rub or gallop. ABDOMEN: Soft, NT, ND, normoactive bowel sounds, no guarding, no rebound, no hepatosplenomegaly, no masses. EXTREMITIES: 2+ pulses, warm, well-perfused, no edema. NEUROLOGICAL: Cranial nerves II through XII grossly intact. Normal speech, gait not observed. PSYCH: Normal mood, normal affect. SKIN: Warm, dry, normal turgor, no rashes or lesions noted CBCD WBC 9.7 K/mm3 (4.0-10.0) 09/12/18 07:01 RBC 4.30 M/mm3 (4.00-5.60) 09/12/18 07:01 Hgb 15.3 GM/dL (11.7-16.9) 09/12/18 07:01 Hct 45.1 % (35.4-49) 09/12/18 07:01 MCV 104.8 fl (80-96) H 09/12/18 07:01 MCHC 33.9 g/dl (32.0-35.9) 09/12/18 07:01 RDW 17.7 % (11.9-15.9) H 09/12/18 07:01 Plt Count 284 K/MM3 (134-434) 09/12/18 07:01 MPV 7.8 fl (7.5-11.1) 09/12/18 07:01 CMP Sodium 137 mmol/L (136-145) 09/12/18 07:01 Potassium 4.0 mmol/L (3.5-5.1) 09/12/18 07:01 Chloride 95 mmol/L (98-107) L 09/12/18 07:01 Carbon Dioxide 38 mmol/L (21-32) H 09/12/18 07:01 Anion Gap 4 MMOL/L (8-16) L 09/12/18 07:01 BUN 29.1 mg/dL (7-18) H 09/12/18 07:01 Creatinine 0.9 mg/dL (0.55-1.3) 09/12/18 07:01 Random Glucose 211 mg/dL (74-106) H 09/12/18 07:01 Calcium 8.3 mg/dL (8.5-10.1) L 09/12/18 07:01 Total Bilirubin 1.4 mg/dL (0.2-1) H 09/12/18 07:01 AST 19 U/L (15-37) 09/12/18 07:01 ALT 50 U/L (13-61) 09/12/18 07:01 Alkaline Phosphatase 40 U/L (45-117) L 09/12/18 07:01 Total Protein 6.5 g/dl (6.4-8.2) 09/12/18 07:01 Albumin 3.3 g/dl (3.4-5.0) L 09/12/18 07:01 CARDIAC ENZYMES Troponin I 0.02 ng/ml (0.00-0.05) 09/03/18 06:27 Current Medications Generic Name Dose Route Start Last Admin Trade Name Freq PRN Reason Stop Dose Admin Acetylcysteine 600 mg 09/09/18 22:00 09/12/18 10:00 Mucomyst 20 Oral / Inh Use Only* NEB 600 mg BID GLENNY Administration Albuterol Sulfate 1 amp 09/09/18 20:19 09/10/18 09:29 Ventolin 0.083% Nebulizer Soln - NEB 1 amp Q4H PRN Administration SHORT OF BREATH/WHEEZING Albuterol Sulfate 1 amp 09/10/18 08:00 09/12/18 16:06 Ventolin 0.083% Nebulizer Soln - NEB 1 amp RQID GLENNY Administration Aspirin 81 mg 09/10/18 10:00 09/12/18 10:56 Asa - PO 81 mg DAILY GLENNY Administration Atorvastatin Calcium 20 mg 09/09/18 22:00 09/11/18 22:31 Lipitor - PO 20 mg HS GLENNY Administration Budesonide/Formoterol Fumarate 1 puff 09/09/18 22:00 09/12/18 10:53 Symbicort 160/4.5mcg - IH 1 puff BID GLENNY Administration Diltiazem HCl 120 mg 09/10/18 10:00 09/12/18 10:53 Cardizem Cd - PO 120 mg DAILY GLENNY Administration Docusate Sodium 100 mg 09/11/18 22:00 09/12/18 10:53 Colace - PO 100 mg BID GLENNY Administration Enoxaparin Sodium 40 mg 09/10/18 10:00 09/12/18 10:52 Lovenox - SQ 40 mg DAILY GLENNY Administration Furosemide 40 mg 09/09/18 10:00 09/12/18 10:52 Lasix Injection - IVPUSH 40 mg DAILY GLENNY Administration Glycerin 1 each 09/11/18 12:33 Glycerin Suppository Adult - RC ONCE PRN CONSTIPATION Glycerin 1 each 09/12/18 10:00 Glycerin Suppository Adult - RC DAILY PRN CONSTIPATION Insulin Aspart 1 vial 09/10/18 07:00 09/12/18 17:02 Novolog Vial Sliding Scale - SQ 2 units TIDAC [facility] Administration Protocol Insulin Detemir 5 units 09/10/18 07:00 09/12/18 06:30 Levemir Vial SQ 5 units AM GLENNY Administration Prednisone 40 mg 09/11/18 10:00 09/12/18 10:53 Deltasone - PO 40 mg DAILY GLENNY Administration Sitagliptin Phosphate 25 mg 09/10/18 07:00 09/12/18 06:31 Januvia - PO 25 mg DAILY@0700 GLENNY Administration Tamsulosin HCl 0.4 mg 09/10/18 08:30 09/12/18 08:34 Flomax - PO 0.4 mg DAILY@0830 GLENNY Administration Trimethoprim/Sulfamethoxazole 1 each 09/10/18 10:00 09/12/18 10:52 Bactrim Ds - PO 1 each DAILY GLENNY Administration Home Medications Medication Instructions Recorded Albuterol Sulfate Inhaler - 2 inh PO QID PRN 07/30/18 [Ventolin HFA Inhaler -] Atorvastatin Ca [Lipitor] 20 mg PO HS 07/30/18 Furosemide [Lasix -] 20 mg PO DAILY #30 tablet 08/05/18 Sulfamethoxazole/Trimethoprim 1 tab PO DAILY #30 tablet 08/05/18 [Bactrim DS -] Tamsulosin HCl [Flomax] 1 cap PO DAILY #30 capsule 08/05/18 Aspirin [ASA -] 81 mg PO DAILY tab.chew 08/18/18 predniSONE [Deltasone -] 10 mg PO DAILY #30 tablet 08/18/18 Bictegrav/Emtricit/Tenofov Ala 1 tablet PO DAILY 09/02/18 [Biktarvy 50-200-25 mg Tablet] Budesonide/Formeterol Fumarate 1 puff IH BID 09/02/18 [SYMBICORT 160/4.5mcg -] Docusate Calcium 60 mg PO BID 09/02/18 ASSESSMENT AND PLAN: Patient is a 63 yo male with hx of diastolic heart failure, HLP, HIV, COPD, 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 # Acute hypoxic hypercapnic respiratory failure due to acute on chronic diastolic CHF exacerbation on Lasix continue ; BIpap at night and as needed during day time. #End stage COPD with Acute Exacerbation : on Bipap at night and prn , on NC now continuelsy , steroid continue , nebs, symbicort # H/o HIV: cont current medication on Px Bactrim #New onset DM: cont SSI , levemir, januvia. # Pulm nodule. 7 mm in RML. f/u as out pt. DVT PX: lovenox Bipap prn
[2018-09-12] MEDS: ATORVASTATIN CA 20 MG TABLET (FP) PO SCH (21:20)
[2018-09-13] MEDS: INSULIN SLIDING SCALE (NOVOLOG) 1 VIAL SQ SCH ×3 (06:33→17:08)
[2018-09-13] MEDS: INSULIN (LEVEMIR) 100 UNITS/ML UNITS SQ SCH (06:33)
[2018-09-13 06:56] LABS: BASO % 0.1 % (0-2.0); EOS % 0.6 % (0-4.5); HEMATOCRIT 46.8 % (35.4-49); HEMOGLOBIN 15.6 GM/dL (11.7-16.9); LYMPH % 17.4 % (8-40); MCH 35.3 pg (25.7-33.7); MCHC 33.3 g/dl (32.0-35.9); MEAN CELL VOLUME 106.1 fl (80-96); MEAN PLT VOLUME 8.2 fl (7.5-11.1); MONO % 7.7 % (3.8-10.2); NEUT % 74.2 % (42.8-82.8); PLATELET COUNT 278 K/MM3 (134-434); RBC 4.41 M/mm3 (4.00-5.60); RDW 17.5 % (11.9-15.9); WHITE BLOOD COUNT 10.6 K/mm3 (4.0-10.0)
[2018-09-13 07:02] LABS: ALBUMIN 3.2 g/dl (3.4-5.0); BILIRUBIN,TOTAL 0.4 mg/dL (0.2-1); BLOOD UREA NITROGEN 32.7 mg/dL (7-18); CALCIUM 8.6 mg/dL (8.5-10.1); POTASSIUM 3.9 mmol/L (3.5-5.1); TOT PROT 6.2 g/dl (6.4-8.2)
[2018-09-13] MEDS: TAMSULOSIN HCL 0.4 MG CAP PO SCH (08:43)
[2018-09-13] MEDS: ACETYLCYSTEINE 20% 200MG/ML 4 ML VIAL *FOR ORAL / INH USE ONLY NEB SCH ×2 (09:30→20:32)
[2018-09-13] MEDS: ALBUTEROL SO4 0.083% IH SOL 2.5 MG/3 ML VIAL.NEB. NEB SCH ×4 (09:30→20:32)
[2018-09-13] MEDS: SULFAMETHOXAZOLE/TRIMETHOPRIM 800MG/160MG D.S. TABLET PO SCH (10:10)
[2018-09-13] MEDS: predniSONE 20 MG TABLET (UD) PO SCH (10:10)
[2018-09-13] MEDS: FUROSEMIDE 40 MG/4 ML INJECTABLE VIAL IVPUSH SCH (10:11)
[2018-09-13] MEDS: ENOXAPARIN NA (PORCINE) 40 MG/0.4 ML DISP.SYRIN SQ SCH (10:11)
[2018-09-13] MEDS: ASPIRIN 81 MG CHEWABLE TABLETS PO SCH (10:13)
[2018-09-13] MEDS ORDERED: PT OWN MED DRAWER 7, Y5N ONE (10:13)
[2018-09-13] MEDS: EMTRICITABINE/TENOFOV ALAFENAM (DESCOVY) TABLET PO SCH (10:13)
[2018-09-13] MEDS: DOCUSATE SODIUM 100 MG CAPSULE (FP) PO SCH ×2 (10:14→21:17)
[2018-09-13] MEDS: DOLUTEGRAVIR SODIUM 50 MG TABLET (NON-FORMULARY) PO SCH (10:14)
[2018-09-13] MEDS: BUDESONIDE/FORMETEROL FUMARATE 160/4.5 mcg INHALER IH SCH ×2 (10:14→21:17)
[2018-09-13 11:54] LABS: ANISOCYTOSIS 1+; MACROCYTOSIS 1+; PLATELET ESTIMATE NORMAL
--- NOTE | 2018-09-13 14:01 | PN ---
Progress Note (short form) - Note Progress Note: Sitting at the edge of the bed on NC O2. Reports that breathing is better. Intake & Output 09/10/18 09/11/18 09/12/18 09/13/18 23:59 23:59 23:59 23:59 Intake Total 3090 570 1150 Output Total 2280 2850 3370 600 Balance 810 -2280 -2220 -600 Weight 188 lb 184 lb 6 oz 186 lb 8 oz 185 lb 4 oz Last Vital Signs Temp Pulse Resp BP Pulse Ox 97.9 F 110 H 18 106/61 93 L 09/13/18 08:44 09/13/18 08:44 09/13/18 08:44 09/13/18 08:44 09/13/18 11:31 Active Medications Acetylcysteine (Mucomyst 20 Oral / Inh Use Only*) 600 mg NEB BID@0800,1999 [facility] Last Admin: 09/13/18 09:30 Dose: 600 mg Albuterol Sulfate (Ventolin 0.083% Nebulizer Soln -) 1 amp NEB Q4H PRN PRN Reason: SHORT OF BREATH/WHEEZING Last Admin: 09/10/18 09:29 Dose: 1 amp Albuterol Sulfate (Ventolin 0.083% Nebulizer Soln -) 1 amp NEB RQID [facility] Last Admin: 09/13/18 11:31 Dose: 1 amp Aspirin (Asa -) 81 mg PO DAILY [facility] Last Admin: 09/13/18 10:13 Dose: 81 mg Atorvastatin Calcium (Lipitor -) 20 mg PO HS [facility] Last Admin: 09/12/18 21:20 Dose: 20 mg Budesonide/Formoterol Fumarate (Symbicort 160/4.5mcg -) 1 puff IH BID [facility] Last Admin: 09/13/18 10:14 Dose: 1 puff Diltiazem HCl (Cardizem Cd -) 120 mg PO DAILY [facility] Last Admin: 09/13/18 10:10 Dose: 120 mg Docusate Sodium (Colace -) 100 mg PO BID [facility] Last Admin: 09/13/18 10:14 Dose: 100 mg Enoxaparin Sodium (Lovenox -) 40 mg SQ DAILY [facility] Last Admin: 09/13/18 10:11 Dose: 40 mg Furosemide (Lasix Injection -) 40 mg IVPUSH DAILY [facility] Last Admin: 09/13/18 10:11 Dose: 40 mg Glycerin (Glycerin Suppository Adult -) 1 each RC ONCE PRN PRN Reason: CONSTIPATION Glycerin (Glycerin Suppository Adult -) 1 each RC DAILY PRN PRN Reason: CONSTIPATION Insulin Aspart (Novolog Vial Sliding Scale -) 1 vial SQ TIDAC [facility]; Protocol Last Admin: 09/13/18 12:13 Dose: 4 units Insulin Detemir (Levemir Vial) 5 units SQ AM [facility] Last Admin: 09/13/18 06:33 Dose: 5 units Prednisone (Deltasone -) 40 mg PO DAILY [facility] Last Admin: 09/13/18 10:10 Dose: 40 mg Sitagliptin Phosphate (Januvia -) 25 mg PO DAILY@0700 [facility] Last Admin: 09/13/18 06:33 Dose: 25 mg Tamsulosin HCl (Flomax -) 0.4 mg PO DAILY@0830 [facility] Last Admin: 09/13/18 08:43 Dose: 0.4 mg Trimethoprim/Sulfamethoxazole (Bactrim Ds -) 1 each PO DAILY [facility] Last Admin: 09/13/18 10:10 Dose: 1 each Gen: mildly tachypneic on NC O2 Heart: tachycardic, regular Lung: scattered rhonchi Abd: soft, nontender Ext: no edema Laboratory Results - last 24 hr 09/12/18 09/13/18 09/13/18 17:00 05:52 06:05 WBC 10.6 H RBC 4.41 Hgb 15.6 Hct 46.8 MCV 106.1 H MCH 35.3 H MCHC 33.3 RDW 17.5 H Plt Count 278 MPV 8.2 Absolute Neuts (auto) 7.9 Neutrophils % 74.2 Neutrophils % (Manual) 77.0 Band Neutrophils % 1.0 Lymphocytes % 17.4 Lymphocytes % (Manual) 14.0 D Monocytes % 7.7 Monocytes % (Manual) 4 Eosinophils % 0.6 D Eosinophils % (Manual) 1.0 D Basophils % 0.1 Basophils % (Manual) 0.0 Myelocytes % (Man) 3 H D Promyelocytes % (Man) 0 Blast Cells % (Manual) 0 Nucleated RBC % 0 Metamyelocytes 0 D Hypochromia 0 Platelet Estimate Normal Polychromasia 0 Poikilocytosis 0 Anisocytosis 1+ Microcytosis 0 Macrocytosis 1+ Sodium Potassium Chloride Carbon Dioxide Anion Gap BUN Creatinine Est GFR (CKD-EPI)AfAm Est GFR (CKD-EPI)NonAf POC Glucometer 298 213 Random Glucose Calcium Total Bilirubin AST ALT Alkaline Phosphatase Total Protein Albumin 09/13/18 09/13/18 06:05 12:10 WBC RBC Hgb Hct MCV MCH MCHC RDW Plt Count MPV Absolute Neuts (auto) Neutrophils % Neutrophils % (Manual) Band Neutrophils % Lymphocytes % Lymphocytes % (Manual) Monocytes % Monocytes % (Manual) Eosinophils % Eosinophils % (Manual) Basophils % Basophils % (Manual) Myelocytes % (Man) Promyelocytes % (Man) Blast Cells % (Manual) Nucleated RBC % Metamyelocytes Hypochromia Platelet Estimate Polychromasia Poikilocytosis Anisocytosis Microcytosis Macrocytosis Sodium 135 L Potassium 3.9 Chloride 94 L Carbon Dioxide 38 H Anion Gap 4 L BUN 32.7 H Creatinine 1.0 Est GFR (CKD-EPI)AfAm 93.08 Est GFR (CKD-EPI)NonAf 80.31 POC Glucometer 232 Random Glucose 192 H Calcium 8.6 Total Bilirubin 0.4 AST 16 ALT 55 Alkaline Phosphatase 42 L Total Protein 6.2 L Albumin 3.2 L A/P Acute on Chronic Hypoxic Respiratory Failure Acute Hypercapneic Respiratory Failure improving Acute COPD Exacerbation Acute on Chronic Diastolic Heart Failure Lung Nodule HIV - NC O2 as tolerated - lasix - monitor urine output, creatinine - prednisone taper - inhaled bronchodilators - BiPAP to assist in work of breathing - DVT prophylaxis Dr Martin
--- NOTE | 2018-09-13 18:10 | PN ---
Progress Note (short form) - Note Progress Note: Patient is better today , did not use any bipap during daytime, only at night. ON NC for now. Vital Signs Temperature 98.5 F 09/13/18 17:47 Pulse Rate 117 H 09/13/18 17:47 Respiratory Rate 18 09/13/18 17:47 Blood Pressure 134/73 09/13/18 17:47 O2 Sat by Pulse Oximetry (%) 94 L 09/13/18 15:44 GENERAL: The patient is awake, alert, and fully oriented, on 2 liter NC. HEAD: Normal with no signs of trauma. EYES: PERRL, extraocular movements intact, sclera anicteric, conjunctiva clear. ENT: Ears normal, oropharynx clear without exudates, moist mucous membranes. NECK: Trachea midline, full range of motion, supple. LUNGS: decreased BS BL, positive for Rhonchi, no crackles, no accessory muscle use. HEART: Regular rate and rhythm, S1, S2 without murmur, rub or gallop. ABDOMEN: Soft, NT, ND, normoactive bowel sounds, no guarding, no rebound, no hepatosplenomegaly, no masses. EXTREMITIES: 2+ pulses, warm, well-perfused, no edema. NEUROLOGICAL: Cranial nerves II through XII grossly intact. Normal speech, gait not observed. PSYCH: Normal mood, normal affect. SKIN: Warm, dry, normal turgor, no rashes or lesions noted CBCD WBC 10.6 K/mm3 (4.0-10.0) H 09/13/18 06:05 RBC 4.41 M/mm3 (4.00-5.60) 09/13/18 06:05 Hgb 15.6 GM/dL (11.7-16.9) 09/13/18 06:05 Hct 46.8 % (35.4-49) 09/13/18 06:05 MCV 106.1 fl (80-96) H 09/13/18 06:05 MCHC 33.3 g/dl (32.0-35.9) 09/13/18 06:05 RDW 17.5 % (11.9-15.9) H 09/13/18 06:05 Plt Count 278 K/MM3 (134-434) 09/13/18 06:05 MPV 8.2 fl (7.5-11.1) 09/13/18 06:05 CMP Sodium 135 mmol/L (136-145) L 09/13/18 06:05 Potassium 3.9 mmol/L (3.5-5.1) 09/13/18 06:05 Chloride 94 mmol/L (98-107) L 09/13/18 06:05 Carbon Dioxide 38 mmol/L (21-32) H 09/13/18 06:05 Anion Gap 4 MMOL/L (8-16) L 09/13/18 06:05 BUN 32.7 mg/dL (7-18) H 09/13/18 06:05 Creatinine 1.0 mg/dL (0.55-1.3) 09/13/18 06:05 Random Glucose 192 mg/dL (74-106) H 09/13/18 06:05 Calcium 8.6 mg/dL (8.5-10.1) 09/13/18 06:05 Total Bilirubin 0.4 mg/dL (0.2-1) 09/13/18 06:05 AST 16 U/L (15-37) 09/13/18 06:05 ALT 55 U/L (13-61) 09/13/18 06:05 Alkaline Phosphatase 42 U/L (45-117) L 09/13/18 06:05 Total Protein 6.2 g/dl (6.4-8.2) L 09/13/18 06:05 Albumin 3.2 g/dl (3.4-5.0) L 09/13/18 06:05 CARDIAC ENZYMES Troponin I 0.02 ng/ml (0.00-0.05) 09/03/18 06:27 Current Medications Generic Name Dose Route Start Last Admin Trade Name Freq PRN Reason Stop Dose Admin Acetylcysteine 600 mg 09/13/18 09:00 09/13/18 09:30 Mucomyst 20 Oral / Inh Use Only* NEB 600 mg BID@0800,2000 GLENNY Administration Albuterol Sulfate 1 amp 09/09/18 20:19 09/10/18 09:29 Ventolin 0.083% Nebulizer Soln - NEB 1 amp Q4H PRN Administration SHORT OF BREATH/WHEEZING Albuterol Sulfate 1 amp 09/10/18 08:00 09/13/18 15:44 Ventolin 0.083% Nebulizer Soln - NEB 1 amp RQID GLENNY Administration Aspirin 81 mg 09/10/18 10:00 09/13/18 10:13 Asa - PO 81 mg DAILY GLENNY Administration Atorvastatin Calcium 20 mg 09/09/18 22:00 09/12/18 21:20 Lipitor - PO 20 mg HS GLENNY Administration Budesonide/Formoterol Fumarate 1 puff 09/09/18 22:00 09/13/18 10:14 Symbicort 160/4.5mcg - IH 1 puff BID GLENNY Administration Diltiazem HCl 120 mg 09/10/18 10:00 09/13/18 10:10 Cardizem Cd - PO 120 mg DAILY GLENNY Administration Docusate Sodium 100 mg 09/11/18 22:00 09/13/18 10:14 Colace - PO 100 mg BID GLENNY Administration Enoxaparin Sodium 40 mg 09/10/18 10:00 09/13/18 10:11 Lovenox - SQ 40 mg DAILY GLENNY Administration Furosemide 40 mg 09/09/18 10:00 09/13/18 10:11 Lasix Injection - IVPUSH 40 mg DAILY GLENNY Administration Glycerin 1 each 09/11/18 12:33 Glycerin Suppository Adult - RC ONCE PRN CONSTIPATION Glycerin 1 each 09/12/18 10:00 Glycerin Suppository Adult - RC DAILY PRN CONSTIPATION Insulin Aspart 1 vial 09/10/18 07:00 09/13/18 17:08 Novolog Vial Sliding Scale - SQ 10 units TIDAC [facility] Administration Protocol Insulin Detemir 5 units 09/10/18 07:00 09/13/18 06:33 Levemir Vial SQ 5 units AM GLENNY Administration Prednisone 40 mg 09/11/18 10:00 09/13/18 10:10 Deltasone - PO 40 mg DAILY GLENNY Administration Sitagliptin Phosphate 25 mg 09/10/18 07:00 09/13/18 06:33 Januvia - PO 25 mg DAILY@0700 GLENNY Administration Tamsulosin HCl 0.4 mg 09/10/18 08:30 09/13/18 08:43 Flomax - PO 0.4 mg DAILY@0830 GLENNY Administration Trimethoprim/Sulfamethoxazole 1 each 09/10/18 10:00 09/13/18 10:10 Bactrim Ds - PO 1 each DAILY GLENNY Administration Home Medications Medication Instructions Recorded Albuterol Sulfate Inhaler - 2 inh PO QID PRN 07/30/18 [Ventolin HFA Inhaler -] Atorvastatin Ca [Lipitor] 20 mg PO HS 07/30/18 Furosemide [Lasix -] 20 mg PO DAILY #30 tablet 08/05/18 Sulfamethoxazole/Trimethoprim 1 tab PO DAILY #30 tablet 08/05/18 [Bactrim DS -] Tamsulosin HCl [Flomax] 1 cap PO DAILY #30 capsule 08/05/18 Aspirin [ASA -] 81 mg PO DAILY tab.chew 08/18/18 predniSONE [Deltasone -] 10 mg PO DAILY #30 tablet 08/18/18 Bictegrav/Emtricit/Tenofov Ala 1 tablet PO DAILY 09/02/18 [Biktarvy 50-200-25 mg Tablet] Budesonide/Formeterol Fumarate 1 puff IH BID 09/02/18 [SYMBICORT 160/4.5mcg -] Docusate Calcium 60 mg PO BID 09/02/18 Assessment and plan: patient is a 63 yo male with hx of diastlic heart failure, HLP, HIV, COPD, 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 # Acute hypoxic hypercapnic respiratory failure due to acute on chronic diastolic CHF exacerbation on Lasix continue , on NC continue #End stage COPD with Acute Exacerbation : on Bipap at night and prn, steroid continue , nebs, symbicort continue # H/o HIV: cont current medication on Px Bactrim #New onset DM: cont SSI , levemir, januvia. # Pulm nodule. 7 mm in RML. f/u as out pt. DVT PX: lovenox SW is helping out for oxygen and bipap arrangements Visit type - Emergency Visit Emergency Visit: Yes ED Registration Date: 09/02/18 Care time: The patient presented to the Emergency Department on the above date and was hospitalized for further evaluation of their emergent condition. - New Patient This patient is new to me today: No - Critical Care Critical Care patient: No - Discharge Referral Referred to [facility] Med P.C.: No
[2018-09-13] MEDS: ATORVASTATIN CA 20 MG TABLET (FP) PO SCH (21:16)
[2018-09-14] MEDS: INSULIN (LEVEMIR) 100 UNITS/ML UNITS SQ SCH (06:34)
[2018-09-14] MEDS: INSULIN SLIDING SCALE (NOVOLOG) 1 VIAL SQ SCH ×3 (06:34→17:19)
[2018-09-14] MEDS: ALBUTEROL SO4 0.083% IH SOL 2.5 MG/3 ML VIAL.NEB. NEB SCH ×4 (08:06→20:48)
[2018-09-14] MEDS: ACETYLCYSTEINE 20% 200MG/ML 4 ML VIAL *FOR ORAL / INH USE ONLY NEB SCH ×2 (08:07→20:48)
--- NOTE | 2018-09-14 08:35 | PN ---
Teaching Attending Note Name of Resident: Federica Marcos ATTENDING PHYSICIAN STATEMENT I saw and evaluated the patient. I reviewed the resident's note and discussed the case with the resident. I agree with the resident's findings and plan as documented. SUBJECTIVE: patient is tolerating 2 liter oxygen, Bipap at night, OBJECTIVE: Vital Signs Temperature 97.9 F 09/14/18 08:30 Pulse Rate 98 H 09/14/18 08:30 Respiratory Rate 20 09/14/18 08:30 Blood Pressure 103/55 L 09/14/18 08:30 O2 Sat by Pulse Oximetry (%) 99 09/14/18 08:05 GENERAL: The patient is awake, alert, and fully oriented, on 2 liter NC. HEAD: Normal with no signs of trauma. EYES: PERRL, extraocular movements intact, sclera anicteric, conjunctiva clear. ENT: Ears normal, oropharynx clear without exudates, moist mucous membranes. NECK: Trachea midline, full range of motion, supple. LUNGS: decreased BS BL, positive for Rhonchi, no crackles, no accessory muscle use. HEART: Regular rate and rhythm, S1, S2 without murmur, rub or gallop. ABDOMEN: Soft, NT, ND, normoactive bowel sounds, no guarding, no rebound, no hepatosplenomegaly, no masses. EXTREMITIES: 2+ pulses, warm, well-perfused, no edema. NEUROLOGICAL: Cranial nerves II through XII grossly intact. Normal speech, gait not observed. PSYCH: Normal mood, normal affect. SKIN: Warm, dry, normal turgor, no rashes or lesions noted CBCD WBC 10.6 K/mm3 (4.0-10.0) H 09/13/18 06:05 RBC 4.41 M/mm3 (4.00-5.60) 09/13/18 06:05 Hgb 15.6 GM/dL (11.7-16.9) 09/13/18 06:05 Hct 46.8 % (35.4-49) 09/13/18 06:05 MCV 106.1 fl (80-96) H 09/13/18 06:05 MCHC 33.3 g/dl (32.0-35.9) 09/13/18 06:05 RDW 17.5 % (11.9-15.9) H 09/13/18 06:05 Plt Count 278 K/MM3 (134-434) 09/13/18 06:05 MPV 8.2 fl (7.5-11.1) 09/13/18 06:05 CMP Sodium 135 mmol/L (136-145) L 09/13/18 06:05 Potassium 3.9 mmol/L (3.5-5.1) 09/13/18 06:05 Chloride 94 mmol/L (98-107) L 09/13/18 06:05 Carbon Dioxide 38 mmol/L (21-32) H 09/13/18 06:05 Anion Gap 4 MMOL/L (8-16) L 09/13/18 06:05 BUN 32.7 mg/dL (7-18) H 09/13/18 06:05 Creatinine 1.0 mg/dL (0.55-1.3) 09/13/18 06:05 Random Glucose 192 mg/dL (74-106) H 09/13/18 06:05 Calcium 8.6 mg/dL (8.5-10.1) 09/13/18 06:05 Total Bilirubin 0.4 mg/dL (0.2-1) 09/13/18 06:05 AST 16 U/L (15-37) 09/13/18 06:05 ALT 55 U/L (13-61) 09/13/18 06:05 Alkaline Phosphatase 42 U/L (45-117) L 09/13/18 06:05 Total Protein 6.2 g/dl (6.4-8.2) L 09/13/18 06:05 Albumin 3.2 g/dl (3.4-5.0) L 09/13/18 06:05 CARDIAC ENZYMES Troponin I 0.02 ng/ml (0.00-0.05) 09/03/18 06:27 Current Medications Generic Name Dose Route Start Last Admin Trade Name Freq PRN Reason Stop Dose Admin Acetylcysteine 600 mg 09/13/18 09:00 09/14/18 08:07 Mucomyst 20 Oral / Inh Use Only* NEB 600 mg BID@0800,1999 LGENNY Administration Albuterol Sulfate 1 amp 09/09/18 20:19 09/10/18 09:29 Ventolin 0.083% Nebulizer Soln - NEB 1 amp Q4H PRN Administration SHORT OF BREATH/WHEEZING Albuterol Sulfate 1 amp 09/10/18 08:00 09/14/18 08:06 Ventolin 0.083% Nebulizer Soln - NEB 1 amp RQID GLENNY Administration Aspirin 81 mg 09/10/18 10:00 09/13/18 10:13 Asa - PO 81 mg DAILY GLENNY Administration Atorvastatin Calcium 20 mg 09/09/18 22:00 09/13/18 21:16 Lipitor - PO 20 mg HS GLENNY Administration Budesonide/Formoterol Fumarate 1 puff 09/09/18 22:00 09/13/18 21:17 Symbicort 160/4.5mcg - IH 1 puff BID GLENNY Administration Diltiazem HCl 120 mg 09/10/18 10:00 09/13/18 10:10 Cardizem Cd - PO 120 mg DAILY GLENNY Administration Docusate Sodium 100 mg 09/11/18 22:00 09/13/18 21:17 Colace - PO 100 mg BID GLENNY Administration Enoxaparin Sodium 40 mg 09/10/18 10:00 09/13/18 10:11 Lovenox - SQ 40 mg DAILY GLENNY Administration Furosemide 40 mg 09/09/18 10:00 09/13/18 10:11 Lasix Injection - IVPUSH 40 mg DAILY GLENNY Administration Glycerin 1 each 09/11/18 12:33 Glycerin Suppository Adult - RC ONCE PRN CONSTIPATION Glycerin 1 each 09/12/18 10:00 Glycerin Suppository Adult - RC DAILY PRN CONSTIPATION Insulin Aspart 1 vial 09/10/18 07:00 09/14/18 06:34 Novolog Vial Sliding Scale - SQ Not Given TIDAC [facility] Protocol Insulin Detemir 5 units 09/10/18 07:00 09/14/18 06:34 Levemir Vial SQ 5 units AM GLENNY Administration Prednisone 40 mg 09/11/18 10:00 09/13/18 10:10 Deltasone - PO 40 mg DAILY GLENNY Administration Sitagliptin Phosphate 25 mg 09/10/18 07:00 09/14/18 06:34 Januvia - PO 25 mg DAILY@0700 GLENNY Administration Tamsulosin HCl 0.4 mg 09/10/18 08:30 09/13/18 08:43 Flomax - PO 0.4 mg DAILY@0830 GLENNY Administration Trimethoprim/Sulfamethoxazole 1 each 09/10/18 10:00 09/13/18 10:10 Bactrim Ds - PO 1 each DAILY GLENNY Administration Home Medications Medication Instructions Recorded Albuterol Sulfate Inhaler - 2 inh PO QID PRN 07/30/18 [Ventolin HFA Inhaler -] Atorvastatin Ca [Lipitor] 20 mg PO HS 07/30/18 Furosemide [Lasix -] 20 mg PO DAILY #30 tablet 08/05/18 Sulfamethoxazole/Trimethoprim 1 tab PO DAILY #30 tablet 08/05/18 [Bactrim DS -] Tamsulosin HCl [Flomax] 1 cap PO DAILY #30 capsule 08/05/18 Aspirin [ASA -] 81 mg PO DAILY tab.chew 08/18/18 predniSONE [Deltasone -] 10 mg PO DAILY #30 tablet 08/18/18 Bictegrav/Emtricit/Tenofov Ala 1 tablet PO DAILY 09/02/18 [Biktarvy 50-200-25 mg Tablet] Budesonide/Formeterol Fumarate 1 puff IH BID 09/02/18 [SYMBICORT 160/4.5mcg -] Docusate Calcium 60 mg PO BID 09/02/18 ASSESSMENT AND PLAN: patient is a 63 yo male with hx of diastlic heart failure, HLP, HIV, COPD, 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 # Acute hypoxic hypercapnic respiratory failure due to acute on chronic diastolic CHF exacerbation on Lasix continue , on NC continue , bipap at night. #End stage COPD with Acute Exacerbation : on Bipap at night and prn, steroid continue , nebs, symbicort continue , will cjheck whether to add Daliresp # H/o HIV: cont current medication on Px Bactrim #New onset DM: cont SSI , levemir, januvia. # Pulm nodule. 7 mm in RML. f/u as out pt. DVT PX: lovenox SW is helping out for oxygen and bipap arrangements
[2018-09-14] MEDS: DOCUSATE SODIUM 100 MG CAPSULE (FP) PO SCH ×2 (09:13→21:39)
[2018-09-14] MEDS: predniSONE 20 MG TABLET (UD) PO SCH (09:13)
[2018-09-14] MEDS: SULFAMETHOXAZOLE/TRIMETHOPRIM 800MG/160MG D.S. TABLET PO SCH (09:13)
[2018-09-14] MEDS: ASPIRIN 81 MG CHEWABLE TABLETS PO SCH (09:13)
[2018-09-14] MEDS: ENOXAPARIN NA (PORCINE) 40 MG/0.4 ML DISP.SYRIN SQ SCH (09:13)
[2018-09-14] MEDS: TAMSULOSIN HCL 0.4 MG CAP PO SCH (09:13)
[2018-09-14] MEDS ORDERED: PT OWN MED DRAWER 7, Y5N ONE (09:15)
[2018-09-14] MEDS: DOLUTEGRAVIR SODIUM 50 MG TABLET (NON-FORMULARY) PO SCH (09:15)
[2018-09-14] MEDS: BUDESONIDE/FORMETEROL FUMARATE 160/4.5 mcg INHALER IH SCH ×2 (09:17→21:39)
--- NOTE | 2018-09-14 09:21 | PN ---
Physical Exam: SUBJECTIVE: Patient seen and examined at bedside this morning. No acute events overnight. PAtient reports feeling much better this morning, on nasal cannula. He reported using the bipap last night but for only a few hours. He denies fever , chills, headache, SOB, chest pain, abdominal pain, diarrhea, urinary symptoms. OBJECTIVE: Vital Signs Temperature 97.9 F 09/14/18 08:30 Pulse Rate 98 H 09/14/18 08:30 Respiratory Rate 20 09/14/18 08:30 Blood Pressure 103/55 L 09/14/18 08:30 O2 Sat by Pulse Oximetry (%) 99 09/14/18 08:05 GENERAL: The patient is awake, alert, and fully oriented, on 3L NC HEAD: Normal with no signs of trauma. EYES: PERRLA, EOMI, sclera anicteric, conjunctiva clear. ENT: moist mucous membranes. NECK: Trachea midline, full range of motion, supple. LUNGS: decreased breath sounds on bilateral bases HEART: Regular rate and rhythm, S1, S2 without murmur, rub or gallop. ABDOMEN: Soft, nontender, nondistended, normoactive bowel sounds. EXTREMITIES: 2+ pulses, warm, well-perfused, +1 pitting edema b/l LE NEUROLOGICAL: Cranial nerves II through XII grossly intact. Normal speech, gait not observed. PSYCH: Normal mood, normal affect. SKIN: Warm, dry, normal turgor, no rashes or lesions noted Laboratory Results - last 24 hr 09/13/18 09/13/18 09/13/18 06:05 12:10 16:55 Neutrophils % (Manual) 77.0 Band Neutrophils % 1.0 Lymphocytes % (Manual) 14.0 D Monocytes % (Manual) 4 Eosinophils % (Manual) 1.0 D Basophils % (Manual) 0.0 Myelocytes % (Man) 3 H D Promyelocytes % (Man) 0 Blast Cells % (Manual) 0 Metamyelocytes 0 D Hypochromia 0 Platelet Estimate Normal Polychromasia 0 Poikilocytosis 0 Anisocytosis 1+ Microcytosis 0 Macrocytosis 1+ POC Glucometer 232 406 09/14/18 06:28 Neutrophils % (Manual) Band Neutrophils % Lymphocytes % (Manual) Monocytes % (Manual) Eosinophils % (Manual) Basophils % (Manual) Myelocytes % (Man) Promyelocytes % (Man) Blast Cells % (Manual) Metamyelocytes Hypochromia Platelet Estimate Polychromasia Poikilocytosis Anisocytosis Microcytosis Macrocytosis POC Glucometer 140 Active Medications Generic Name Dose Route Start Last Admin Trade Name Freq PRN Reason Stop Dose Admin Acetylcysteine 600 mg 09/13/18 09:00 09/14/18 08:07 Mucomyst 20 Oral / Inh Use Only* NEB 600 mg BID@0800,2000 GLENNY Administration Albuterol Sulfate 1 amp 09/09/18 20:19 09/10/18 09:29 Ventolin 0.083% Nebulizer Soln - NEB 1 amp Q4H PRN Administration SHORT OF BREATH/WHEEZING Albuterol Sulfate 1 amp 09/10/18 08:00 09/14/18 08:06 Ventolin 0.083% Nebulizer Soln - NEB 1 amp RQID GLENNY Administration Aspirin 81 mg 09/10/18 10:00 09/13/18 10:13 Asa - PO 81 mg DAILY GLENNY Administration Atorvastatin Calcium 20 mg 09/09/18 22:00 09/13/18 21:16 Lipitor - PO 20 mg HS GLENNY Administration Budesonide/Formoterol Fumarate 1 puff 09/09/18 22:00 09/13/18 21:17 Symbicort 160/4.5mcg - IH 1 puff BID GLENNY Administration Diltiazem HCl 120 mg 09/10/18 10:00 09/13/18 10:10 Cardizem Cd - PO 120 mg DAILY GLENNY Administration Docusate Sodium 100 mg 09/11/18 22:00 09/13/18 21:17 Colace - PO 100 mg BID GLENNY Administration Enoxaparin Sodium 40 mg 09/10/18 10:00 09/13/18 10:11 Lovenox - SQ 40 mg DAILY GLENNY Administration Furosemide 40 mg 09/09/18 10:00 09/13/18 10:11 Lasix Injection - IVPUSH 40 mg DAILY GLENNY Administration Glycerin 1 each 09/11/18 12:33 Glycerin Suppository Adult - RC ONCE PRN CONSTIPATION Glycerin 1 each 09/12/18 10:00 Glycerin Suppository Adult - RC DAILY PRN CONSTIPATION Insulin Aspart 1 vial 09/10/18 07:00 09/14/18 06:34 Novolog Vial Sliding Scale - SQ Not Given TIDAC [facility] Protocol Insulin Detemir 5 units 09/10/18 07:00 09/14/18 06:34 Levemir Vial SQ 5 units AM GLENNY Administration Prednisone 40 mg 09/11/18 10:00 09/13/18 10:10 Deltasone - PO 40 mg DAILY GLENNY Administration Sitagliptin Phosphate 25 mg 09/10/18 07:00 09/14/18 06:34 Januvia - PO 25 mg DAILY@0700 GLENNY Administration Tamsulosin HCl 0.4 mg 09/10/18 08:30 09/13/18 08:43 Flomax - PO 0.4 mg DAILY@0830 GLENNY Administration Trimethoprim/Sulfamethoxazole 1 each 09/10/18 10:00 09/13/18 10:10 Bactrim Ds - PO 1 each DAILY GLENNY Administration ASSESSMENT/PLAN: Patient is a 63 year old male with past medical history of diastolic CHF, HLD, HIV (on HAART), COPD and miliary TB, presented to the ED with SOB and LE edema. #Acute on chronic diastolic CHF exacerbation -IV Lasix 40mg daily -Continue [id number] daily -Cardiology (Dr. Turner) consulted. Recommendations appreciated. #Acute hypoxic respiratory failure 2/2 COPD exacerbation, CHF -Continue Albuterol RQID -Continue Symbicort BID -Prednisone taper. -Pulmonology consulted. Recommendations appreciated. #HIV on HAART -Continue Tivicay and Descovy -Bactrim for ppx (last CD4 196) -ID (Dr. Machado) consulted. #DM -new onset, A1c 6.8 -Insulin sliding scale -Sitagliptin 25mg daily -BGM TIDAC #HLD -Continue Lipitor 20mg HS -ASA 81 mg daily #FEN -Not on any standing fluids -Electrolytes wnl, routine bmp monitoring -Diabetic/sodium restricted diet #Prophylaxis -Lovenox 40mg sq daily #Disposition -full code -tele -SW on the case for oxygen and bipap arrangements Visit type - Emergency Visit Emergency Visit: Yes ED Registration Date: 09/02/18 Care time: The patient presented to the Emergency Department on the above date and was hospitalized for further evaluation of their emergent condition. - New Patient This patient is new to me today: Yes Date on this admission: 09/14/18 - Critical Care Critical Care patient: No ATTENDING PHYSICIAN STATEMENT I saw and evaluated the patient. I reviewed the resident's note and discussed the case with the resident. I agree with the resident's findings and plan as documented. SUBJECTIVE: OBJECTIVE: ASSESSMENT AND PLAN:
[2018-09-14] MEDS: FUROSEMIDE 40 MG/4 ML INJECTABLE VIAL IVPUSH SCH (09:32)
[2018-09-14] MEDS ORDERED: INSULIN SLIDING SCALE (NOVOLOG) 1 VIAL SQ ONE (11:37)
[2018-09-14] MEDS: EMTRICITABINE/TENOFOV ALAFENAM (DESCOVY) TABLET PO SCH (14:19)
[2018-09-14] MEDS: ATORVASTATIN CA 20 MG TABLET (FP) PO SCH (21:39)
--- NOTE | 2018-09-15 01:29 | PN ---
Progress Note, Physician Chief Complaint: Pt A&Ox3; now breathing slightly easier; off BiPaP. History of Present Illness: 63-year-old male with history of well-controlled HIV, COPD, diastolic heart failure sent from PCP office with volume overload/dyspnea and episode of chest pain this morning. - Current Medication List Current Medications: Active Medications Acetylcysteine (Mucomyst 20 Oral / Inh Use Only*) 600 mg NEB BID@0800,2000 [facility] Last Admin: 09/14/18 20:48 Dose: 600 mg Albuterol Sulfate (Ventolin 0.083% Nebulizer Soln -) 1 amp NEB Q4H PRN PRN Reason: SHORT OF BREATH/WHEEZING Last Admin: 09/10/18 09:29 Dose: 1 amp Albuterol Sulfate (Ventolin 0.083% Nebulizer Soln -) 1 amp NEB RQID [facility] Last Admin: 09/14/18 20:48 Dose: 1 amp Aspirin (Asa -) 81 mg PO DAILY [facility] Last Admin: 09/14/18 09:13 Dose: 81 mg Atorvastatin Calcium (Lipitor -) 20 mg PO HS [facility] Last Admin: 09/14/18 21:39 Dose: 20 mg Budesonide/Formoterol Fumarate (Symbicort 160/4.5mcg -) 1 puff IH BID [facility] Last Admin: 09/14/18 21:39 Dose: 1 puff Diltiazem HCl (Cardizem Cd -) 120 mg PO DAILY [facility] Last Admin: 09/14/18 09:13 Dose: 120 mg Docusate Sodium (Colace -) 100 mg PO BID [facility] Last Admin: 09/14/18 21:39 Dose: 100 mg Enoxaparin Sodium (Lovenox -) 40 mg SQ DAILY [facility] Last Admin: 09/14/18 09:13 Dose: 40 mg Furosemide (Lasix Injection -) 40 mg IVPUSH DAILY [facility] Last Admin: 09/14/18 09:32 Dose: 40 mg Glycerin (Glycerin Suppository Adult -) 1 each RC ONCE PRN PRN Reason: CONSTIPATION Glycerin (Glycerin Suppository Adult -) 1 each RC DAILY PRN PRN Reason: CONSTIPATION Insulin Aspart (Novolog Vial Sliding Scale -) 1 vial SQ TIDAC [facility]; Protocol Last Admin: 09/14/18 17:19 Dose: 10 units Insulin Detemir (Levemir Vial) 5 units SQ AM [facility] Last Admin: 09/14/18 06:34 Dose: 5 units Prednisone (Deltasone -) 40 mg PO DAILY [facility] Last Admin: 09/14/18 09:13 Dose: 40 mg Sitagliptin Phosphate (Januvia -) 25 mg PO DAILY@0700 [facility] Last Admin: 09/14/18 06:34 Dose: 25 mg Tamsulosin HCl (Flomax -) 0.4 mg PO DAILY@0830 [facility] Last Admin: 09/14/18 09:13 Dose: 0.4 mg Trimethoprim/Sulfamethoxazole (Bactrim Ds -) 1 each PO DAILY [facility] Last Admin: 09/14/18 09:13 Dose: 1 each - Objective Vital Signs: Vital Signs Temperature 97.3 F L 09/14/18 21:00 Pulse Rate 106 H 09/14/18 21:00 Respiratory Rate 20 09/14/18 21:00 Blood Pressure 155/73 09/14/18 21:00 O2 Sat by Pulse Oximetry (%) 97 09/14/18 21:00 Constitutional: Yes: Calm Eyes: Yes: WNL HENT: Yes: WNL Neck: Yes: WNL Cardiovascular: Yes: S1, S2 Respiratory: Yes: Diminished, SOB. No: Wheezes Gastrointestinal: Yes: Soft ...Rectal Exam: Yes: Deferred Genitourinary: Yes: Anuria Musculoskeletal: Yes: Muscle Weakness Extremities: Yes: Cool Edema: Yes Edema: LLE: Trace, RLE: Trace Peripheral Pulses WNL: Yes Integumentary: Yes: WNL Neurological: Yes: WNL ...Motor Strength: WNL Psychiatric: Yes: WNL Labs: CBC, BMP 09/13/18 06:05 09/13/18 06:05 INR, PTT INR 0.95 (0.83-1.09) 09/02/18 12:10 - ....Imaging Chest X-ray: Image Reviewed EKG: Image Reviewed Problem List - Problems (1) Volume overload Code(s): E87.70 - FLUID OVERLOAD, UNSPECIFIED Qualifiers: Hypervolemia type: unspecified Qualified Code(s): E87.70 - Fluid overload, unspecified (2) Acute on chronic diastolic heart failure Code(s): I50.33 - ACUTE ON CHRONIC DIASTOLIC (CONGESTIVE) HEART FAILURE (3) Acute on chronic respiratory failure with hypoxia Assessment/Plan: Able to wean off Bipap today. Continue bronchodillators, steroid, antibiotics per dynamics ax technical architect. Code(s): J96.21 - ACUTE AND CHRONIC RESPIRATORY FAILURE WITH HYPOXIA (4) Bilateral leg edema Code(s): R60.0 - LOCALIZED EDEMA (5) Human immunodeficiency virus (HIV) disease Code(s): B20 - HUMAN IMMUNODEFICIENCY VIRUS [HIV] DISEASE (6) Hyperlipidemia Assessment/Plan: on statin. HDL >120; LDL 87 mg/dl. Code(s): E78.5 - HYPERLIPIDEMIA, UNSPECIFIED Qualifiers: Hyperlipidemia type: pure hypercholesterolemia Qualified Code(s): E78.00 - Pure hypercholesterolemia, unspecified; E78.0 - Pure hypercholesterolemia (7) HTN (hypertension) Assessment/Plan: On diltiazem Consider starting ACEI (HTN: DM; diastolic CHF). Code(s): I10 - ESSENTIAL (PRIMARY) HYPERTENSION (8) Diabetes Code(s): E11.9 - TYPE 2 DIABETES MELLITUS WITHOUT COMPLICATIONS
--- NOTE | 2018-09-15 01:40 | PN ---
Progress Note, Physician Chief Complaint: Pt A&Ox3; slept relatively well; used Bipap for part of the night. Now on O2 via NC. History of Present Illness: 63-year-old male with history of well-controlled HIV, COPD, diastolic heart failure sent from PCP office with volume overload/dyspnea and episode of chest pain this morning. - Current Medication List Current Medications: Active Medications Acetylcysteine (Mucomyst 20 Oral / Inh Use Only*) 600 mg NEB BID@0800,2000 [facility] Last Admin: 09/14/18 20:48 Dose: 600 mg Albuterol Sulfate (Ventolin 0.083% Nebulizer Soln -) 1 amp NEB Q4H PRN PRN Reason: SHORT OF BREATH/WHEEZING Last Admin: 09/10/18 09:29 Dose: 1 amp Albuterol Sulfate (Ventolin 0.083% Nebulizer Soln -) 1 amp NEB RQID [facility] Last Admin: 09/14/18 20:48 Dose: 1 amp Aspirin (Asa -) 81 mg PO DAILY [facility] Last Admin: 09/14/18 09:13 Dose: 81 mg Atorvastatin Calcium (Lipitor -) 20 mg PO HS [facility] Last Admin: 09/14/18 21:39 Dose: 20 mg Budesonide/Formoterol Fumarate (Symbicort 160/4.5mcg -) 1 puff IH BID [facility] Last Admin: 09/14/18 21:39 Dose: 1 puff Diltiazem HCl (Cardizem Cd -) 120 mg PO DAILY [facility] Last Admin: 09/14/18 09:13 Dose: 120 mg Docusate Sodium (Colace -) 100 mg PO BID [facility] Last Admin: 09/14/18 21:39 Dose: 100 mg Enoxaparin Sodium (Lovenox -) 40 mg SQ DAILY [facility] Last Admin: 09/14/18 09:13 Dose: 40 mg Furosemide (Lasix Injection -) 40 mg IVPUSH DAILY [facility] Last Admin: 09/14/18 09:32 Dose: 40 mg Glycerin (Glycerin Suppository Adult -) 1 each RC ONCE PRN PRN Reason: CONSTIPATION Glycerin (Glycerin Suppository Adult -) 1 each RC DAILY PRN PRN Reason: CONSTIPATION Insulin Aspart (Novolog Vial Sliding Scale -) 1 vial SQ TIDAC [facility]; Protocol Last Admin: 09/14/18 17:19 Dose: 10 units Insulin Detemir (Levemir Vial) 5 units SQ AM [facility] Last Admin: 09/14/18 06:34 Dose: 5 units Prednisone (Deltasone -) 40 mg PO DAILY [facility] Last Admin: 09/14/18 09:13 Dose: 40 mg Sitagliptin Phosphate (Januvia -) 25 mg PO DAILY@0700 [facility] Last Admin: 09/14/18 06:34 Dose: 25 mg Tamsulosin HCl (Flomax -) 0.4 mg PO DAILY@0830 [facility] Last Admin: 09/14/18 09:13 Dose: 0.4 mg Trimethoprim/Sulfamethoxazole (Bactrim Ds -) 1 each PO DAILY [facility] Last Admin: 09/14/18 09:13 Dose: 1 each - Objective Vital Signs: Vital Signs Temperature 97.3 F L 09/14/18 21:00 Pulse Rate 106 H 09/14/18 21:00 Respiratory Rate 20 09/14/18 21:00 Blood Pressure 155/73 09/14/18 21:00 O2 Sat by Pulse Oximetry (%) 97 09/14/18 21:00 Constitutional: Yes: Calm Eyes: Yes: WNL HENT: Yes: WNL Neck: Yes: WNL Cardiovascular: Yes: S1, S2, S4 Respiratory: Yes: Regular, Diminished Gastrointestinal: Yes: Soft, Abdomen, Obese ...Rectal Exam: Yes: Deferred Genitourinary: No: Anuria Musculoskeletal: Yes: Muscle Weakness Extremities: Yes: Cool Edema: Yes Edema: LLE: Trace, RLE: Trace Peripheral Pulses WNL: Yes Integumentary: Yes: WNL Neurological: Yes: WNL Psychiatric: Yes: WNL Labs: CBC, BMP 09/13/18 06:05 09/13/18 06:05 INR, PTT INR 0.95 (0.83-1.09) 09/02/18 12:10 - ....Imaging Other: Image Reviewed (telemetry: NSR) Problem List - Problems (1) Volume overload Assessment/Plan: No JVD; improved respiratory status. Continue furosdemide. Consider ACEI (HTN; DM; diastolic heart failure). Code(s): E87.70 - FLUID OVERLOAD, UNSPECIFIED Qualifiers: Hypervolemia type: unspecified Qualified Code(s): E87.70 - Fluid overload, unspecified (2) Acute on chronic diastolic heart failure Assessment/Plan: On furosemide and diltiazem. Lungs clear; no JVD. Code(s): I50.33 - ACUTE ON CHRONIC DIASTOLIC (CONGESTIVE) HEART FAILURE (3) Acute on chronic respiratory failure with hypoxia Assessment/Plan: Able to wean off Bipap today. Continue bronchodillators, steroid, antibiotics per regulatory attorney/ID. Code(s): J96.21 - ACUTE AND CHRONIC RESPIRATORY FAILURE WITH HYPOXIA (4) Bilateral leg edema Code(s): R60.0 - LOCALIZED EDEMA (5) Human immunodeficiency virus (HIV) disease Code(s): B20 - HUMAN IMMUNODEFICIENCY VIRUS [HIV] DISEASE (6) Hyperlipidemia Assessment/Plan: on statin. HDL >120; LDL 87 mg/dl; May increause dose of atorvastatin. Code(s): E78.5 - HYPERLIPIDEMIA, UNSPECIFIED Qualifiers: Hyperlipidemia type: pure hypercholesterolemia Qualified Code(s): E78.00 - Pure hypercholesterolemia, unspecified; E78.0 - Pure hypercholesterolemia (7) HTN (hypertension) Assessment/Plan: On diltiazem and furosemide. Consider starting ACEI (HTN: DM; diastolic CHF). Code(s): I10 - ESSENTIAL (PRIMARY) HYPERTENSION (8) Diabetes Code(s): E11.9 - TYPE 2 DIABETES MELLITUS WITHOUT COMPLICATIONS
[2018-09-15] MEDS: INSULIN (LEVEMIR) 100 UNITS/ML UNITS SQ SCH (06:24)
[2018-09-15] MEDS: INSULIN SLIDING SCALE (NOVOLOG) 1 VIAL SQ SCH ×3 (06:25→16:58)
[2018-09-15 06:41] LABS: BLOOD UREA NITROGEN 30.2 mg/dL (7-18); CALCIUM 8.9 mg/dL (8.5-10.1); CREATININE 0.9 mg/dL (0.55-1.3); POTASSIUM 4.6 mmol/L (3.5-5.1)
[2018-09-15 06:58] LABS: BASO % 0.2 % (0-2.0); EOS % 0.3 % (0-4.5); HEMATOCRIT 46.1 % (35.4-49); HEMOGLOBIN 15.2 GM/dL (11.7-16.9); LYMPH % 16.5 % (8-40); MCH 34.9 pg (25.7-33.7); MEAN CELL VOLUME 105.8 fl (80-96); MEAN PLT VOLUME 8.3 fl (7.5-11.1); MONO % 7.5 % (3.8-10.2); NEUT % 75.5 % (42.8-82.8); PLATELET COUNT 294 K/MM3 (134-434); RBC 4.36 M/mm3 (4.00-5.60); RDW 17.6 % (11.9-15.9)
[2018-09-15] MEDS: ALBUTEROL SO4 0.083% IH SOL 2.5 MG/3 ML VIAL.NEB. NEB SCH ×4 (07:35→20:47)
[2018-09-15] MEDS: ACETYLCYSTEINE 20% 200MG/ML 4 ML VIAL *FOR ORAL / INH USE ONLY NEB SCH ×2 (07:35→20:48)
[2018-09-15] MEDS ORDERED: PT OWN MED DRAWER 7, Y5N ONE (09:53)
[2018-09-15] MEDS: predniSONE 10 MG TABLET (UD) PO SCH (09:59)
[2018-09-15] MEDS: ENOXAPARIN NA (PORCINE) 40 MG/0.4 ML DISP.SYRIN SQ SCH (09:59)
[2018-09-15] MEDS: TAMSULOSIN HCL 0.4 MG CAP PO SCH (09:59)
[2018-09-15] MEDS: DOCUSATE SODIUM 100 MG CAPSULE (FP) PO SCH ×2 (09:59→21:49)
[2018-09-15] MEDS: SULFAMETHOXAZOLE/TRIMETHOPRIM 800MG/160MG D.S. TABLET PO SCH (09:59)
[2018-09-15] MEDS: ASPIRIN 81 MG CHEWABLE TABLETS PO SCH (09:59)
[2018-09-15] MEDS: FUROSEMIDE 40 MG/4 ML INJECTABLE VIAL IVPUSH SCH (09:59)
[2018-09-15] MEDS: DOLUTEGRAVIR SODIUM 50 MG TABLET (NON-FORMULARY) PO SCH (10:00)
[2018-09-15] MEDS: EMTRICITABINE/TENOFOV ALAFENAM (DESCOVY) TABLET PO SCH (10:00)
[2018-09-15] MEDS: BUDESONIDE/FORMETEROL FUMARATE 160/4.5 mcg INHALER IH SCH ×2 (10:01→21:50)
--- NOTE | 2018-09-15 10:16 | PN ---
Progress Note, Physician History of Present Illness: Weaned off bipap, resting on NC. LE edema improving with diuresis. - Current Medication List Current Medications: Active Medications Acetylcysteine (Mucomyst 20 Oral / Inh Use Only*) 600 mg NEB BID@0800,2000 [facility] Last Admin: 09/15/18 07:35 Dose: 600 mg Albuterol Sulfate (Ventolin 0.083% Nebulizer Soln -) 1 amp NEB Q4H PRN PRN Reason: SHORT OF BREATH/WHEEZING Last Admin: 09/10/18 09:29 Dose: 1 amp Albuterol Sulfate (Ventolin 0.083% Nebulizer Soln -) 1 amp NEB RQID [facility] Last Admin: 09/15/18 07:35 Dose: 1 amp Aspirin (Asa -) 81 mg PO DAILY [facility] Last Admin: 09/15/18 09:59 Dose: 81 mg Atorvastatin Calcium (Lipitor -) 20 mg PO HS [facility] Last Admin: 09/14/18 21:39 Dose: 20 mg Budesonide/Formoterol Fumarate (Symbicort 160/4.5mcg -) 1 puff IH BID [facility] Last Admin: 09/15/18 10:01 Dose: 1 puff Diltiazem HCl (Cardizem Cd -) 120 mg PO DAILY [facility] Last Admin: 09/15/18 09:59 Dose: 120 mg Docusate Sodium (Colace -) 100 mg PO BID [facility] Last Admin: 09/15/18 09:59 Dose: 100 mg Enoxaparin Sodium (Lovenox -) 40 mg SQ DAILY [facility] Last Admin: 09/15/18 09:59 Dose: 40 mg Furosemide (Lasix Injection -) 40 mg IVPUSH DAILY [facility] Last Admin: 09/15/18 09:59 Dose: 40 mg Glycerin (Glycerin Suppository Adult -) 1 each RC ONCE PRN PRN Reason: CONSTIPATION Glycerin (Glycerin Suppository Adult -) 1 each RC DAILY PRN PRN Reason: CONSTIPATION Insulin Aspart (Novolog Vial Sliding Scale -) 1 vial SQ TIDAC [facility]; Protocol Last Admin: 09/15/18 06:25 Dose: Not Given Insulin Detemir (Levemir Vial) 5 units SQ AM [facility] Last Admin: 09/15/18 06:24 Dose: 5 units Prednisone (Deltasone -) 30 mg PO DAILY [facility] Last Admin: 09/15/18 09:59 Dose: 30 mg Sitagliptin Phosphate (Januvia -) 25 mg PO DAILY@0700 [facility] Last Admin: 09/15/18 06:22 Dose: 25 mg Tamsulosin HCl (Flomax -) 0.4 mg PO DAILY@0830 [facility] Last Admin: 09/15/18 09:59 Dose: 0.4 mg Trimethoprim/Sulfamethoxazole (Bactrim Ds -) 1 each PO DAILY [facility] Last Admin: 09/15/18 09:59 Dose: 1 each - Objective Vital Signs: Vital Signs Temperature 98.4 F 09/15/18 05:58 Pulse Rate 93 H 09/15/18 05:58 Respiratory Rate 09/15/18 09:00 Blood Pressure 144/68 09/15/18 05:58 O2 Sat by Pulse Oximetry (%) 98 09/15/18 09:00 Constitutional: Yes: No Distress, Calm Neck: Yes: Supple Cardiovascular: Yes: Regular Rate and Rhythm Respiratory: Yes: Regular, Diminished, On Nasal O2 Gastrointestinal: Yes: Normal Bowel Sounds, Soft Edema: Yes Edema: LLE: Trace, RLE: Trace Labs: CBC, BMP 09/15/18 05:45 09/15/18 05:45 INR, PTT INR 0.95 (0.83-1.09) 09/02/18 12:10 - ....Imaging EKG: Report Reviewed (Tele: ST) Problem List - Problems (1) Dyspnea Code(s): R06.00 - DYSPNEA, UNSPECIFIED Qualifiers: Dyspnea type: unspecified Qualified Code(s): R06.00 - Dyspnea, unspecified (2) Acute on chronic diastolic heart failure Code(s): I50.33 - ACUTE ON CHRONIC DIASTOLIC (CONGESTIVE) HEART FAILURE (3) Acute on chronic respiratory failure with hypoxia Code(s): J96.21 - ACUTE AND CHRONIC RESPIRATORY FAILURE WITH HYPOXIA (4) Bilateral leg edema Code(s): R60.0 - LOCALIZED EDEMA (5) Hyperlipidemia Code(s): E78.5 - HYPERLIPIDEMIA, UNSPECIFIED Qualifiers: Hyperlipidemia type: pure hypercholesterolemia Qualified Code(s): E78.00 - Pure hypercholesterolemia, unspecified; E78.0 - Pure hypercholesterolemia (6) COPD (chronic obstructive pulmonary disease) Code(s): J44.9 - CHRONIC OBSTRUCTIVE PULMONARY DISEASE, UNSPECIFIED Qualifiers: COPD type: emphysema Emphysema type: centrilobular Qualified Code(s): J43.2 - Centrilobular emphysema Assessment/Plan 09/04/2018: Chest CT: Stable granulomas and pulm nodule 07/09/2018 Chest CTA: No PE, mild centrilobular emphysema, mildly dilated main PA, interval resolution of focal right posterior basilar infiltrate or ATX peviously seen 06/06/2018 09/03/2018 Echo: Nondiagnostic, poor windows 07/10/2018 Echo: Normal LV and RV size and fxn LVEF 60-65%, tr TR 1. Recurrent acute on chronic diastolic heart failure resolving 2. COPD with exacerbation 3. Acute Hypoxic and hypercapneic Respiratory Failure 4. HIV on HAART 5. History of pulmonary TB 6. Hyperlipidemia 7. Pulmonary nodule PLAN: 1. Decrease to oral diuresis with monitoring diuretic response, renal function and electrolytes 2. Continue ASA 81 mg QD, Lipitor 20 mg QHS and Cardizem CD 120 mg QD, start losartan 25 qd 3. Bronchodilator, BIPAP and O2 as needed and oral steroid taper 4. Outpatient PFT 5. DVT prophylaxis
[2018-09-15] MEDS: LOSARTAN POTASSIUM 25 MG TABLET PO SCH (11:27)
[2018-09-15 11:31] LABS: ANISOCYTOSIS 1+; MACROCYTOSIS 1+; PLATELET ESTIMATE NORMAL; TEAR DROP CELLS 1+
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
--- NOTE | 2018-09-15 16:32 | PN ---
Physical Exam: SUBJECTIVE: Patient seen and examined OBJECTIVE: Vital Signs Period Temp Pulse Resp BP Sys/Clifton Pulse Ox Last 24 Hr 97.3 F-98.7 F 93-112 19-20 112-155/58-77 97-98 GENERAL: The patient is awake, alert, and fully oriented, in no acute distress. HEAD: Normal with no signs of trauma. EYES: PERRL, extraocular movements intact, sclera anicteric, conjunctiva clear. No ptosis. ENT: Ears normal, nares patent, oropharynx clear without exudates, moist mucous membranes. NECK: Trachea midline, full range of motion, supple. LUNGS: Breath sounds equal, clear to auscultation bilaterally, no wheezes, no crackles, no accessory muscle use. HEART: Regular rate and rhythm, S1, S2 without murmur, rub or gallop. ABDOMEN: Soft, nontender, nondistended, normoactive bowel sounds, no guarding, no rebound, no hepatosplenomegaly, no masses. EXTREMITIES: 2+ pulses, warm, well-perfused, no edema. NEUROLOGICAL: Cranial nerves II through XII grossly intact. Normal speech, gait not observed. PSYCH: Normal mood, normal affect. SKIN: Warm, dry, normal turgor, no rashes or lesions noted Laboratory Results - last 24 hr 09/14/18 09/15/18 09/15/18 17:13 05:45 05:45 WBC 14.0 H RBC 4.36 Hgb 15.2 Hct 46.1 MCV 105.8 H MCH 34.9 H MCHC 33.0 RDW 17.6 H Plt Count 294 MPV 8.3 Absolute Neuts (auto) 10.5 H Neutrophils % 75.5 Neutrophils % (Manual) 63.4 Band Neutrophils % 1.0 Lymphocytes % 16.5 Lymphocytes % (Manual) 22.8 D Monocytes % 7.5 Monocytes % (Manual) 9 D Eosinophils % 0.3 Eosinophils % (Manual) 0.0 D Basophils % 0.2 Basophils % (Manual) 0.0 Myelocytes % (Man) 4 H D Promyelocytes % (Man) 0 Blast Cells % (Manual) 0 Nucleated RBC % 0 Metamyelocytes 0 Hypochromia 0 Platelet Estimate Normal Polychromasia 0 Poikilocytosis 0 Anisocytosis 1+ Microcytosis 0 Macrocytosis 1+ Tear Drop Cells 1+ Sodium 136 Potassium 4.6 Chloride 98 Carbon Dioxide 32 Anion Gap 6 L BUN 30.2 H Creatinine 0.9 Est GFR (CKD-EPI)AfAm 105.72 Est GFR (CKD-EPI)NonAf 91.22 POC Glucometer 466 Random Glucose 146 H Calcium 8.9 09/15/18 09/15/18 06:24 11:39 WBC RBC Hgb Hct MCV MCH MCHC RDW Plt Count MPV Absolute Neuts (auto) Neutrophils % Neutrophils % (Manual) Band Neutrophils % Lymphocytes % Lymphocytes % (Manual) Monocytes % Monocytes % (Manual) Eosinophils % Eosinophils % (Manual) Basophils % Basophils % (Manual) Myelocytes % (Man) Promyelocytes % (Man) Blast Cells % (Manual) Nucleated RBC % Metamyelocytes Hypochromia Platelet Estimate Polychromasia Poikilocytosis Anisocytosis Microcytosis Macrocytosis Tear Drop Cells Sodium Potassium Chloride Carbon Dioxide Anion Gap BUN Creatinine Est GFR (CKD-EPI)AfAm Est GFR (CKD-EPI)NonAf POC Glucometer 125 206 Random Glucose Calcium Active Medications Generic Name Dose Route Start Last Admin Trade Name Freq PRN Reason Stop Dose Admin Acetylcysteine 600 mg 09/13/18 09:00 09/15/18 07:35 Mucomyst 20 Oral / Inh Use Only* NEB 600 mg BID@0800,2000 [facility] Administration Albuterol Sulfate 1 amp 09/09/18 20:19 09/10/18 09:29 Ventolin 0.083% Nebulizer Soln - NEB 1 amp Q4H PRN Administration SHORT OF BREATH/WHEEZING Albuterol Sulfate 1 amp 09/10/18 08:00 09/15/18 11:19 Ventolin 0.083% Nebulizer Soln - NEB 1 amp RQID [facility] Administration Aspirin 81 mg 09/10/18 10:00 09/15/18 09:59 Asa - PO 81 mg DAILY [facility] Administration Atorvastatin Calcium 20 mg 09/09/18 22:00 09/14/18 21:39 Lipitor - PO 20 mg HS [facility] Administration Budesonide/Formoterol Fumarate 1 puff 09/09/18 22:00 09/15/18 10:01 Symbicort 160/4.5mcg - IH 1 puff BID [facility] Administration Diltiazem HCl 120 mg 09/10/18 10:00 09/15/18 09:59 Cardizem Cd - PO 120 mg DAILY [facility] Administration Docusate Sodium 100 mg 09/11/18 22:00 09/15/18 09:59 Colace - PO 100 mg BID [facility] Administration Enoxaparin Sodium 40 mg 09/10/18 10:00 09/15/18 09:59 Lovenox - SQ 40 mg DAILY [facility] Administration Furosemide 40 mg 09/16/18 10:00 Lasix - PO DAILY [facility] Glycerin 1 each 09/11/18 12:33 Glycerin Suppository Adult - RC ONCE PRN CONSTIPATION Glycerin 1 each 09/12/18 10:00 Glycerin Suppository Adult - RC DAILY PRN CONSTIPATION Insulin Aspart 1 vial 09/10/18 07:00 09/15/18 11:55 Novolog Vial Sliding Scale - SQ 4 units TIDAC [facility] Administration Protocol Insulin Detemir 5 units 09/10/18 07:00 09/15/18 06:24 Levemir Vial SQ 5 units AM [facility] Administration Losartan Potassium 25 mg 09/15/18 10:30 09/15/18 11:27 Cozaar - PO 25 mg DAILY [facility] Administration Prednisone 30 mg 09/15/18 10:00 09/15/18 09:59 Deltasone - PO 30 mg DAILY [facility] Administration Sitagliptin Phosphate 25 mg 09/10/18 07:00 09/15/18 06:22 Januvia - PO 25 mg DAILY@0700 [facility] Administration Tamsulosin HCl 0.4 mg 09/10/18 08:30 09/15/18 09:59 Flomax - PO 0.4 mg DAILY@0830 [facility] Administration Trimethoprim/Sulfamethoxazole 1 each 09/10/18 10:00 09/15/18 09:59 Bactrim Ds - PO 1 each DAILY [facility] Administration ASSESSMENT/PLAN: Images: 07/09/2018 Chest CTA: No PE, mild centrilobular emphysema, mildly dilated main PA, interval resolution of focal right posterior basilar infiltrate previously seen 06/06/2018 09/03/2018 Echo: Nondiagnostic, poor windows 07/10/2018 Echo: Normal LV and RV size and fxn LVEF 60-65%, tr TR CXR 09/02/18- no infiltrates, no congestion, or cardiomegaly CT chest 09/04- awaiting results DVT- negative b/l EKG- QTC 466, no acute ischemic changes, consistent with prior EKG. CT scan 09/05/18: granulomatous disease and lung nodule stable compared to prior imaging. Multiple calcified granulomas of the noted scattered through the lungs unchanged from prior imaging. A noncalcified nodule within the medial segment of RML is again noted measuring 7mm best seen on image 77. There is motion artifact which degrades image quality. No endobronchial lesions seen. Pleura- negative calified rt hilar and left axillary LN's From TB. vascular calfications noted including coronary. CXR- 09/12: No Pna, infiltrate, or chf, or pulmonary edema noted. Patient is a 63 year old male with past medical history of diastolic CHF, HLD, HIV (on HAART), COPD and miliary TB, presented to the ED with SOB and LE edema. #Acute on chronic diastolic CHF exacerbation -switched to PO Lasix 40mg daily, added losartan 25qd. -Continue [id number] daily -Cardiology (Dr. Turner) consulted. Recommendations appreciated. #Acute hypoxic respiratory failure 2/2 COPD exacerbation, CHF -Continue Albuterol RQID -Continue Symbicort BID -Prednisone tapered to 30mg. -Pulmonology consulted. Recommendations appreciated. #HIV on HAART -Continue Tivicay and Descovy -Bactrim for ppx (last CD4 196) -ID (Dr. Machado) consulted. #DM -new onset, A1c 6.8 -Insulin sliding scale -Sitagliptin 25mg daily -BGM TIDAC #HLD -Continue Lipitor 20mg HS -ASA 81 mg daily #FEN -Not on any standing fluids -Electrolytes wnl, routine bmp monitoring -Diabetic/sodium restricted diet #Prophylaxis -Lovenox 40mg sq daily #Disposition -full code -tele -SW on the case for oxygen and bipap arrangements Visit type - Emergency Visit Emergency Visit: No - New Patient This patient is new to me today: No - Critical Care Critical Care patient: No - Discharge Referral Referred to [facility] Med P.C.: No ATTENDING PHYSICIAN STATEMENT I saw and evaluated the patient. I reviewed the resident's note and discussed the case with the resident. I agree with the resident's findings and plan as documented. SUBJECTIVE: OBJECTIVE: ASSESSMENT AND PLAN:
--- NOTE | 2018-09-15 18:36 | PN ---
Teaching Attending Note Name of Resident: Enoch Shabazz ATTENDING PHYSICIAN STATEMENT I saw and evaluated the patient. I reviewed the resident's note and discussed the case with the resident. I agree with the resident's findings and plan as documented. SUBJECTIVE: comfortable with no acute distress. on NC, bipap at night. OBJECTIVE: Vital Signs Temperature 98 F 09/15/18 14:00 Pulse Rate 106 H 09/15/18 14:00 Respiratory Rate 19 09/15/18 14:00 Blood Pressure 117/58 L 09/15/18 14:00 O2 Sat by Pulse Oximetry (%) 97 09/15/18 17:12 GENERAL: The patient is awake, alert, and fully oriented, on 2 liter NC. HEAD: Normal with no signs of trauma. EYES: PERRL, extraocular movements intact, sclera anicteric, conjunctiva clear. ENT: Ears normal, oropharynx clear without exudates, moist mucous membranes. NECK: Trachea midline, full range of motion, supple. LUNGS: decreased BS BL, positive for Rhonchi, no crackles, no accessory muscle use. HEART: Regular rate and rhythm, S1, S2 without murmur, rub or gallop. ABDOMEN: Soft, NT, ND, normoactive bowel sounds, no guarding, no rebound, no hepatosplenomegaly, no masses. EXTREMITIES: 2+ pulses, warm, well-perfused, no edema. NEUROLOGICAL: Cranial nerves II through XII grossly intact. Normal speech, gait not observed. PSYCH: Normal mood, normal affect. SKIN: Warm, dry, normal turgor, no rashes or lesions noted CBCD WBC 14.0 K/mm3 (4.0-10.0) H 09/15/18 05:45 RBC 4.36 M/mm3 (4.00-5.60) 09/15/18 05:45 Hgb 15.2 GM/dL (11.7-16.9) 09/15/18 05:45 Hct 46.1 % (35.4-49) 09/15/18 05:45 MCV 105.8 fl (80-96) H 09/15/18 05:45 MCHC 33.0 g/dl (32.0-35.9) 09/15/18 05:45 RDW 17.6 % (11.9-15.9) H 09/15/18 05:45 Plt Count 294 K/MM3 (134-434) 09/15/18 05:45 MPV 8.3 fl (7.5-11.1) 09/15/18 05:45 CMP Sodium 136 mmol/L (136-145) 09/15/18 05:45 Potassium 4.6 mmol/L (3.5-5.1) 09/15/18 05:45 Chloride 98 mmol/L (98-107) 09/15/18 05:45 Carbon Dioxide 32 mmol/L (21-32) 09/15/18 05:45 Anion Gap 6 MMOL/L (8-16) L 09/15/18 05:45 BUN 30.2 mg/dL (7-18) H 09/15/18 05:45 Creatinine 0.9 mg/dL (0.55-1.3) 09/15/18 05:45 Random Glucose 146 mg/dL (74-106) H 09/15/18 05:45 Calcium 8.9 mg/dL (8.5-10.1) 09/15/18 05:45 Total Bilirubin 0.4 mg/dL (0.2-1) 09/13/18 06:05 AST 16 U/L (15-37) 09/13/18 06:05 ALT 55 U/L (13-61) 09/13/18 06:05 Alkaline Phosphatase 42 U/L (45-117) L 09/13/18 06:05 Total Protein 6.2 g/dl (6.4-8.2) L 09/13/18 06:05 Albumin 3.2 g/dl (3.4-5.0) L 09/13/18 06:05 CARDIAC ENZYMES Troponin I 0.02 ng/ml (0.00-0.05) 09/03/18 06:27 Current Medications Generic Name Dose Route Start Last Admin Trade Name Freq PRN Reason Stop Dose Admin Acetylcysteine 600 mg 09/13/18 09:00 09/15/18 07:35 Mucomyst 20 Oral / Inh Use Only* NEB 600 mg BID@0800,2000 [facility] Administration Albuterol Sulfate 1 amp 09/09/18 20:19 09/10/18 09:29 Ventolin 0.083% Nebulizer Soln - NEB 1 amp Q4H PRN Administration SHORT OF BREATH/WHEEZING Albuterol Sulfate 1 amp 09/10/18 08:00 09/15/18 15:25 Ventolin 0.083% Nebulizer Soln - NEB 1 amp RQID [facility] Administration Aspirin 81 mg 09/10/18 10:00 09/15/18 09:59 Asa - PO 81 mg DAILY [facility] Administration Atorvastatin Calcium 20 mg 09/09/18 22:00 09/14/18 21:39 Lipitor - PO 20 mg HS [facility] Administration Budesonide/Formoterol Fumarate 1 puff 09/09/18 22:00 09/15/18 10:01 Symbicort 160/4.5mcg - IH 1 puff BID [facility] Administration Diltiazem HCl 120 mg 09/10/18 10:00 09/15/18 09:59 Cardizem Cd - PO 120 mg DAILY [facility] Administration Docusate Sodium 100 mg 09/11/18 22:00 09/15/18 09:59 Colace - PO 100 mg BID [facility] Administration Enoxaparin Sodium 40 mg 09/10/18 10:00 09/15/18 09:59 Lovenox - SQ 40 mg DAILY [facility] Administration Furosemide 40 mg 09/16/18 10:00 Lasix - PO DAILY [facility] Glycerin 1 each 09/11/18 12:33 Glycerin Suppository Adult - RC ONCE PRN CONSTIPATION Glycerin 1 each 09/12/18 10:00 Glycerin Suppository Adult - RC DAILY PRN CONSTIPATION Insulin Aspart 1 vial 09/10/18 07:00 09/15/18 16:58 Novolog Vial Sliding Scale - SQ 6 units TIDAC [facility] Administration Protocol Insulin Detemir 5 units 09/10/18 07:00 09/15/18 06:24 Levemir Vial SQ 5 units AM [facility] Administration Losartan Potassium 25 mg 09/15/18 10:30 09/15/18 11:27 Cozaar - PO 25 mg DAILY [facility] Administration Prednisone 30 mg 09/15/18 10:00 09/15/18 09:59 Deltasone - PO 30 mg DAILY [facility] Administration Sitagliptin Phosphate 25 mg 09/10/18 07:00 09/15/18 06:22 Januvia - PO 25 mg DAILY@0700 [facility] Administration Tamsulosin HCl 0.4 mg 09/10/18 08:30 09/15/18 09:59 Flomax - PO 0.4 mg DAILY@0830 [facility] Administration Trimethoprim/Sulfamethoxazole 1 each 09/10/18 10:00 09/15/18 09:59 Bactrim Ds - PO 1 each DAILY [facility] Administration Home Medications Medication Instructions Recorded Albuterol Sulfate Inhaler - 2 inh PO QID PRN 07/30/18 [Ventolin HFA Inhaler -] Atorvastatin Ca [Lipitor] 20 mg PO HS 07/30/18 Furosemide [Lasix -] 20 mg PO DAILY #30 tablet 08/05/18 Sulfamethoxazole/Trimethoprim 1 tab PO DAILY #30 tablet 08/05/18 [Bactrim DS -] Tamsulosin HCl [Flomax] 1 cap PO DAILY #30 capsule 08/05/18 Aspirin [ASA -] 81 mg PO DAILY tab.chew 08/18/18 predniSONE [Deltasone -] 10 mg PO DAILY #30 tablet 08/18/18 Bictegrav/Emtricit/Tenofov Ala 1 tablet PO DAILY 09/02/18 [Biktarvy 50-200-25 mg Tablet] Budesonide/Formeterol Fumarate 1 puff IH BID 09/02/18 [SYMBICORT 160/4.5mcg -] Docusate Calcium 60 mg PO BID 09/02/18 ASSESSMENT AND PLAN: patient is a 63 yo male with hx of diastlic heart failure, HLP, HIV, COPD, 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 # Acute hypoxic hypercapnic respiratory failure due to End stage COPD: continue bipap, on oxygen ; patient needs home oxygen and bipap #End stage COPD with Acute Exacerbation : on Bipap at night and prn, steroid continue , nebs, symbicort continue , will check whether to add Daliresp # acute on chronic diastolic CHF exacerbation on Lasix continue , on NC continue , bipap at night. # H/o HIV: cont current medication on Px Bactrim #New onset DM: cont SSI , levemir, januvia. # Pulm nodule. 7 mm in RML. f/u as out pt. DVT PX: lovenox SW is helping out for oxygen and bipap arrangements
[2018-09-15] MEDS: ATORVASTATIN CA 20 MG TABLET (FP) PO SCH (21:49)
[2018-09-16] MEDS: INSULIN SLIDING SCALE (NOVOLOG) 1 VIAL SQ SCH ×3 (06:13→16:55)
[2018-09-16] MEDS: INSULIN (LEVEMIR) 100 UNITS/ML UNITS SQ SCH (06:13)
[2018-09-16 06:22] LABS: BASO % 0.2 % (0-2.0); EOS % 0.6 % (0-4.5); HEMATOCRIT 42.9 % (35.4-49); HEMOGLOBIN 14.4 GM/dL (11.7-16.9); LYMPH % 16.7 % (8-40); MCH 35.3 pg (25.7-33.7); MCHC 33.7 g/dl (32.0-35.9); MEAN CELL VOLUME 104.7 fl (80-96); MEAN PLT VOLUME 7.9 fl (7.5-11.1); MONO % 7.4 % (3.8-10.2); NEUT % 75.1 % (42.8-82.8); PLATELET COUNT 291 K/MM3 (134-434); RDW 17.6 % (11.9-15.9); WHITE BLOOD COUNT 11.4 K/mm3 (4.0-10.0)
[2018-09-16 06:47] LABS: ALBUMIN 3.1 g/dl (3.4-5.0); BILIRUBIN,TOTAL 0.6 mg/dL (0.2-1); BLOOD UREA NITROGEN 21.9 mg/dL (7-18); CALCIUM 8.4 mg/dL (8.5-10.1); POTASSIUM 4.2 mmol/L (3.5-5.1); TOT PROT 6.1 g/dl (6.4-8.2)
[2018-09-16] MEDS: TAMSULOSIN HCL 0.4 MG CAP PO SCH (08:08)
[2018-09-16] MEDS: ACETYLCYSTEINE 20% 200MG/ML 4 ML VIAL *FOR ORAL / INH USE ONLY NEB SCH ×2 (08:20→20:02)
[2018-09-16] MEDS: ALBUTEROL SO4 0.083% IH SOL 2.5 MG/3 ML VIAL.NEB. NEB SCH ×4 (08:21→20:02)
[2018-09-16] MEDS ORDERED: PT OWN MED DRAWER 7, Y5N ONE (10:15)
--- NOTE | 2018-09-16 10:23 | PN ---
Progress Note, Physician Chief Complaint: Events noted Feels better Not in distress History of Present Illness: Patient was seen and examined. Awake and alert. Chart was reviewed Denies chest pain or palpitations Dyspnea improved - Current Medication List Current Medications: Active Medications Acetylcysteine (Mucomyst 20 Oral / Inh Use Only*) 600 mg NEB BID@0800,2000 [facility] Last Admin: 09/16/18 08:20 Dose: 600 mg Albuterol Sulfate (Ventolin 0.083% Nebulizer Soln -) 1 amp NEB Q4H PRN PRN Reason: SHORT OF BREATH/WHEEZING Last Admin: 09/10/18 09:29 Dose: 1 amp Albuterol Sulfate (Ventolin 0.083% Nebulizer Soln -) 1 amp NEB RQID [facility] Last Admin: 09/16/18 08:21 Dose: 1 amp Aspirin (Asa -) 81 mg PO DAILY [facility] Last Admin: 09/15/18 09:59 Dose: 81 mg Atorvastatin Calcium (Lipitor -) 20 mg PO HS [facility] Last Admin: 09/15/18 21:49 Dose: 20 mg Budesonide/Formoterol Fumarate (Symbicort 160/4.5mcg -) 1 puff IH BID [facility] Last Admin: 09/15/18 21:50 Dose: 1 puff Diltiazem HCl (Cardizem Cd -) 120 mg PO DAILY [facility] Last Admin: 09/15/18 09:59 Dose: 120 mg Docusate Sodium (Colace -) 100 mg PO BID [facility] Last Admin: 09/15/18 21:49 Dose: 100 mg Enoxaparin Sodium (Lovenox -) 40 mg SQ DAILY [facility] Last Admin: 09/15/18 09:59 Dose: 40 mg Furosemide (Lasix -) 40 mg PO DAILY [facility] Glycerin (Glycerin Suppository Adult -) 1 each RC ONCE PRN PRN Reason: CONSTIPATION Glycerin (Glycerin Suppository Adult -) 1 each RC DAILY PRN PRN Reason: CONSTIPATION Insulin Aspart (Novolog Vial Sliding Scale -) 1 vial SQ TIDAC [facility]; Protocol Last Admin: 09/16/18 06:13 Dose: Not Given Insulin Detemir (Levemir Vial) 5 units SQ AM [facility] Last Admin: 09/16/18 06:13 Dose: 5 units Losartan Potassium (Cozaar -) 25 mg PO DAILY [facility] Last Admin: 09/15/18 11:27 Dose: 25 mg Prednisone (Deltasone -) 30 mg PO DAILY [facility] Last Admin: 09/15/18 09:59 Dose: 30 mg Sitagliptin Phosphate (Januvia -) 25 mg PO DAILY@0700 [facility] Last Admin: 09/16/18 06:12 Dose: 25 mg Tamsulosin HCl (Flomax -) 0.4 mg PO DAILY@0830 [facility] Last Admin: 09/16/18 08:08 Dose: 0.4 mg Trimethoprim/Sulfamethoxazole (Bactrim Ds -) 1 each PO DAILY [facility] Last Admin: 09/15/18 09:59 Dose: 1 each - Objective Vital Signs: Vital Signs Temperature 97.9 F 09/16/18 06:00 Pulse Rate 89 09/16/18 08:24 Respiratory Rate 20 09/16/18 06:00 Blood Pressure 152/67 09/16/18 06:00 O2 Sat by Pulse Oximetry (%) 96 09/16/18 08:24 Eyes: Yes: PERRL HENT: Yes: Atraumatic Neck: Yes: Supple Cardiovascular: Yes: Regular Rate and Rhythm, S1, S2 Respiratory: Yes: Wheezes Gastrointestinal: Yes: Normal Bowel Sounds, Soft. No: Tenderness Edema: Yes Edema: LLE: Trace, RLE: Trace Additional Findings/Remarks: - Review of Systems Constitutional: denies: Chills, Fever Cardiovascular: denies: Chest Pain, Palpitations, Shortness of Breath Respiratory: denies: Cough, Hemoptysis, Orthopnea, PND Gastrointestinal: denies: Abdominal Pain, Constipation, Diarrhea, Melena, Nausea , Rectal Bleeding, Vomiting Musculoskeletal: denies: Back Pain, Joint Pain Neurological: denies: Dizziness, Headache, Seizure, Syncope Labs: CBC, BMP 09/16/18 05:45 09/16/18 05:45 Problem List - Problems (1) Acute hypercapnic respiratory failure Code(s): J96.02 - ACUTE RESPIRATORY FAILURE WITH HYPERCAPNIA (2) Dyspnea Code(s): R06.00 - DYSPNEA, UNSPECIFIED Qualifiers: Dyspnea type: unspecified Qualified Code(s): R06.00 - Dyspnea, unspecified (3) Acute on chronic diastolic heart failure Code(s): I50.33 - ACUTE ON CHRONIC DIASTOLIC (CONGESTIVE) HEART FAILURE (4) Acute on chronic respiratory failure with hypoxia Code(s): J96.21 - ACUTE AND CHRONIC RESPIRATORY FAILURE WITH HYPOXIA (5) COPD exacerbation Code(s): J44.1 - CHRONIC OBSTRUCTIVE PULMONARY DISEASE W (ACUTE) EXACERBATION (6) Human immunodeficiency virus (HIV) disease Code(s): B20 - HUMAN IMMUNODEFICIENCY VIRUS [HIV] DISEASE (7) Hyperlipidemia Code(s): E78.5 - HYPERLIPIDEMIA, UNSPECIFIED Qualifiers: Hyperlipidemia type: pure hypercholesterolemia Qualified Code(s): E78.00 - Pure hypercholesterolemia, unspecified; E78.0 - Pure hypercholesterolemia (8) Peripheral edema Code(s): R60.9 - EDEMA, UNSPECIFIED (9) Pulmonary nodule, right Code(s): R91.1 - SOLITARY PULMONARY NODULE Assessment/Plan 1. Acute on chronic diastolic heart failure 2. COPD with exacerbation 3. Acute Hypoxic and hypercapneic Respiratory Failure 4. HIV on HAART 5. History of pulmonary TB 6. Hyperlipidemia 7. Pulmonary nodule PLAN: 1. Continue PO diuresis (Lasix 40 mg QD) with monitoring renal function and electrolytes and may discharge on this dose 2. Continue ASA 81 mg QD, Lipitor 20 mg QHS, Losartan 25 mg QD and Cardizem CD 120 mg QD 3. Bronchodilator, BIPAP and O2 4. Outpatient PFT 5. DVT prophylaxis Further plans are to follow. Discharge planning as per primary medical team Arvind Smith MD
[2018-09-16] MEDS: ASPIRIN 81 MG CHEWABLE TABLETS PO SCH (10:43)
[2018-09-16] MEDS: predniSONE 10 MG TABLET (UD) PO SCH (10:43)
[2018-09-16] MEDS: LOSARTAN POTASSIUM 25 MG TABLET PO SCH (10:43)
[2018-09-16] MEDS: ENOXAPARIN NA (PORCINE) 40 MG/0.4 ML DISP.SYRIN SQ SCH (10:43)
[2018-09-16] MEDS: DOLUTEGRAVIR SODIUM 50 MG TABLET (NON-FORMULARY) PO SCH (10:44)
[2018-09-16] MEDS: SULFAMETHOXAZOLE/TRIMETHOPRIM 800MG/160MG D.S. TABLET PO SCH (10:44)
[2018-09-16] MEDS: FUROSEMIDE 40 MG TABLET (FP) PO SCH (10:44)
[2018-09-16] MEDS: EMTRICITABINE/TENOFOV ALAFENAM (DESCOVY) TABLET PO SCH (10:44)
[2018-09-16] MEDS: DOCUSATE SODIUM 100 MG CAPSULE (FP) PO SCH ×2 (10:44→21:25)
[2018-09-16] MEDS: BUDESONIDE/FORMETEROL FUMARATE 160/4.5 mcg INHALER IH SCH ×2 (10:44→21:26)
[2018-09-16 11:41] LABS: ANISOCYTOSIS 1+; MACROCYTOSIS 1+; OVALOCYTE 1+; PLATELET ESTIMATE NORMAL
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
--- NOTE | 2018-09-16 15:08 | PN ---
Physical Exam: SUBJECTIVE: Patient seen and examined at bedside this AM. Pt is stable on BIPAP at night and 2l NC during the day. OBJECTIVE: Vital Signs Period Temp Pulse Resp BP Sys/Clifton Pulse Ox Last 24 Hr 97.9 F-98.5 F 87-107 20-20 111-152/51-67 96-98 GENERAL: The patient is awake, alert, and fully oriented, in no acute distress. NECK: Trachea midline, full range of motion, supple. LUNGS: Breath sounds decreased more so on the right and ronchi present b/l. no wheezing or accessory resp muscle present on exam. HEART: Regular rate and rhythm, S1, S2 without murmur, rub or gallop. ABDOMEN: Soft, nontender, nondistended, normoactive bowel sounds, no guarding, no rebound. EXTREMITIES: 2+ pulses, warm, well-perfused,2+ pitting edema. NEUROLOGICAL: Cranial nerves II through XII grossly intact. Normal speech, gait not observed. PSYCH: Normal mood, normal affect. SKIN: Warm, dry, no rashes or lesions noted Laboratory Results - last 24 hr 09/15/18 09/16/18 09/16/18 16:55 05:45 05:45 WBC 11.4 H RBC 4.10 Hgb 14.4 Hct 42.9 MCV 104.7 H MCH 35.3 H MCHC 33.7 RDW 17.6 H Plt Count 291 MPV 7.9 Absolute Neuts (auto) 8.5 H Neutrophils % 75.1 Neutrophils % (Manual) 61.0 Band Neutrophils % 0.0 Lymphocytes % 16.7 Lymphocytes % (Manual) 22.0 Monocytes % 7.4 Monocytes % (Manual) 7 Eosinophils % 0.6 D Eosinophils % (Manual) 1.0 D Basophils % 0.2 Basophils % (Manual) 1.0 D Myelocytes % (Man) 2 D Promyelocytes % (Man) 0 Blast Cells % (Manual) 0 Nucleated RBC % 0 Metamyelocytes 0 Hypochromia 0 Platelet Estimate Normal Polychromasia 0 Poikilocytosis 0 Anisocytosis 1+ Microcytosis 0 Macrocytosis 1+ Ovalocytes 1+ Sodium 138 Potassium 4.2 Chloride 102 Carbon Dioxide 34 H Anion Gap 2 L BUN 21.9 H Creatinine 1.0 Est GFR (CKD-EPI)AfAm 93.08 Est GFR (CKD-EPI)NonAf 80.31 POC Glucometer 293 Random Glucose 125 H Calcium 8.4 L Total Bilirubin 0.6 AST 15 ALT 54 Alkaline Phosphatase 40 L Total Protein 6.1 L Albumin 3.1 L 09/16/18 09/16/18 06:11 11:54 WBC RBC Hgb Hct MCV MCH MCHC RDW Plt Count MPV Absolute Neuts (auto) Neutrophils % Neutrophils % (Manual) Band Neutrophils % Lymphocytes % Lymphocytes % (Manual) Monocytes % Monocytes % (Manual) Eosinophils % Eosinophils % (Manual) Basophils % Basophils % (Manual) Myelocytes % (Man) Promyelocytes % (Man) Blast Cells % (Manual) Nucleated RBC % Metamyelocytes Hypochromia Platelet Estimate Polychromasia Poikilocytosis Anisocytosis Microcytosis Macrocytosis Ovalocytes Sodium Potassium Chloride Carbon Dioxide Anion Gap BUN Creatinine Est GFR (CKD-EPI)AfAm Est GFR (CKD-EPI)NonAf POC Glucometer 122 120 Random Glucose Calcium Total Bilirubin AST ALT Alkaline Phosphatase Total Protein Albumin Active Medications Generic Name Dose Route Start Last Admin Trade Name Freq PRN Reason Stop Dose Admin Acetylcysteine 600 mg 09/13/18 09:00 09/16/18 08:20 Mucomyst 20 Oral / Inh Use Only* NEB 600 mg BID@0800,2000 [facility] Administration Albuterol Sulfate 1 amp 09/09/18 20:19 09/10/18 09:29 Ventolin 0.083% Nebulizer Soln - NEB 1 amp Q4H PRN Administration SHORT OF BREATH/WHEEZING Albuterol Sulfate 1 amp 09/10/18 08:00 09/16/18 12:22 Ventolin 0.083% Nebulizer Soln - NEB 1 amp RQID [facility] Administration Aspirin 81 mg 09/10/18 10:00 09/16/18 10:43 Asa - PO 81 mg DAILY [facility] Administration Atorvastatin Calcium 20 mg 09/09/18 22:00 09/15/18 21:49 Lipitor - PO 20 mg HS [facility] Administration Budesonide/Formoterol Fumarate 1 puff 09/09/18 22:00 09/16/18 10:44 Symbicort 160/4.5mcg - IH 1 puff BID [facility] Administration Diltiazem HCl 120 mg 09/10/18 10:00 09/16/18 10:44 Cardizem Cd - PO 120 mg DAILY [facility] Administration Docusate Sodium 100 mg 09/11/18 22:00 09/16/18 10:44 Colace - PO 100 mg BID [facility] Administration Enoxaparin Sodium 40 mg 09/10/18 10:00 09/16/18 10:43 Lovenox - SQ 40 mg DAILY [facility] Administration Furosemide 40 mg 09/16/18 10:00 09/16/18 10:44 Lasix - PO 40 mg DAILY [facility] Administration Glycerin 1 each 09/11/18 12:33 Glycerin Suppository Adult - RC ONCE PRN CONSTIPATION Glycerin 1 each 09/12/18 10:00 Glycerin Suppository Adult - RC DAILY PRN CONSTIPATION Insulin Aspart 1 vial 09/10/18 07:00 09/16/18 12:04 Novolog Vial Sliding Scale - SQ Not Given TIDAC [facility] Protocol Insulin Detemir 5 units 09/10/18 07:00 09/16/18 06:13 Levemir Vial SQ 5 units AM [facility] Administration Losartan Potassium 25 mg 09/15/18 10:30 09/16/18 10:43 Cozaar - PO 25 mg DAILY [facility] Administration Prednisone 30 mg 09/15/18 10:00 09/16/18 10:43 Deltasone - PO 30 mg DAILY [facility] Administration Sitagliptin Phosphate 25 mg 09/10/18 07:00 09/16/18 06:12 Januvia - PO 25 mg DAILY@0700 [facility] Administration Tamsulosin HCl 0.4 mg 09/10/18 08:30 09/16/18 08:08 Flomax - PO 0.4 mg DAILY@0830 [facility] Administration Trimethoprim/Sulfamethoxazole 1 each 09/10/18 10:00 09/16/18 10:44 Bactrim Ds - PO 1 each DAILY [facility] Administration ASSESSMENT/PLAN: Patient is a 63 year old male with past medical history of diastolic CHF, HLD, HIV (on HAART), COPD and miliary TB, presented to the ED with SOB and LE edema. #Acute on chronic diastolic CHF exacerbation -on PO Lasix 40mg daily, added losartan 25qd. -Continue [id number] daily -Cardiology (Dr. Smith) consulted. Recommendations appreciated- continue current cardiac management and continue 40mg Lasix upon d/c. #Acute hypoxic respiratory failure 2/2 COPD exacerbation, CHF -Continue Albuterol RQID -Continue Symbicort BID -Prednisone tapered to 30mg will start 20 two days from now. -Pulmonology consulted. Recommendations appreciated. #HIV on HAART -Continue Tivicay and Descovy -Bactrim for ppx (last CD4 196) -ID (Dr. Machado) consulted. #DM -new onset, A1c 6.8 -Insulin sliding scale -Sitagliptin 25mg daily -BGM TIDAC #HLD -Continue Lipitor 20mg HS -ASA 81 mg daily #FEN -Not on any standing fluids -Electrolytes wnl, routine bmp monitoring -Diabetic/sodium restricted diet #Prophylaxis -Lovenox 40mg sq daily #Disposition -full code -tele -SW on the case for oxygen and bipap arrangements at home. We were able to get [facility] to purchase the BIPAP for this pt. Greatly appreciated. Hopefully by tomorrow patient can get the BIPAP and he can be d/c. Visit type - Emergency Visit Emergency Visit: No - New Patient This patient is new to me today: No - Critical Care Critical Care patient: No - Discharge Referral Referred to [facility] No ATTENDING PHYSICIAN STATEMENT I saw and evaluated the patient. I reviewed the resident's note and discussed the case with the resident. I agree with the resident's findings and plan as documented. SUBJECTIVE: OBJECTIVE: ASSESSMENT AND PLAN:
--- NOTE | 2018-09-16 16:16 | PN ---
Teaching Attending Note Name of Resident: Enoch Shabazz ATTENDING PHYSICIAN STATEMENT I saw and evaluated the patient. I reviewed the resident's note and discussed the case with the resident. I agree with the resident's findings and plan as documented. SUBJECTIVE: Patient is 63yo male ,is feeling better today on NC, bipap at night. OBJECTIVE: Vital Signs Temperature 98.9 F 09/16/18 13:45 Pulse Rate 106 H 09/16/18 13:45 Respiratory Rate 20 09/16/18 13:45 Blood Pressure 101/47 L 09/16/18 13:45 O2 Sat by Pulse Oximetry (%) 97 09/16/18 12:10 GENERAL: The patient is awake, alert, and fully oriented, on 2 liter NC. HEAD: Normal with no signs of trauma. EYES: PERRL, extraocular movements intact, sclera anicteric, conjunctiva clear. ENT: Ears normal, oropharynx clear without exudates, moist mucous membranes. NECK: Trachea midline, full range of motion, supple. LUNGS: decreased BS BL, positive for Rhonchi, no crackles, no accessory muscle use. HEART: Regular rate and rhythm, S1, S2 without murmur, rub or gallop. ABDOMEN: Soft, NT, ND, normoactive bowel sounds, no guarding, no rebound, no hepatosplenomegaly, no masses. EXTREMITIES: 2+ pulses, warm, well-perfused, no edema. NEUROLOGICAL: Cranial nerves II through XII grossly intact. Normal speech, gait not observed. PSYCH: Normal mood, normal affect. SKIN: Warm, dry, normal turgor, no rashes or lesions noted CBCD WBC 11.4 K/mm3 (4.0-10.0) H 09/16/18 05:45 RBC 4.10 M/mm3 (4.00-5.60) 09/16/18 05:45 Hgb 14.4 GM/dL (11.7-16.9) 09/16/18 05:45 Hct 42.9 % (35.4-49) 09/16/18 05:45 MCV 104.7 fl (80-96) H 09/16/18 05:45 MCHC 33.7 g/dl (32.0-35.9) 09/16/18 05:45 RDW 17.6 % (11.9-15.9) H 09/16/18 05:45 Plt Count 291 K/MM3 (134-434) 09/16/18 05:45 MPV 7.9 fl (7.5-11.1) 09/16/18 05:45 CMP Sodium 138 mmol/L (136-145) 09/16/18 05:45 Potassium 4.2 mmol/L (3.5-5.1) 09/16/18 05:45 Chloride 102 mmol/L (98-107) 09/16/18 05:45 Carbon Dioxide 34 mmol/L (21-32) H 09/16/18 05:45 Anion Gap 2 MMOL/L (8-16) L 09/16/18 05:45 BUN 21.9 mg/dL (7-18) H 09/16/18 05:45 Creatinine 1.0 mg/dL (0.55-1.3) 09/16/18 05:45 Random Glucose 125 mg/dL (74-106) H 09/16/18 05:45 Calcium 8.4 mg/dL (8.5-10.1) L 09/16/18 05:45 Total Bilirubin 0.6 mg/dL (0.2-1) 09/16/18 05:45 AST 15 U/L (15-37) 09/16/18 05:45 ALT 54 U/L (13-61) 09/16/18 05:45 Alkaline Phosphatase 40 U/L (45-117) L 09/16/18 05:45 Total Protein 6.1 g/dl (6.4-8.2) L 09/16/18 05:45 Albumin 3.1 g/dl (3.4-5.0) L 09/16/18 05:45 CARDIAC ENZYMES Troponin I 0.02 ng/ml (0.00-0.05) 09/03/18 06:27 Current Medications Generic Name Dose Route Start Last Admin Trade Name Freq PRN Reason Stop Dose Admin Acetylcysteine 600 mg 09/13/18 09:00 09/16/18 08:20 Mucomyst 20 Oral / Inh Use Only* NEB 600 mg BID@0800,1999 GL[facility] Administration Albuterol Sulfate 1 amp 09/09/18 20:19 09/10/18 09:29 Ventolin 0.083% Nebulizer Soln - NEB 1 amp Q4H PRN Administration SHORT OF BREATH/WHEEZING Albuterol Sulfate 1 amp 09/10/18 08:00 09/16/18 12:22 Ventolin 0.083% Nebulizer Soln - NEB 1 amp RQID GL[facility]NY Administration Aspirin 81 mg 09/10/18 10:00 09/16/18 10:43 Asa - PO 81 mg DAILY GLENNY Administration Atorvastatin Calcium 20 mg 09/09/18 22:00 09/15/18 21:49 Lipitor - PO 20 mg HS [facility]ENNY Administration Budesonide/Formoterol Fumarate 1 puff 09/09/18 22:00 09/16/18 10:44 Symbicort 160/4.5mcg - IH 1 puff BID GLENNY Administration Diltiazem HCl 120 mg 09/10/18 10:00 09/16/18 10:44 Cardizem Cd - PO 120 mg DAILY [facility]NY Administration Docusate Sodium 100 mg 09/11/18 22:00 09/16/18 10:44 Colace - PO 100 mg BID GLENNY Administration Enoxaparin Sodium 40 mg 09/10/18 10:00 09/16/18 10:43 Lovenox - SQ 40 mg DAILY [facility] Administration Furosemide 40 mg 09/16/18 10:00 09/16/18 10:44 Lasix - PO 40 mg DAILY [facility]NY Administration Glycerin 1 each 09/11/18 12:33 Glycerin Suppository Adult - RC ONCE PRN CONSTIPATION Glycerin 1 each 09/12/18 10:00 Glycerin Suppository Adult - RC DAILY PRN CONSTIPATION Insulin Aspart 1 vial 09/10/18 07:00 09/16/18 12:04 Novolog Vial Sliding Scale - SQ Not Given [facility] Protocol Insulin Detemir 5 units 09/10/18 07:00 09/16/18 06:13 Levemir Vial SQ 5 units AM [facility] Administration Losartan Potassium 25 mg 09/15/18 10:30 09/16/18 10:43 Cozaar - PO 25 mg DAILY GEL[facility] Administration Prednisone 30 mg 09/15/18 10:00 09/16/18 10:43 Deltasone - PO 30 mg DAILY [facility] Administration Sitagliptin Phosphate 25 mg 09/10/18 07:00 09/16/18 06:12 Januvia - PO 25 mg DAILY@0700 [facility] Administration Tamsulosin HCl 0.4 mg 09/10/18 08:30 09/16/18 08:08 Flomax - PO 0.4 mg DAILY@0830 [facility] Administration Trimethoprim/Sulfamethoxazole 1 each 09/10/18 10:00 09/16/18 10:44 Bactrim Ds - PO 1 each DAILY [facility]NY Administration Home Medications Medication Instructions Recorded Albuterol Sulfate Inhaler - 2 inh PO QID PRN 07/30/18 [Ventolin HFA Inhaler -] Atorvastatin Ca [Lipitor] 20 mg PO HS 07/30/18 Sulfamethoxazole/Trimethoprim 1 tab PO DAILY #30 tablet 08/05/18 [Bactrim DS -] Tamsulosin HCl [Flomax] 1 cap PO DAILY #30 capsule 08/05/18 Aspirin [ASA -] 81 mg PO DAILY tab.chew 08/18/18 Bictegrav/Emtricit/Tenofov Ala 1 tablet PO DAILY 09/02/18 [Biktarvy 50-200-25 mg Tablet] Budesonide/Formeterol Fumarate 1 puff IH BID 09/02/18 [SYMBICORT 160/4.5mcg -] Docusate Calcium 60 mg PO BID 09/02/18 Alcohol Antiseptic Pads [Alcohol 1 each TP DAILY #100 med..pad 09/16/18 Prep Pads] Diltiazem Cd [Cardizem Cd -] 120 mg PO DAILY #30 cap.cd.24h 09/16/18 Furosemide [Lasix -] 40 mg PO DAILY #30 tablet 09/16/18 Insulin (Levemir) [Levemir Vial] 5 units SQ AM #200 units 09/16/18 Losartan Potassium [Cozaar -] 25 mg PO DAILY #30 tablet 09/16/18 Miscellaneous Medical Supply 1 each SQ ASDIR #1 kit 09/16/18 [Glucometer Device] Miscellaneous Medical Supply 1 each SQ ASDIR #1 box 09/16/18 [Glucometer Test Strips #100] [place], Safety [Needle] 1 each MC DAILY #100 dis.needle 09/16/18 Sitagliptin Phosphate [Januvia -] 25 mg PO DAILY@0700 #30 tab 09/16/18 ASSESSMENT AND PLAN: patient is a 63 yo male with hx of diastlic heart failure, HLP, HIV, COPD, 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 # Acute hypoxic hypercapnic respiratory failure due to End stage COPD: continue bipap, on oxygen daily ; patient needs home oxygen and bipap, being arranged by long term care social worker. #End stage COPD with Acute Exacerbation : on Bipap at night and prn, steroid continue , nebs, symbicort continue. # acute on chronic diastolic CHF exacerbation on Lasix continue , on NC continue , bipap at night. # H/o HIV: cont current medication on Px Bactrim #New onset DM: continue levemir, januvia. # Pulm nodule. 7 mm in RML. f/u as out pt. with Pulmonary DVT PX: lovenox SW is helping out for oxygen and bipap arrangements
[2018-09-16] MEDS: ATORVASTATIN CA 20 MG TABLET (FP) PO SCH (21:25)
[2018-09-17] MEDS: INSULIN SLIDING SCALE (NOVOLOG) 1 VIAL SQ SCH ×3 (06:14→17:32)
[2018-09-17] MEDS: INSULIN (LEVEMIR) 100 UNITS/ML UNITS SQ SCH (06:21)
[2018-09-17] MEDS: ACETYLCYSTEINE 20% 200MG/ML 4 ML VIAL *FOR ORAL / INH USE ONLY NEB SCH ×2 (08:00→20:30)
[2018-09-17] MEDS: ALBUTEROL SO4 0.083% IH SOL 2.5 MG/3 ML VIAL.NEB. NEB PRN (08:00)
[2018-09-17] MEDS: ALBUTEROL SO4 0.083% IH SOL 2.5 MG/3 ML VIAL.NEB. NEB SCH ×4 (08:00→20:30)
[2018-09-17] MEDS ORDERED: PT OWN MED DRAWER 7, Y5N ONE (10:00)
[2018-09-17] MEDS ORDERED: INSULIN (LEVEMIR) 100 UNITS/ML UNITS SQ SCH (10:47)
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
[2018-09-17] MEDS: DOLUTEGRAVIR SODIUM 50 MG TABLET (NON-FORMULARY) PO SCH (11:37)
[2018-09-17] MEDS: EMTRICITABINE/TENOFOV ALAFENAM (DESCOVY) TABLET PO SCH (11:37)
[2018-09-17] MEDS: ASPIRIN 81 MG CHEWABLE TABLETS PO SCH (11:38)
[2018-09-17] MEDS: BUDESONIDE/FORMETEROL FUMARATE 160/4.5 mcg INHALER IH SCH ×2 (11:38→21:43)
[2018-09-17] MEDS: FUROSEMIDE 40 MG TABLET (FP) PO SCH (11:38)
[2018-09-17] MEDS: SULFAMETHOXAZOLE/TRIMETHOPRIM 800MG/160MG D.S. TABLET PO SCH (11:39)
[2018-09-17] MEDS: DOCUSATE SODIUM 100 MG CAPSULE (FP) PO SCH ×2 (11:39→21:41)
[2018-09-17] MEDS: LOSARTAN POTASSIUM 25 MG TABLET PO SCH (11:39)
[2018-09-17] MEDS: predniSONE 10 MG TABLET (UD) PO SCH (11:39)
[2018-09-17] MEDS: TAMSULOSIN HCL 0.4 MG CAP PO SCH (11:41)
--- NOTE | 2018-09-17 12:16 | PN ---
Progress Note, Physician History of Present Illness: Remains on NC and bipap nightly. LE edema improved with diuresis. - Current Medication List Current Medications: Active Medications Acetylcysteine (Mucomyst 20 Oral / Inh Use Only*) 600 mg NEB BID@0800,1999 [facility] Last Admin: 09/17/18 08:00 Dose: 600 mg Albuterol Sulfate (Ventolin 0.083% Nebulizer Soln -) 1 amp NEB Q4H PRN PRN Reason: SHORT OF BREATH/WHEEZING Last Admin: 09/17/18 08:00 Dose: 1 amp Albuterol Sulfate (Ventolin 0.083% Nebulizer Soln -) 1 amp NEB RQID [facility] Last Admin: 09/17/18 08:00 Dose: 1 amp Aspirin (Asa -) 81 mg PO DAILY [facility] Last Admin: 09/17/18 11:38 Dose: 81 mg Atorvastatin Calcium (Lipitor -) 20 mg PO HS [facility] Last Admin: 09/16/18 21:25 Dose: 20 mg Budesonide/Formoterol Fumarate (Symbicort 160/4.5mcg -) 1 puff IH BID [facility] Last Admin: 09/17/18 11:38 Dose: 1 puff Diltiazem HCl (Cardizem Cd -) 120 mg PO DAILY [facility] Last Admin: 09/17/18 11:38 Dose: 120 mg Docusate Sodium (Colace -) 100 mg PO BID [facility] Last Admin: 09/17/18 11:39 Dose: 100 mg Furosemide (Lasix -) 40 mg PO DAILY [facility] Last Admin: 09/17/18 11:38 Dose: 40 mg Glycerin (Glycerin Suppository Adult -) 1 each RC ONCE PRN PRN Reason: CONSTIPATION Glycerin (Glycerin Suppository Adult -) 1 each RC DAILY PRN PRN Reason: CONSTIPATION Insulin Aspart (Novolog Vial Sliding Scale -) 1 vial SQ TIDAC [facility]; Protocol Last Admin: 09/17/18 12:01 Dose: 6 units Insulin Detemir (Levemir Vial) 8 units SQ AM [facility] Losartan Potassium (Cozaar -) 25 mg PO DAILY [facility] Last Admin: 09/17/18 11:39 Dose: 25 mg Prednisone (Deltasone -) 30 mg PO DAILY [facility] Last Admin: 09/17/18 11:39 Dose: 30 mg Sitagliptin Phosphate (Januvia -) 100 mg PO DAILY@0700 [facility] Tamsulosin HCl (Flomax -) 0.4 mg PO DAILY@0830 [facility] Last Admin: 09/17/18 11:41 Dose: 0.4 mg Trimethoprim/Sulfamethoxazole (Bactrim Ds -) 1 each PO DAILY [facility] Last Admin: 09/17/18 11:39 Dose: 1 each - Objective Vital Signs: Vital Signs Temperature 97.3 F L 09/17/18 06:00 Pulse Rate 88 09/17/18 06:00 Respiratory Rate 20 09/17/18 02:00 Blood Pressure 115/60 09/17/18 06:00 O2 Sat by Pulse Oximetry (%) 97 09/17/18 04:31 Constitutional: Yes: No Distress, Calm Neck: Yes: Supple Cardiovascular: Yes: Regular Rate and Rhythm Respiratory: Yes: Regular, Diminished, On Nasal O2 Gastrointestinal: Yes: Normal Bowel Sounds, Soft, Abdomen, Obese Edema: Yes Edema: LLE: 1+, RLE: 1+ Labs: CBC, BMP 09/16/18 05:45 09/16/18 05:45 INR, PTT INR 0.95 (0.83-1.09) 09/02/18 12:10 - ....Imaging EKG: Report Reviewed (Tele: Sinus tachycardia) Problem List - Problems (1) Dyspnea Code(s): R06.00 - DYSPNEA, UNSPECIFIED Qualifiers: Dyspnea type: unspecified Qualified Code(s): R06.00 - Dyspnea, unspecified (2) Acute on chronic diastolic heart failure Code(s): I50.33 - ACUTE ON CHRONIC DIASTOLIC (CONGESTIVE) HEART FAILURE (3) Acute on chronic respiratory failure with hypoxia Code(s): J96.21 - ACUTE AND CHRONIC RESPIRATORY FAILURE WITH HYPOXIA (4) Bilateral leg edema Code(s): R60.0 - LOCALIZED EDEMA (5) Hyperlipidemia Code(s): E78.5 - HYPERLIPIDEMIA, UNSPECIFIED Qualifiers: Hyperlipidemia type: pure hypercholesterolemia Qualified Code(s): E78.00 - Pure hypercholesterolemia, unspecified; E78.0 - Pure hypercholesterolemia (6) COPD (chronic obstructive pulmonary disease) Code(s): J44.9 - CHRONIC OBSTRUCTIVE PULMONARY DISEASE, UNSPECIFIED Qualifiers: COPD type: emphysema Emphysema type: centrilobular Qualified Code(s): J43.2 - Centrilobular emphysema Assessment/Plan 09/04/2018: Chest CT: Stable granulomas and pulm nodule 07/09/2018 Chest CTA: No PE, mild centrilobular emphysema, mildly dilated main PA, interval resolution of focal right posterior basilar infiltrate or ATX peviously seen 06/06/2018 09/03/2018 Echo: Nondiagnostic, poor windows 07/10/2018 Echo: Normal LV and RV size and fxn LVEF 60-65%, tr TR 1. Recurrent acute on chronic diastolic heart failure resolving 2. COPD with exacerbation 3. Acute Hypoxic and hypercapneic Respiratory Failure 4. HIV on HAART 5. History of pulmonary TB 6. Hyperlipidemia 7. Pulmonary nodule PLAN: 1. Oral diuresis with monitoring diuretic response, renal function and electrolytes 2. Continue ASA 81 mg QD, Lipitor 20 mg QHS and Cardizem CD 120 mg QD, losartan 25 qd 3. Bronchodilator, BIPAP and O2 as needed and oral steroid taper 4. Outpatient PFT 5. DVT prophylaxis 6. D/c planning with home O2 and bipap needs
--- NOTE | 2018-09-17 13:54 | PN ---
Teaching Attending Note Name of Resident: Enoch Shabazz ATTENDING PHYSICIAN STATEMENT I saw and evaluated the patient. I reviewed the resident's note and discussed the case with the resident. I agree with the resident's findings and plan as documented. SUBJECTIVE: No fever or chills. No pain, he feels much better OBJECTIVE: No distress. CV: RRR, no MRG. Lungs: No wheezing. Ext: 1+ edema on legs. no erythema. ASSESSMENT AND PLAN: 63 y/o man with h/o diastolic heart failure, HLP, HIV, COPD, and miliary TB who presented with SOB and LE edema and was found to have acute diastoic CHF and acute COPD exacerbation. 1- Acute hypoxic hypercapnic resp failure due to acute on chronic diastolic CHF exacerbation and COPD exacerbation: - cont prednisone. decrease again tomorrow - cont lasix 40 mg daily. - cont cardizem. - cont BIPAP - cont symbicort 2- H/o HIV: cont current medication - cont prophylactic bactrim 3-New onset DM: - cont SSI - Increase levemir to 8 units - cont januvia. increase dose to 100 as renal function is Nl - will contact pharmacy to figure out a cheap regimen for him as he has no insurance. will explore mixed insulin . If he can't afford , then will send on pills ,( Januvia and glipizide) 4- Pulm nodule. 7 mm in RML. f/u as out pt. 5- DVT PX: lovenox dc is pending BIPAP setup at home . O2 during the day
--- NOTE | 2018-09-17 14:23 | PN ---
Physical Exam: SUBJECTIVE: Patient seen and examined at the bedside. No acute events overnight. OBJECTIVE: Vital Signs Period Temp Pulse Resp BP Sys/[place] Pulse Ox Last 24 Hr 97.3 F-99.1 F 78-111 18-20 101-118/51-78 96-97 GENERAL: The patient is awake, alert, and fully oriented, in no acute distress. HEAD: Normal with no signs of trauma. EYES: extraocular movements intact, sclera anicteric, conjunctiva clear. No ptosis. NECK: supple. LUNGS: Breath sounds reduced b/l slight wheezes, no crackles, no accessory muscle use. HEART: Regular rate and rhythm, S1, S2 without murmur, rub or gallop. ABDOMEN: Soft, nontender, nondistended, normoactive bowel sounds, no guarding, no rebound. EXTREMITIES: warm, well-perfused, 1+ edema. Laboratory Results - last 24 hr 09/16/18 09/17/18 09/17/18 16:44 06:13 11:41 POC Glucometer 486 114 284 Active Medications Generic Name Dose Route Start Last Admin Trade Name Freq PRN Reason Stop Dose Admin Acetylcysteine 600 mg 09/13/18 09:00 09/17/18 08:00 Mucomyst 20 Oral / Inh Use Only* NEB 600 mg BID@0800,2000 GL[facility]NY Administration Albuterol Sulfate 1 amp 09/09/18 20:19 09/17/18 08:00 Ventolin 0.083% Nebulizer Soln - NEB 1 amp Q4H PRN Administration SHORT OF BREATH/WHEEZING Albuterol Sulfate 1 amp 09/10/18 08:00 09/17/18 12:00 Ventolin 0.083% Nebulizer Soln - NEB 1 amp RQID GLENNY Administration Aspirin 81 mg 09/10/18 10:00 09/17/18 11:38 Asa - PO 81 mg DAILY [facility]NY Administration Atorvastatin Calcium 20 mg 09/09/18 22:00 09/16/18 21:25 Lipitor - PO 20 mg HS [facility] Administration Budesonide/Formoterol Fumarate 1 puff 09/09/18 22:00 09/17/18 11:38 Symbicort 160/4.5mcg - IH 1 puff BID [facility] Administration Diltiazem HCl 120 mg 09/10/18 10:00 09/17/18 11:38 Cardizem Cd - PO 120 mg DAILY [facility] Administration Docusate Sodium 100 mg 09/11/18 22:00 09/17/18 11:39 Colace - PO 100 mg BID [facility] Administration Furosemide 40 mg 09/16/18 10:00 09/17/18 11:38 Lasix - PO 40 mg DAILY [facility] Administration Glycerin 1 each 09/11/18 12:33 Glycerin Suppository Adult - RC ONCE PRN CONSTIPATION Glycerin 1 each 09/12/18 10:00 Glycerin Suppository Adult - RC DAILY PRN CONSTIPATION Insulin Aspart 1 vial 09/10/18 07:00 09/17/18 12:01 Novolog Vial Sliding Scale - SQ 6 units TIDAC [facility] Administration Protocol Insulin Detemir 8 units 09/17/18 10:47 Levemir Vial SQ AM [facility] Losartan Potassium 25 mg 09/15/18 10:30 09/17/18 11:39 Cozaar - PO 25 mg DAILY [facility] Administration Prednisone 30 mg 09/15/18 10:00 09/17/18 11:39 Deltasone - PO 30 mg DAILY [facility] Administration Sitagliptin Phosphate 100 mg 09/17/18 10:48 Januvia - PO DAILY@0700 [facility] Tamsulosin HCl 0.4 mg 09/10/18 08:30 09/17/18 11:41 Flomax - PO 0.4 mg DAILY@0830 [facility] Administration Trimethoprim/Sulfamethoxazole 1 each 09/10/18 10:00 09/17/18 11:39 Bactrim Ds - PO 1 each DAILY [facility] Administration ASSESSMENT/PLAN: Patient is a 63 year old male with past medical history of diastolic CHF, HLD, HIV (on HAART), COPD and miliary TB, presented to the ED with SOB and LE edema. #Acute on chronic diastolic CHF exacerbation -on PO Lasix 40mg daily, continue losartan 25qd. -Continue [id number] daily -Cardiology (Dr. Turner) consulted. Recommendations appreciated- continue current cardiac management and continue 40mg Lasix upon d/c. #Acute hypoxic respiratory failure 2/2 COPD exacerbation, CHF -Dr benson consulted: -Continue Albuterol RQID -Continue Symbicort BID -Prednisone tapered to 30mg ordered 20mg for tomorrow. #RML nodule -f/u with pulm as o/p for repeat CT scan of chest. #HIV on HAART -Continue Tivicay and Descovy -Bactrim for ppx (last CD4 196) -ID (Dr. Machado) consulted. #DM -new onset, A1c 6.8 - continuing Insulin sliding scale while here and 70/30 bid. -being sent home on 70/30 7 units BID and insulin sliding scale for home bc its more affordable for patient. discussed w [facility] pharmacy and this was the best plan of management within his affordability, and they may offer him some coupons downstairs to help out. -BGM TIDAC #HLD -Continue Lipitor 20mg HS -ASA 81 mg daily #FEN -Not on any standing fluids -Electrolytes wnl, routine bmp monitoring -Diabetic/sodium restricted diet #Prophylaxis -Lovenox 40mg sq daily #Disposition -full code -tele -SW on case for BIPAP to be setup at home on . Visit type - Emergency Visit Emergency Visit: Yes ED Registration Date: 09/02/18 Care time: The patient presented to the Emergency Department on the above date and was hospitalized for further evaluation of their emergent condition. - New Patient This patient is new to me today: No - Critical Care Critical Care patient: No - Discharge Referral Referred to [facility] No ATTENDING PHYSICIAN STATEMENT I saw and evaluated the patient. I reviewed the resident's note and discussed the case with the resident. I agree with the resident's findings and plan as documented. SUBJECTIVE: OBJECTIVE: ASSESSMENT AND PLAN:
[2018-09-17 15:40] VITALS: BMI 29.5
[2018-09-17] MEDS ORDERED: predniSONE 10 MG TABLET (UD) PO ONE (17:26)
[2018-09-17] MEDS: ATORVASTATIN CA 20 MG TABLET (FP) PO SCH (21:41)
[2018-09-18] MEDS: INSULIN SLIDING SCALE (NOVOLOG) 1 VIAL SQ SCH ×3 (06:43→17:11)
[2018-09-18] MEDS ORDERED: INSULIN (NOVOLOG MIX 70/30) 100 UNITS/ML MDV SQ SCH ×2 (07:00→16:30)
[2018-09-18] MEDS: ALBUTEROL SO4 0.083% IH SOL 2.5 MG/3 ML VIAL.NEB. NEB SCH ×4 (07:35→20:53)
[2018-09-18] MEDS: ACETYLCYSTEINE 20% 200MG/ML 4 ML VIAL *FOR ORAL / INH USE ONLY NEB SCH ×2 (07:35→20:53)
[2018-09-18] MEDS ORDERED: predniSONE 20 MG TABLET (UD) PO ONE (08:04)
--- NOTE | 2018-09-18 09:55 | PN ---
Progress Note, Physician History of Present Illness: Remains on NC and bipap nightly. LE edema improved with diuresis. - Current Medication List Current Medications: Active Medications Acetylcysteine (Mucomyst 20 Oral / Inh Use Only*) 600 mg NEB BID@0800,2000 [facility] Last Admin: 09/18/18 07:35 Dose: 600 mg Albuterol Sulfate (Ventolin 0.083% Nebulizer Soln -) 1 amp NEB Q4H PRN PRN Reason: SHORT OF BREATH/WHEEZING Last Admin: 09/17/18 08:00 Dose: 1 amp Albuterol Sulfate (Ventolin 0.083% Nebulizer Soln -) 1 amp NEB RQID [facility] Last Admin: 09/18/18 07:35 Dose: 1 amp Aspirin (Asa -) 81 mg PO DAILY [facility] Last Admin: 09/17/18 11:38 Dose: 81 mg Atorvastatin Calcium (Lipitor -) 20 mg PO HS [facility] Last Admin: 09/17/18 21:41 Dose: 20 mg Budesonide/Formoterol Fumarate (Symbicort 160/4.5mcg -) 1 puff IH BID [facility] Last Admin: 09/17/18 21:43 Dose: 1 puff Diltiazem HCl (Cardizem Cd -) 120 mg PO DAILY [facility] Last Admin: 09/17/18 11:38 Dose: 120 mg Docusate Sodium (Colace -) 100 mg PO BID [facility] Last Admin: 09/17/18 21:41 Dose: 100 mg Furosemide (Lasix -) 40 mg PO DAILY [facility] Last Admin: 09/17/18 11:38 Dose: 40 mg Glycerin (Glycerin Suppository Adult -) 1 each RC ONCE PRN PRN Reason: CONSTIPATION Glycerin (Glycerin Suppository Adult -) 1 each RC DAILY PRN PRN Reason: CONSTIPATION Insulin Aspart (Novolog Vial Sliding Scale -) 1 vial SQ TIDAC [facility]; Protocol Last Admin: 09/18/18 06:43 Dose: Not Given Insulin Aspart (Novolog Mix 70/30 Vial) 7 units SQ BIDAC [facility] Last Admin: 09/18/18 06:43 Dose: 7 units Losartan Potassium (Cozaar -) 25 mg PO DAILY [facility] Last Admin: 09/17/18 11:39 Dose: 25 mg Prednisone (Deltasone -) 20 mg PO DAILY [facility] Tamsulosin HCl (Flomax -) 0.4 mg PO DAILY@0830 [facility] Last Admin: 09/17/18 11:41 Dose: 0.4 mg Trimethoprim/Sulfamethoxazole (Bactrim Ds -) 1 each PO DAILY [facility] Last Admin: 09/17/18 11:39 Dose: 1 each - Objective Vital Signs: Vital Signs Temperature 98.3 F 09/18/18 06:00 Pulse Rate 104 H 09/18/18 06:00 Respiratory Rate 20 09/18/18 06:00 Blood Pressure 111/71 09/18/18 06:00 O2 Sat by Pulse Oximetry (%) 99 09/17/18 21:00 Constitutional: Yes: No Distress, Calm Neck: Yes: Supple Cardiovascular: Yes: Regular Rate and Rhythm Respiratory: Yes: Regular, Diminished, On Nasal O2 Gastrointestinal: Yes: Normal Bowel Sounds, Soft, Abdomen, Obese Edema: Yes Edema: LLE: 1+, RLE: 1+ Labs: CBC, BMP 09/16/18 05:45 09/16/18 05:45 INR, PTT INR 0.95 (0.83-1.09) 09/02/18 12:10 Problem List - Problems (1) Dyspnea Code(s): R06.00 - DYSPNEA, UNSPECIFIED Qualifiers: Dyspnea type: unspecified Qualified Code(s): R06.00 - Dyspnea, unspecified (2) Acute on chronic diastolic heart failure Code(s): I50.33 - ACUTE ON CHRONIC DIASTOLIC (CONGESTIVE) HEART FAILURE (3) Acute on chronic respiratory failure with hypoxia Code(s): J96.21 - ACUTE AND CHRONIC RESPIRATORY FAILURE WITH HYPOXIA (4) Bilateral leg edema Code(s): R60.0 - LOCALIZED EDEMA (5) Hyperlipidemia Code(s): E78.5 - HYPERLIPIDEMIA, UNSPECIFIED Qualifiers: Hyperlipidemia type: pure hypercholesterolemia Qualified Code(s): E78.00 - Pure hypercholesterolemia, unspecified; E78.0 - Pure hypercholesterolemia (6) COPD (chronic obstructive pulmonary disease) Code(s): J44.9 - CHRONIC OBSTRUCTIVE PULMONARY DISEASE, UNSPECIFIED Qualifiers: COPD type: emphysema Emphysema type: centrilobular Qualified Code(s): J43.2 - Centrilobular emphysema Assessment/Plan 09/04/2018: Chest CT: Stable granulomas and pulm nodule 07/09/2018 Chest CTA: No PE, mild centrilobular emphysema, mildly dilated main PA, interval resolution of focal right posterior basilar infiltrate or ATX peviously seen 06/06/2018 09/03/2018 Echo: Nondiagnostic, poor windows 07/10/2018 Echo: Normal LV and RV size and fxn LVEF 60-65%, tr TR 1. Recurrent acute on chronic diastolic heart failure resolving 2. COPD with exacerbation 3. Acute Hypoxic and hypercapneic Respiratory Failure 4. HIV on HAART 5. History of pulmonary TB 6. Hyperlipidemia 7. Pulmonary nodule 7 mm in RML 8. Type 2 DM PLAN: 1. Oral diuresis with monitoring diuretic response, renal function and electrolytes 2. Continue ASA 81 mg QD, Lipitor 20 mg QHS and Cardizem CD 120 mg QD, losartan 25 qd 3. Bronchodilator, BIPAP and O2 as needed and oral steroid taper 4. Outpatient PFT and repeat chest CT f/u 5. DVT prophylaxis 6. D/c planning with home O2 and bipap needs
[2018-09-18] MEDS: ASPIRIN 81 MG CHEWABLE TABLETS PO SCH (10:14)
[2018-09-18] MEDS: SULFAMETHOXAZOLE/TRIMETHOPRIM 800MG/160MG D.S. TABLET PO SCH (10:14)
[2018-09-18] MEDS: DOCUSATE SODIUM 100 MG CAPSULE (FP) PO SCH ×2 (10:14→22:24)
[2018-09-18] MEDS: LOSARTAN POTASSIUM 25 MG TABLET PO SCH (10:14)
[2018-09-18] MEDS: TAMSULOSIN HCL 0.4 MG CAP PO SCH (10:15)
[2018-09-18] MEDS: predniSONE 20 MG TABLET (UD) PO SCH (10:15)
[2018-09-18] MEDS: FUROSEMIDE 40 MG TABLET (FP) PO SCH (10:15)
[2018-09-18] MEDS: BUDESONIDE/FORMETEROL FUMARATE 160/4.5 mcg INHALER IH SCH ×2 (10:16→22:24)
[2018-09-18] MEDS ORDERED: PT OWN MED DRAWER 7, Y5N ONE ×2 (10:18→17:07)
[2018-09-18] MEDS: DOLUTEGRAVIR SODIUM 50 MG TABLET (NON-FORMULARY) PO SCH (10:19)
[2018-09-18] MEDS: EMTRICITABINE/TENOFOV ALAFENAM (DESCOVY) TABLET PO SCH (10:19)
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
--- NOTE | 2018-09-18 13:46 | PN ---
Teaching Attending Note Name of Resident: Zay Shabazz ATTENDING PHYSICIAN STATEMENT I saw and evaluated the patient. I reviewed the resident's note and discussed the case with the resident. I agree with the resident's findings and plan as documented. SUBJECTIVE: No fever or chills. No MEZA. no SOB OBJECTIVE: No distress. CV: RRR, no MRG. Lungs: No wheezing. Ext: 1+ edema on legs. no erythema. ASSESSMENT AND PLAN: 63 y/o man with h/o diastolic heart failure, HLP, HIV, COPD, and miliary TB who presented with SOB and LE edema and was found to have acute diastoic CHF and acute COPD exacerbation. 1- Acute hypoxic hypercapnic resp failure due to acute on chronic diastolic CHF exacerbation and COPD exacerbation: much improved - cont prednisone. start 20 mg today for a week then 10 for a week. if needed it could be tapered further - cont lasix 40 mg daily. - cont cardizem. - cont BIPAP at HS - cont symbicort 2- H/o HIV: cont current medication. put on home medication at dc - cont prophylactic bactrim 3-New onset DM: pharmacy called and d/w patient. he has a plan to cover his meds - will change Novolog 70/30 to levemir in am - cont SSI - resume Januvia 4- Pulm nodule. 7 mm in RML. f/u as out pt. 5- DVT PX: lovenox dc is pending BIPAP setup at home . O2 during the day Expected DC tomorrow case was d/w patient and son by the resident ( with nocturnist physician phone ) :
--- NOTE | 2018-09-18 17:39 | PN ---
Physical Exam: SUBJECTIVE: Patient seen and examined at bedside. Off BIPAP last night due to improvement in oxygenation. OBJECTIVE: Vital Signs Period Temp Pulse Resp BP Sys/Clifton Pulse Ox Last 24 Hr 97.2 F-98.3 F 92-110 20-20 99-123/49-71 97-99 GENERAL: The patient is awake, alert, and fully oriented, in no acute distress. HEAD: Normal with no signs of trauma. EYES: PERRL, extraocular movements intact, sclera anicteric, conjunctiva clear. No ptosis. ENT: Ears normal, nares patent, oropharynx clear without exudates, moist mucous membranes. NECK: Trachea midline, full range of motion, supple. LUNGS: Breath sounds improved b/l, no wheezes, no accesory muscle use. HEART: Regular rate and rhythm, S1, S2 without murmur, rub or gallop. ABDOMEN: Soft, nontender, nondistended, no guarding, no rebound. EXTREMITIES: 2+ pulses, warm, well-perfused, 1+ edema. NEUROLOGICAL: Cranial nerves II through XII grossly intact. Normal speech, gait not observed. PSYCH: Normal mood, normal affect. SKIN: Warm, dry, no rashes or lesions noted Laboratory Results - last 24 hr 09/18/18 09/18/18 09/18/18 05:58 11:31 16:26 POC Glucometer 125 169 254 Active Medications Generic Name Dose Route Start Last Admin Trade Name Freq PRN Reason Stop Dose Admin Acetylcysteine 600 mg 09/13/18 09:00 09/18/18 07:35 Mucomyst 20 Oral / Inh Use Only* NEB 600 mg BID@0800,2000 [facility] Administration Albuterol Sulfate 1 amp 09/09/18 20:19 09/17/18 08:00 Ventolin 0.083% Nebulizer Soln - NEB 1 amp Q4H PRN Administration SHORT OF BREATH/WHEEZING Albuterol Sulfate 1 amp 09/10/18 08:00 09/18/18 16:31 Ventolin 0.083% Nebulizer Soln - NEB 1 amp RQID [facility] Administration Aspirin 81 mg 09/10/18 10:00 09/18/18 10:14 Asa - PO 81 mg DAILY [facility] Administration Atorvastatin Calcium 20 mg 09/09/18 22:00 09/17/18 21:41 Lipitor - PO 20 mg HS [facility] Administration Budesonide/Formoterol Fumarate 1 puff 09/09/18 22:00 09/18/18 10:16 Symbicort 160/4.5mcg - IH 1 puff BID [facility] Administration Diltiazem HCl 120 mg 09/10/18 10:00 09/18/18 10:15 Cardizem Cd - PO 120 mg DAILY [facility] Administration Docusate Sodium 100 mg 09/11/18 22:00 09/18/18 10:14 Colace - PO 100 mg BID [facility] Administration Furosemide 40 mg 09/16/18 10:00 09/18/18 10:15 Lasix - PO 40 mg DAILY [facility] Administration Glycerin 1 each 09/11/18 12:33 Glycerin Suppository Adult - RC ONCE PRN CONSTIPATION Glycerin 1 each 09/12/18 10:00 Glycerin Suppository Adult - RC DAILY PRN CONSTIPATION Insulin Aspart 1 vial 09/10/18 07:00 09/18/18 17:11 Novolog Vial Sliding Scale - SQ 6 units TIDAC [facility] Administration Protocol Insulin Detemir 8 units 09/19/18 07:00 Levemir Vial SQ 09/19/18 07:01 ONCE ONE Losartan Potassium 25 mg 09/15/18 10:30 09/18/18 10:14 Cozaar - PO 25 mg DAILY [facility] Administration Prednisone 20 mg 09/18/18 08:15 09/18/18 10:15 Deltasone - PO 20 mg DAILY [facility] Administration Tamsulosin HCl 0.4 mg 09/10/18 08:30 09/18/18 10:15 Flomax - PO 0.4 mg DAILY@0830 [facility] Administration Trimethoprim/Sulfamethoxazole 1 each 09/10/18 10:00 09/18/18 10:14 Bactrim Ds - PO 1 each DAILY [facility] Administration ASSESSMENT/PLAN: Patient is a 63 year old male with past medical history of diastolic CHF, HLD, HIV (on HAART), COPD and miliary TB, presented to the ED with SOB and LE edema. #Acute on chronic diastolic CHF exacerbation -on PO Lasix 40mg daily, continue losartan 25qd. -Continue [id number] daily -Cardiology (Dr. Turner) consulted. Recommendations appreciated- continue current cardiac management and continue 40mg Lasix upon d/c. #Acute hypoxic respiratory failure 2/2 COPD exacerbation, CHF -Dr benson consulted: -Continue Albuterol RQID -Continue Symbicort BID -Prednisone tapered to 20mg for 1 week and then 10mg po daily for 1 week. #RML nodule -f/u with pulm as o/p for repeat CT scan of chest. #HIV on HAART -Continue Tivicay and Descovy -Bactrim for ppx (last CD4 196) -ID (Dr. Machado) consulted. #DM -new onset, A1c 6.8 - continuing Insulin sliding scale while here and 70/30 bid. -d/w pharmacy on switching to januvia 100, levemir 8 units, and sliding scale TID at home. -BGM TIDAC #HLD -Continue Lipitor 20mg HS -ASA 81 mg daily #FEN -Not on any standing fluids -Electrolytes wnl, routine bmp monitoring -Diabetic/sodium restricted diet #Prophylaxis -Lovenox 40mg sq daily #Disposition -full code -tele - plan to get BIPAP and d/c for tomorow. Visit type - Emergency Visit Emergency Visit: No - New Patient This patient is new to me today: No - Critical Care Critical Care patient: No - Discharge Referral Referred to [facility] Med [facility].C[facility] No ATTENDING PHYSICIAN STATEMENT I saw and evaluated the patient. I reviewed the resident's note and discussed the case with the resident. I agree with the resident's findings and plan as documented. SUBJECTIVE: OBJECTIVE: ASSESSMENT AND PLAN:
[2018-09-18] MEDS: ATORVASTATIN CA 20 MG TABLET (FP) PO SCH (22:24)
[2018-09-19] MEDS: INSULIN SLIDING SCALE (NOVOLOG) 1 VIAL SQ SCH ×3 (06:36→16:36)
[2018-09-19] MEDS ORDERED: INSULIN (LEVEMIR) 100 UNITS/ML UNITS SQ ONE (07:00)
[2018-09-19] MEDS: ALBUTEROL SO4 0.083% IH SOL 2.5 MG/3 ML VIAL.NEB. NEB PRN (07:35)
[2018-09-19] MEDS: ACETYLCYSTEINE 20% 200MG/ML 4 ML VIAL *FOR ORAL / INH USE ONLY NEB SCH (07:35)
[2018-09-19] MEDS: TAMSULOSIN HCL 0.4 MG CAP PO SCH (08:35)
[2018-09-19] MEDS ORDERED: PT OWN MED DRAWER 7, Y5N ONE (08:54)
[2018-09-19] MEDS: LOSARTAN POTASSIUM 25 MG TABLET PO SCH (09:35)
[2018-09-19] MEDS: DOLUTEGRAVIR SODIUM 50 MG TABLET (NON-FORMULARY) PO SCH (09:35)
[2018-09-19] MEDS: predniSONE 20 MG TABLET (UD) PO SCH (09:35)
[2018-09-19] MEDS: DOCUSATE SODIUM 100 MG CAPSULE (FP) PO SCH (09:35)
[2018-09-19] MEDS: SULFAMETHOXAZOLE/TRIMETHOPRIM 800MG/160MG D.S. TABLET PO SCH (09:35)
[2018-09-19] MEDS: ASPIRIN 81 MG CHEWABLE TABLETS PO SCH (09:35)
[2018-09-19] MEDS: EMTRICITABINE/TENOFOV ALAFENAM (DESCOVY) TABLET PO SCH (09:35)
[2018-09-19] MEDS: FUROSEMIDE 40 MG TABLET (FP) PO SCH (09:36)
[2018-09-19] MEDS: BUDESONIDE/FORMETEROL FUMARATE 160/4.5 mcg INHALER IH SCH (09:36)
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
--- NOTE | 2018-09-19 12:24 | PN ---
Progress Note, Physician History of Present Illness: Remains on NC and bipap nightly. LE edema improved with diuresis. - Current Medication List Current Medications: Active Medications Acetylcysteine (Mucomyst 20 Oral / Inh Use Only*) 600 mg NEB BID@0800,1999 [facility] Last Admin: 09/19/18 07:35 Dose: 600 mg Aspirin (Asa -) 81 mg PO DAILY [facility] Last Admin: 09/19/18 09:35 Dose: 81 mg Atorvastatin Calcium (Lipitor -) 20 mg PO HS [facility] Last Admin: 09/18/18 22:24 Dose: 20 mg Budesonide/Formoterol Fumarate (Symbicort 160/4.5mcg -) 1 puff IH BID [facility] Last Admin: 09/19/18 09:36 Dose: 1 puff Diltiazem HCl (Cardizem Cd -) 120 mg PO DAILY [facility] Last Admin: 09/19/18 09:35 Dose: 120 mg Docusate Sodium (Colace -) 100 mg PO BID [facility] Last Admin: 09/19/18 09:35 Dose: 100 mg Furosemide (Lasix -) 40 mg PO DAILY [facility] Last Admin: 09/19/18 09:36 Dose: 40 mg Glycerin (Glycerin Suppository Adult -) 1 each RC ONCE PRN PRN Reason: CONSTIPATION Glycerin (Glycerin Suppository Adult -) 1 each RC DAILY PRN PRN Reason: CONSTIPATION Insulin Aspart (Novolog Vial Sliding Scale -) 1 vial SQ TIDAC [facility]; Protocol Last Admin: 09/19/18 11:58 Dose: 2 units Losartan Potassium (Cozaar -) 25 mg PO DAILY [facility] Last Admin: 09/19/18 09:35 Dose: 25 mg Prednisone (Deltasone -) 20 mg PO DAILY [facility] Last Admin: 09/19/18 09:35 Dose: 20 mg Sitagliptin Phosphate (Januvia -) 100 mg PO DAILY@0700 [facility] Last Admin: 09/19/18 07:31 Dose: 100 mg Tamsulosin HCl (Flomax -) 0.4 mg PO DAILY@0830 [facility] Last Admin: 09/19/18 08:35 Dose: 0.4 mg Trimethoprim/Sulfamethoxazole (Bactrim Ds -) 1 each PO DAILY [facility] Last Admin: 09/19/18 09:35 Dose: 1 each - Objective Vital Signs: Vital Signs Temperature 98.0 F 09/19/18 09:39 Pulse Rate 95 H 09/19/18 09:39 Respiratory Rate 18 09/19/18 09:39 Blood Pressure 110/49 L 09/19/18 09:39 O2 Sat by Pulse Oximetry (%) 96 09/19/18 09:25 Constitutional: Yes: No Distress, Calm Neck: Yes: Supple Cardiovascular: Yes: Regular Rate and Rhythm Respiratory: Yes: Regular, Diminished, On Nasal O2 Gastrointestinal: Yes: Normal Bowel Sounds, Soft Edema: Yes Edema: LLE: 1+, RLE: 1+ Labs: CBC, BMP 09/16/18 05:45 09/16/18 05:45 INR, PTT INR 0.95 (0.83-1.09) 09/02/18 12:10 Problem List - Problems (1) Dyspnea Code(s): R06.00 - DYSPNEA, UNSPECIFIED Qualifiers: Dyspnea type: unspecified Qualified Code(s): R06.00 - Dyspnea, unspecified (2) Acute on chronic diastolic heart failure Code(s): I50.33 - ACUTE ON CHRONIC DIASTOLIC (CONGESTIVE) HEART FAILURE (3) Acute on chronic respiratory failure with hypoxia Code(s): J96.21 - ACUTE AND CHRONIC RESPIRATORY FAILURE WITH HYPOXIA (4) Bilateral leg edema Code(s): R60.0 - LOCALIZED EDEMA (5) Hyperlipidemia Code(s): E78.5 - HYPERLIPIDEMIA, UNSPECIFIED Qualifiers: Hyperlipidemia type: pure hypercholesterolemia Qualified Code(s): E78.00 - Pure hypercholesterolemia, unspecified; E78.0 - Pure hypercholesterolemia (6) COPD (chronic obstructive pulmonary disease) Code(s): J44.9 - CHRONIC OBSTRUCTIVE PULMONARY DISEASE, UNSPECIFIED Qualifiers: COPD type: emphysema Emphysema type: centrilobular Qualified Code(s): J43.2 - Centrilobular emphysema Assessment/Plan 09/04/2018: Chest CT: Stable granulomas and pulm nodule 07/09/2018 Chest CTA: No PE, mild centrilobular emphysema, mildly dilated main PA, interval resolution of focal right posterior basilar infiltrate or ATX peviously seen 06/06/2018 09/03/2018 Echo: Nondiagnostic, poor windows 07/10/2018 Echo: Normal LV and RV size and fxn LVEF 60-65%, tr TR 1. Recurrent acute on chronic diastolic heart failure resolving 2. COPD with exacerbation 3. Acute Hypoxic and hypercapneic Respiratory Failure 4. HIV on HAART 5. History of pulmonary TB 6. Hyperlipidemia 7. Pulmonary nodule 7 mm in RML 8. Type 2 DM PLAN: 1. Oral diuresis with monitoring diuretic response, renal function and electrolytes 2. Continue ASA 81 mg QD, Lipitor 20 mg QHS and Cardizem CD 120 mg QD, losartan 25 qd 3. Bronchodilator, BIPAP and O2 as needed and oral steroid taper 4. Outpatient PFT and repeat chest CT f/u 5. DVT prophylaxis 6. D/c planning with home O2 and bipap needs
--- NOTE | 2018-09-19 13:26 | DS ---
Physical Exam: SUBJECTIVE: Patient seen and examined at the bedside. No acute events overnight. OBJECTIVE: Vital Signs Period Temp Pulse Resp BP Sys/[place] Pulse Ox Last 24 Hr 97.8 F-98.5 F 90-106 18-20 97-113/49-62 95-97 PHYSICAL EXAM GENERAL: The patient is awake, alert, and fully oriented, in no acute distress. HEAD: Normal with no signs of trauma. LUNGS: Breath sounds slightly decreased, no wheezes, no crackles, no accessory muscle use. HEART: Regular rate and rhythm, S1, S2 without murmur, rub or gallop. ABDOMEN: Soft, nontender, nondistended, normoactive bowel sounds, no guarding, no rebound. EXTREMITIES: 2+ pulses, warm, well-perfused, 1+edema. NEUROLOGICAL: Cranial nerves II through XII grossly intact. Normal speech, gait not observed. PSYCH: Normal mood, normal affect. LABS Laboratory Results - last 24 hr 09/18/18 09/19/18 09/19/18 16:26 06:30 11:54 POC Glucometer 254 129 185 HOSPITAL COURSE: Date of Admission:09/02/18 Images: 07/09/2018 Chest CTA: No PE, mild centrilobular emphysema, mildly dilated main PA, interval resolution of focal right posterior basilar infiltrate previously seen 06/06/2018 09/03/2018 Echo: Nondiagnostic, poor windows 07/10/2018 Echo: Normal LV and RV size and fxn LVEF 60-65%, tr TR CXR 09/02/18- no infiltrates, no congestion, or cardiomegaly CT chest 09/04- awaiting results DVT- negative b/l EKG- QTC 466, no acute ischemic changes, consistent with prior EKG. CT scan 09/05/18: granulomatous disease and lung nodule stable compared to prior imaging. Multiple calcified granulomas of the noted scattered through the lungs unchanged from prior imaging. A noncalcified nodule within the medial segment of RML is again noted measuring 7mm best seen on image 77. There is motion artifact which degrades image quality. No endobronchial lesions seen. Pleura- negative calified rt hilar and left axillary LN's From TB. vascular calfications noted including coronary. CXR- 09/12: No Pna, infiltrate, or chf, or pulmonary edema noted. This is a 63 y/o M with a PMH of HIV on HAART, miliary Tb, HFpEF, COPD, lung nodule, who was admitted for acute hypoxic respiratory failure 2/2 COPD exacerbation. Pt was placed on O2 per nasal cannula during the day and placed on BIPAP at night. His hypoxic respiratory failure and pitting edema were addressed in an optimal fashion rendering him ready for discharge. Patient is to follow up with his fire equipment operator for his HFpEF history. He is to follow up with his Switch Maker for his RML lung nodule for repeat chest CT. He is to follow up with his PCP to follow his diabetes. For his Diabetes management: We placed him on januvia 100 daily, levemir 8 units in am, Sliding scale TID. lasix 40po. For his HFpEF and HTN: We placed him on losartan 25mg daily continuing his cardizem 120 daily He is to continue his other medications as prescribed. Date of Discharge: 09/19/18 Minutes to complete discharge: 35 Discharge Summary Reason For Visit: DYSPNEA CHEST PAIN Current Active Problems Diabetes (Chronic) Dyspnea (Chronic) HTN (hypertension) (Chronic) Volume overload (Chronic) Condition: Improved - Instructions Diet, Activity, Other Instructions: You were admitted for having swelling in your legs and shortness of breath. This was due to your COPD and CHF. You were placed on medications to help decrease the fluid. To help your COPD we placed you on the Bipap. It is very important that you use the Bipap at night so that your breathing status does not worsen. While you were here we monitored your sugar levels and found them to be high. You have diabetes and will need to take medication to control your sugars. It is very important that you eat foods that are low in sugar and try to lose weight. It is very important to control your sugars because uncontrolled levels can cause increase in blood pressure, kidney disease, stroke, and problems with your eyes. Please check your sugars daily. To treat your diabetes please take: Levemir 8 units once in the morning. Januvia 100mg by mouth daily Please use the sliding scale insulin with meals, and give insulin as directed below Sugar Level Dose of Insulin 100-150 0 units 151-200 2 units 201-250 4 units 251-300 6 units 301-350 8 units 351-400 10 units 400+ 12 units and call your doctor To treat your high blood pressure and heart function (CHF) please take: Losartan 25mg by mouth once a day Lasix 40mg by mouth every morning Diltiazem 120mg every day To complete treatment of your COPD please take: Prednisone by mouth 20mg ( 2 pills of the 10 mg ) once a day for 5 days Prednisone by mouth 10mg ( 1 pills of the 10 mg ) once a day for 7 days Please continue to use your nasal cannula to keep you oxygen levels above 90%, While you were here you were on 3 L of nasal cannula. YOU CAN NOT SMOKE AT HOME WITH YOUR OXYGEN. For any shortness of breath please take: duonebs inhaler up to four times a day Continue all other home medications as prescribed. - You will need to continue using the machine (BIPAP) at night and oxygen through your nose during the day. - You will need to follow up with your lung doctor (Dr. Soto) in 1 week to assess how your lungs are doing and to assess your lung mass. - You will need to follow up with your primary care doctor (Dr. Machado) in 1 week as well. - Please make an appointment to follow up with the Food Service Team Member, Dr. Turner in 1 week to monitor the function of your heart. - Please make an appointment with Dr. Dockery, to continue treatment and management of your diabetes. - If you have any worsening of your current symptoms return to the emergency room or if you have chest pain, fevers, dizziness, or headache. En Espanol Justin fue admitido por tener hinchazn en las piernas y dificultad para respirar. [place] se ephraim a carballo COPD y CHF. Usted recibi medicamentos para ayudar a disminuir el lquido. Para ayudar a carballo EPOC le colocamos en el Bipap. Es muy importante que use Bipap por la noche para que carballo estado de respiracin no empeore. Mientras estabas aqu, monitoreamos tus niveles de azcar y encontramos que jeannine altos. Usted tiene diabetes y necesitar duc medicamentos para controlar madie azcares. Es muy importante que consuma alimentos bajos en azcar e intente bajar de peso. Es muy importante controlar los azcares, ya que los niveles no controlados pueden causar un aumento de la presin arterial, enfermedad renal, accidente cerebrovascular y problemas en los ojos. Por favor revise madie azcares diariamente. Para tratar carballo diabetes por favor tome: Levemir 8 unidades bhavya vez por la maana. Januvia 100 mg por va oral al da. Use la insulina de escala mvil con las comidas y administre la insulina lavelle se indica a continuacin. Nivel de azcar dosis de insulina 100-150 0 unidades 151-200 2 unidades 201-250 4 unidades 251-300 6 unidades 301-350 8 unidades 351-400 10 unidades 400+ 12 unidades y llame a carballo mdico Para tratar la presin arterial dee dee y la funcin cardaca (ICC), tome: Losartn 25 mg por va oral bhavya vez al da. Lasix 40 mg por va oral cada maana Diltiazem 120mg todos los velázquez. Para completar el tratamiento de carballo EPOC, tome: Prednisona por va oral 20 mg (2 pldoras) bhavya vez al da lynette 5 velázquez 2x10 mg = 20 mg Prednisona por va oral 10 mg (1 pldora) bhavya vez al da lynette 7 velázquez 1x10 mg = 10 mg Contine usando carballo cnula nasal para mantener madie niveles de oxgeno por encima del 90%. Mientras estuvo aqu, marleni 3 L de cnula nasal. NO PUEDES FUMAR EN CASA CON TU OXGENO. Para cualquier falta de aliento por favor tome: Duonebs inhalador hasta cuatro veces al da. Continuar todos los otros medicamentos caseros segn lo prescrito. - Deber continuar usando la mquina (BIPAP) por la noche y oxgeno a travs de la nariz lynette el da. - Deber hacer un seguimiento con carballo mdico de pulmn (Dr. Soto) en 1 semana para evaluar el estado de madie pulmones y carballo masa pulmonar. - Tambin deber hacer un seguimiento con carballo mdico de atencin primaria (Dr. Machado) en 1 semana. - Blayne bhavya gosia para hacer un seguimiento con el cardilogo, el Dr. Turner, en 1 semana para monitorear la funcin de carballo corazn. - Blayne bhavya gosia con el Dr. Dockery para continuar con el tratamiento y el control de carballo diabetes. - Si tiene algn empeoramiento de madie sntomas actuales, regrese a la negin de emergencias o si tiene dolor en el pecho, fiebre, mareos o dolor de tash. Referrals: Neptali Soto MD [Staff Physician] - 1 Week Yoko Machado MD [Primary Care Provider] - 1 Week Harvey Turner MD [Staff Physician] - 1 Week Disposition: HOME - Home Medications Comprehensive Discharge Medication List: Ambulatory Orders Albuterol Sulfate Inhaler - [Ventolin HFA Inhaler -] 2 inh PO QID PRN 07/30/18 Atorvastatin Ca [Lipitor] 20 mg PO HS 07/30/18 Sulfamethoxazole/Trimethoprim [Bactrim DS -] 1 tab PO DAILY #30 tablet 08/05/18 Tamsulosin HCl [Flomax] 1 cap PO DAILY #30 capsule 08/05/18 Aspirin [ASA -] 81 mg PO DAILY tab.chew 08/18/18 Bictegrav/Emtricit/Tenofov Ala [Biktarvy 50-200-25 mg Tablet] 1 tablet PO DAILY 09/02/18 Budesonide/Formeterol Fumarate [SYMBICORT 160/4.5mcg -] 1 puff IH BID 09/02/18 Docusate Calcium 60 mg PO BID 09/02/18 Alcohol Antiseptic Pads [Alcohol Prep Pads] 1 each TP DAILY #100 med..pad Diltiazem Cd [Cardizem Cd -] 120 mg PO DAILY #30 cap.cd.24h 09/16/18 Furosemide [Lasix -] 40 mg PO DAILY #30 tablet 09/16/18 Losartan Potassium [Cozaar -] 25 mg PO DAILY #30 tablet 09/16/18 Miscellaneous Medical Supply [Glucometer Device] 1 each SQ ASDIR #1 kit Miscellaneous Medical Supply [Glucometer Test Strips #100] 1 each SQ ASDIR #1 box 09/16/18 [place], Safety [Needle] 1 each MC DAILY #100 dis.needle 09/16/18 Albuterol 2.5/Ipratropium 0.5 [Duoneb -] 1 [facility] IH QID #2 vial.neb. 09/19/18 Insulin Detemir [Levemir Flextouch] 8 unit SQ AM #2 insuln.pen 09/19/18 Insulin Sliding Scale [Novolog Vial Sliding Scale -] 0 units SQ ACHS #2 pen Miscellaneous Medical Supply [Lancets] 1 each SQ ASDIR #1 box 09/19/18 Prednisone See Taper PO DAILY #17 tablet 09/19/18 Sitagliptin Phosphate [Januvia] 100 mg PO DAILY #30 tablet 09/19/18 This patient is new to me today: No Emergency Visit: No Critical Care patient: No - Discharge Referral Referred to [facility] Med P.C.: No ATTENDING PHYSICIAN STATEMENT I saw and evaluated the patient. I reviewed the resident's note and discussed the case with the resident. I agree with the resident's findings and plan as documented. SUBJECTIVE: OBJECTIVE: ASSESSMENT AND PLAN:
[2018-09-19 16:05] VITALS: BP 117/56; PULSE 112; TEMP 98.4
--- NOTE | 2018-09-19 18:06 | PN ---
Teaching Attending Note Name of Resident: Enoch Shabazz ATTENDING PHYSICIAN STATEMENT I saw and evaluated the patient. I reviewed the resident's note and discussed the case with the resident. I agree with the resident's findings and plan as documented. SUBJECTIVE: no fever or chills. No MEZA. breathing is better OBJECTIVE: No distress. CV: RRR, no MRG. Lungs: No wheezing. Ext: 1+ edema on legs. no erythema. ASSESSMENT AND PLAN: 63 y/o man with h/o diastolic heart failure, HLP, HIV, COPD, and miliary TB who presented with SOB and LE edema and was found to have acute diastoic CHF and acute COPD exacerbation. 1- Acute hypoxic hypercapnic resp failure due to acute on chronic diastolic CHF exacerbation and COPD exacerbation: much improved - cont prednisonetaper at c - cont lasix 40 mg daily. - cont cardizem. - cont BIPAP at HS - cont symbicort - cont O2 during the day 2- H/o HIV: conthome meds - cont prophylactic bactrim 3-New onset DM: - cont levemir - cont SSI - Januvia 4- Pulm nodule. 7 mm in RML. f/u as out pt. 5- dispo : BIPAP delivered. safe to dc home . all dc instructions were d/w him and with his son by resident
== END 2018-09-19 18:45 | disposition home or self-care (01) | DRG 194 ==
LOC: JER 11:07 → JERBED 14:32 → J4W 22:06 → J4S 09-07 16:51
PROVIDERS: ADMIT Internal Medicine; ATTEND Internal Medicine
PROC: 5A09457 Assistance with Respiratory Ventilation, 24-96 Consecutive Hours, Continuous Positive Airway Pressure (ICD-10-PCS; principal; 2018-09-07)
DX: I11.0 Hypertensive heart disease with heart failure (principal); I50.33 Acute on chronic diastolic (congestive) heart failure; J96.01 Acute respiratory failure with hypoxia; J96.02 Acute respiratory failure with hypercapnia; Z21 Asymptomatic human immunodeficiency virus [HIV] infection status; E87.70 Fluid overload, unspecified; R07.89 Other chest pain; E78.5 Hyperlipidemia, unspecified; R91.1 Solitary pulmonary nodule; R60.0 Localized edema; J44.1 Chronic obstructive pulmonary disease with (acute) exacerbation; N40.0 Benign prostatic hyperplasia without lower urinary tract symptoms; R00.0 Tachycardia, unspecified; A19 Miliary tuberculosis; K59.00 Constipation, unspecified; E11.65 Type 2 diabetes mellitus with hyperglycemia; E66.9 Obesity, unspecified; Z68.29 Body mass index [BMI] 29.0-29.9, adult; Z87.891 Personal history of nicotine dependence; Z99.81 Dependence on supplemental oxygen
CPT/HCPCS: 36415; 36600; 71045-TC-FY; 71250-TC; 80048; 80053; 80307; 81003; 82607; 82747; 82803; 82962; 83036; 83605; 83735; 83880; 84100; 84443; 84484; 85014; 85025; 85610; 85730; 87040; 87077; 87086; 93005; 93010; 93306-TC; 93970-TC; 94640; 94660; 99284-25; G0463-25

== ENCOUNTER 2018-10-09 13:33 | Inpatient (IN) | payer OTHER ==
[2018-10-09] MEDS ORDERED: DEXAMETHASONE SOD PHOSPHATE 10 MG/1 ML VIAL ONE (14:06)
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
[2018-10-09 15:31] LABS: BASO % 0.4 % (0-2.0); EOS % 0.4 % (0-4.5); HEMATOCRIT 37.6 % (35.4-49); HEMOGLOBIN 12.6 GM/dL (11.7-16.9); LYMPH % 9.8 % (8-40); MCH 34.1 pg (25.7-33.7); MCHC 33.5 g/dl (32.0-35.9); MEAN CELL VOLUME 101.9 fl (80-96); MEAN PLT VOLUME 8.3 fl (7.5-11.1); MONO % 4.3 % (3.8-10.2); NEUT % 85.1 % (42.8-82.8); PLATELET COUNT 281 K/MM3 (134-434); RDW 16.8 % (11.9-15.9); WHITE BLOOD COUNT 8.5 K/mm3 (4.0-10.0)
[2018-10-09 15:45] LABS: PROTHROMBIN TIME (PATIENT) 11.8 SEC (9.7-13.0)
[2018-10-09 15:52] LABS: ALBUMIN 3.6 g/dl (3.4-5.0); BILIRUBIN,TOTAL 0.3 mg/dL (0.2-1); BLOOD UREA NITROGEN 14.4 mg/dL (7-18); CALCIUM 8.7 mg/dL (8.5-10.1); CREATININE 0.9 mg/dL (0.55-1.3); POTASSIUM 3.6 mmol/L (3.5-5.1); TOT PROT 6.5 g/dl (6.4-8.2)
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
[2018-10-09] MEDS ORDERED: FUROSEMIDE 40 MG/4 ML INJECTABLE VIAL IVPUSH ONE ×2 (17:22→21:41)
[2018-10-09] MEDS ORDERED: FUROSEMIDE 40 MG/4 ML INJECTABLE VIAL ONE (17:31)
--- NOTE | 2018-10-09 19:06 | PN ---
Teaching Attending Note Name of Resident: Karin Rankin ATTENDING PHYSICIAN STATEMENT I saw and evaluated the patient. I reviewed the resident's note and discussed the case with the resident. I agree with the resident's findings and plan as documented. SUBJECTIVE: Patient is a 63 year old man with a PMH of Anemia, COPD, HIV disease (on HAART) , CHF (?diastolic) and BPH, who presents to the ER from [facility] due to shortness of breath. He has had multiple admissions for COPD/CHF/Pneumonia and is Oxygen dependent. He says he was at [facility] and they were concerned that he has crackles on examination. The patient denies chest pain, headache and dizziness. Denies fever, chills, nausea, vomiting, diarrhea and constipation. Denies any urinary symptoms. Has not been using the prescribed BiPAP at home. OBJECTIVE: Alert Vital Signs Period Temp Pulse Resp BP Sys/[place] Pulse Ox Last 24 Hr 98.2 F 84-90 18-24 110-114/60-68 92-94 HEENT: No Jaundice, eye redness or discharge, PERRLA, EOMI. Normocephalic, atraumatic. External ears are normal and hearing is grossly intact. No nasal discharge. Neck: Supple, nontender. No palpable adenopathy or thyromegaly. No JVD Chest: Good effort. Diminished breath sounds. Clear to percussion. Heart: Regular. No S3, rub or murmur Abdomen: Not distended, soft, nontender and no HSM. No rebound or guarding. Normal bowel sounds. Ext: Peripheral pulses intact. No leg edema. Skin: Warm and dry. No petechiae, rash or ecchymosis. Neuro: Alert. Oriented x3. CN 2-12 grossly intact. Sensation grossly intact in all four extremities and DTR are symmetric. Psych: Appropriate mood and affect. Good insight. Home Medications Medication Instructions Recorded Albuterol Sulfate Inhaler - 2 inh PO QID PRN 07/30/18 [Ventolin HFA Inhaler -] Atorvastatin Ca [Lipitor] 20 mg PO HS 07/30/18 Sulfamethoxazole/Trimethoprim 1 tab PO DAILY #30 tablet 08/05/18 [Bactrim DS -] Tamsulosin HCl [Flomax] 1 cap PO DAILY #30 capsule 08/05/18 Aspirin [ASA -] 81 mg PO DAILY tab.chew 08/18/18 Bictegrav/Emtricit/Tenofov Ala 1 tablet PO DAILY 09/02/18 [Biktarvy 50-200-25 mg Tablet] Budesonide/Formeterol Fumarate 1 puff IH BID 09/02/18 [SYMBICORT 160/4.5mcg -] Docusate Calcium 60 mg PO BID 09/02/18 Alcohol Antiseptic Pads [Alcohol 1 each TP DAILY #100 med..pad 09/16/18 Prep Pads] Diltiazem Cd [Cardizem Cd -] 120 mg PO DAILY #30 cap.cd.24h 09/16/18 Furosemide [Lasix -] 40 mg PO DAILY #30 tablet 09/16/18 Losartan Potassium [Cozaar -] 25 mg PO DAILY #30 tablet 09/16/18 Miscellaneous Medical Supply 1 each SQ ASDIR #1 kit 09/16/18 [Glucometer Device] Miscellaneous Medical Supply 1 each SQ ASDIR #1 box 09/16/18 [Glucometer Test Strips #100] [place], Safety [Needle] 1 each MC DAILY #100 dis.needle 09/16/18 Albuterol 2.5/Ipratropium 0.5 1 neb IH QID #2 vial.neb. 09/19/18 [Duoneb -] Insulin Detemir [Levemir Flextouch] 8 unit SQ AM #2 insuln.pen 09/19/18 Insulin Sliding Scale [Novolog 0 units SQ ACHS #2 pen 09/19/18 Vial Sliding Scale -] Miscellaneous Medical Supply 1 each SQ ASDIR #1 box 09/19/18 [Lancets] Abnormal Lab Results 10/09/18 10/09/18 10/09/18 15:10 15:10 15:10 RBC 3.70 L MCV 101.9 H MCH 34.1 H RDW 16.8 H Neutrophils % 85.1 H Random Glucose 111 H Alkaline Phosphatase 40 L CK-MB (CK-2) 3.8 H ASSESSMENT AND PLAN: 1. CHF exacerbation - Likely due to a combination of factors including suboptimal treatment regimen, nonadherence and poorly controlled COPD. ECHO from 07/10/18 showed LVEF of 60-65%. CXR shows increased congestive changes. Will treat with escalating doses of IV lasix to determine the clinically efficacious dose, get daily standing weight, restrict dietary salt intake and optimize COPD therapy. Will restart BiPAP, give solumedrol and xopenex. Consult Pulmonary and Cardiology. Macrocytosis is unexplained - may signal drug side effect or surreptitious alcohol use - will monitor. 2. DM For now, we will hold the home diabetes drugs and implement sliding scale insulin regimen. Provide comprehensive diabetes care with patient teaching and counseling about the importance of adherence to prescribed diabetes regimen, euglycemia, eye care and foot care. 3. Obesity Counseled on the risks associated with obesity. Will provide patient all the necessary assistance, counseling and positive reinforcement to facilitate weight loss. Consult hall porter. 4. DVT prophylaxis - Lovenox 40 mg SQ q 24 hours. 5. Advance directives - Full code
[2018-10-09] MEDS: INSULIN SLIDING SCALE (NOVOLOG) 1 VIAL SQ SCH (22:42)
[2018-10-09] MEDS: ATORVASTATIN CA 20 MG TABLET (FP) PO SCH (22:44)
--- NOTE | 2018-10-10 03:11 | HP ---
CHIEF COMPLAINT: Sob PCP: Dr. Fisher HISTORY OF PRESENT ILLNESS: 63 y/o M, pmh of HIV positive, CHF, copd diagnosed 1 year ago, recently diagnosed IDDM, BPH, was sent to the ED from his PCP's office who had suspected he had fluid build up in his lungs. Pt reports he thinks the fluid in his lungs have worsened because he has had sob of breath since last night. He reports 2 episodes of sob last night that has worsened since. Pt reports that he was hospitalized one month ago for sob which had improved since his discharge and he was sent home on home oxygen and a bipap machine. However, he reports he has not been compliant w/ his bipap because he is uncomfortable with it. In the past he had difficulty obtaining his bipap due to lack of insurance coverage, however he was able to obtain bipap for the next few months. Currently, pt is stable and his symptoms have improved. ER course was notable for: (1)BNP- 76 (2)Lasiks 40 mg IV given (3)CXR- showed minimal congestion, will wait for official read in the am Recent Travel: came to the from [facility] 5 months ago PAST MEDICAL HISTORY: HIV+, CHF, DM, BPH, COPD PAST SURGICAL HISTORY: denies Social History: Smoking: former smoker- 20 ciggs/day x 16 year use Alcohol: occasionally Drugs: denies Family History: Father- DM Mother: heart disease Allergies No Known Allergies Allergy (Verified 10/09/18 14:00) HOME MEDICATIONS: Home Medications Medication Instructions Recorded Albuterol Sulfate Inhaler - 2 inh PO QID PRN 07/30/18 [Ventolin HFA Inhaler -] Atorvastatin Ca [Lipitor] 20 mg PO HS 07/30/18 Sulfamethoxazole/Trimethoprim 1 tab PO DAILY #30 tablet 08/05/18 [Bactrim DS -] Tamsulosin HCl [Flomax] 1 cap PO DAILY #30 capsule 08/05/18 Aspirin [ASA -] 81 mg PO DAILY tab.chew 08/18/18 Bictegrav/Emtricit/Tenofov Ala 1 tablet PO DAILY 09/02/18 [Biktarvy 50-200-25 mg Tablet] Budesonide/Formeterol Fumarate 1 puff IH BID 09/02/18 [SYMBICORT 160/4.5mcg -] Docusate Calcium 60 mg PO BID 09/02/18 Alcohol Antiseptic Pads [Alcohol 1 each TP DAILY #100 med..pad 09/16/18 Prep Pads] Diltiazem Cd [Cardizem Cd -] 120 mg PO DAILY #30 cap.cd.24h 09/16/18 Furosemide [Lasix -] 40 mg PO DAILY #30 tablet 09/16/18 Losartan Potassium [Cozaar -] 25 mg PO DAILY #30 tablet 09/16/18 Miscellaneous Medical Supply 1 each SQ ASDIR #1 kit 09/16/18 [Glucometer Device] Miscellaneous Medical Supply 1 each SQ ASDIR #1 box 09/16/18 [Glucometer Test Strips #100] [place], Safety [Needle] 1 each MC DAILY #100 dis.needle 09/16/18 Albuterol 2.5/Ipratropium 0.5 1 neb IH QID #2 vial.neb. 09/19/18 [Duoneb -] Insulin Detemir [Levemir Flextouch] 8 unit SQ AM #2 insuln.pen 09/19/18 Insulin Sliding Scale [Novolog 0 units SQ ACHS #2 pen 09/19/18 Vial Sliding Scale -] Miscellaneous Medical Supply 1 each SQ ASDIR #1 box 09/19/18 [Lancets] REVIEW OF SYSTEMS CONSTITUTIONAL: Absent: fever, chills, diaphoresis, loss of appetite, weight change HEENT: Absent: eye pain, visual changes CARDIOVASCULAR: Absent: chest pain, syncope, palpitations, lightheadedness, peripheral edema RESPIRATORY: Admits: shortness of breath, cough, dyspnea with exertion Absent: orthopnea, wheezing, stridor, hemoptysis GASTROINTESTINAL: Absent: abdominal pain, abdominal distension, nausea, vomiting, diarrhea, constipation, melena, hematochezia GENITOURINARY: Absent: dysuria, hematuria, flank pain, genital pain MUSCULOSKELETAL: Admits: back pain, Absent: myalgia, arthralgia, joint swelling NEUROLOGIC: Absent: headache, focal weakness, dizziness, unsteady gait, seizure, mental status changes, bladder or bowel incontinence PSYCHIATRIC: Absent: anxiety PHYSICAL EXAMINATION Last Vital Signs Temp Pulse Resp BP Pulse Ox 97.7 F 108 H 20 100/58 L 95 10/09/18 21:32 10/09/18 21:32 10/09/18 21:32 10/09/18 21:32 10/09/18 21:32 GENERAL: Awake, alert, and fully oriented, in no acute distress. EYES: Pupils equal, round and reactive to light, extraocular movements intact EARS, NOSE, THROAT:oropharynx clear without exudates. Moist mucous membranes. NECK: supple without lymphadenopathy, JVD, or masses, no bruit. LUNGS: Mild crackles noted b/l. No wheezes, No accessory muscle use. HEART: RRR, normal S1 and S2 without murmur, rub or gallop. ABDOMEN: Soft, nontender, not distended, +BS, no guarding, no rebound, no masses. No hepatomegaly or splenomegaly. MUSCULOSKELETAL: No CVA tenderness. UPPER EXTREMITIES: 2+ pulses, warm, well-perfused. No cyanosis. no peripheral edema. LOWER EXTREMITIES: 2+ pulses, warm, well-perfused. mild pitting peripheral edema. PSYCHIATRIC: Cooperative. Good eye contact. Appropriate mood and affect. Laboratory Results - last 24 hr CBC, BMP 10/09/18 15:10 10/09/18 15:10 ASSESSMENT 63 y/o M, pmh of HIV positive, CHF, copd diagnosed 1 year ago, recently diagnosed IDDM, BPH, presents to the ED w/ SOB w/ CXR showing minimal b/l congestion and crackles heard on PE #SOB, peripheral edema in LE 2/2 to CHF exacerbation Lasiks 40mg IV Monitor inputs and outputs strictly- inform nurse to keep urine output bedside Monitor daily weights continue home meds- ASA Monitor pt on Tele #COPD exacerbation Place pt on BiPaP overnight Start IV solumedrol Oxygen NC 3L Consult Dr. Soto in the am #HIV continue home meds- Bictegrav/Emtricit/Tenofov Ala #DM BGM's Insulin sliding scale #BPH cont home meds-Flomax #DVT Heparin 5000 sq TID FEN: Sodium/Diabetic diet Dispo: continue Lasik 40mg, f/u output, f/u w/ pulmonary Visit type - Emergency Visit Emergency Visit: Yes ED Registration Date: 10/09/18 Care time: The patient presented to the Emergency Department on the above date and was hospitalized for further evaluation of their emergent condition. - New Patient This patient is new to me today: Yes Date on this admission: 10/14/18 - Critical Care Critical Care patient: No ATTENDING PHYSICIAN STATEMENT I saw and evaluated the patient. I reviewed the resident's note and discussed the case with the resident. I agree with the resident's findings and plan as documented. SUBJECTIVE: OBJECTIVE: ASSESSMENT AND PLAN:
[2018-10-10] MEDS: INSULIN SLIDING SCALE (NOVOLOG) 1 VIAL SQ SCH ×4 (06:47→21:35)
[2018-10-10] MEDS: HEPARIN NA (PORCINE) 5,000 UNITS/ML 1ML VIAL SQ SCH ×3 (06:47→21:35)
[2018-10-10 07:53] LABS: BASO % 0.1 % (0-2.0); HEMATOCRIT 36.4 % (35.4-49); HEMOGLOBIN 12.3 GM/dL (11.7-16.9); LYMPH % 10.4 % (8-40); MCH 34.3 pg (25.7-33.7); MCHC 33.9 g/dl (32.0-35.9); MEAN CELL VOLUME 101.2 fl (80-96); MONO % 2.9 % (3.8-10.2); NEUT % 86.6 % (42.8-82.8); PLATELET COUNT 294 K/MM3 (134-434); RDW 16.6 % (11.9-15.9)
[2018-10-10 08:18] LABS: ALBUMIN 3.3 g/dl (3.4-5.0); BILIRUBIN,TOTAL 0.5 mg/dL (0.2-1); BLOOD UREA NITROGEN 26.4 mg/dL (7-18); CALCIUM 8.8 mg/dL (8.5-10.1); CREATININE 0.9 mg/dL (0.55-1.3); TOT PROT 6.5 g/dl (6.4-8.2)
[2018-10-10] MEDS ORDERED: methylPREDNISolone NA SUCC 40 MG/1 ML VIAL IVPUSH SCH (09:00)
[2018-10-10] MEDS: SULFAMETHOXAZOLE/TRIMETHOPRIM 800MG/160MG D.S. TABLET PO SCH (09:38)
[2018-10-10] MEDS: TAMSULOSIN HCL 0.4 MG CAP PO SCH (09:38)
[2018-10-10] MEDS: FUROSEMIDE 40 MG/4 ML INJECTABLE VIAL IVPUSH SCH (09:38)
[2018-10-10] MEDS: LOSARTAN POTASSIUM 25 MG TABLET PO SCH (09:38)
[2018-10-10] MEDS: ASPIRIN 81 MG CHEWABLE TABLETS PO SCH (09:39)
[2018-10-10] MEDS: SENNOSIDES 8.6MG TABLET (FP) PO SCH ×2 (09:39→21:36)
[2018-10-10] MEDS: DOCUSATE SODIUM 100 MG CAPSULE (FP) PO SCH ×2 (09:39→21:36)
[2018-10-10] MEDS ORDERED: predniSONE 20 MG TABLET (UD) PO ONE (10:21)
--- NOTE | 2018-10-10 11:45 | EKG ---
Test Reason : Blood Pressure : / mmHG Vent. Rate : 083 BPM Atrial Rate : 083 BPM P-R Int : 138 ms QRS Dur : 136 ms QT Int : 392 ms P-R-T Axes : 060 072 052 degrees QTc Int : 460 ms POOR DATA QUALITY, INTERPRETATION MAY BE ADVERSELY AFFECTED NORMAL SINUS RHYTHM RIGHT BUNDLE BRANCH BLOCK ABNORMAL ECG WHEN COMPARED WITH ECG OF 05-SEP-2018 18:07, RIGHT BUNDLE BRANCH BLOCK HAS REPLACED NON-SPECIFIC INTRA-VENTRICULAR CONDUCTION BLOCK Confirmed by ZAIRE BERTRAND MD ([id number]) on 10/10/2018 11:44:22 AM Referred By: Confirmed By:ZAIRE BERTRAND MD
--- NOTE | 2018-10-10 13:54 | CON.PULM ---
Consult Consult Specialty:: PULM/CCM Referred by:: Hospitalist Reason for Consultation:: SOB - History of Present Illness Chief Complaint: SOB History of Present Illness: 63 M, HIV positive (followed at the [facility]), CHF, COPD (recently discharged with Home O2 and NIPPV device) due to previous smoking history (not steroid dependent, never intubated), IDDM, and BPH. Sent from his PMDs office due to the concern for decompensated CHF. He does report orthopnea and pedal edema. No fever or chills. No night sweats or hemoptysis. CXR: increased pulmonary vascular congestion CT: 09/12: multiple scattered calcified granulomas. Non-calcified 7mm Right middle Lobe nodule. - Past Medical History Cardio/Vascular: Yes: Hyperlipdemia Pulmonary: Yes: COPD, O2 Dependent Renal/: Yes: BPH Infectious Disease: Yes: HIV - Past Surgical History Past Surgical History: Yes: None - Alcohol/Substance Use Hx Alcohol Use: No - Smoking History Smoking history: Unknown if ever smoked Have you smoked in the past 12 months: No Aproximately how many cigarettes per day: 20 If you are a former smoker, when did you quit?: 3months - Social History Usual Living Arrangement: With Child ADL: Independent History of Recent Travel: No Home Medications - Allergies Allergies/Adverse Reactions: Allergies Allergy/AdvReac Type Severity Reaction Status Date / Time No Known Allergies Allergy Verified 10/09/18 14:00 - Home Medications Home Medications: Ambulatory Orders Albuterol Sulfate Inhaler - [Ventolin HFA Inhaler -] 2 inh PO QID PRN 07/30/18 Atorvastatin Ca [Lipitor] 20 mg PO HS 07/30/18 Sulfamethoxazole/Trimethoprim [Bactrim DS -] 1 tab PO DAILY #30 tablet 08/05/18 Tamsulosin HCl [Flomax] 1 cap PO DAILY #30 capsule 08/05/18 Aspirin [ASA -] 81 mg PO DAILY tab.chew 08/18/18 Bictegrav/Emtricit/Tenofov Ala [Biktarvy 50-200-25 mg Tablet] 1 tablet PO DAILY 09/02/18 Budesonide/Formeterol Fumarate [SYMBICORT 160/4.5mcg -] 1 puff IH BID 09/02/18 Docusate Calcium 60 mg PO BID 09/02/18 Alcohol Antiseptic Pads [Alcohol Prep Pads] 1 each TP DAILY #100 med..pad Diltiazem Cd [Cardizem Cd -] 120 mg PO DAILY #30 cap.cd.24h 09/16/18 Furosemide [Lasix -] 40 mg PO DAILY #30 tablet 09/16/18 Losartan Potassium [Cozaar -] 25 mg PO DAILY #30 tablet 09/16/18 Miscellaneous Medical Supply [Glucometer Device] 1 each SQ ASDIR #1 kit Miscellaneous Medical Supply [Glucometer Test Strips #100] 1 each SQ ASDIR #1 box 09/16/18 [place], Safety [Needle] 1 each MC DAILY #100 dis.needle 09/16/18 Albuterol 2.5/Ipratropium 0.5 [Duoneb -] 1 neb IH QID #2 vial.neb. 09/19/18 Insulin Detemir [Levemir Flextouch] 8 unit SQ AM #2 insuln.pen 09/19/18 Insulin Sliding Scale [Novolog Vial Sliding Scale -] 0 units SQ ACHS #2 pen Miscellaneous Medical Supply [Lancets] 1 each SQ ASDIR #1 box 09/19/18 Family Disease History - Family Disease History Family Disease History: Diabetes: Father, Heart Disease: Mother (Parkinsons), Other: Mother, Brother (2), Sister (3), Son (2) Review of Systems - Review of Systems Constitutional: reports: Malaise. denies: Chills, Fever, Night Sweats, Unintentional Wgt. Loss Eyes: reports: No Symptoms HENT: reports: No Symptoms Neck: reports: No Symptoms Cardiovascular: reports: Edema, Shortness of Breath. denies: Chest Pain, Palpitations Respiratory: reports: Cough, Orthopnea, PND, Snoring, SOB, SOB on Exertion, Wheezing. denies: Hemoptysis Gastrointestinal: reports: No Symptoms Genitourinary: reports: No Symptoms Breasts: reports: No Symptoms Reported Musculoskeletal: reports: No Symptoms Integumentary: reports: No Symptoms Neurological: reports: No Symptoms Endocrine: reports: No Symptoms Hematology/Lymphatic: reports: No Symptoms Psychiatric: reports: No Symptoms Physical Exam Vital Sings: Vital Signs Temperature 98.8 F 10/10/18 12:00 Pulse Rate 92 H 10/10/18 12:00 Respiratory Rate 22 H 10/10/18 12:00 Blood Pressure 136/64 10/10/18 12:00 O2 Sat by Pulse Oximetry (%) 97 10/10/18 09:00 Constitutional: Yes: No Distress, Obese Eyes: Yes: Conjunctiva Clear, EOM Intact HENT: Yes: Atraumatic, Normocephalic Neck: Yes: Supple, Trachea Midline Cardiovascular: Yes: Regular Rate and Rhythm Respiratory: Yes: Cough, Diminished, On Nasal O2, Rales, Rhonchi, SOB, SOB on Exertion, Tachypnea, Wheezes. No: Accessory Muscle Use, Stridor ...Inspection: Yes: WNL ...Clubbing: No Gastrointestinal: Yes: Normal Bowel Sounds, Soft, Abdomen, Obese Renal/: Yes: WNL Musculoskeletal: Yes: WNL Extremities: Yes: WNL Edema: Yes Peripheral Pulses WNL: Yes Integumentary: Yes: WNL, Venous Stasis Changes Neurological: Yes: WNL, Alert, Oriented ...Motor Strength: WNL Psychiatric: Yes: WNL, Alert, Oriented Labs: CBC, BMP 10/10/18 07:15 10/10/18 07:15 Imaging - Results Chest X-ray: Report Reviewed, Image Reviewed Cat Scan: Report Reviewed, Image Reviewed Problem List - Problems (1) Chronic diastolic (congestive) heart failure Code(s): I50.32 - CHRONIC DIASTOLIC (CONGESTIVE) HEART FAILURE (2) Shortness of breath Code(s): R06.02 - SHORTNESS OF BREATH (3) Volume overload Code(s): E87.70 - FLUID OVERLOAD, UNSPECIFIED Qualifiers: Hypervolemia type: unspecified Qualified Code(s): E87.70 - Fluid overload, unspecified (4) COPD (chronic obstructive pulmonary disease) Code(s): J44.9 - CHRONIC OBSTRUCTIVE PULMONARY DISEASE, UNSPECIFIED Qualifiers: COPD type: emphysema Emphysema type: centrilobular Qualified Code(s): J43.2 - Centrilobular emphysema (5) BPH (benign prostatic hyperplasia) Code(s): N40.0 - BENIGN PROSTATIC HYPERPLASIA WITHOUT LOWER URINRY TRACT SYMP (6) Bilateral leg edema Code(s): R60.0 - LOCALIZED EDEMA (7) Diabetes Code(s): E11.9 - TYPE 2 DIABETES MELLITUS WITHOUT COMPLICATIONS (8) Dyspnea Code(s): R06.00 - DYSPNEA, UNSPECIFIED Qualifiers: Dyspnea type: unspecified Qualified Code(s): R06.00 - Dyspnea, unspecified (9) HTN (hypertension) Code(s): I10 - ESSENTIAL (PRIMARY) HYPERTENSION (10) Human immunodeficiency virus (HIV) disease Code(s): B20 - HUMAN IMMUNODEFICIENCY VIRUS [HIV] DISEASE (11) Hyperlipidemia Code(s): E78.5 - HYPERLIPIDEMIA, UNSPECIFIED Qualifiers: Hyperlipidemia type: pure hypercholesterolemia Qualified Code(s): E78.00 - Pure hypercholesterolemia, unspecified; E78.0 - Pure hypercholesterolemia (12) Peripheral edema Code(s): R60.9 - EDEMA, UNSPECIFIED (13) Acute on chronic diastolic heart failure Code(s): I50.33 - ACUTE ON CHRONIC DIASTOLIC (CONGESTIVE) HEART FAILURE (14) Acute on chronic respiratory failure with hypoxia Code(s): J96.21 - ACUTE AND CHRONIC RESPIRATORY FAILURE WITH HYPOXIA (15) COPD exacerbation Code(s): J44.1 - CHRONIC OBSTRUCTIVE PULMONARY DISEASE W (ACUTE) EXACERBATION Assessment/Plan Lasix IV Daily weights Follow I & O BD TX PRN Noted daily Prednisone Would monitor off ABX No smoking PFTs as an outpatient Will need close outpatient monitoring of RML nodule Will follow Thank you. Dr Martin
[2018-10-10] MEDS: ALBUTEROL SO4 2.5/IPRATROPIUM 0.5 INH SOL 3 ML VIAL.NEB. NEB SCH ×2 (14:00→21:20)
[2018-10-10] MEDS ORDERED: ALBUTEROL SO4 0.083% IH SOL 2.5 MG/3 ML VIAL.NEB. NEB PRN (14:00)
--- NOTE | 2018-10-10 15:22 | CON.CARD ---
Consult Consult Specialty:: Cardiology Referred by:: Hospitalist Medicine - Dr. Machado Reason for Consultation:: Dyspnea - History of Present Illness Chief Complaint: Dyspnea History of Present Illness: 63 M, HIV positive (followed at the [facility]), CHF, COPD (recently discharged with Home O2 and NIPPV device) due to previous smoking history (not steroid dependent, never intubated), IDDM, and BPH referred for dyspnea, orthopnea, pedal edema, improved with IV diuresis, denies chest pain, near or true syncope, palpitations. Similar presentation 09/02/2018. - History Source History Provided By: Patient Limitations to Obtaining History: No Limitations - Past Medical History Cardio/Vascular: Yes: Hyperlipdemia Pulmonary: Yes: COPD, O2 Dependent Renal/: Yes: BPH Infectious Disease: Yes: HIV - Past Surgical History Past Surgical History: Yes: None - Alcohol/Substance Use Hx Alcohol Use: No - Smoking History Smoking history: Unknown if ever smoked Have you smoked in the past 12 months: No Aproximately how many cigarettes per day: 20 If you are a former smoker, when did you quit?: 3months - Social History Usual Living Arrangement: With Child ADL: Independent History of Recent Travel: No Home Medications - Allergies Allergies/Adverse Reactions: Allergies Allergy/AdvReac Type Severity Reaction Status Date / Time No Known Allergies Allergy Verified 10/09/18 14:00 - Home Medications Home Medications: Ambulatory Orders Albuterol Sulfate Inhaler - [Ventolin HFA Inhaler -] 2 inh PO QID PRN 07/30/18 Atorvastatin Ca [Lipitor] 20 mg PO HS 07/30/18 Sulfamethoxazole/Trimethoprim [Bactrim DS -] 1 tab PO DAILY #30 tablet 08/05/18 Tamsulosin HCl [Flomax] 1 cap PO DAILY #30 capsule 08/05/18 Aspirin [ASA -] 81 mg PO DAILY tab.chew 08/18/18 Bictegrav/Emtricit/Tenofov Ala [Biktarvy 50-200-25 mg Tablet] 1 tablet PO DAILY 09/02/18 Budesonide/Formeterol Fumarate [SYMBICORT 160/4.5mcg -] 1 puff IH BID 09/02/18 Docusate Calcium 60 mg PO BID 09/02/18 Alcohol Antiseptic Pads [Alcohol Prep Pads] 1 each TP DAILY #100 med..pad Diltiazem Cd [Cardizem Cd -] 120 mg PO DAILY #30 cap.cd.24h 09/16/18 Furosemide [Lasix -] 40 mg PO DAILY #30 tablet 09/16/18 Losartan Potassium [Cozaar -] 25 mg PO DAILY #30 tablet 09/16/18 Miscellaneous Medical Supply [Glucometer Device] 1 each SQ ASDIR #1 kit Miscellaneous Medical Supply [Glucometer Test Strips #100] 1 each SQ ASDIR #1 box 09/16/18 [place], Safety [Needle] 1 each MC DAILY #100 dis.needle 09/16/18 Albuterol 2.5/Ipratropium 0.5 [Duoneb -] 1 neb IH QID #2 vial.neb. 09/19/18 Insulin Detemir [Levemir Flextouch] 8 unit SQ AM #2 insuln.pen 09/19/18 Insulin Sliding Scale [Novolog Vial Sliding Scale -] 0 units SQ ACHS #2 pen Miscellaneous Medical Supply [Lancets] 1 each SQ ASDIR #1 box 09/19/18 Family Disease History - Family Disease History Family Disease History: Diabetes: Father, Heart Disease: Mother (Parkinsons), Other: Mother, Brother (2), Sister (3), Son (2) Review of Systems - Review of Systems Cardiovascular: reports: Edema, Shortness of Breath Respiratory: reports: Orthopnea, SOB, SOB on Exertion Vital Signs: Vital Signs Temperature 98.8 F 10/10/18 12:00 Pulse Rate 92 H 10/10/18 12:00 Respiratory Rate 22 H 10/10/18 12:00 Blood Pressure 136/64 10/10/18 12:00 O2 Sat by Pulse Oximetry (%) 97 10/10/18 09:00 Constitutional: Yes: No Distress, Calm Neck: Yes: Supple Respiratory: Yes: Regular, Diminished Gastrointestinal: Yes: Normal Bowel Sounds, Soft, Abdomen, Obese Cardiovascular: Yes: Regular Rate and Rhythm JVD: No Carotid Bruit: No Heart Sounds: Yes: S1, S2 Edema: Yes Edema: LLE: 1+, RLE: 1+ - Other Data Labs, Other Data: CBC, BMP 10/10/18 07:15 10/10/18 07:15 INR, PTT INR 1.00 (0.83-1.09) 10/09/18 15:10 Troponin, BNP 10/09/18 10/09/18 15:10 15:10 Troponin I < 0.02 B-Natriuretic Peptide 76.4 Troponin, BNP 10/09/18 10/09/18 15:10 15:10 Troponin I < 0.02 B-Natriuretic Peptide 76.4 NSR @ 83 RBBB Imaging - Results Chest X-ray: Report Reviewed (Congestion) Assessment/Plan 09/04/2018: Chest CT: Stable granulomas and pulm nodule 07/09/2018 Chest CTA: No PE, mild centrilobular emphysema, mildly dilated main PA, interval resolution of focal right posterior basilar infiltrate or ATX peviously seen 06/06/2018 09/03/2018 Echo: Nondiagnostic, poor windows 07/10/2018 Echo: Normal LV and RV size and fxn LVEF 60-65%, tr TR Problem List - Problems (1) Chronic diastolic (congestive) heart failure Code(s): I50.32 - CHRONIC DIASTOLIC (CONGESTIVE) HEART FAILURE (2) Shortness of breath Code(s): R06.02 - SHORTNESS OF BREATH (3) Volume overload Code(s): E87.70 - FLUID OVERLOAD, UNSPECIFIED Qualifiers: Hypervolemia type: unspecified Qualified Code(s): E87.70 - Fluid overload, unspecified (4) COPD (chronic obstructive pulmonary disease) Code(s): J44.9 - CHRONIC OBSTRUCTIVE PULMONARY DISEASE, UNSPECIFIED Qualifiers: COPD type: emphysema Emphysema type: centrilobular Qualified Code(s): J43.2 - Centrilobular emphysema (5) BPH (benign prostatic hyperplasia) Code(s): N40.0 - BENIGN PROSTATIC HYPERPLASIA WITHOUT LOWER URINRY TRACT SYMP (6) Bilateral leg edema Code(s): R60.0 - LOCALIZED EDEMA (7) Diabetes Code(s): E11.9 - TYPE 2 DIABETES MELLITUS WITHOUT COMPLICATIONS (8) Dyspnea Code(s): R06.00 - DYSPNEA, UNSPECIFIED Qualifiers: Dyspnea type: unspecified Qualified Code(s): R06.00 - Dyspnea, unspecified (9) HTN (hypertension) Code(s): I10 - ESSENTIAL (PRIMARY) HYPERTENSION (10) Human immunodeficiency virus (HIV) disease Code(s): B20 - HUMAN IMMUNODEFICIENCY VIRUS [HIV] DISEASE (11) Hyperlipidemia Code(s): E78.5 - HYPERLIPIDEMIA, UNSPECIFIED Qualifiers: Hyperlipidemia type: pure hypercholesterolemia Qualified Code(s): E78.00 - Pure hypercholesterolemia, unspecified; E78.0 - Pure hypercholesterolemia (12) Peripheral edema Code(s): R60.9 - EDEMA, UNSPECIFIED (13) Acute on chronic diastolic heart failure Code(s): I50.33 - ACUTE ON CHRONIC DIASTOLIC (CONGESTIVE) HEART FAILURE (14) Acute on chronic respiratory failure with hypoxia Code(s): J96.21 - ACUTE AND CHRONIC RESPIRATORY FAILURE WITH HYPOXIA (15) COPD exacerbation Code(s): J44.1 - CHRONIC OBSTRUCTIVE PULMONARY DISEASE W (ACUTE) EXACERBATION 1. Recurrent acute on chronic diastolic heart failure 2. Home O2-dependent COPD 3. HIV on HAART 4. History of pulmonary TB 5. Type 2 DM 6. Hyperlipidemia 7. Pulmonary nodule 7 mm in RML P:1. IV diuresis with monitor diuretic response, renal fxn and electrolytes 2. BD, O2, IV steroids, bipap as needed, observe off abx, PFTs as outpatient, monitor pulm nodule 3. Continue Lipitor 20 qd, Cardizem CD 120 qd, losatan 25 qd 4. Thank you for consultative opportunity
[2018-10-10] MEDS ORDERED: INSULIN (NOVOLOG) ASPART 100 UNITS/ML 10ML VIAL ONE (18:07)
--- NOTE | 2018-10-10 18:35 | PN ---
Physical Exam: SUBJECTIVE: 63 y/o M w PMH of HIV, CHF, COPD (recently discharged with Home O2 and NIPPV device), IDDM, and BPH seen in the ED for SOB and admitted for acute on chronic diastolic CHF exacerbation. The pt was seen at bedside, sitting comfortably, seated at the edge of the bed. He does report orthopnea and pedal edema. Pt denies night sweats and hemoptysis. Pt denies NVFD and chills. OBJECTIVE: Vital Signs Temp Pulse Resp BP Pulse Ox 97.8 F 103 H 20 114/50 L 97 10/10/18 16:30 10/10/18 16:30 10/10/18 16:30 10/10/18 16:30 10/10/18 09:00 GENERAL: The patient is awake, alert, and fully oriented, in no acute distress. [place] speaking only. HEAD: Normal with no signs of trauma. EYES: LATONIA, EOMI, sclera anicteric, conjunctiva clear, no ptosis. ENT: Hard of hearing. Ears normal, nares patent, oropharynx clear without exudates, moist mucous membranes. NECK: Trachea midline, full range of motion, supple. LUNGS: Breath sounds equal with good air entry, clear to auscultation bilaterally, no wheezes, no crackles, no accessory muscle use. HEART: Regular rate and rhythm, S1, S2 without murmur, rub or gallop. ABDOMEN: Obese, soft, nontender, nondistended, normoactive bowel sounds, no guarding, no rebound, no hepatosplenomegaly, no masses. EXTREMITIES: BL trace LE edema. 2+ pulses, warm, well-perfused, no edema. NEUROLOGICAL: Cranial nerves III through XII grossly intact. Normal speech, gait not observed. PSYCH: Normal mood, normal affect. SKIN: Warm, dry, normal turgor, no rashes or lesions noted Laboratory Results - last 24 hr 10/09/18 10/09/18 10/10/18 15:10 21:46 06:46 WBC RBC Hgb Hct MCV MCH MCHC RDW Plt Count MPV Absolute Neuts (auto) Total Counted 100 Neutrophils % Neutrophils % (Manual) 95.0 H D Lymphocytes % Lymphocytes % (Manual) 5.0 L D Monocytes % Monocytes % (Manual) 2 L Eosinophils % Basophils % Nucleated RBC % Sodium Potassium Chloride Carbon Dioxide Anion Gap BUN Creatinine Est GFR (CKD-EPI)AfAm Est GFR (CKD-EPI)NonAf POC Glucometer 371 193 Random Glucose Calcium Total Bilirubin AST ALT Alkaline Phosphatase Total Protein Albumin Vitamin B12 Serum Folate 10/10/18 10/10/18 10/10/18 07:15 07:15 11:44 WBC 9.0 RBC 3.60 L Hgb 12.3 Hct 36.4 MCV 101.2 H MCH 34.3 H MCHC 33.9 RDW 16.6 H Plt Count 294 MPV 8.0 Absolute Neuts (auto) 7.8 Total Counted Neutrophils % 86.6 H Neutrophils % (Manual) Lymphocytes % 10.4 Lymphocytes % (Manual) Monocytes % 2.9 L Monocytes % (Manual) Eosinophils % 0.0 D Basophils % 0.1 Nucleated RBC % 0 Sodium 140 Potassium 4.0 Chloride 104 Carbon Dioxide 27 Anion Gap 9 BUN 26.4 H Creatinine 0.9 Est GFR (CKD-EPI)AfAm 105.72 Est GFR (CKD-EPI)NonAf 91.22 POC Glucometer 285 Random Glucose 242 H Calcium 8.8 Total Bilirubin 0.5 AST 18 ALT 36 Alkaline Phosphatase 45 Total Protein 6.5 Albumin 3.3 L Vitamin B12 479 Serum Folate 16 10/10/18 17:46 WBC RBC Hgb Hct MCV MCH MCHC RDW Plt Count MPV Absolute Neuts (auto) Total Counted Neutrophils % Neutrophils % (Manual) Lymphocytes % Lymphocytes % (Manual) Monocytes % Monocytes % (Manual) Eosinophils % Basophils % Nucleated RBC % Sodium Potassium Chloride Carbon Dioxide Anion Gap BUN Creatinine Est GFR (CKD-EPI)AfAm Est GFR (CKD-EPI)NonAf POC Glucometer 318 Random Glucose Calcium Total Bilirubin AST ALT Alkaline Phosphatase Total Protein Albumin Vitamin B12 Serum Folate Active Medications Albuterol Sulfate (Ventolin 0.083% Nebulizer Soln -) 1 amp NEB Q4H PRN PRN Reason: SHORT OF BREATH/WHEEZING Albuterol/Ipratropium (Duoneb -) 1 amp NEB RTID [facility] Last Admin: 10/10/18 14:00 Dose: 1 amp Aspirin (Asa -) 81 mg PO DAILY [facility] Last Admin: 10/10/18 09:39 Dose: 81 mg Atorvastatin Calcium (Lipitor -) 20 mg PO HS [facility] Last Admin: 10/09/18 22:44 Dose: Not Given Diltiazem HCl (Cardizem Cd -) 120 mg PO DAILY [facility] Last Admin: 10/10/18 09:39 Dose: 120 mg Docusate Sodium (Colace -) 100 mg PO BID [facility] Last Admin: 10/10/18 09:39 Dose: 100 mg Furosemide (Lasix Injection -) 40 mg IVPUSH DAILY [facility] Last Admin: 10/10/18 09:38 Dose: 40 mg Heparin Sodium (Porcine) (Heparin -) 5,000 unit SQ TID [facility] Last Admin: 10/10/18 13:33 Dose: 5,000 unit Insulin Aspart (Novolog Vial Sliding Scale -) 1 vial SQ ACHS [facility]; Protocol Last Admin: 10/10/18 17:48 Dose: 8 units Losartan Potassium (Cozaar -) 25 mg PO DAILY [facility] Last Admin: 10/10/18 09:38 Dose: 25 mg Non-Formulary Medication (Bictegrav/Emtricit/Tenofov Ala) 1 tablet PO DAILY [facility] Prednisone (Deltasone -) 40 mg PO DAILY [facility] Senna (Senna -) 1 tab PO BID [facility] Last Admin: 10/10/18 09:39 Dose: 1 tab Tamsulosin HCl (Flomax -) 0.4 mg PO DAILY [facility] Last Admin: 10/10/18 09:38 Dose: 0.4 mg Trimethoprim/Sulfamethoxazole (Bactrim Ds -) 1 each PO DAILY [facility] Last Admin: 10/10/18 09:38 Dose: 1 each ASSESSMENT/PLAN: 63 y/o M w PMH of HIV, CHF, COPD (recently discharged with Home O2 and NIPPV device), IDDM, and BPH seen in the ED for SOB and admitted for acute on chronic diastolic CHF exacerbation. # Acute on chronic diastolic CHF exacerbation - Echo from 07/10/18 showed LVEF of 60-65% - CXR shows increased congestive changes - Lasix 40mg IV - Monitor I/O - Daily weights # COPD - Place pt on BiPAP overnight - Stop solumedrol - Start prednison 60 mg today, 40 mg tomorrow, and taper over 4 days - Oxygen NC 3L - PFTs as an outpatient - Out-pt monitoring of RML nodule - Pulm on board (Dr. Martin) # Macrocytosis - MCV 102 - Poss d/t TMP/SMX - Awaiting b12/folate levels # HIV - Cont. home meds: Bictegrav/Emtricit/Tenofov Ala # DM - BGM - ISS - F/u ophthalmology and podiatry out-pt # F/E/N - No standing fluids - Monitor electrolytes - Low salt/diabetic diet # DVT prophylaxis - Lovenox # Disposition - Full code Alex Le MD Visit type - Emergency Visit Emergency Visit: No - New Patient This patient is new to me today: Yes Date on this admission: 10/10/18 - Critical Care Critical Care patient: No - Discharge Referral [facility]erred [facility] Med [facility] No ATTENDING PHYSICIAN STATEMENT I saw and evaluated the patient. I reviewed the resident's note and discussed the case with the resident. I agree with the resident's findings and plan as documented. SUBJECTIVE: OBJECTIVE: ASSESSMENT AND PLAN:
--- NOTE | 2018-10-10 19:01 | PN ---
Teaching Attending Note Name of Resident: Alex Le ATTENDING PHYSICIAN STATEMENT I saw and evaluated the patient. I reviewed the resident's note and discussed the case with the resident. I agree with the resident's findings and plan as documented. SUBJECTIVE: Feels some improvement in SOB. No CP/palpitations. No fever/chills/ sputum/hemoptysis. OBJECTIVE: Afebrile, hemodynamically Stable. Last Vital Signs Temp Pulse Resp BP Pulse Ox 97.8 F 103 H 20 114/50 L 97 10/10/18 16:30 10/10/18 16:30 10/10/18 16:30 10/10/18 16:30 10/10/18 09:00 HEENT- Atraumatic, Normocephalic, O2 via NC Heart - S1, S2, RRR Lungs - decreased air entry at bases Abdomen -Soft non-tender. Bowel Sounds normal. Extremities - LE edema + Laboratory Results - last 24 hr 10/09/18 10/09/18 10/10/18 15:10 21:46 06:46 WBC RBC Hgb Hct MCV MCH MCHC RDW Plt Count MPV Absolute Neuts (auto) Total Counted 100 Neutrophils % Neutrophils % (Manual) 95.0 H D Lymphocytes % Lymphocytes % (Manual) 5.0 L D Monocytes % Monocytes % (Manual) 2 L Eosinophils % Basophils % Nucleated RBC % Sodium Potassium Chloride Carbon Dioxide Anion Gap BUN Creatinine Est GFR (CKD-EPI)AfAm Est GFR (CKD-EPI)NonAf POC Glucometer 371 193 Random Glucose Calcium Total Bilirubin AST ALT Alkaline Phosphatase Total Protein Albumin Vitamin B12 Serum Folate 10/10/18 10/10/18 10/10/18 07:15 07:15 11:44 WBC 9.0 RBC 3.60 L Hgb 12.3 Hct 36.4 MCV 101.2 H MCH 34.3 H MCHC 33.9 RDW 16.6 H Plt Count 294 MPV 8.0 Absolute Neuts (auto) 7.8 Total Counted Neutrophils % 86.6 H Neutrophils % (Manual) Lymphocytes % 10.4 Lymphocytes % (Manual) Monocytes % 2.9 L Monocytes % (Manual) Eosinophils % 0.0 D Basophils % 0.1 Nucleated RBC % 0 Sodium 140 Potassium 4.0 Chloride 104 Carbon Dioxide 27 Anion Gap 9 BUN 26.4 H Creatinine 0.9 Est GFR (CKD-EPI)AfAm 105.72 Est GFR (CKD-EPI)NonAf 91.22 POC Glucometer 285 Random Glucose 242 H Calcium 8.8 Total Bilirubin 0.5 AST 18 ALT 36 Alkaline Phosphatase 45 Total Protein 6.5 Albumin 3.3 L Vitamin B12 479 Serum Folate 16 10/10/18 17:46 WBC RBC Hgb Hct MCV MCH MCHC RDW Plt Count MPV Absolute Neuts (auto) Total Counted Neutrophils % Neutrophils % (Manual) Lymphocytes % Lymphocytes % (Manual) Monocytes % Monocytes % (Manual) Eosinophils % Basophils % Nucleated RBC % Sodium Potassium Chloride Carbon Dioxide Anion Gap BUN Creatinine Est GFR (CKD-EPI)AfAm Est GFR (CKD-EPI)NonAf POC Glucometer 318 Random Glucose Calcium Total Bilirubin AST ALT Alkaline Phosphatase Total Protein Albumin Vitamin B12 Serum Folate Current Medications Generic Name Dose Route Start Last Admin Trade Name Freq PRN Reason Stop Dose Admin Albuterol Sulfate 1 amp 10/10/18 14:00 Ventolin 0.083% Nebulizer Soln - NEB Q4H PRN SHORT OF BREATH/WHEEZING Albuterol/Ipratropium 1 amp 10/10/18 14:00 10/10/18 14:00 Duoneb - NEB 1 amp RTID [facility] Administration Aspirin 81 mg 10/10/18 10:00 10/10/18 09:39 Asa - PO 81 mg DAILY [facility] Administration Atorvastatin Calcium 20 mg 10/09/18 22:00 10/09/18 22:44 Lipitor - PO Not Given HS [facility] Diltiazem HCl 120 mg 10/10/18 10:00 10/10/18 09:39 Cardizem Cd - PO 120 mg DAILY [facility] Administration Docusate Sodium 100 mg 10/10/18 10:00 10/10/18 09:39 Colace - PO 100 mg BID [facility] Administration Furosemide 40 mg 10/10/18 10:00 10/10/18 09:38 Lasix Injection - IVPUSH 40 mg DAILY [facility] Administration Heparin Sodium (Porcine) 5,000 unit 10/10/18 06:00 10/10/18 13:33 Heparin - SQ 5,000 unit TID [facility] Administration Insulin Aspart 1 vial 10/09/18 22:00 10/10/18 17:48 Novolog Vial Sliding Scale - SQ 8 units ACHS [facility] Administration Protocol Losartan Potassium 25 mg 10/10/18 10:00 10/10/18 09:38 Cozaar - PO 25 mg DAILY [facility] Administration Non-Formulary Medication 1 tablet 10/10/18 10:00 Bictegrav/Emtricit/Tenofov Ala PO DAILY [facility] Prednisone 40 mg 10/11/18 10:00 Deltasone - PO DAILY [facility] Senna 1 tab 10/10/18 10:00 10/10/18 09:39 Senna - PO 1 tab BID [facility] Administration Tamsulosin HCl 0.4 mg 10/10/18 10:00 10/10/18 09:38 Flomax - PO 0.4 mg DAILY [facility] Administration Trimethoprim/Sulfamethoxazole 1 each 10/10/18 10:00 10/10/18 09:38 Bactrim Ds - PO 1 each DAILY [facility] Administration Home Medications Medication Instructions Recorded Albuterol Sulfate Inhaler - 2 inh PO QID PRN 07/30/18 [Ventolin HFA Inhaler -] Atorvastatin Ca [Lipitor] 20 mg PO HS 07/30/18 Sulfamethoxazole/Trimethoprim 1 tab PO DAILY #30 tablet 08/05/18 [Bactrim DS -] Tamsulosin HCl [Flomax] 1 cap PO DAILY #30 capsule 08/05/18 Aspirin [ASA -] 81 mg PO DAILY tab.chew 08/18/18 Bictegrav/Emtricit/Tenofov Ala 1 tablet PO DAILY 09/02/18 [Biktarvy 50-200-25 mg Tablet] Budesonide/Formeterol Fumarate 1 puff IH BID 09/02/18 [SYMBICORT 160/4.5mcg -] Docusate Calcium 60 mg PO BID 09/02/18 Alcohol Antiseptic Pads [Alcohol 1 each TP DAILY #100 med..pad 09/16/18 Prep Pads] Diltiazem Cd [Cardizem Cd -] 120 mg PO DAILY #30 cap.cd.24h 09/16/18 Furosemide [Lasix -] 40 mg PO DAILY #30 tablet 09/16/18 Losartan Potassium [Cozaar -] 25 mg PO DAILY #30 tablet 09/16/18 Miscellaneous Medical Supply 1 each SQ ASDIR #1 kit 09/16/18 [Glucometer Device] Miscellaneous Medical Supply 1 each SQ ASDIR #1 box 09/16/18 [Glucometer Test Strips #100] [place], Safety [Needle] 1 each MC DAILY #100 dis.needle 09/16/18 Albuterol 2.5/Ipratropium 0.5 1 neb IH QID #2 vial.neb. 09/19/18 [Duoneb -] Insulin Detemir [Levemir Flextouch] 8 unit SQ AM #2 insuln.pen 09/19/18 Insulin Sliding Scale [Novolog 0 units SQ ACHS #2 pen 09/19/18 Vial Sliding Scale -] Miscellaneous Medical Supply 1 each SQ ASDIR #1 box 09/19/18 [Lancets] ASSESSMENT/PLAN: 63 year old male with history of CRF sec to COPD (on home O2), HIV disease (on HAART), HTN, HLD, chronic diastolic CHF, BPH, presents to the ER from [facility] with increasing SOB, orthopnea, pedal edema. 1. Acute on Chronic Diastolic CHF CXR - some congestive changes IV Lasix diuresis Daily weight, I/Os. Cardiology consulted. 2. Acute on Chronic Respiratory Failure sec to COPD exacerbation Supplemental O2 Bronchodilator Nebs IV Solumedrol transitioned to oral Prednisone. Monitor resp Status Pulm consulted. 3. DM 2 -Maintain on sliding scale Novolog. 4. HTN - continue Cardizem Losartan 5. Macrocytosis - will send B12/Folate levels. 6. BPH - on tamsulosin 7. HIV - continue HAART, Bactrim Px. 8. RML Nodule - for out-patient follow up. 9. HLD -continue Statin DVT Px - Lovenox SQ
[2018-10-10 19:59] LABS: BASO % 0.1 % (0-2.0); HEMATOCRIT 35.8 % (35.4-49); HEMOGLOBIN 11.9 GM/dL (11.7-16.9); LYMPH % 7.1 % (8-40); MCH 33.7 pg (25.7-33.7); MCHC 33.1 g/dl (32.0-35.9); MEAN CELL VOLUME 101.7 fl (80-96); MEAN PLT VOLUME 8.4 fl (7.5-11.1); MONO % 1.4 % (3.8-10.2); NEUT % 91.4 % (42.8-82.8); PLATELET COUNT 291 K/MM3 (134-434); RBC 3.52 M/mm3 (4.00-5.60); RDW 16.9 % (11.9-15.9); WHITE BLOOD COUNT 11.9 K/mm3 (4.0-10.0)
[2018-10-10] MEDS: ATORVASTATIN CA 20 MG TABLET (FP) PO SCH (21:36)
[2018-10-10] MEDS: PATIENT'S OWN MEDICATION (NON-FORMULARY) (Bictegrav/Emtricit/Tenofov Ala 1 TABLET) PO SCH (22:00)
[2018-10-10 23:55] LABS: MACROCYTOSIS 1+; PLATELET ESTIMATE ADEQUATE
[2018-10-11] MEDS: HEPARIN NA (PORCINE) 5,000 UNITS/ML 1ML VIAL SQ SCH ×2 (06:16→16:11)
[2018-10-11] MEDS: INSULIN SLIDING SCALE (NOVOLOG) 1 VIAL SQ SCH ×4 (06:18→21:59)
[2018-10-11 08:30] LABS: BASO % 0.2 % (0-2.0); HEMATOCRIT 36.1 % (35.4-49); HEMOGLOBIN 12.1 GM/dL (11.7-16.9); LYMPH % 6.9 % (8-40); MCH 33.6 pg (25.7-33.7); MCHC 33.4 g/dl (32.0-35.9); MEAN CELL VOLUME 100.3 fl (80-96); MEAN PLT VOLUME 8.6 fl (7.5-11.1); MONO % 4.7 % (3.8-10.2); NEUT % 88.2 % (42.8-82.8); PLATELET COUNT 281 K/MM3 (134-434); RDW 16.5 % (11.9-15.9); WHITE BLOOD COUNT 14.4 K/mm3 (4.0-10.0)
[2018-10-11] MEDS: ALBUTEROL SO4 2.5/IPRATROPIUM 0.5 INH SOL 3 ML VIAL.NEB. NEB SCH ×3 (08:56→19:51)
[2018-10-11 09:01] LABS: ALBUMIN 3.2 g/dl (3.4-5.0); BILIRUBIN,TOTAL 0.3 mg/dL (0.2-1); BLOOD UREA NITROGEN 18.3 mg/dL (7-18); CALCIUM 8.6 mg/dL (8.5-10.1); CREATININE 0.8 mg/dL (0.55-1.3); MAGNESIUM 2.7 mg/dL (1.8-2.4); PHOSPHOROUS 3.4 mg/dL (2.5-4.9)
[2018-10-11] MEDS: predniSONE 20 MG TABLET (UD) PO SCH (09:55)
[2018-10-11] MEDS: TAMSULOSIN HCL 0.4 MG CAP PO SCH (09:55)
[2018-10-11] MEDS: SULFAMETHOXAZOLE/TRIMETHOPRIM 800MG/160MG D.S. TABLET PO SCH (09:56)
[2018-10-11] MEDS: LOSARTAN POTASSIUM 25 MG TABLET PO SCH (09:56)
[2018-10-11] MEDS: ASPIRIN 81 MG CHEWABLE TABLETS PO SCH (09:56)
[2018-10-11] MEDS: FUROSEMIDE 40 MG/4 ML INJECTABLE VIAL IVPUSH SCH (09:56)
[2018-10-11] MEDS: SENNOSIDES 8.6MG TABLET (FP) PO SCH ×2 (09:57→21:59)
[2018-10-11] MEDS: DOCUSATE SODIUM 100 MG CAPSULE (FP) PO SCH ×2 (09:57→22:00)
[2018-10-11] MEDS: PATIENT'S OWN MEDICATION (NON-FORMULARY) (Bictegrav/Emtricit/Tenofov Ala 1 TABLET) PO SCH (09:58)
--- NOTE | 2018-10-11 10:56 | PN ---
Progress Note (short form) - Note Progress Note: Feels overall better. Less SOB. Cough is improving. Intake & Output 10/08/18 10/09/18 10/10/18 10/11/18 23:59 23:59 23:59 23:59 Intake Total 900 200 Output Total 1700 Balance -800 200 Weight 191 lb 2 oz 190 lb 8 oz 184 lb 9 oz Last Vital Signs Temp Pulse Resp BP Pulse Ox 97.9 F 91 H 20 98/69 97 10/11/18 06:00 10/11/18 06:00 10/11/18 06:00 10/11/18 06:00 10/10/18 21:00 Active Medications Albuterol Sulfate (Ventolin 0.083% Nebulizer Soln -) 1 amp NEB Q4H PRN PRN Reason: SHORT OF BREATH/WHEEZING Albuterol/Ipratropium (Duoneb -) 1 amp NEB RTID [facility] Last Admin: 10/11/18 08:56 Dose: 1 amp Aspirin (Asa -) 81 mg PO DAILY [facility] Last Admin: 10/11/18 09:56 Dose: 81 mg Atorvastatin Calcium (Lipitor -) 20 mg PO HS [facility] Last Admin: 10/10/18 21:36 Dose: 20 mg Diltiazem HCl (Cardizem Cd -) 120 mg PO DAILY [facility] Last Admin: 10/11/18 09:55 Dose: 120 mg Docusate Sodium (Colace -) 100 mg PO BID [facility] Last Admin: 10/11/18 09:57 Dose: 100 mg Furosemide (Lasix Injection -) 40 mg IVPUSH DAILY [facility] Last Admin: 10/11/18 09:56 Dose: 40 mg Heparin Sodium (Porcine) (Heparin -) 5,000 unit SQ TID [facility] Last Admin: 10/11/18 06:16 Dose: 5,000 unit Insulin Aspart (Novolog Vial Sliding Scale -) 1 vial SQ ACHS [facility]; Protocol Last Admin: 10/11/18 06:18 Dose: 4 units Losartan Potassium (Cozaar -) 25 mg PO DAILY [facility] Last Admin: 10/11/18 09:56 Dose: 25 mg Non-Formulary Medication (Bictegrav/Emtricit/Tenofov Ala) 1 tablet PO DAILY [facility] Last Admin: 10/11/18 09:58 Dose: 1 tablet Prednisone (Deltasone -) 40 mg PO DAILY [facility] Last Admin: 10/11/18 09:55 Dose: 40 mg Senna (Senna -) 1 tab PO BID [facility] Last Admin: 10/11/18 09:57 Dose: 1 tab Tamsulosin HCl (Flomax -) 0.4 mg PO DAILY [facility] Last Admin: 10/11/18 09:55 Dose: 0.4 mg Trimethoprim/Sulfamethoxazole (Bactrim Ds -) 1 each PO DAILY [facility] Last Admin: 10/11/18 09:56 Dose: 1 each Constitutional: Yes: No Distress, Obese Eyes: Yes: Conjunctiva Clear, EOM Intact HENT: Yes: Atraumatic, Normocephalic Neck: Yes: Supple, Trachea Midline Cardiovascular: Yes: Regular Rate and Rhythm Respiratory: Yes: Cough, Diminished, On Nasal O2, Rales, Rhonchi. No: Wheeze, Accessory Muscle Use, Stridor ...Inspection: Yes: WNL ...Clubbing: No Gastrointestinal: Yes: Normal Bowel Sounds, Soft, Abdomen, Obese Renal/: Yes: WNL Musculoskeletal: Yes: WNL Extremities: Yes: WNL Edema: Yes Peripheral Pulses WNL: Yes Integumentary: Yes: WNL, Venous Stasis Changes Neurological: Yes: WNL, Alert, Oriented ...Motor Strength: WNL Psychiatric: Yes: WNL, Alert, Oriented Labs: Laboratory Results - last 24 hr 10/10/18 10/10/18 10/10/18 07:15 11:44 17:46 WBC RBC Hgb Hct MCV MCH MCHC RDW Plt Count MPV Absolute Neuts (auto) Total Counted Neutrophils % Neutrophils % (Manual) Band Neutrophils % Lymphocytes % Lymphocytes % (Manual) Monocytes % Monocytes % (Manual) Eosinophils % Basophils % Nucleated RBC % Differential Comment Platelet Estimate Polychromasia Macrocytosis Sodium 140 Potassium 4.0 Chloride 104 Carbon Dioxide 27 Anion Gap 9 BUN 26.4 H Creatinine 0.9 Est GFR (CKD-EPI)AfAm 105.72 Est GFR (CKD-EPI)NonAf 91.22 POC Glucometer 285 318 Random Glucose 242 H Calcium 8.8 Phosphorus Magnesium Total Bilirubin 0.5 AST 18 ALT 36 Alkaline Phosphatase 45 Total Protein 6.5 Albumin 3.3 L Vitamin B12 479 Serum Folate 16 10/10/18 10/10/18 10/11/18 18:25 21:32 06:14 WBC 11.9 H RBC 3.52 L Hgb 11.9 Hct 35.8 MCV 101.7 H MCH 33.7 MCHC 33.1 RDW 16.9 H Plt Count 291 MPV 8.4 Absolute Neuts (auto) 10.9 H Total Counted 100 Neutrophils % 91.4 H Neutrophils % (Manual) 95.0 H Band Neutrophils % 1.0 Lymphocytes % 7.1 L D Lymphocytes % (Manual) 3.0 L D Monocytes % 1.4 L Monocytes % (Manual) 1 L Eosinophils % 0.0 Basophils % 0.1 Nucleated RBC % 0 Differential Comment Man diff performed Platelet Estimate Adequate Polychromasia 1+ Macrocytosis 1+ Sodium Potassium Chloride Carbon Dioxide Anion Gap BUN Creatinine Est GFR (CKD-EPI)AfAm Est GFR (CKD-EPI)NonAf POC Glucometer 259 232 Random Glucose Calcium Phosphorus Magnesium Total Bilirubin AST ALT Alkaline Phosphatase Total Protein Albumin Vitamin B12 Serum Folate 10/11/18 10/11/18 06:32 06:32 WBC 14.4 H RBC 3.60 L Hgb 12.1 Hct 36.1 MCV 100.3 H MCH 33.6 MCHC 33.4 RDW 16.5 H Plt Count 281 MPV 8.6 Absolute Neuts (auto) 12.7 H Total Counted Neutrophils % 88.2 H Neutrophils % (Manual) Band Neutrophils % Lymphocytes % 6.9 L Lymphocytes % (Manual) Monocytes % 4.7 D Monocytes % (Manual) Eosinophils % 0.0 Basophils % 0.2 Nucleated RBC % 0 Differential Comment Platelet Estimate Polychromasia Macrocytosis Sodium 141 Potassium 4.0 Chloride 106 Carbon Dioxide 28 Anion Gap 8 BUN 18.3 H Creatinine 0.8 Est GFR (CKD-EPI)AfAm 110.96 Est GFR (CKD-EPI)NonAf 95.74 POC Glucometer Random Glucose 227 H Calcium 8.6 Phosphorus 3.4 Magnesium 2.7 H Total Bilirubin 0.3 AST 14 L ALT 33 Alkaline Phosphatase 36 L Total Protein 6.0 L Albumin 3.2 L Vitamin B12 Serum Folate Problem List - Problems (1) Chronic diastolic (congestive) heart failure Code(s): I50.32 - CHRONIC DIASTOLIC (CONGESTIVE) HEART FAILURE (2) Shortness of breath Code(s): R06.02 - SHORTNESS OF BREATH (3) Volume overload Code(s): E87.70 - FLUID OVERLOAD, UNSPECIFIED Qualifiers: Hypervolemia type: unspecified Qualified Code(s): E87.70 - Fluid overload, unspecified (4) COPD (chronic obstructive pulmonary disease) Code(s): J44.9 - CHRONIC OBSTRUCTIVE PULMONARY DISEASE, UNSPECIFIED Qualifiers: COPD type: emphysema Emphysema type: centrilobular Qualified Code(s): J43.2 - Centrilobular emphysema (5) BPH (benign prostatic hyperplasia) Code(s): N40.0 - BENIGN PROSTATIC HYPERPLASIA WITHOUT LOWER URINRY TRACT SYMP (6) Bilateral leg edema Code(s): R60.0 - LOCALIZED EDEMA (7) Diabetes Code(s): E11.9 - TYPE 2 DIABETES MELLITUS WITHOUT COMPLICATIONS (8) Dyspnea Code(s): R06.00 - DYSPNEA, UNSPECIFIED Qualifiers: Dyspnea type: unspecified Qualified Code(s): R06.00 - Dyspnea, unspecified (9) HTN (hypertension) Code(s): I10 - ESSENTIAL (PRIMARY) HYPERTENSION (10) Human immunodeficiency virus (HIV) disease Code(s): B20 - HUMAN IMMUNODEFICIENCY VIRUS [HIV] DISEASE (11) Hyperlipidemia Code(s): E78.5 - HYPERLIPIDEMIA, UNSPECIFIED Qualifiers: Hyperlipidemia type: pure hypercholesterolemia Qualified Code(s): E78.00 - Pure hypercholesterolemia, unspecified; E78.0 - Pure hypercholesterolemia (12) Peripheral edema Code(s): R60.9 - EDEMA, UNSPECIFIED (13) Acute on chronic diastolic heart failure Code(s): I50.33 - ACUTE ON CHRONIC DIASTOLIC (CONGESTIVE) HEART FAILURE (14) Acute on chronic respiratory failure with hypoxia Code(s): J96.21 - ACUTE AND CHRONIC RESPIRATORY FAILURE WITH HYPOXIA (15) COPD exacerbation Code(s): J44.1 - CHRONIC OBSTRUCTIVE PULMONARY DISEASE W (ACUTE) EXACERBATION Assessment/Plan IV Lasix Daily weights Follow I & O BD TX PRN Daily Prednisone Monitor off ABX No smoking PFTs as an outpatient Will need close outpatient monitoring of RML nodule Dr Martin Problem List - Problems (1) Chronic diastolic (congestive) heart failure Code(s): I50.32 - CHRONIC DIASTOLIC (CONGESTIVE) HEART FAILURE (2) Shortness of breath Code(s): R06.02 - SHORTNESS OF BREATH (3) Volume overload Code(s): E87.70 - FLUID OVERLOAD, UNSPECIFIED Qualifiers: Hypervolemia type: unspecified Qualified Code(s): E87.70 - Fluid overload, unspecified (4) COPD (chronic obstructive pulmonary disease) Code(s): J44.9 - CHRONIC OBSTRUCTIVE PULMONARY DISEASE, UNSPECIFIED Qualifiers: COPD type: emphysema Emphysema type: centrilobular Qualified Code(s): J43.2 - Centrilobular emphysema (5) BPH (benign prostatic hyperplasia) Code(s): N40.0 - BENIGN PROSTATIC HYPERPLASIA WITHOUT LOWER URINRY TRACT SYMP (6) Bilateral leg edema Code(s): R60.0 - LOCALIZED EDEMA (7) Diabetes Code(s): E11.9 - TYPE 2 DIABETES MELLITUS WITHOUT COMPLICATIONS (8) Dyspnea Code(s): R06.00 - DYSPNEA, UNSPECIFIED Qualifiers: Dyspnea type: unspecified Qualified Code(s): R06.00 - Dyspnea, unspecified (9) HTN (hypertension) Code(s): I10 - ESSENTIAL (PRIMARY) HYPERTENSION (10) Human immunodeficiency virus (HIV) disease Code(s): B20 - HUMAN IMMUNODEFICIENCY VIRUS [HIV] DISEASE (11) Hyperlipidemia Code(s): E78.5 - HYPERLIPIDEMIA, UNSPECIFIED Qualifiers: Hyperlipidemia type: pure hypercholesterolemia Qualified Code(s): E78.00 - Pure hypercholesterolemia, unspecified; E78.0 - Pure hypercholesterolemia (12) Peripheral edema Code(s): R60.9 - EDEMA, UNSPECIFIED (13) Acute on chronic diastolic heart failure Code(s): I50.33 - ACUTE ON CHRONIC DIASTOLIC (CONGESTIVE) HEART FAILURE (14) Acute on chronic respiratory failure with hypoxia Code(s): J96.21 - ACUTE AND CHRONIC RESPIRATORY FAILURE WITH HYPOXIA (15) COPD exacerbation Code(s): J44.1 - CHRONIC OBSTRUCTIVE PULMONARY DISEASE W (ACUTE) EXACERBATION
[2018-10-11 11:55] VITALS: BMI 29.7
--- NOTE | 2018-10-11 15:43 | PN ---
Teaching Attending Note Name of Resident: Federica Marcos ATTENDING PHYSICIAN STATEMENT I saw and evaluated the patient. I reviewed the resident's note and discussed the case with the resident. I agree with the resident's findings and plan as documented. SUBJECTIVE: Feels some improvement in SOB. No CP/palpitations. No fever/chills/ sputum/hemoptysis. OBJECTIVE: Afebrile, hemodynamically Stable. Last Vital Signs Temp Pulse Resp BP Pulse Ox 98.0 F 89 20 110/63 97 10/11/18 15:31 10/11/18 15:31 10/11/18 15:31 10/11/18 15:31 10/10/18 21:00 HEENT- Atraumatic, Normocephalic, O2 via NC Heart - S1, S2, RRR Lungs - decreased air entry at bases Abdomen -Soft non-tender. Bowel Sounds normal. Extremities - LE edema + Laboratory Results - last 24 hr 10/10/18 10/10/18 10/10/18 17:46 18:25 21:32 WBC 11.9 H RBC 3.52 L Hgb 11.9 Hct 35.8 MCV 101.7 H MCH 33.7 MCHC 33.1 RDW 16.9 H Plt Count 291 MPV 8.4 Absolute Neuts (auto) 10.9 H Total Counted 100 Neutrophils % 91.4 H Neutrophils % (Manual) 95.0 H Band Neutrophils % 1.0 Lymphocytes % 7.1 L D Lymphocytes % (Manual) 3.0 L D Monocytes % 1.4 L Monocytes % (Manual) 1 L Eosinophils % 0.0 Basophils % 0.1 Nucleated RBC % 0 Differential Comment Man diff performed Platelet Estimate Adequate Polychromasia 1+ Macrocytosis 1+ Sodium Potassium Chloride Carbon Dioxide Anion Gap BUN Creatinine Est GFR (CKD-EPI)AfAm Est GFR (CKD-EPI)NonAf POC Glucometer 318 259 Random Glucose Calcium Phosphorus Magnesium Total Bilirubin AST ALT Alkaline Phosphatase Total Protein Albumin 10/11/18 10/11/18 10/11/18 06:14 06:32 06:32 WBC 14.4 H RBC 3.60 L Hgb 12.1 Hct 36.1 MCV 100.3 H MCH 33.6 MCHC 33.4 RDW 16.5 H Plt Count 281 MPV 8.6 Absolute Neuts (auto) 12.7 H Total Counted Neutrophils % 88.2 H Neutrophils % (Manual) Band Neutrophils % Lymphocytes % 6.9 L Lymphocytes % (Manual) Monocytes % 4.7 D Monocytes % (Manual) Eosinophils % 0.0 Basophils % 0.2 Nucleated RBC % 0 Differential Comment Platelet Estimate Polychromasia Macrocytosis Sodium 141 Potassium 4.0 Chloride 106 Carbon Dioxide 28 Anion Gap 8 BUN 18.3 H Creatinine 0.8 Est GFR (CKD-EPI)AfAm 110.96 Est GFR (CKD-EPI)NonAf 95.74 POC Glucometer 232 Random Glucose 227 H Calcium 8.6 Phosphorus 3.4 Magnesium 2.7 H Total Bilirubin 0.3 AST 14 L ALT 33 Alkaline Phosphatase 36 L Total Protein 6.0 L Albumin 3.2 L 10/11/18 12:49 WBC RBC Hgb Hct MCV MCH MCHC RDW Plt Count MPV Absolute Neuts (auto) Total Counted Neutrophils % Neutrophils % (Manual) Band Neutrophils % Lymphocytes % Lymphocytes % (Manual) Monocytes % Monocytes % (Manual) Eosinophils % Basophils % Nucleated RBC % Differential Comment Platelet Estimate Polychromasia Macrocytosis Sodium Potassium Chloride Carbon Dioxide Anion Gap BUN Creatinine Est GFR (CKD-EPI)AfAm Est GFR (CKD-EPI)NonAf POC Glucometer 231 Random Glucose Calcium Phosphorus Magnesium Total Bilirubin AST ALT Alkaline Phosphatase Total Protein Albumin Current Medications Generic Name Dose Route Start Last Admin Trade Name Freq PRN Reason Stop Dose Admin Albuterol Sulfate 1 amp 10/10/18 14:00 Ventolin 0.083% Nebulizer Soln - NEB Q4H PRN SHORT OF BREATH/WHEEZING Albuterol/Ipratropium 1 amp 10/10/18 14:00 10/11/18 14:25 Duoneb - NEB 1 amp RTID [facility] Administration Aspirin 81 mg 10/10/18 10:00 10/11/18 09:56 Asa - PO 81 mg DAILY [facility] Administration Atorvastatin Calcium 20 mg 10/09/18 22:00 10/10/18 21:36 Lipitor - PO 20 mg HS [facility] Administration Diltiazem HCl 120 mg 10/10/18 10:00 10/11/18 09:55 Cardizem Cd - PO 120 mg DAILY [facility] Administration Docusate Sodium 100 mg 10/10/18 10:00 10/11/18 09:57 Colace - PO 100 mg BID [facility] Administration Furosemide 40 mg 10/10/18 10:00 10/11/18 09:56 Lasix Injection - IVPUSH 40 mg DAILY [facility] Administration Heparin Sodium (Porcine) 5,000 unit 10/10/18 06:00 10/11/18 06:16 Heparin - SQ 5,000 unit TID [facility] Administration Insulin Aspart 1 vial 10/09/18 22:00 10/11/18 12:54 Novolog Vial Sliding Scale - SQ 4 units ACHS [facility] Administration Protocol Losartan Potassium 25 mg 10/10/18 10:00 10/11/18 09:56 Cozaar - PO 25 mg DAILY [facility] Administration Non-Formulary Medication 1 tablet 10/10/18 10:00 10/11/18 09:58 Bictegrav/Emtricit/Tenofov Ala PO 1 tablet DAILY [facility] Administration Prednisone 40 mg 10/11/18 10:00 10/11/18 09:55 Deltasone - PO 40 mg DAILY [facility] Administration Senna 1 tab 10/10/18 10:00 10/11/18 09:57 Senna - PO 1 tab BID [facility] Administration Tamsulosin HCl 0.4 mg 10/10/18 10:00 10/11/18 09:55 Flomax - PO 0.4 mg DAILY [facility] Administration Trimethoprim/Sulfamethoxazole 1 each 10/10/18 10:00 10/11/18 09:56 Bactrim Ds - PO 1 each DAILY [facility] Administration Home Medications Medication Instructions Recorded Albuterol Sulfate Inhaler - 2 inh PO QID PRN 07/30/18 [Ventolin HFA Inhaler -] Atorvastatin Ca [Lipitor] 20 mg PO HS 07/30/18 Sulfamethoxazole/Trimethoprim 1 tab PO DAILY #30 tablet 08/05/18 [Bactrim DS -] Tamsulosin HCl [Flomax] 1 cap PO DAILY #30 capsule 08/05/18 Aspirin [ASA -] 81 mg PO DAILY tab.chew 08/18/18 Bictegrav/Emtricit/Tenofov Ala 1 tablet PO DAILY 09/02/18 [Biktarvy 50-200-25 mg Tablet] Budesonide/Formeterol Fumarate 1 puff IH BID 09/02/18 [SYMBICORT 160/4.5mcg -] Docusate Calcium 60 mg PO BID 09/02/18 Alcohol Antiseptic Pads [Alcohol 1 each TP DAILY #100 med..pad 09/16/18 Prep Pads] Diltiazem Cd [Cardizem Cd -] 120 mg PO DAILY #30 cap.cd.24h 09/16/18 Furosemide [Lasix -] 40 mg PO DAILY #30 tablet 09/16/18 Losartan Potassium [Cozaar -] 25 mg PO DAILY #30 tablet 09/16/18 Miscellaneous Medical Supply 1 each SQ ASDIR #1 kit 09/16/18 [Glucometer Device] Miscellaneous Medical Supply 1 each SQ ASDIR #1 box 09/16/18 [Glucometer Test Strips #100] [place], Safety [Needle] 1 each MC DAILY #100 dis.needle 09/16/18 Albuterol 2.5/Ipratropium 0.5 1 neb IH QID #2 vial.neb. 09/19/18 [Duoneb -] Insulin Detemir [Levemir Flextouch] 8 unit SQ AM #2 insuln.pen 09/19/18 Insulin Sliding Scale [Novolog 0 units SQ ACHS #2 pen 09/19/18 Vial Sliding Scale -] Miscellaneous Medical Supply 1 each SQ ASDIR #1 box 09/19/18 [Lancets] ASSESSMENT/PLAN: 63 year old male with history of CRF sec to COPD (on home O2), HIV disease (on HAART), HTN, HLD, chronic diastolic CHF, BPH, presents to the ER from [facility] with increasing SOB, orthopnea, pedal edema. 1. Acute on Chronic Diastolic CHF decompensation CXR - some congestive changes IV Lasix diuresis ongoing Weight down from 190lbs to 184lbs Daily weight, I/Os, renal function monitoring Cardiology following 2. Acute on Chronic Respiratory Failure sec to COPD exacerbation Supplemental O2 Bronchodilator Nebs IV Solumedrol transitioned to oral Prednisone. Leukocytosis secondary to Steroid. Monitor resp Status Pulm following - PFTS as out-patient. 3. DM 2 - Maintain on sliding scale Novolog. 4. HTN - continue Cardizem, Losartan 5. Macrocytosis, B12 - 479, Folate - 16 6. BPH - on Tamsulosin 7. HIV - continue HAART, Bactrim Px. ID consulted. 8. RML Nodule - for out-patient follow up. 9. HLD - continue Statin. DVT Px - Lovenox SQ
[2018-10-11] MEDS: ENOXAPARIN NA (PORCINE) 40 MG/0.4 ML DISP.SYRIN SQ SCH (16:36)
--- NOTE | 2018-10-11 18:17 | CON.ID ---
Consult Consult Specialty:: Infectious Diseases (Coverage Dr Machado) Reason for Consultation:: HIV - History of Present Illness Chief Complaint: SOB - History Source History Provided By: Medical Record Limitations to Obtaining History: Language Barrier - Past Medical History Cardio/Vascular: Yes: Hyperlipdemia Pulmonary: Yes: COPD, O2 Dependent Renal/: Yes: BPH Infectious Disease: Yes: HIV - Past Surgical History Past Surgical History: Yes: None - Alcohol/Substance Use Hx Alcohol Use: No - Smoking History Smoking history: Unknown if ever smoked Have you smoked in the past 12 months: No Aproximately how many cigarettes per day: 20 If you are a former smoker, when did you quit?: 3months - Social History Usual Living Arrangement: With Child ADL: Independent History of Recent Travel: No Home Medications - Allergies Allergies/Adverse Reactions: Allergies Allergy/AdvReac Type Severity Reaction Status Date / Time No Known Allergies Allergy Verified 10/09/18 14:00 - Home Medications Home Medications: Ambulatory Orders Albuterol Sulfate Inhaler - [Ventolin HFA Inhaler -] 2 inh PO QID PRN 07/30/18 Atorvastatin Ca [Lipitor] 20 mg PO HS 07/30/18 Sulfamethoxazole/Trimethoprim [Bactrim DS -] 1 tab PO DAILY #30 tablet 08/05/18 Tamsulosin HCl [Flomax] 1 cap PO DAILY #30 capsule 08/05/18 Aspirin [ASA -] 81 mg PO DAILY tab.chew 08/18/18 Bictegrav/Emtricit/Tenofov Ala [Biktarvy 50-200-25 mg Tablet] 1 tablet PO DAILY 09/02/18 Budesonide/Formeterol Fumarate [SYMBICORT 160/4.5mcg -] 1 puff IH BID 09/02/18 Docusate Calcium 60 mg PO BID 09/02/18 Alcohol Antiseptic Pads [Alcohol Prep Pads] 1 each TP DAILY #100 med..pad Diltiazem Cd [Cardizem Cd -] 120 mg PO DAILY #30 cap.cd.24h 09/16/18 Furosemide [Lasix -] 40 mg PO DAILY #30 tablet 09/16/18 Losartan Potassium [Cozaar -] 25 mg PO DAILY #30 tablet 09/16/18 Miscellaneous Medical Supply [Glucometer Device] 1 each SQ ASDIR #1 kit Miscellaneous Medical Supply [Glucometer Test Strips #100] 1 each SQ ASDIR #1 box 09/16/18 [place], Safety [Needle] 1 each MC DAILY #100 dis.needle 09/16/18 Albuterol 2.5/Ipratropium 0.5 [Duoneb -] 1 neb IH QID #2 vial.neb. 09/19/18 Insulin Detemir [Levemir Flextouch] 8 unit SQ AM #2 insuln.pen 09/19/18 Insulin Sliding Scale [Novolog Vial Sliding Scale -] 0 units SQ ACHS #2 pen Miscellaneous Medical Supply [Lancets] 1 each SQ ASDIR #1 box 09/19/18 Family Disease History - Family Disease History Family Disease History: Diabetes: Father, Heart Disease: Mother (Parkinsons), Other: Mother, Brother (2), Sister (3), Son (2) Review of Systems - Review of Systems Constitutional: denies: Chills, Fever Cardiovascular: denies: Chest Pain Respiratory: reports: SOB Physical Exam Vital Signs: Vital Signs Temperature 98.0 F 10/11/18 15:31 Pulse Rate 89 10/11/18 15:31 Respiratory Rate 20 10/11/18 15:31 Blood Pressure 110/63 10/11/18 15:31 O2 Sat by Pulse Oximetry (%) 97 10/11/18 09:00 Constitutional: Yes: Well Nourished Eyes: Yes: PERRL HENT: Yes: Normocephalic Neck: Yes: Supple Cardiovascular: Yes: Regular Rate and Rhythm Respiratory: Yes: CTA Bilaterally Gastrointestinal: Yes: Normal Bowel Sounds, Soft ...Rectal Exam: Yes: Deferred Neurological: Yes: Alert, Oriented Labs: CBC, BMP 10/11/18 06:32 10/11/18 06:32 Imaging - Results Chest X-ray: Report Reviewed Problem List - Problems (1) Human immunodeficiency virus (HIV) disease Code(s): B20 - HUMAN IMMUNODEFICIENCY VIRUS [HIV] DISEASE Assessment/Plan Pt is a 63 yr old man PMH HIV on ARV (Biktarvy) was admitted for CHF exacerbation. Check CD4 and HIV Viral load. Cont current HIV regimen.
--- NOTE | 2018-10-11 18:39 | PN ---
Physical Exam: SUBJECTIVE: Patient seen and examined at bedside this morning. No acute events overnight. PAtient reports feeling much better this morning, on nasal cannula. He denies fever, chills, headache, SOB, chest pain, abdominal pain, diarrhea, urinary symptoms. OBJECTIVE: Vital Signs Period Temp Pulse Resp BP Sys/Clifton Pulse Ox Last 24 Hr 97.8 F-98.2 F 79-91 18-20 98-125/63-75 97-98 GENERAL: The patient is awake, alert, and fully oriented, on 3L NC HEAD: Normal with no signs of trauma. EYES: PERRLA, EOMI, sclera anicteric, conjunctiva clear. ENT: moist mucous membranes. NECK: Trachea midline, full range of motion, supple. LUNGS: decreased breath sounds on bilateral bases HEART: Regular rate and rhythm, S1, S2 without murmur, rub or gallop. ABDOMEN: Soft, nontender, nondistended, normoactive bowel sounds. EXTREMITIES: 2+ pulses, warm, well-perfused, +1 pitting edema b/l LE NEUROLOGICAL: Cranial nerves II through XII grossly intact. Normal speech, gait not observed. PSYCH: Normal mood, normal affect. SKIN: Warm, dry, normal turgor, no rashes or lesions noted Laboratory Results - last 24 hr 10/10/18 10/10/18 10/11/18 18:25 21:32 06:14 WBC 11.9 H RBC 3.52 L Hgb 11.9 Hct 35.8 MCV 101.7 H MCH 33.7 MCHC 33.1 RDW 16.9 H Plt Count 291 MPV 8.4 Absolute Neuts (auto) 10.9 H Total Counted 100 Neutrophils % 91.4 H Neutrophils % (Manual) 95.0 H Band Neutrophils % 1.0 Lymphocytes % 7.1 L D Lymphocytes % (Manual) 3.0 L D Monocytes % 1.4 L Monocytes % (Manual) 1 L Eosinophils % 0.0 Basophils % 0.1 Nucleated RBC % 0 Differential Comment Man diff performed Platelet Estimate Adequate Polychromasia 1+ Macrocytosis 1+ Sodium Potassium Chloride Carbon Dioxide Anion Gap BUN Creatinine Est GFR (CKD-EPI)AfAm Est GFR (CKD-EPI)NonAf POC Glucometer 259 232 Random Glucose Calcium Phosphorus Magnesium Total Bilirubin AST ALT Alkaline Phosphatase Total Protein Albumin 10/11/18 10/11/18 10/11/18 06:32 06:32 12:49 WBC 14.4 H RBC 3.60 L Hgb 12.1 Hct 36.1 MCV 100.3 H MCH 33.6 MCHC 33.4 RDW 16.5 H Plt Count 281 MPV 8.6 Absolute Neuts (auto) 12.7 H Total Counted Neutrophils % 88.2 H Neutrophils % (Manual) Band Neutrophils % Lymphocytes % 6.9 L Lymphocytes % (Manual) Monocytes % 4.7 D Monocytes % (Manual) Eosinophils % 0.0 Basophils % 0.2 Nucleated RBC % 0 Differential Comment Platelet Estimate Polychromasia Macrocytosis Sodium 141 Potassium 4.0 Chloride 106 Carbon Dioxide 28 Anion Gap 8 BUN 18.3 H Creatinine 0.8 Est GFR (CKD-EPI)AfAm 110.96 Est GFR (CKD-EPI)NonAf 95.74 POC Glucometer 231 Random Glucose 227 H Calcium 8.6 Phosphorus 3.4 Magnesium 2.7 H Total Bilirubin 0.3 AST 14 L ALT 33 Alkaline Phosphatase 36 L Total Protein 6.0 L Albumin 3.2 L 10/11/18 16:37 WBC RBC Hgb Hct MCV MCH MCHC RDW Plt Count MPV Absolute Neuts (auto) Total Counted Neutrophils % Neutrophils % (Manual) Band Neutrophils % Lymphocytes % Lymphocytes % (Manual) Monocytes % Monocytes % (Manual) Eosinophils % Basophils % Nucleated RBC % Differential Comment Platelet Estimate Polychromasia Macrocytosis Sodium Potassium Chloride Carbon Dioxide Anion Gap BUN Creatinine Est GFR (CKD-EPI)AfAm Est GFR (CKD-EPI)NonAf POC Glucometer 244 Random Glucose Calcium Phosphorus Magnesium Total Bilirubin AST ALT Alkaline Phosphatase Total Protein Albumin Active Medications Generic Name Dose Route Start Last Admin Trade Name Freq PRN Reason Stop Dose Admin Albuterol Sulfate 1 amp 10/10/18 14:00 Ventolin 0.083% Nebulizer Soln - NEB Q4H PRN SHORT OF BREATH/WHEEZING Albuterol/Ipratropium 1 amp 10/10/18 14:00 10/11/18 14:25 Duoneb - NEB 1 amp RTID GLENNY Administration Aspirin 81 mg 10/10/18 10:00 10/11/18 09:56 Asa - PO 81 mg DAILY GLENNY Administration Atorvastatin Calcium 20 mg 10/09/18 22:00 10/10/18 21:36 Lipitor - PO 20 mg HS GLENNY Administration Diltiazem HCl 120 mg 10/10/18 10:00 10/11/18 09:55 Cardizem Cd - PO 120 mg DAILY GLENNY Administration Docusate Sodium 100 mg 10/10/18 10:00 10/11/18 09:57 Colace - PO 100 mg BID GELNNY Administration Enoxaparin Sodium 40 mg 10/11/18 16:00 10/11/18 16:36 Lovenox - SQ 40 mg DAILY GLENNY Administration Furosemide 40 mg 10/10/18 10:00 10/11/18 09:56 Lasix Injection - IVPUSH 40 mg DAILY GLENNY Administration Insulin Aspart 1 vial 10/09/18 22:00 10/11/18 16:38 Novolog Vial Sliding Scale - SQ 4 units ACHS GLENNY Administration Protocol Losartan Potassium 25 mg 10/10/18 10:00 10/11/18 09:56 Cozaar - PO 25 mg DAILY GLENNY Administration Non-Formulary Medication 1 tablet 10/10/18 10:00 10/11/18 09:58 Bictegrav/Emtricit/Tenofov Ala PO 1 tablet DAILY GLENNY Administration Prednisone 40 mg 10/11/18 10:00 10/11/18 09:55 Deltasone - PO 40 mg DAILY GLENNY Administration Senna 1 tab 10/10/18 10:00 10/11/18 09:57 Senna - PO 1 tab BID GLENNY Administration Tamsulosin HCl 0.4 mg 10/10/18 10:00 10/11/18 09:55 Flomax - PO 0.4 mg DAILY GLENNY Administration Trimethoprim/Sulfamethoxazole 1 each 10/10/18 10:00 10/11/18 09:56 Bactrim Ds - PO 1 each DAILY GLENNY Administration ASSESSMENT/PLAN: Patient is a 63 year old male with past medical history of diastolic CHF, HLD, HIV (on HAART), COPD and miliary TB, presented to the ED with SOB and LE edema. #Acute on chronic diastolic CHF exacerbation -IV Lasix 40mg daily -Continue [id number] daily -weight decreased from 190lb [id number] -Daily weight -Monitor I&O -Cardiology consulted. Recommendations appreciated. #Acute on chronic respiratory failure 2/2 COPD exacerbation -Continue Albuterol RQID -Continue Symbicort BID -Prednisone 40mg day /. Then will d/c steroids. -O2 supplement PRN to keep SpO2 >90% -Pulmonology consulted. Recommendations appreciated. #HIV on HAART -Continue home med Biktarvy, confirmed by pharmacy. -Bactrim for ppx (last CD4 196) -ID (Dr. Machado) consulted. #DM -Insulin sliding scale -BGM ACHS #HLD -Continue Lipitor 20mg HS -ASA 81 mg daily #FEN -Not on any standing fluids -Electrolytes wnl, routine bmp monitoring -Diabetic/sodium restricted diet #Prophylaxis -Lovenox 40mg sq daily #Disposition -full code -tele Visit type - Emergency Visit Emergency Visit: Yes ED Registration Date: 10/09/18 Care time: The patient presented to the Emergency Department on the above date and was hospitalized for further evaluation of their emergent condition. - New Patient This patient is new to me today: No - Critical Care Critical Care patient: No ATTENDING PHYSICIAN STATEMENT I saw and evaluated the patient. I reviewed the resident's note and discussed the case with the resident. I agree with the resident's findings and plan as documented. SUBJECTIVE: OBJECTIVE: ASSESSMENT AND PLAN:
[2018-10-11] MEDS: ATORVASTATIN CA 20 MG TABLET (FP) PO SCH (21:59)
[2018-10-12] MEDS: INSULIN SLIDING SCALE (NOVOLOG) 1 VIAL SQ SCH ×3 (06:35→17:51)
[2018-10-12] MEDS: ALBUTEROL SO4 2.5/IPRATROPIUM 0.5 INH SOL 3 ML VIAL.NEB. NEB SCH ×2 (07:25→14:01)
[2018-10-12] MEDS ORDERED: EMTRICITABINE/TENOFOV ALAFENAM (DESCOVY) TABLET PO SCH (10:00)
[2018-10-12] MEDS ORDERED: DOLUTEGRAVIR SODIUM 50 MG TABLET (NON-FORMULARY) PO SCH (10:00)
--- NOTE | 2018-10-12 11:20 | PN ---
Progress Note (short form) - Note Progress Note: Continues to improve. Less SOB. Cough is improving. Intake & Output 10/09/18 10/10/18 10/11/18 10/12/18 23:59 23:59 23:59 23:59 Intake Total 900 480 40 Output Total 1700 Balance -800 480 40 Weight 191 lb 2 oz 190 lb 8 oz 184 lb Last Vital Signs Temp Pulse Resp BP Pulse Ox 98.2 F 75 18 91/52 L 97 10/11/18 17:19 10/12/18 07:35 10/11/18 22:03 10/12/18 07:35 10/12/18 08:39 Active Medications Albuterol Sulfate (Ventolin 0.083% Nebulizer Soln -) 1 amp NEB Q4H PRN PRN Reason: SHORT OF BREATH/WHEEZING Albuterol/Ipratropium (Duoneb -) 1 amp NEB RTID [facility] Last Admin: 10/12/18 07:25 Dose: 1 amp Aspirin (Asa -) 81 mg PO DAILY [facility] Last Admin: 10/11/18 09:56 Dose: 81 mg Atorvastatin Calcium (Lipitor -) 20 mg PO HS [facility] Last Admin: 10/11/18 21:59 Dose: 20 mg Diltiazem HCl (Cardizem Cd -) 120 mg PO DAILY [facility] Last Admin: 10/11/18 09:55 Dose: 120 mg Docusate Sodium (Colace -) 100 mg PO BID [facility] Last Admin: 10/11/18 22:00 Dose: 100 mg Enoxaparin Sodium (Lovenox -) 40 mg SQ DAILY [facility] Last Admin: 10/11/18 16:36 Dose: 40 mg Furosemide (Lasix Injection -) 40 mg IVPUSH DAILY [facility] Last Admin: 10/11/18 09:56 Dose: 40 mg Insulin Aspart (Novolog Vial Sliding Scale -) 1 vial SQ ACHS [facility]; Protocol Last Admin: 10/12/18 06:35 Dose: 2 units Losartan Potassium (Cozaar -) 25 mg PO DAILY [facility] Last Admin: 10/11/18 09:56 Dose: 25 mg Non-Formulary Medication (Bictegrav/Emtricit/Tenofov Ala) 1 tablet PO DAILY [facility] Last Admin: 10/11/18 09:58 Dose: 1 tablet Prednisone (Deltasone -) 40 mg PO DAILY [facility] Last Admin: 10/11/18 09:55 Dose: 40 mg Senna (Senna -) 1 tab PO BID [facility] Last Admin: 10/11/18 21:59 Dose: 1 tab Tamsulosin HCl (Flomax -) 0.4 mg PO DAILY [facility] Last Admin: 10/11/18 09:55 Dose: 0.4 mg Trimethoprim/Sulfamethoxazole (Bactrim Ds -) 1 each PO DAILY [facility] Last Admin: 10/11/18 09:56 Dose: 1 each Constitutional: Yes: No Distress, Obese Eyes: Yes: Conjunctiva Clear, EOM Intact HENT: Yes: Atraumatic, Normocephalic Neck: Yes: Supple, Trachea Midline Cardiovascular: Yes: Regular Rate and Rhythm Respiratory: Yes: Cough, Diminished, On Nasal O2, Rales, Rhonchi. No: Wheeze, Accessory Muscle Use, Stridor ...Inspection: Yes: WNL ...Clubbing: No Gastrointestinal: Yes: Normal Bowel Sounds, Soft, Abdomen, Obese Renal/: Yes: WNL Musculoskeletal: Yes: WNL Extremities: Yes: WNL Edema: Yes Peripheral Pulses WNL: Yes Integumentary: Yes: WNL, Venous Stasis Changes Neurological: Yes: WNL, Alert, Oriented ...Motor Strength: WNL Psychiatric: Yes: WNL, Alert, Oriented Labs: Laboratory Results - last 24 hr 10/11/18 10/11/18 10/11/18 12:49 16:37 21:57 POC Glucometer 231 244 348 10/12/18 06:35 POC Glucometer 169 Problem List - Problems (1) Chronic diastolic (congestive) heart failure Code(s): I50.32 - CHRONIC DIASTOLIC (CONGESTIVE) HEART FAILURE (2) Shortness of breath Code(s): R06.02 - SHORTNESS OF BREATH (3) Volume overload Code(s): E87.70 - FLUID OVERLOAD, UNSPECIFIED Qualifiers: Hypervolemia type: unspecified Qualified Code(s): E87.70 - Fluid overload, unspecified (4) COPD (chronic obstructive pulmonary disease) Code(s): J44.9 - CHRONIC OBSTRUCTIVE PULMONARY DISEASE, UNSPECIFIED Qualifiers: COPD type: emphysema Emphysema type: centrilobular Qualified Code(s): J43.2 - Centrilobular emphysema (5) BPH (benign prostatic hyperplasia) Code(s): N40.0 - BENIGN PROSTATIC HYPERPLASIA WITHOUT LOWER URINRY TRACT SYMP (6) Bilateral leg edema Code(s): R60.0 - LOCALIZED EDEMA (7) Diabetes Code(s): E11.9 - TYPE 2 DIABETES MELLITUS WITHOUT COMPLICATIONS (8) Dyspnea Code(s): R06.00 - DYSPNEA, UNSPECIFIED Qualifiers: Dyspnea type: unspecified Qualified Code(s): R06.00 - Dyspnea, unspecified (9) HTN (hypertension) Code(s): I10 - ESSENTIAL (PRIMARY) HYPERTENSION (10) Human immunodeficiency virus (HIV) disease Code(s): B20 - HUMAN IMMUNODEFICIENCY VIRUS [HIV] DISEASE (11) Hyperlipidemia Code(s): E78.5 - HYPERLIPIDEMIA, UNSPECIFIED Qualifiers: Hyperlipidemia type: pure hypercholesterolemia Qualified Code(s): E78.00 - Pure hypercholesterolemia, unspecified; E78.0 - Pure hypercholesterolemia (12) Peripheral edema Code(s): R60.9 - EDEMA, UNSPECIFIED (13) Acute on chronic diastolic heart failure Code(s): I50.33 - ACUTE ON CHRONIC DIASTOLIC (CONGESTIVE) HEART FAILURE (14) Acute on chronic respiratory failure with hypoxia Code(s): J96.21 - ACUTE AND CHRONIC RESPIRATORY FAILURE WITH HYPOXIA (15) COPD exacerbation Code(s): J44.1 - CHRONIC OBSTRUCTIVE PULMONARY DISEASE W (ACUTE) EXACERBATION Assessment/Plan IV Lasix Daily weights Follow I & O BD TX PRN Daily Prednisone x 5 days then can monitor off Monitor off ABX No smoking PFTs as an outpatient Will need close outpatient monitoring of RML nodule Dr Martin Problem List - Problems (1) Chronic diastolic (congestive) heart failure Code(s): I50.32 - CHRONIC DIASTOLIC (CONGESTIVE) HEART FAILURE (2) Shortness of breath Code(s): R06.02 - SHORTNESS OF BREATH (3) Volume overload Code(s): E87.70 - FLUID OVERLOAD, UNSPECIFIED Qualifiers: Hypervolemia type: unspecified Qualified Code(s): E87.70 - Fluid overload, unspecified (4) COPD (chronic obstructive pulmonary disease) Code(s): J44.9 - CHRONIC OBSTRUCTIVE PULMONARY DISEASE, UNSPECIFIED Qualifiers: COPD type: emphysema Emphysema type: centrilobular Qualified Code(s): J43.2 - Centrilobular emphysema (5) BPH (benign prostatic hyperplasia) Code(s): N40.0 - BENIGN PROSTATIC HYPERPLASIA WITHOUT LOWER URINRY TRACT SYMP (6) Bilateral leg edema Code(s): R60.0 - LOCALIZED EDEMA (7) Diabetes Code(s): E11.9 - TYPE 2 DIABETES MELLITUS WITHOUT COMPLICATIONS (8) Dyspnea Code(s): R06.00 - DYSPNEA, UNSPECIFIED Qualifiers: Dyspnea type: unspecified Qualified Code(s): R06.00 - Dyspnea, unspecified (9) HTN (hypertension) Code(s): I10 - ESSENTIAL (PRIMARY) HYPERTENSION (10) Human immunodeficiency virus (HIV) disease Code(s): B20 - HUMAN IMMUNODEFICIENCY VIRUS [HIV] DISEASE (11) Hyperlipidemia Code(s): E78.5 - HYPERLIPIDEMIA, UNSPECIFIED Qualifiers: Hyperlipidemia type: pure hypercholesterolemia Qualified Code(s): E78.00 - Pure hypercholesterolemia, unspecified; E78.0 - Pure hypercholesterolemia (12) Peripheral edema Code(s): R60.9 - EDEMA, UNSPECIFIED (13) Acute on chronic diastolic heart failure Code(s): I50.33 - ACUTE ON CHRONIC DIASTOLIC (CONGESTIVE) HEART FAILURE (14) Acute on chronic respiratory failure with hypoxia Code(s): J96.21 - ACUTE AND CHRONIC RESPIRATORY FAILURE WITH HYPOXIA (15) COPD exacerbation Code(s): J44.1 - CHRONIC OBSTRUCTIVE PULMONARY DISEASE W (ACUTE) EXACERBATION
[2018-10-12 11:30] LABS: CALCIUM 8.5 mg/dL (8.5-10.1)
[2018-10-12] MEDS ORDERED: PT OWN MED DRAWER 7, Y5N ONE ×2 (11:35→12:06)
[2018-10-12] MEDS: ASPIRIN 81 MG CHEWABLE TABLETS PO SCH (11:38)
[2018-10-12] MEDS: ENOXAPARIN NA (PORCINE) 40 MG/0.4 ML DISP.SYRIN SQ SCH (11:38)
[2018-10-12] MEDS: DOCUSATE SODIUM 100 MG CAPSULE (FP) PO SCH (11:38)
[2018-10-12] MEDS: predniSONE 20 MG TABLET (UD) PO SCH (11:39)
[2018-10-12] MEDS: LOSARTAN POTASSIUM 25 MG TABLET PO SCH (11:39)
[2018-10-12] MEDS: TAMSULOSIN HCL 0.4 MG CAP PO SCH (11:39)
[2018-10-12] MEDS: SENNOSIDES 8.6MG TABLET (FP) PO SCH (11:39)
[2018-10-12] MEDS: PATIENT'S OWN MEDICATION (NON-FORMULARY) (Bictegrav/Emtricit/Tenofov Ala 1 TABLET) PO SCH (11:39)
[2018-10-12] MEDS: SULFAMETHOXAZOLE/TRIMETHOPRIM 800MG/160MG D.S. TABLET PO SCH (11:39)
[2018-10-12] MEDS: FUROSEMIDE 40 MG/4 ML INJECTABLE VIAL IVPUSH SCH (11:49)
[2018-10-12 17:03] VITALS: BP 119/58; PULSE 96; TEMP 98.2
--- NOTE | 2018-10-12 17:05 | DS ---
Physical Exam: SUBJECTIVE: Feels much improved - SOB improved, LE edema improved. No CP/ palpitations. No fever/chills/sputum/hemoptysis. OBJECTIVE: Afebrile, hemodynamically Stable. Last Vital Signs Temp Pulse Resp BP Pulse Ox 97.8 F 92 H 18 102/52 L 97 10/12/18 13:00 10/12/18 13:00 10/12/18 13:00 10/12/18 13:00 10/12/18 08:39 HEENT- Atraumatic, Normocephalic, Comfortable on O2 via NC Heart - S1, S2, RRR Lungs - decreased air entry at bases Abdomen -Soft non-tender. Bowel Sounds normal. Extremities - LE edema + Laboratory Results - last 24 hr 10/11/18 10/12/18 10/12/18 21:57 06:35 10:35 Sodium 138 Potassium 4.0 Chloride 101 Carbon Dioxide 31 Anion Gap 6 L BUN 17.0 Creatinine 1.0 Est GFR (CKD-EPI)AfAm 93.08 Est GFR (CKD-EPI)NonAf 80.31 POC Glucometer 348 169 Random Glucose 267 H Calcium 8.5 10/12/18 11:43 Sodium Potassium Chloride Carbon Dioxide Anion Gap BUN Creatinine Est GFR (CKD-EPI)AfAm Est GFR (CKD-EPI)NonAf POC Glucometer 245 Random Glucose Calcium Discharge Medications Medication Instructions Recorded Albuterol Sulfate Inhaler - 2 inh PO QID PRN 07/30/18 [Ventolin HFA Inhaler -] Atorvastatin Ca [Lipitor] 20 mg PO HS 07/30/18 Sulfamethoxazole/Trimethoprim 1 tab PO DAILY #30 tablet 08/05/18 [Bactrim DS -] Tamsulosin HCl [Flomax] 1 cap PO DAILY #30 capsule 08/05/18 Aspirin [ASA -] 81 mg PO DAILY tab.chew 08/18/18 Bictegrav/Emtricit/Tenofov Ala 1 tablet PO DAILY 09/02/18 [Biktarvy 50-200-25 mg Tablet] Budesonide/Formeterol Fumarate 1 puff IH BID 09/02/18 [SYMBICORT 160/4.5mcg -] Docusate Calcium 60 mg PO BID 09/02/18 Alcohol Antiseptic Pads [Alcohol 1 each TP DAILY #100 med..pad 09/16/18 Prep Pads] Diltiazem Cd [Cardizem Cd -] 120 mg PO DAILY #30 cap.cd.24h 09/16/18 Losartan Potassium [Cozaar -] 25 mg PO DAILY #30 tablet 09/16/18 Miscellaneous Medical Supply 1 each SQ ASDIR #1 kit 09/16/18 [Glucometer Device] Miscellaneous Medical Supply 1 each SQ ASDIR #1 box 09/16/18 [Glucometer Test Strips #100] Stafford, Safety [Needle] 1 each MC DAILY #100 dis.needle 09/16/18 Albuterol 2.5/Ipratropium 0.5 1 neb IH QID #2 vial.neb. 09/19/18 [Duoneb -] Insulin Detemir [Levemir Flextouch] 8 unit SQ AM #2 insuln.pen 09/19/18 Insulin Sliding Scale [Novolog 0 units SQ ACHS #2 pen 09/19/18 Vial Sliding Scale -] Miscellaneous Medical Supply 1 each SQ ASDIR #1 box 09/19/18 [Lancets] Furosemide [Lasix -] 60 mg PO DAILY 30 Days #45 tablet 10/12/18 predniSONE [Deltasone -] 40 mg PO DAILY 2 Days #2 tablet 10/12/18 Date of Admission:10/09/18 Date of Discharge: 10/12/18 Minutes to complete discharge: 40 Discharge Summary Reason For Visit: EDEMA OF BOTH LOWER EXT,SOB,CHRONIC DIASTOLIC CHF Current Active Problems Chronic diastolic (congestive) heart failure (Acute) Shortness of breath (Chronic) Volume overload (Chronic) Hospital Course: 63 year old male with history of CRF sec to COPD (on home O2), HIV disease (on HAART), HTN, HLD, chronic diastolic CHF, BPH, presents to the ER from [facility] with increasing SOB, orthopnea, pedal edema. he was treated for COPD exacerbation with bronchodilator nebs and course of prednisone as well as IV lasix diuresis for CHF exacerbation. He diuresed adequately and is currently optimized for discharge given improvement in symptoms and LE edema. 1. Acute on Chronic Diastolic CHF decompensation CXR - some congestive changes IV Lasix diuresis sucecessful - weight down 15 lbs. Medicaly stable for discharge on increased dose of home Lasix to 60mg daily ( needs out-patient PCP and Cardiology follow ups with repeat labs for Na, K, BUN/ Creat) Advised to weigh daily and to seek medical sttention if ay increase in weight of greater than 2-3lbs in 5-7 days. 2. Acute on Chronic Respiratory Failure sec to COPD exacerbation to complete 2 more velázquez of Prednisone as out-patient on discharge. Pulm following - PFTS as out-patient. 3. DM 2 - resume home insulin regimen 4. HTN - continue Cardizem, Losartan 5. Macrocytosis, B12 - 479, Folate - 16 - for out-patient PCP follow up. ?due to HAART. 6. BPH - on Tamsulosin 7. HIV - continue HAART, Bactrim Px. 8. RML Nodule - for out-patient follow up. 9. HLD - continue Statin. Medically stable for discharge with PCP, Cardio, Pulm, ID follow ups. - Instructions Diet, Activity, Other Instructions: You were admitted with shortness of breath secondary to COPD exacerbation and decompensated CHF. Your Lasix dose was increased to 60mg daily. Please follow with your Primary Care provider in 1 week for labwork to check your potassium and renal function ( Potassium, Sodium, BUN, Creat). Please take an additional 2 days of Prednisone to complete a 5 day course. Please follow up with: 1. Cardiology 2. Pulmonary 3. [place] [facility] Referrals: Marcos Martin MD [Staff Physician] - 1 Week Harvey Turner MD [Staff Physician] - 1 Week Disposition: HOME - Home Medications Comprehensive Discharge Medication List: Ambulatory Orders Albuterol Sulfate Inhaler - [Ventolin HFA Inhaler -] 2 inh PO QID PRN 07/30/18 Atorvastatin Ca [Lipitor] 20 mg PO HS 07/30/18 Sulfamethoxazole/Trimethoprim [Bactrim DS -] 1 tab PO DAILY #30 tablet 08/05/18 Tamsulosin HCl [Flomax] 1 cap PO DAILY #30 capsule 08/05/18 Aspirin [ASA -] 81 mg PO DAILY tab.chew 08/18/18 Bictegrav/Emtricit/Tenofov Ala [Biktarvy 50-200-25 mg Tablet] 1 tablet PO DAILY 09/02/18 Budesonide/Formeterol Fumarate [SYMBICORT 160/4.5mcg -] 1 puff IH BID 09/02/18 Docusate Calcium 60 mg PO BID 09/02/18 Alcohol Antiseptic Pads [Alcohol Prep Pads] 1 each TP DAILY #100 med..pad Diltiazem Cd [Cardizem Cd -] 120 mg PO DAILY #30 cap.cd.24h 09/16/18 Losartan Potassium [Cozaar -] 25 mg PO DAILY #30 tablet 09/16/18 Miscellaneous Medical Supply [Glucometer Device] 1 each SQ ASDIR #1 kit Miscellaneous Medical Supply [Glucometer Test Strips #100] 1 each SQ ASDIR #1 box 09/16/18 Stafford, Safety [Needle] 1 each MC DAILY #100 dis.needle 09/16/18 Albuterol 2.5/Ipratropium 0.5 [Duoneb -] 1 neb IH QID #2 vial.neb. 09/19/18 Insulin Detemir [Levemir Flextouch] 8 unit SQ AM #2 insuln.pen 09/19/18 Insulin Sliding Scale [Novolog Vial Sliding Scale -] 0 units SQ ACHS #2 pen Miscellaneous Medical Supply [Lancets] 1 each SQ ASDIR #1 box 09/19/18 Furosemide [Lasix -] 60 mg PO DAILY 30 Days #45 tablet 10/12/18 predniSONE [Deltasone -] 40 mg PO DAILY 2 Days #2 tablet 10/12/18 This patient is new to me today: No Emergency Visit: Yes ED Registration Date: 10/09/18 Care time: The patient presented to the Emergency Department on the above date and was hospitalized for further evaluation of their emergent condition. Critical Care patient: No - Discharge Referral Referred to [facility] Med P.C.: No
== END 2018-10-12 19:17 | disposition home or self-care (01) | DRG 194 ==
LOC: JER 13:33 → JERBED 18:03 → J8W 21:14
PROVIDERS: ADMIT Internal Medicine
DX: I11.0 Hypertensive heart disease with heart failure (principal); Z21 Asymptomatic human immunodeficiency virus [HIV] infection status; I50.33 Acute on chronic diastolic (congestive) heart failure; N40.0 Benign prostatic hyperplasia without lower urinary tract symptoms; R91.1 Solitary pulmonary nodule; R60.0 Localized edema; E78.5 Hyperlipidemia, unspecified; E66.9 Obesity, unspecified; Z87.891 Personal history of nicotine dependence; E87.70 Fluid overload, unspecified; J96.21 Acute and chronic respiratory failure with hypoxia; Z99.81 Dependence on supplemental oxygen; J44.1 Chronic obstructive pulmonary disease with (acute) exacerbation; E11.9 Type 2 diabetes mellitus without complications; D75.89 Other specified diseases of blood and blood-forming organs; Z86.11 Personal history of tuberculosis; I69.354 Hemiplegia and hemiparesis following cerebral infarction affecting left non-dominant side
CPT/HCPCS: 36415; 71045-TC-FY; 80048; 80053; 82550; 82553; 82607; 82746; 82962; 83735; 83880; 84100; 84484; 85025; 85610; 85730; 93005; 93010; 94640; 94660; 99285-25; J1644